=== PATIENT | female | born 1950 | race Asian ===

== ENCOUNTER 2019-09-25 20:40 | Inpatient (IN) | payer OTHER ==
[~2019-09-25] VITALS: Ht 165.1 cm; Wt 67.6 kg
[2019-09-25 20:50] VITALS: BP 174/81
--- NOTE | 2019-09-25 20:50 | NUR ---
ED Nurse Note: Pt brought into ED from home by FAYE RA 826 for c/o R sided pain s/p mechanical fall at 1800 today. Pt reports severe 10/10 pain to R hip that radiates down to R leg. Pt denies taking any blood thinners or hitting her head. Pt states she just tripped while walking. Pt is aaox4, no cardiac distress noted. Pt is having labored breathing, appears anxious. Wheezing noted. Pt connected to bus monitor. ERMD at bedside. Will continue to monitor.
--- NOTE | 2019-09-25 20:55 | NUR ---
ED Nurse Note: No shortening of R leg noted.
--- NOTE | 2019-09-25 20:59 | Emergency Room Report ---
History of Present Illness General Chief Complaint: Multiple Trauma/Fall Source: Patient Present Illness HPI Patient tripped and fell. 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 She fell onto her right hip. She is unable to ambulate and has pain there. The pain is severe radiating down her leg. She has been prior neurologic impairments and has some decreased sensation on that side. She denies any head trauma or loss of consciousness. Patient has a history of asthma and is wheezing at this time. CVA 10 years ago. Transported by BLS. The patient is not answering most questions with review of systems. Allergies: Coded Allergies: No Known Allergies (Unverified , 09/25/19) Patient History Limited by: medical condition Past Medical History: see triage record Social History: Denies: smoking, alcohol use, drug use Social History Narrative From home with family Last Menstrual Period: na Reviewed Nursing Documentation: PMH: Agreed; PSxH: Agreed Nursing Documentation-PMH Past Medical History: No History, Except For Hx Pacemaker: No Hx Asthma: Yes Hx COPD: No Hx Diabetes: No Hx Cancer: No Hx Gastrointestinal Problems: No Hx Dialysis: No History Of Psychiatric Problem: No Hx Neurological Problems: No Hx Cerebrovascular Accident: No Hx Seizures: No Review of Systems All Other Systems: limited Physical Exam Vital Signs Date Time Temp Pulse Resp B/P (MAP) Pulse Ox O2 Delivery O2 Flow Rate FiO2 09/25/19 20:34 97.7 88 18 174/81 (112) 98 Room Air Sp02 EP Interpretation: reviewed, normal General Appearance: alert, mild distress Head: normocephalic Eyes: bilateral eye normal inspection, bilateral eye PERRL, bilateral eye EOMI ENT: moist mucus membranes Neck: supple Respiratory: respiratory distress - Minimal, wheezing, expiration Cardiovascular #1: regular rate, rhythm Cardiovascular #2: 2+ dorsalis pedis (R) Gastrointestinal: normal inspection, non tender, no mass, non-distended, decreased bowel sounds Genitourinary: no CVA tenderness Musculoskeletal: no calf tenderness, tender - Right hip and pelvis no external rotation or shortening, tenderness to compression of pelvis and right hip Neurologic: alert, motor weakness - Right hemiparesis Psychiatric: anxious Skin: no rash, warm/dry Medical Decision Making Diagnostic Impression: Primary Impression: Pelvic fracture Qualified Codes: S32.9XXA - Fracture of unspecified parts of lumbosacral spine and pelvis, initial encounter for closed fracture Additional Impressions: Bronchospasm Status post stroke Ruled Out: Closed right hip fracture ER Course Patient presents post slip and fall with right hip and pelvis pain. Differential includes contusion, fracture amongst others. Evaluation with EKG, chest x-ray and a pelvis and right hip x-rays and labs. She is unable to ambulate at this time. Patient be treated with gentle IV hydration and analgesia. A breathing treatment is ordered. EKG normal sinus rhythm right axis with nonspecific ST-T wave changes rate 79. Chest x-ray unremarkable. Pelvis and right hip initially read by ER physician as positive fracture. Sleeping after morphine. O2 sat minimally low. Oxygen begun. CO2 = 37. Stable for medical floor. 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 Contacted. (This note was changed due to CT scan performed on the floor. Hip fracture excluded however the patient has a pelvic fracture.) Laboratory Tests Test 09/25/19 21:00 09/25/19 21:30 09/26/19 04:45 White Blood Count 14.6 K/UL (4.8-10.8) H 12.6 K/UL (4.8-10.8) H Red Blood Count 4.53 M/UL (4.20-5.40) 4.01 M/UL (4.20-5.40) L Hemoglobin 14.0 G/DL (12.0-16.0) 12.8 G/DL (12.0-16.0) Hematocrit 43.9 % (37.0-47.0) 36.8 % (37.0-47.0) L Mean Corpuscular Volume 97 FL (80-99) 92 FL (80-99) Mean Corpuscular Hemoglobin 30.8 PG (27.0-31.0) 31.9 PG (27.0-31.0) H Mean Corpuscular Hemoglobin Concent 31.8 G/DL (32.0-36.0) L 34.7 G/DL (32.0-36.0) Red Cell Distribution Width 12.6 % (11.6-14.8) 11.9 % (11.6-14.8) Platelet Count 222 K/UL (150-450) 183 K/UL (150-450) Mean Platelet Volume 9.0 FL (6.5-10.1) 7.1 FL (6.5-10.1) Neutrophils (%) (Auto) 82.4 % (45.0-75.0) H 82.7 % (45.0-75.0) H Lymphocytes (%) (Auto) 10.0 % (20.0-45.0) L 11.3 % (20.0-45.0) L Monocytes (%) (Auto) 5.1 % (1.0-10.0) 5.3 % (1.0-10.0) Eosinophils (%) (Auto) 1.5 % (0.0-3.0) 0.1 % (0.0-3.0) Basophils (%) (Auto) 1.1 % (0.0-2.0) 0.6 % (0.0-2.0) Prothrombin Time 10.1 SEC (9.30-11.50) Prothrombin Time INR 0.9 (0.9-1.1) Activated Partial Thromboplast Time 27 SEC (23-33) Sodium Level 138 MMOL/L (136-145) 138 MMOL/L (136-145) Potassium Level 3.6 MMOL/L (3.5-5.1) 3.7 MMOL/L (3.5-5.1) Chloride Level 101 MMOL/L (98-107) 102 MMOL/L (98-107) Carbon Dioxide Level 28 MMOL/L (21-32) 29 MMOL/L (21-32) Anion Gap 9 mmol/L (5-15) 8 mmol/L (5-15) Blood Urea Nitrogen 15 mg/dL (7-18) 12 mg/dL (7-18) Creatinine 0.6 MG/DL (0.55-1.30) 0.6 MG/DL (0.55-1.30) Estimate Glomerular Filtration Rate mL/min (>60) mL/min (>60) Glucose Level 132 MG/DL (74-106) H 139 MG/DL (74-106) H Calcium Level 9.6 MG/DL (8.5-10.1) 8.9 MG/DL (8.5-10.1) Total Bilirubin 0.3 MG/DL (0.2-1.0) 0.4 MG/DL (0.2-1.0) Aspartate Amino Transferase (AST) 36 U/L (15-37) 27 U/L (15-37) Alanine Aminotransferase (ALT) 44 U/L (12-78) 30 U/L (12-78) Alkaline Phosphatase 58 U/L (46-116) 44 U/L (46-116) L Total Protein 8.4 G/DL (6.4-8.2) H 7.0 G/DL (6.4-8.2) Albumin 4.1 G/DL (3.4-5.0) 3.3 G/DL (3.4-5.0) L Globulin 4.3 g/dL 3.7 g/dL Albumin/Globulin Ratio 1.0 (1.0-2.7) 0.9 (1.0-2.7) L Urine Color Pale yellow Urine Appearance Clear Urine pH 5 (4.5-8.0) Urine Specific [place] 1.020 (1.005-1.035) Urine Protein Negative (NEGATIVE) Urine Glucose (UA) Negative (NEGATIVE) Urine Ketones 1+ (NEGATIVE) H Urine Blood 2+ (NEGATIVE) H Urine Nitrite Negative (NEGATIVE) Urine Bilirubin Negative (NEGATIVE) Urine Urobilinogen Normal MG/DL (0.0-1.0) Urine Leukocyte Esterase Negative (NEGATIVE) Urine RBC 2-4 /HPF (0 - 2) H Urine WBC 0-2 /HPF (0 - 2) Urine Squamous Epithelial Cells Occasional /LPF Urine Bacteria Occasional /HPF (NONE) Thyroid Stimulating Hormone (TSH) 1.012 uiU/mL (0.358-3.740) EKG Diagnostic Results Rate: normal Rhythm: NSR ST Segments: no acute changes - Right axis and nonspecific ST-T wave changes Rhythm Strip Diag. Results EP Interpretation: yes Rhythm: NSR, no PVC's, no ectopy Chest X-Ray Diagnostic Results Chest X-Ray Diagnostic Results : Chest X-Ray Ordered: Yes # of Views/Limited/Complete: 1 View Indication: Shortness of Breath EP Interpretation: Yes Interpretation: no effusion, no pneumothorax, other - copd Impression: Other Electronically Signed by: Electronically signed by Cristhian Arroyo MD Other X-Ray Diagnostic Results Other X-Ray Diagnostic Results : X-Ray ordered: Pelvis and right hip # of Views/Limited Vs Complete: 2 View Indication: Pain EP Interpretation: Yes Interpretation: no dislocation, no soft tissue swelling, other - Surgical neck fracture with minimal angulation -initial reading in error Impression: Other Electronically Signed by: Electronically signed by Cristhian Arroyo MD Last Vital Signs Date Time Temp Pulse Resp B/P (MAP) Pulse Ox O2 Delivery O2 Flow Rate FiO2 09/26/19 09:00 Room Air 09/26/19 08:50 92 1.0 24 09/26/19 07:59 98.6 78 19 152/70 (97) Status: improved Disposition: ADMITTED INPATIENT Condition: Serious Cristhian Arroyo MD Sep 25, 2019 20:59
[2019-09-25] MEDS ORDERED: Sodium Chloride 550 ML IV SCH (21:00)
[2019-09-25] MEDS ORDERED: Morphine Sulfate 4mg/ml Inj (IV USE ONLY) IVP ONE (21:00)
[2019-09-25] MEDS ORDERED: Albuterol/Ipratropium 3ml neb HHN ONE (21:00)
--- NOTE | 2019-09-25 21:00 | NUR ---
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
[2019-09-25] MEDS ORDERED: Morphine Sulfate 2mg/ml Inj(IV/IM USE ONLY) IM ONE (21:30)
[2019-09-25 21:53] LABS: BASOPHILS % (AUTO) 1.1 % (0.0-2.0); EOSINOPHILS % (AUTO) 1.5 % (0.0-3.0); HEMATOCRIT 43.9 % (37.0-47.0); MEAN CORPUSCULAR VOLUME 97 FL (80-99); MONOCYTES % (AUTO) 5.1 % (1.0-10.0); NEUTROPHILS % (AUTO) 82.4 % (45.0-75.0); PLATELET COUNT 222 K/UL (150-450); RED BLOOD COUNT 4.53 M/UL (4.20-5.40); RED CELL DISTRIBUTION WIDTH 12.6 % (11.6-14.8); WHITE BLOOD COUNT 14.6 K/UL (4.8-10.8)
[2019-09-25 21:54] LABS: ANION GAP 9 mmol/L (5-15); BLOOD UREA NITROGEN 15 mg/dL (7-18); CALCIUM 9.6 MG/DL (8.5-10.1); CARBON DIOXIDE 28 MMOL/L (21-32); CHLORIDE 101 MMOL/L (98-107); CREATININE 0.6 MG/DL (0.55-1.30); POTASSIUM 3.6 MMOL/L (3.5-5.1); SODIUM 138 MMOL/L (136-145)
[2019-09-25 21:59] LABS: APPEARANCE,URINE CLEAR; BILIRUBIN, URINE NEGATIVE (NEGATIVE); COLOR,URINE PALE YELLOW; GLUCOSE, URINE (UA) NEGATIVE (NEGATIVE); KETONES,URINE 1+ (NEGATIVE); LEUKOCYTE ESTERASE ,URINE NEGATIVE (NEGATIVE); NITRITE,URINE NEGATIVE (NEGATIVE); PH,URINE 5 (4.5-8.0); PROTEIN,URINE NEGATIVE (NEGATIVE); UROBILINOGEN,URINE NORMAL MG/DL (0.0-1.0)
[2019-09-25 21:59] LABS: ALANINE AMINOTRANSFERASE 44 U/L (12-78); ALBUMIN 4.1 G/DL (3.4-5.0); ALKALINE PHOSPHATASE 58 U/L (46-116); ASPARTATE AMINO TRANSFERASE 36 U/L (15-37); BILIRUBIN,TOTAL 0.3 MG/DL (0.2-1.0)
[2019-09-25 22:00] VITALS: BP 160/75
--- NOTE | 2019-09-25 22:00 | NUR ---
ED Nurse Note: Pt appears more comfortable at this time after being given morphine for pain. Pt RR is 14, but oxygen saturation dropped to 87% on RA. ERMD informed of oxygen saturation and pt placed on 1L oxygen via NC per ERMD.
[2019-09-25 22:09] LABS: INR 0.9 (0.9-1.1)
[2019-09-25 22:20] VITALS: BP 155/85
--- NOTE | 2019-09-25 22:20 | NUR ---
ED Nurse Note: Pt tolerating oxygen via NC well. Pt is sleeping at this time, oxygen saturation is now 94% on 1L oxygen via NC. Will continue to monitor pt and respiratory status.
[2019-09-25] MEDS ORDERED: Zolpidem 5mg tab ORAL PRN (22:30)
[2019-09-25] MEDS ORDERED: Miralax 17gm pkt ORAL PRN (22:30)
--- NOTE | 2019-09-25 23:15 | NUR ---
ED Nurse Note: Report given to DOMINGA Graves.
--- NOTE | 2019-09-26 | NUR ---
ED Nurse Note: Pt is sleeping at this time, no acute distress noted. VSS. Will continue to monitor. Awaiting on pt to be taken to unit after CO2 monitoring is completed by RT.
--- NOTE | 2019-09-26 00:45 | NUR ---
ED Nurse Note: Pt is stable to be moved to MS unit at this time, per ERMD. Pt is sleeping at this time, no acute distress noted. Pt taken to unit via gurney by tech. Pt belongings sent with pt. VSS. Pt own medication taken from pt and placed in med box in ER med room.
--- NOTE | 2019-09-26 01:00 | NUR ---
NURSE NOTES: PATIENT WAS SAFELY TRANSFERRED TO UNIT VIA GURNEY. RECEIVED REPORT FROM DOMINGA BACA. BELONGING LIST WAS REVIEWED AND SIGNED WITH PATIENT. PATIENT IS AWAKE, AAOX4, ON NL 1L, C/O 10/10 PAIN IN RIGHT HIP. BRUISING NOTED ON RIGHT ANKLE FROM PRIOR FALL AT HOME. PATIENT IS A HIGH FALL RISK. PLACED PATIENT IN ROOM NEAR NURSING STATION. YELLOW GOWN, YELLOW SOCKS AND YELLOW ARM BAND IN PLACED. COMMUNICATED TO STAFF ABOUT FREQUENT ROUNDING. BED IS LOCKED AND LOW, BED ALARMS ACTIVE ON ZONE 2, SIDE RAILS UP X2 AND CALL LIGHT IS WITHIN REACH. WILL CONTINUE TO MONITOR.
[2019-09-26] MEDS: D5 1/2NS 1,000 ML IV SCH ×2 (02:07→17:23)
[2019-09-26 04:00] VITALS: BP_SYST 110; BP_SYST 123; BP_DIAS 67; BP_DIAS 71
[2019-09-26 06:40] LABS: BASOPHILS % (AUTO) 0.6 % (0.0-2.0); EOSINOPHILS % (AUTO) 0.1 % (0.0-3.0); HEMATOCRIT 36.8 % (37.0-47.0); HEMOGLOBIN 12.8 G/DL (12.0-16.0); LYMPHOCYTES % (AUTO) 11.3 % (20.0-45.0); MEAN CORPUSCULAR VOLUME 92 FL (80-99); MONOCYTES % (AUTO) 5.3 % (1.0-10.0); NEUTROPHILS % (AUTO) 82.7 % (45.0-75.0); PLATELET COUNT 183 K/UL (150-450); RED BLOOD COUNT 4.01 M/UL (4.20-5.40); RED CELL DISTRIBUTION WIDTH 11.9 % (11.6-14.8); WHITE BLOOD COUNT 12.6 K/UL (4.8-10.8)
[2019-09-26 07:01] LABS: ALANINE AMINOTRANSFERASE 30 U/L (12-78); ALBUMIN 3.3 G/DL (3.4-5.0); ALBUMIN/GLOBULIN RATIO 0.9 (1.0-2.7); ALKALINE PHOSPHATASE 44 U/L (46-116); ANION GAP 8 mmol/L (5-15); ASPARTATE AMINO TRANSFERASE 27 U/L (15-37); BILIRUBIN,TOTAL 0.4 MG/DL (0.2-1.0); BLOOD UREA NITROGEN 12 mg/dL (7-18); CALCIUM 8.9 MG/DL (8.5-10.1); CARBON DIOXIDE 29 MMOL/L (21-32); CHLORIDE 102 MMOL/L (98-107); CREATININE 0.6 MG/DL (0.55-1.30); POTASSIUM 3.7 MMOL/L (3.5-5.1); SODIUM 138 MMOL/L (136-145)
[2019-09-26 07:59] VITALS: BP 152/70
[2019-09-26] MEDS: Heparin 5000 units/ml inj SUBQ SCH ×2 (09:00→20:20)
--- NOTE | 2019-09-26 09:01 | NUR ---
CASE MANAGEMENT: INITIAL REVIEW 69YR OLD FEMALE BIBA FROM HOME CC:MULTIPLE TRAMA / FALL SI:RIGHT HIP FRACTURE 97.7 88 174/81 98% ON RA WBC 14.6 BG 132 T.PROTEIN 8.4 IS:IVF NS BOLUS X1 IV MORPHINE SULFATE X2 ALBUTEROL HHN X1 ZOFRAN PO X1 \: 3E MED SURG UNIT DCP: HOME WHEN STABLE CASE MANAGEMENT: REVIEW 09/26/2019 SI:CLOSED RIGHT HIP FRACTURE . BRONCHOSPASM . S/P STROKE 98.6 78 19 152/70 97% ON RA WBC 12.6 BG 139 ALK-PHOS 44 IS:IVF D5@50ML/HR \: 3E MED SURG UNIT DCP: HOME WHEN STABLE PLAN: IV HYDRATION CONSULT SURGERY
[2019-09-26] MEDS: Morphine Sulfate 4mg/ml Inj (IV USE ONLY) IVP PRN ×2 (09:24→13:30)
--- NOTE | 2019-09-26 09:32 | Diagnostic Imaging Report ---
Indication: Hip pain Technique: continuous helical imaging in the transaxial plane was performed from the iliac crests to the pubic symphysis with attention to the right hip. Coronal 2-D reformatted images were also generated. Study obtained in a Siemens Sensation [address] total DLP: 678.5 mGycm CTD/vol: 18 mGy Comparison: None Findings: There is a severely comminuted fracture of the superior portion of the ileum primarily involving the right iliac crest with multiple bone fragments. The fracture extends into the right sacroiliac joint which is diastatic. There is a 3 mm bone fragment at the lower margin of the sacroiliac joint probably intra-articular (e.g. #39/2 or e.g. #37/8). There is no involvement of the acetabulum. There is a moderate degree of soft tissue swelling both lateral and medial to the iliac fracture with lateral gluteal ill-definition and edema as well as medial soft tissue attenuation of fat which (likely due to blood) with edema/blood of a portion of the right piriformis muscle noted. No other fractures are identified. The right femoral neck and head appear normal without fracture or malalignment. No fracture of the sacrum or pubis identified. The bones are osteopenic. The visualized part of the lower lumbar spine appears intact. There is some hypertrophy of the facets and narrowing of the intervertebral discs. There is a Leigh catheter within the urinary bladder which is mostly nondistended. IMPRESSION: Severe, comminuted fracture of the right iliac crest and superior ilium with intra-articular extension into the right sacroiliac joint which is diastatic. Acetabulum and hip appear intact. Leigh catheter. The CT scanner at [facility] is accredited by the [employer] and the scans are performed using dose optimization techniques as appropriate to a performed exam including Automatic Exposure control.
--- NOTE | 2019-09-26 10:28 | NUR ---
NURSE NOTES: RN RECEIVED TELEPHONE ORDER FROM DR CORTEZ FOR STAT CT RIGHT HIP WITHOUT CONTRAST. ORDER ENTERED. RN INFORMED PT AND PT VERBALIZED UNDERSTANDING. RN LEFT MESSAGE FOR DR WILKERSON AND DR EDOUARD REGARDING PT HAVING NO PRN PAIN MEDICATIONS OR NAUSEA MEDS. RN RECEIVED ORDERS FOR MORPHINE 4MG IVP PRN Q4H FOR SEVERE PAIN AND ZOFRAN 4MG IVP PRN Q4H FOR NAUSEA. RN LEFT MESSAGE FOR DR CORTEZ REGARDING CT RESULTS.
--- NOTE | 2019-09-26 11:43 | Diagnostic Imaging Report ---
Indication: Dyspnea Comparison: None A single view chest radiograph was obtained. Findings: Pulmonary vascular congestion may be present and is mild. Heart size is normal. Bones are osteopenic. No pleural effusion seen. IMPRESSION: Possible mild pulmonary vascular congestion. Correlate clinically
--- NOTE | 2019-09-26 11:45 | Diagnostic Imaging Report ---
Indications: Right hip pain Findings: Two views of the right hip were obtained. Fracture of the right iliac crest demonstrated on one of the views obtained. CT was subsequently obtained. The right sacroiliac joint appears widened. The bones are diffusely osteopenic. The study is limited due to portable technique. IMPRESSION: Acute fracture of the right ilium in the area of the iliac crest. Diastases of the right sacroiliac joint
[2019-09-26 12:00] VITALS: BP 169/69
--- NOTE | 2019-09-26 12:55 | Consultation ---
History of Present Illness General Date patient seen: Sep 26, 2019 Chief Complaint: Multiple Trauma/Fall Present Illness HPI 69 year old male with hx of CVA and weakness on the right-hand side, asthma brought in by paramedics after an episode of tripped and fall. She fell onto her right hip. She was unable to ambulate. The pain is severe radiating down her leg. Patient has a history of asthma and was wheezing in ER. CVA 10 years ago. Allergies: Coded Allergies: No Known Allergies (Unverified , 09/25/19) Patient History Healthcare decision maker Resuscitation status Full Code Advanced Directive on File Past Medical/Surgical History Past Medical/Surgical History: (1) CVA (cerebral vascular accident) (2) History of asthma (3) Status post stroke Review of Systems All Other Systems: negative except mentioned in HPI Physical Exam General Appearance: WD/WN Lines, tubes and drains: peripheral HEENT: normocephalic, atraumatic Neck: non-tender, normal alignment Respiratory/Chest: chest wall non-tender, lungs clear Breasts: no masses Cardiovascular/Chest: normal rate Abdomen: normal bowel sounds, soft Genitourinary/Rectal: normal genital exam Last 24 Hour Vital Signs Date Time Temp Pulse Resp B/P (MAP) Pulse Ox O2 Delivery O2 Flow Rate FiO2 09/26/19 12:00 98.3 66 18 169/69 (102) 97 09/26/19 09:00 Room Air 09/26/19 08:50 92 Nasal Cannula 1.0 24 09/26/19 07:59 98.6 78 19 152/70 (97) 97 09/26/19 04:00 97.7 72 18 123/71 (88) 97 09/26/19 02:53 Nasal Cannula 1.0 09/26/19 00:45 97.7 77 18 145/76 99 Nasal Cannula 1.0 09/25/19 22:20 97.7 78 15 155/85 94 Nasal Cannula 1.0 09/25/19 22:00 97.7 81 14 160/75 87 Room Air 09/25/19 21:56 97.7 09/25/19 21:16 78 18 100 Room Air 74 18 100 09/25/19 20:50 88 18 Room Air 09/25/19 20:50 97.7 80 18 174/81 98 Room Air 09/25/19 20:34 97.7 88 18 174/81 (112) 98 Room Air Intake and Output 09/25/19 09/26/19 18:59 06:59 Intake Total 350 ml Output Total 400 ml Balance -50 ml Intake IV Total 350 ml Output Urine Total 400 ml Laboratory Tests Test 09/25/19 21:00 09/25/19 21:30 09/26/19 04:45 White Blood Count 14.6 K/UL (4.8-10.8) H 12.6 K/UL (4.8-10.8) H Red Blood Count 4.53 M/UL (4.20-5.40) 4.01 M/UL (4.20-5.40) L Hemoglobin 14.0 G/DL (12.0-16.0) 12.8 G/DL (12.0-16.0) Hematocrit 43.9 % (37.0-47.0) 36.8 % (37.0-47.0) L Mean Corpuscular Volume 97 FL (80-99) 92 FL (80-99) Mean Corpuscular Hemoglobin 30.8 PG (27.0-31.0) 31.9 PG (27.0-31.0) H Mean Corpuscular Hemoglobin Concent 31.8 G/DL (32.0-36.0) L 34.7 G/DL (32.0-36.0) Red Cell Distribution Width 12.6 % (11.6-14.8) 11.9 % (11.6-14.8) Platelet Count 222 K/UL (150-450) 183 K/UL (150-450) Mean Platelet Volume 9.0 FL (6.5-10.1) 7.1 FL (6.5-10.1) Neutrophils (%) (Auto) 82.4 % (45.0-75.0) H 82.7 % (45.0-75.0) H Lymphocytes (%) (Auto) 10.0 % (20.0-45.0) L 11.3 % (20.0-45.0) L Monocytes (%) (Auto) 5.1 % (1.0-10.0) 5.3 % (1.0-10.0) Eosinophils (%) (Auto) 1.5 % (0.0-3.0) 0.1 % (0.0-3.0) Basophils (%) (Auto) 1.1 % (0.0-2.0) 0.6 % (0.0-2.0) Prothrombin Time 10.1 SEC (9.30-11.50) Prothromb Time International Ratio 0.9 (0.9-1.1) Activated Partial Thromboplast Time 27 SEC (23-33) Sodium Level 138 MMOL/L (136-145) 138 MMOL/L (136-145) Potassium Level 3.6 MMOL/L (3.5-5.1) 3.7 MMOL/L (3.5-5.1) Chloride Level 101 MMOL/L (98-107) 102 MMOL/L (98-107) Carbon Dioxide Level 28 MMOL/L (21-32) 29 MMOL/L (21-32) Anion Gap 9 mmol/L (5-15) 8 mmol/L (5-15) Blood Urea Nitrogen 15 mg/dL (7-18) 12 mg/dL (7-18) Creatinine 0.6 MG/DL (0.55-1.30) 0.6 MG/DL (0.55-1.30) Estimat Glomerular Filtration Rate mL/min (>60) mL/min (>60) Glucose Level 132 MG/DL (74-106) H 139 MG/DL (74-106) H Calcium Level 9.6 MG/DL (8.5-10.1) 8.9 MG/DL (8.5-10.1) Total Bilirubin 0.3 MG/DL (0.2-1.0) 0.4 MG/DL (0.2-1.0) Aspartate Amino Transf (AST/SGOT) 36 U/L (15-37) 27 U/L (15-37) Alanine Aminotransferase (ALT/SGPT) 44 U/L (12-78) 30 U/L (12-78) Alkaline Phosphatase 58 U/L (46-116) 44 U/L (46-116) L Total Protein 8.4 G/DL (6.4-8.2) H 7.0 G/DL (6.4-8.2) Albumin 4.1 G/DL (3.4-5.0) 3.3 G/DL (3.4-5.0) L Globulin 4.3 g/dL 3.7 g/dL Albumin/Globulin Ratio 1.0 (1.0-2.7) 0.9 (1.0-2.7) L Urine Color Pale yellow Urine Appearance Clear Urine pH 5 (4.5-8.0) Urine Specific [place] 1.020 (1.005-1.035) Urine Protein Negative (NEGATIVE) Urine Glucose (UA) Negative (NEGATIVE) Urine Ketones 1+ (NEGATIVE) H Urine Blood 2+ (NEGATIVE) H Urine Nitrite Negative (NEGATIVE) Urine Bilirubin Negative (NEGATIVE) Urine Urobilinogen Normal MG/DL (0.0-1.0) Urine Leukocyte Esterase Negative (NEGATIVE) Urine RBC 2-4 /HPF (0 - 2) H Urine WBC 0-2 /HPF (0 - 2) Urine Squamous Epithelial Cells Occasional /LPF Urine Bacteria Occasional /HPF (NONE) Thyroid Stimulating Hormone (TSH) 1.012 uiU/mL (0.358-3.740) Height (Feet): 5 Height (Inches): 5.00 Weight (Pounds): 135 Medications Current Medications Medications (Trade) Dose Ordered Sig/Yesenia Route PRN Reason Start Time Stop Time Status Last Admin Dose Admin Acetaminophen (Tylenol) 650 mg Q4H PRN ORAL fever 09/25/19 22:30 10/25/19 22:29 Acetaminophen/ Hydrocodone Bitart ([place] 5/325) 1 tab Q6H PRN ORAL Mild Pain (Pain Scale 1-3) 09/26/19 09:15 10/03/19 09:14 Dextrose (Dextrose 50%) 25 ml Q30M PRN IV Hypoglycemia 09/25/19 22:30 10/25/19 22:29 Dextrose (Dextrose 50%) 50 ml Q30M PRN IV Hypoglycemia 09/25/19 22:30 10/25/19 22:29 Dextrose/Sodium Chloride 1,000 ml @ 50 mls/hr Q20H IV 09/25/19 22:27 10/25/19 22:26 09/26/19 02:07 Heparin Sodium (Porcine) (Heparin 5000 units/ml) 5,000 units EVERY 12 HOURS SUBQ 09/26/19 09:00 10/26/19 08:59 Morphine Sulfate (Morphine Sulfate) 4 mg Q4H PRN IVP Severe Pain (Pain Scale 7-10) 09/26/19 09:15 10/03/19 09:14 09/26/19 09:24 Ondansetron HCl (Zofran) 4 mg Q4H PRN IVP Nausea & Vomiting 09/26/19 09:30 10/26/19 09:29 09/26/19 09:23 Polyethylene Glycol (Miralax) 17 gm HSPRN PRN ORAL Constipation 09/25/19 22:30 10/25/19 22:29 Zolpidem Tartrate (Ambien) 5 mg HSPRN PRN ORAL Insomnia 09/25/19 22:30 10/02/19 22:29 Assessment/Plan Problem List: (1) Closed right hip fracture ICD Codes: S72.001A - Fracture of unspecified part of neck of right femur, initial encounter for closed fracture SNOMED: 726409622 Qualifiers: Qualified Codes: S72.001A - Fracture of unspecified part of neck of right femur, initial encounter for closed fracture (2) Bronchospasm ICD Codes: J98.01 - Acute bronchospasm SNOMED: 2949227 (3) Status post stroke ICD Codes: Z86.73 - Personal history of transient ischemic attack (TIA), and cerebral infarction without residual deficits SNOMED: 477059246 (4) History of asthma ICD Codes: Z87.09 - Personal history of other diseases of the respiratory system SNOMED: 644601860 (5) CVA (cerebral vascular accident) ICD Codes: I63.9 - Cerebral infarction, unspecified SNOMED: 359137051 Assessment/Plan: respiratory treatment titrate fio2 to sat of 92% pain management antinausea, tiral Reglan orhto evaluation dvt prophylaxis Morphine for pain Rox Limon MD Sep 26, 2019 12:55
[2019-09-26] MEDS ORDERED: Promethazine HCl 25 MG in NS 55 ML IVPB PRN (13:00)
--- NOTE | 2019-09-26 13:52 | NUR ---
NURSE NOTES: PT REQUESTS FOR PAIN MEDICATION, BUT DOES NOT WANT ANTI-EMETIC MEDICATION. PT WAS EDUCATED ON NEW ORDER BY DR WILKERSON FOR IVPB PHENERGAN BUT PT CONTINUED TO REFUSE. PT EDUCATED THAT MORPHINE MAY EXACERBATE HER NAUSEA. PT CONTINUED TO REFUSE. RN ADMINISTERED PRN MORPHINE 4MG IVP ORDERED. WILL CONTINUE TO MONITOR.
--- NOTE | 2019-09-26 15:17 | NUR ---
*-* INSURANCE *-* ALL CLINICALS AND REVIEWS HAVE BEEN FAXED TO: Drake Rudolph CM or ref# for #[id number] fax# [phone]
--- NOTE | 2019-09-26 15:54 | NUR ---
NURSE NOTES: PER DR CORTEZ, NO SURGICAL INTERVENTION PLANNED.
[2019-09-26 16:00] VITALS: BP 158/83
--- NOTE | 2019-09-26 17:14 | History & Physical ---
History and Physical History & Physicial Yonis Granados MD Sep 26, 2019 17:14
[2019-09-26] MEDS: Albuterol/Ipratropium 3ml neb HHN SCH ×2 (18:13→23:20)
--- NOTE | 2019-09-26 19:10 | NUR ---
HAND-OFF: Report given to Lior MANNING RN.
--- NOTE | 2019-09-26 19:23 | NUR ---
NURSE NOTES: Patient in bed, awake and alert x4. No signs of distress or SOB. IV intact and running fluids as ordered. No C/O pain at this time. Bed locked and in lowest position. Call light in easy reach. Will continue to monitor the patient.
--- NOTE | 2019-09-26 19:45 | History and Physical Report ---
DATE OF ADMISSION: 09/25/2019 CHIEF COMPLAINT: Fall with right hip injury. HISTORY OF PRESENT ILLNESS: This is a 69-year-old Romanian female with past medical history significant for CVA with the right-sided weakness, history of asthma, who presented to the emergency department via ambulance after had a trip and fall sustaining injury to the right side. The patient was noted to have severe pain on the right hip area upon arrival. After initial in the evaluation emergency department confirmed to have the acute fracture of the right ilium in the area of the iliac crest on x-ray and subsequently the patient was admitted to the hospital for further evaluation and therapy. PAST MEDICAL HISTORY/PAST SURGICAL HISTORY: As above history of CVA with right-sided weakness, asthma, 10 years ago. MEDICATIONS AT HOME: Please refer to medication reconciliation. ALLERGIES: No known drug allergies. SOCIAL HISTORY: Denies any smoking, alcohol, or drugs. FAMILY HISTORY: Noncontributory. REVIEW OF SYSTEMS: Mostly as above denies any dysuria, frequency, hematuria. Denies any hemoptysis or hematochezia. Complained of wheezes and shortness of breath. Denies any hemoptysis or hematochezia. Denies any suicidal or homicidal ideation. PHYSICAL EXAMINATION: VITAL SIGNS: On admission from the ER, temperature 97.7, pulse of 88, respirations 18, and blood pressure is 174/81, repeat one is 160/75. GENERAL: The patient is awake, responsive, no acute distress. HEAD AND NECK: Pupils are equal and reactive to light. Extraocular movements intact. Neck was supple. No JVD. LUNGS: Good air entry. No rhonchi. Positive expiratory wheezes. HEART: S1 and S2. Regular rhythm. No murmurs or gallops. ABDOMEN: Soft, nondistended, nontender. Positive bowel sounds. EXTREMITIES: No cyanosis, clubbing, edema NEUROLOGIC: Cranial nerves II through XII grossly normal. The patient moving all the extremities. ASSESSMENT: Subsequently, the patient was admitted to the hospital with acute pelvic fracture. 1. Status post fall with pelvic fracture. 2. Asthma. 3. History of CVA with right-sided weakness. 4. Elevated blood pressure. PLAN: Admit the patient to medical floor. We will follow up with Dr. Galo consultation from orthopedics and Dr. Limon Pulmonary Critical Care. Code status is Full Code. DVT prophylaxis, heparin subcutaneous. Continue pain medication. CT of the hip area. Yonis Granados M.D. DR: Yousif JOB#: [id number] CC:
[2019-09-26 20:00] VITALS: BP 151/73
--- NOTE | 2019-09-26 21:45 | Consultation ---
DATE OF CONSULTATION: 09/26/2019 ORTHOPEDIC CONSULTATION CONSULTING PHYSICIAN: Marcelino Galo M.D. CHIEF COMPLAINT: Right hip pain. HISTORY OF PRESENT ILLNESS: The patient is a pleasant 69-year-old female who presents after fall. She was diagnosed with a possible right hip fracture. Orthopedic consultation for further care and recommendation. PAST MEDICAL HISTORY: Reviewed from the intake chart. PAST SURGICAL HISTORY: Reviewed from the intake chart. MEDICATIONS: Reviewed from the intake chart. PHYSICAL EXAMINATION: Tenderness over right iliac crest. Vital signs, afebrile. Stable vital signs. The patient is nauseous. Posterior calf is soft. Neurovascular is normal. IMAGING: CT scan on the right hip shows a comminuted iliac wing fracture. ASSESSMENT: Right comminuted iliac wing fracture. DISCUSSION: At this point, this is a nonoperative fracture, should heal. She can begin physical therapy. Weightbearing as tolerated with a walker. She will have a significant discomfort initially until the fracture consolidates given that the adductor muscles are attached at that area. Therefore, she may have to be transferred to a senior care until she is a little bit more safe to go home. She should get appropriate DVT prophylaxis as per the primary team. Marcelino Galo M.D. DR: АЛЕКСАНДР JOB#: [id number] CC: LB
[2019-09-27] VITALS: BP 105/60
[2019-09-27 04:00] VITALS: BP 99/59
--- NOTE | 2019-09-27 07:25 | NUR ---
NURSE NOTES: Patient in bed, awake, alert, oriented x4. On O2 2L via NC. No signs of distress or SOB. IV patent and intact. IVF infusing well. No C/O pain at this time. Bed locked and in lowest position. siderails are up x3. Call light in easy reach. Will continue to monitor.
--- NOTE | 2019-09-27 07:38 | NUR ---
HAND-OFF: Report given to GENESIS Jackson.
[2019-09-27 08:00] VITALS: BP 107/67
[2019-09-27] MEDS: Albuterol/Ipratropium 3ml neb HHN SCH ×3 (08:25→23:00)
[2019-09-27] MEDS: Heparin 5000 units/ml inj SUBQ SCH ×2 (08:37→20:10)
--- NOTE | 2019-09-27 10:22 | Pulmonology Progress Note ---
Assessment/Plan Assessment/Plan ASSESSMENT Pelvic fracture secondary to fall Asthma History of CVA with right-sided weakness Hypertension Leukocytosis PLAN of CARE MS floor gentle IV hydration CT of the hip revealed severe comminuted fracture of the right iliac crest and superior ilium with intra-articular extension into the right sacroiliac joint, acetabulum and hip appear intact pain management Ortho eval appreciated, no surgery for this type of fracture surgeon cleared to start PT with WBAT DVT prophylaxis O2 HHN prn, no evidence of asthma exacerbation leukocytosis probably reactive, trending down no clear evidence of infection, patient remained afebrile bowel regimen check lipid satellite project site monitor BP, remains at the low side, gentle IVF, repeat CXR and check pro BNP in am supportive care of note: Wolof speaking nurse was used for assesment and explanationg of POC case discussed and evaluated by supervising physician Subjective Allergies: Coded Allergies: No Known Allergies (Unverified , 09/25/19) Subjective no fevers, + pain at pelvic area no dizziness no CP, no SOB Objective Last 24 Hour Vital Signs Date Time Temp Pulse Resp B/P (MAP) Pulse Ox O2 Delivery O2 Flow Rate FiO2 09/27/19 09:00 Room Air 09/27/19 08:36 96 Nasal Cannula 3.0 32 09/27/19 08:36 72 20 98 Nasal Cannula 3.0 32 69 20 94 09/27/19 08:00 98.1 78 18 107/67 (80) 93 09/27/19 04:00 99.4 62 16 99/59 (72) 98 09/27/19 00:00 98.0 63 16 105/60 (75) 96 09/26/19 23:20 65 18 95 Nasal Cannula 3.0 32 62 18 93 09/26/19 20:25 Room Air 09/26/19 20:09 95 Nasal Cannula 3.0 32 09/26/19 20:00 97.9 65 18 151/73 (99) 98 09/26/19 16:00 99.1 67 20 158/83 (108) 97 09/26/19 12:00 98.3 66 18 169/69 (102) 97 Intake and Output 09/26/19 09/27/19 19:00 07:00 Intake Total 690 ml 240 ml Output Total 500 ml Balance 690 ml -260 ml Intake Oral 240 ml 240 ml IV Total 450 ml Output Urine Total 500 ml General Appearance: no acute distress, other - awaake, alert, and oriented Wolof speaking female HEENT: normocephalic, atraumatic, anicteric, mucous membranes moist, PERRL Respiratory/Chest: lungs clear, no respiratory distress, no accessory muscle use Cardiovascular: normal peripheral pulses, normal rate Abdomen: normal bowel sounds, soft, non tender, non distended Extremities: no edema, pedal pulses normal Neurologic/Psychiatric: abnormal gait, alert, oriented x 3, responsive, other - R side paresis Musculoskeletal: atrophy - RLE Current Medications Medications (Trade) Dose Ordered Sig/Yesenia Route PRN Reason Start Time Stop Time Status Last Admin Dose Admin Acetaminophen (Tylenol) 650 mg Q4H PRN ORAL fever 09/25/19 22:30 10/25/19 22:29 09/27/19 09:45 Acetaminophen/ Hydrocodone Bitart ([place] 5/325) 1 tab Q6H PRN ORAL Mild Pain (Pain Scale 1-3) 09/26/19 09:15 10/03/19 09:14 Albuterol/ Ipratropium (Albuterol/ Ipratropium) 3 ml Q8HRT HHN 09/26/19 18:13 10/01/19 18:12 09/27/19 08:25 Clonidine HCl (Catapres Tab) 0.1 mg Q4H PRN ORAL SBP > 160 09/26/19 17:15 10/26/19 17:14 Dextrose (Dextrose 50%) 25 ml Q30M PRN IV Hypoglycemia 09/25/19 22:30 10/25/19 22:29 Dextrose (Dextrose 50%) 50 ml Q30M PRN IV Hypoglycemia 09/25/19 22:30 10/25/19 22:29 Dextrose/Sodium Chloride 1,000 ml @ 50 mls/hr Q20H IV 09/25/19 22:27 10/25/19 22:26 09/26/19 17:23 Heparin Sodium (Porcine) (Heparin 5000 units/ml) 5,000 units EVERY 12 HOURS SUBQ 09/26/19 09:00 10/26/19 08:59 09/27/19 08:37 Morphine Sulfate (Morphine Sulfate) 4 mg Q4H PRN IVP Severe Pain (Pain Scale 7-10) 09/26/19 09:15 10/03/19 09:14 09/26/19 13:30 Ondansetron HCl (Zofran) 4 mg Q4H PRN IVP Nausea & Vomiting 09/26/19 09:30 10/26/19 09:29 09/26/19 09:23 Polyethylene Glycol (Miralax) 17 gm HSPRN PRN ORAL Constipation 09/25/19 22:30 10/25/19 22:29 Promethazine HCl 25 mg/Sodium Chloride 56 ml @ 112 mls/hr Q6H PRN IVPB nausea 09/26/19 13:00 10/26/19 12:59 Zolpidem Tartrate (Ambien) 5 mg HSPRN PRN ORAL Insomnia 09/25/19 22:30 10/02/19 22:29 Jessica Jauregui [employer]RARY CIRCULATION DEPARTMENT CHIEF Sep 27, 2019 10:22
--- NOTE | 2019-09-27 11:00 | NUR ---
NURSE NOTES: SEEN BY PT AND NOT ABLE TO STAND UP. UNABLE TO TAKE STEPS. WILL CONT TO MONITOR.
[2019-09-27 11:57] VITALS: BP 128/62
[2019-09-27] MEDS: HYDROcodone/Acetamin 5/325 tab ORAL PRN ×2 (14:08→20:13)
--- NOTE | 2019-09-27 14:47 | Internal Med Progress Note ---
Subjective Date of Service: Sep 27, 2019 Physician Name AmirahCarlos Attending Physician Yonis Granados MD Current Medications Medications (Trade) Dose Ordered Sig/Yesenia Route PRN Reason Start Time Stop Time Status Last Admin Dose Admin Acetaminophen (Tylenol) 650 mg Q4H PRN ORAL fever 09/25/19 22:30 10/25/19 22:29 09/27/19 09:45 Acetaminophen/ Hydrocodone Bitart ([place] 5/325) 1 tab Q6H PRN ORAL Mild Pain (Pain Scale 1-3) 09/26/19 09:15 10/03/19 09:14 09/27/19 14:08 Albuterol/ Ipratropium (Albuterol/ Ipratropium) 3 ml Q8HRT HHN 09/26/19 18:13 10/01/19 18:12 09/27/19 08:25 Clonidine HCl (Catapres Tab) 0.1 mg Q4H PRN ORAL SBP > 160 09/26/19 17:15 10/26/19 17:14 Dextrose (Dextrose 50%) 25 ml Q30M PRN IV Hypoglycemia 09/25/19 22:30 10/25/19 22:29 Dextrose (Dextrose 50%) 50 ml Q30M PRN IV Hypoglycemia 09/25/19 22:30 10/25/19 22:29 Dextrose/Sodium Chloride 1,000 ml @ 50 mls/hr Q20H IV 09/25/19 22:27 10/25/19 22:26 09/26/19 17:23 Heparin Sodium (Porcine) (Heparin 5000 units/ml) 5,000 units EVERY 12 HOURS SUBQ 09/26/19 09:00 10/26/19 08:59 09/27/19 08:37 Morphine Sulfate (Morphine Sulfate) 4 mg Q4H PRN IVP Severe Pain (Pain Scale 7-10) 09/26/19 09:15 10/03/19 09:14 09/26/19 13:30 Ondansetron HCl (Zofran) 4 mg Q4H PRN IVP Nausea & Vomiting 09/26/19 09:30 10/26/19 09:29 09/26/19 09:23 Polyethylene Glycol (Miralax) 17 gm HSPRN PRN ORAL Constipation 09/25/19 22:30 10/25/19 22:29 Promethazine HCl 25 mg/Sodium Chloride 56 ml @ 112 mls/hr Q6H PRN IVPB nausea 09/26/19 13:00 10/26/19 12:59 Zolpidem Tartrate (Ambien) 5 mg HSPRN PRN ORAL Insomnia 09/25/19 22:30 10/02/19 22:29 Allergies: Coded Allergies: No Known Allergies (Unverified , 09/25/19) ROS Limited/Unobtainable: No Constitutional: Reports: no symptoms HEENT: Reports: no symptoms Cardiovascular: Reports: no symptoms Respiratory: Reports: no symptoms Gastrointestinal/Abdominal: Reports: no symptoms Genitourinary: Reports: no symptoms Neurologic/Psychiatric: Reports: no symptoms Subjective 69 YO F admitted with right hip pain after fall. Now acute fracture right superior ilium and iliac crest. Cover for Int Med-Dr Granados Objective Last Vital Signs Date Time Temp Pulse Resp B/P (MAP) Pulse Ox O2 Delivery O2 Flow Rate FiO2 09/27/19 11:57 98.1 71 18 128/62 (84) 93 09/27/19 09:00 Room Air 09/27/19 08:36 3.0 32 Intake and Output 09/26/19 09/27/19 19:00 07:00 Intake Total 690 ml 240 ml Output Total 500 ml Balance 690 ml -260 ml Intake Oral 240 ml 240 ml IV Total 450 ml Output Urine Total 500 ml Objective PHYSICAL EXAMINATION: GENERAL: The patient is awake, responsive, no acute distress. HEAD AND NECK: Pupils are equal and reactive to light. Extraocular movements intact. Neck was supple. No JVD. LUNGS: Good air entry. No rhonchi. Positive expiratory wheezes. HEART: S1 and S2. Regular rhythm. No murmurs or gallops. ABDOMEN: Soft, nondistended, nontender. Positive bowel sounds. EXTREMITIES: No cyanosis, clubbing, edema NEUROLOGIC: Cranial nerves II through XII grossly normal. The patient moving all the extremities. Assessment/Plan Assessment/Plan SSESSMENT: Subsequently, the patient was admitted to the hospital with acute pelvic fracture. 1. Status post fall. 2. Asthma. 3. History of CVA with right-sided weakness. 4. Elevated blood pressure. 5. right hip pain\ 6. Right superior Ilium fracture 7. Right iliac crest fracture PLAN: 1. Admit the patient to medical floor. 2. Ortho= Dr. Zane Galo 3. Dr. Limon Pulmonary Critical Care. 4. Code status is Full Code. DVT prophylaxis, heparin subcutaneous. Carlos Macario MD Sep 27, 2019 14:46
[2019-09-27] MEDS: D5 1/2NS 1,000 ML IV SCH (15:13)
[2019-09-27 16:00] VITALS: BP 101/56
--- NOTE | 2019-09-27 16:13 | NUR ---
PT note PT sarai completed, treatment initiated. Patient c/o pain on the right pelvic area; has right hemiparesis and poor sitting/standing balance, requiring extensive assist of 2 persons to come to sit at the EOB and attempt to stand. patient needs PT to increase her muscle strength and balance to improve her functional mobility. Addendum: 09/27/19 at 1614 by HERLINDA GUTIERREZ PT Amended: Links added.
--- NOTE | 2019-09-27 19:04 | NUR ---
CASE MANAGEMENT: REVIEW 09/27/2019 SI:CLOSED RIGHT HIP FRACTURE. BRONCHOSPASM. T 98.4 HR 84 RR 21 B/P 101/56 SATS 93% ON 2L/NC LABS: NONE TODAY IS:IVF D5@50ML/HR : 3E MED SURG UNIT DCP: HOME WHEN STABLE
--- NOTE | 2019-09-27 19:21 | NUR ---
HAND-OFF: Report given to Sierra.
--- NOTE | 2019-09-27 19:23 | NUR ---
NURSE NOTES: Received report from GENESIS Jackson. Rounding is done with outgoing nurse. Patient is in bed, awake and a/o x4. Verbally responsive and able to known her needs. Patient c/o pain on Rt hip 01/27 and will give medication as ordered. IV line is intact and patent. Bed in on alarm, locked, and lowest position. Call light within reach. Will continue to monitor.
[2019-09-27 20:00] VITALS: BP 115/58
[2019-09-28] VITALS (26 sets, daily range): BP systolic 88–168; BP diastolic 35–138
--- NOTE | 2019-09-28 03:00 | NUR ---
NURSE NOTES: patient c/o SOB and O2 sat 81% with NC 2L/MIN. Called Dr. Granados and Called RT.
--- NOTE | 2019-09-28 03:15 | NUR ---
NURSE NOTES: Received order from Dr. Granados and carried out. Patient is having breathing tx prn and chest x-ray stat.
--- NOTE | 2019-09-28 04:27 | Diagnostic Imaging Report ---
EXAM: XR Chest, 1 View CLINICAL HISTORY: SOB TECHNIQUE: Frontal view of the chest. COMPARISON: Chest radiograph dated 09/25/19. FINDINGS: Lungs: There is interval worsening with opacification of most of the left hemithorax and leftward mediastinal shift consistent with severe volume loss of the left lung. Pleural space: Unremarkable. No pneumothorax. Heart: Unremarkable. No cardiomegaly. Mediastinum: The trachea is deviated to the left. Bones/joints: Unremarkable. Vasculature: There is calcification of the aortic arch. IMPRESSION: Interval worsening with opacification of the left hemithorax and leftward mediastinal shift consistent with severe volume loss of the left lung. <MYCVCSECTION> Communications: 09/28/19 04:30 Verify Receipt with Nurse Verified receipt with Nurse Khan on 09/28 04:30 (-08:00)
--- NOTE | 2019-09-28 04:43 | NUR ---
NURSE NOTES: Called to Dr. Granados and left message regarding result of Chest x-ray
--- NOTE | 2019-09-28 05:35 | NUR ---
Patient was transferred by myself and another operations staff specialist security to the ICU safely. I gave report to Cailin JUAN ICU.
--- NOTE | 2019-09-28 05:35 | NUR ---
NURSE NOTES: Received pt from 3E from [facility]ci [facility]. Patient Being transferred per MD Granados order for bad Chest Xray. Darwin gave order to [facility] to call ER MD to assess the patient. Patient Currently on non rebreather, complaining of SOB sats noted to be in the 80's. Denies any pain or discomfort at this time. Upon auscultation. Left side lung sounds noted to be very diminished. Will page ER MD at this time.
--- NOTE | 2019-09-28 05:44 | NUR ---
NURSE NOTES: Called and notified ER MD about patient and Chest xray results at this time. Wants patient to be placed on bipap at this time. will come up to see patient
[2019-09-28 05:50] LABS: BASOPHILS % (AUTO) 0.6 % (0.0-2.0); EOSINOPHILS % (AUTO) 2.1 % (0.0-3.0); HEMATOCRIT 37.7 % (37.0-47.0); HEMOGLOBIN 12.9 G/DL (12.0-16.0); LYMPHOCYTES % (AUTO) 15.8 % (20.0-45.0); MEAN CORPUSCULAR VOLUME 93 FL (80-99); MONOCYTES % (AUTO) 8.9 % (1.0-10.0); NEUTROPHILS % (AUTO) 72.5 % (45.0-75.0); PLATELET COUNT 165 K/UL (150-450); RED BLOOD COUNT 4.07 M/UL (4.20-5.40); RED CELL DISTRIBUTION WIDTH 12.1 % (11.6-14.8); WHITE BLOOD COUNT 11.4 K/UL (4.8-10.8)
[2019-09-28] MEDS ORDERED: Albuterol/Ipratropium 3ml neb HHN PRN (05:50)
--- NOTE | 2019-09-28 05:50 | NUR ---
NURSE NOTES: ER MD came to see the patient. ordered to deep suction patient, breathing treatment to be given and Stat CT of the chest, no contrast to be done. RT Brunson and Reji at the bedside with RN.
--- NOTE | 2019-09-28 05:59 | NUR ---
NURSE NOTES: Message left for MD Granados at this time in regards to interventions being done. patient now in ICU on a Bi-pap and awaiting CT of the chest.
[2019-09-28] MEDS ORDERED: Promethazine HCl 25 MG in NS 55 ML IVPB PRN (06:00)
[2019-09-28] MEDS ORDERED: Morphine Sulfate 4mg/ml Inj (IV USE ONLY) IVP PRN (06:00)
[2019-09-28 06:06] LABS: ANION GAP 6 mmol/L (5-15); BLOOD UREA NITROGEN 7 mg/dL (7-18); CARBON DIOXIDE 30 MMOL/L (21-32); CHLORIDE 103 MMOL/L (98-107); CREATININE 0.6 MG/DL (0.55-1.30); POTASSIUM 3.5 MMOL/L (3.5-5.1); SODIUM 139 MMOL/L (136-145)
[2019-09-28] MEDS: D5 1/2NS 1,000 ML IV SCH (06:11)
[2019-09-28 06:23] LABS: CHOLESTEROL 176 MG/DL (< 200); HDL CHOLESTEROL 56 MG/DL (40-60); TRIGLYCERIDES 131 MG/DL (30-150)
--- NOTE | 2019-09-28 06:27 | Emergency Room Report ---
History of Present Illness General Chief Complaint: Multiple Trauma/Fall Source: Patient Present Illness HPI This is a 69-year-old who was admitted for pelvic fracture. During the hospitalization she became short of breath and was hypoxic. She was tachypneic. A repeat chest x-ray showed opacification of the left side of the lung with hyperinflation on the right with mediastinal shift to the left. This consistent with decreased lung volume. I was asked to evaluate the patient. Patient was transferred to ICU. When I went to the ICU to evaluate the patient , she appeared to be dyspneic but responsive. On my examination there is decreased breath sound the left side but very rhonchorous breath sound. There is no tracheal deviation. I asked the patient to have deep suctioning by respiratory therapist. Also gave her breathing treatment. I order a CT chest to evaluate for infiltrates versus pneumothorax. Patient is otherwise amiably stable. Her oxygenation was 91 to 92% on nonrebreather. Allergies: Coded Allergies: No Known Allergies (Unverified , 09/25/19) Patient History Past Medical History: see triage record, old chart reviewed Past Surgical History: other Pertinent Family History: none Social History: Denies: smoking Last Menstrual Period: na Now: No Immunizations: other Reviewed Nursing Documentation: PMH: Agreed; PSxH: Agreed Nursing Documentation-PMH Past Medical History: No History, Except For Hx Pacemaker: No Hx Asthma: Yes Hx COPD: No Hx Diabetes: No Hx Cancer: No Hx Gastrointestinal Problems: No Hx Dialysis: No History Of Psychiatric Problem: No Hx Neurological Problems: No Hx Cerebrovascular Accident: No Hx Seizures: No Review of Systems Eye: Denies: eye pain, blurred vision ENT: Denies: ear pain, nose congestion, throat swelling Respiratory: Reports: cough, shortness of breath Cardiovascular: Denies: chest pain, palpitations Gastrointestinal: Denies: abdominal pain, diarrhea, nausea, vomiting Musculoskeletal: Denies: back pain, joint pain Skin: Denies: rash Neurological: Denies: headache, numbness Endocrine: Denies: increased thirst, increased urine Hematologic/Lymphatic: Denies: easy bruising All Other Systems: negative except mentioned in HPI Physical Exam Vital Signs Date Time Temp Pulse Resp B/P (MAP) Pulse Ox O2 Delivery O2 Flow Rate FiO2 09/25/19 20:34 97.7 88 18 174/81 (112) 98 Room Air 09/25/19 22:20 1.0 09/26/19 08:50 24 Sp02 EP Interpretation: abnormal General Appearance: moderate distress Head: normocephalic, atraumatic Eyes: bilateral eye PERRL, bilateral eye EOMI ENT: hearing grossly normal, normal pharynx Neck: full range of motion, supple, no meningismus Respiratory: chest non-tender, respiratory distress, decreased breath sounds, accessory muscle use, rhonchi Cardiovascular #1: regular rate, rhythm, no murmur Gastrointestinal: normal bowel sounds, non tender, no mass, no organomegaly, no bruit, non-distended Musculoskeletal: back normal, normal range of motion Psychiatric: mood/affect normal Procedures Critical Care Time Critical Care Time Critical care is mandated in this patient who presented with acute respiratory failure with hypoxia. Patient require my urgent intervention to attenuate the risks of respiratory collapse which may lead to cardiovascular collapse and . Critical care time is 35 minutes excluding any reportable procedure. Critical care time included evaluation, multiple reevaluation, looking at old charts, interpreting laboratory and diagnostic data, discussing case with patient and family and consultants, and charting. Medical Decision Making Diagnostic Impression: Primary Impression: Respiratory failure with hypoxia Qualified Codes: J96.01 - Acute respiratory failure with hypoxia ER Course With acute respiratory failure. There is almost opacification of the left lung with volume loss. This looks more like a large mucous plugging and/or infiltrate than pneumothorax. Patient improved with breathing treatment, BiPAP and deep suctioning. She was sent for CT chest. I will sign this out to Dr. Grider for final reading. Last Vital Signs Date Time Temp Pulse Resp B/P (MAP) Pulse Ox O2 Delivery O2 Flow Rate FiO2 09/28/19 06:13 100 27 100 Bi-Pap 100 104 30 100 09/28/19 06:06 98.1 168/68 (101) 09/28/19 03:37 15.0 Status: improved Disposition: ADMITTED INPATIENT Condition: Critical Referrals: NON PHYSICIAN (PCP) Van Marina MD Sep 28, 2019 06:27
--- NOTE | 2019-09-28 06:40 | NUR ---
NURSE NOTES: Patient went down to CT at this time. Placed on non rebreather, energy efficient site manager applied, transport box on the bed. Accompanied by RN's, technical clerk and automotive specialty technician [place].
[2019-09-28] MEDS ORDERED: Albuterol/Ipratropium 3ml neb HHN SCH ×2 (07:00)
[2019-09-28] MEDS: Albuterol/Ipratropium 3ml neb HHN SCH ×5 (07:21→23:04)
--- NOTE | 2019-09-28 07:23 | NUR ---
RESPIRATORY NOTE: received pt on NRB with saturation of 86%. taking scheduled breathing tx at this time with no signs of resp distress. will place back on bipap when finished. no visible redness or skin wounds around facial area. foam barrier in place. will cont to monitor throughout the day.
--- NOTE | 2019-09-28 07:34 | NUR ---
NURSE NOTES: ER MD Grider Called back with preliminary report. Patient has atelectasis and infiltrates. No Pneumothorax, only volume collapse. Continue suctioning the patient. MD Aware patient is still on bi-pap at this time.
--- NOTE | 2019-09-28 07:37 | NUR ---
NURSE NOTES: Received report from DOMINGA Simeon. Patient is alert and oriented x4. On Bipap 10/5 with FiO2 100%. O2 Sat low 90s on the monitor. Leigh intact and draining with yellow color urine. Left wrist 22G IV intact, left forearm IV intact and been hold IV fluid until Chest CT exam is resulted. Kept dry, clean, comfortable and HOB>30. Call light placed in easy reach. Will continue plan of care.
--- NOTE | 2019-09-28 07:38 | NUR ---
HAND-OFF: Report given to Joe ORR. Preliminary report given to Joe ORR at this time. Patient continues on Bi-pap Sats 90%. Sinus tach on the monitor.
[2019-09-28] MEDS ORDERED: Metoprolol Tartrate 5mg/5ml Inj IVP ONE (08:20)
--- NOTE | 2019-09-28 08:36 | NUR ---
PT Note Patient has been transferred to ICU due to respiratory distress. Will hold PT at this time; will need new orders for PT to resume.
[2019-09-28] MEDS ORDERED: Metoprolol Tartrate 5mg/5ml Inj IVP PRN (08:45)
[2019-09-28] MEDS ORDERED: Acetaminophen 650 MG SUPP RECTAL PRN (08:45)
--- NOTE | 2019-09-28 08:45 | NUR ---
NURSE NOTES: Seen by BETH Lopez and assessed patient. New orders are given to charge nurse. Will follow up.
--- NOTE | 2019-09-28 08:52 | NUR ---
NURSE NOTES: Metoprolol PRN given, HR 160-180s on the monitor.
[2019-09-28] MEDS: Heparin 5000 units/ml inj SUBQ SCH ×2 (09:00→20:04)
--- NOTE | 2019-09-28 09:10 | NUR ---
NURSE NOTES: Started Cardizem drip @ 2.5mg/hr. HR 160s on the monitor. Patient alert and oriented x4. Patient denies SOB/chest pain. Will continue plan of care.
[2019-09-28] MEDS ORDERED: HYDROcodone/Acetamin 5/325 tab ORAL PRN (09:15)
--- NOTE | 2019-09-28 09:25 | Pulmonolgy Critical Care Note ---
Critical Care - Asmt/Plan Assessment/Plan: ASSESSMENT Acute hypoxemic RF requiring BiPAP L lung collapse with mediastinal shift AF with RVR probably sepsis PNA ? neoplasm pelvic fracture secondary to fall asthma history of CVA with right-sided weakness hypertension PLAN of CARE ICU BiPAP repeat ABG at 1200 CT chest with left lung collapse, mediastinal shift to the left, diffuse infiltrates lung , likle atelectasis, however probably superimposed PNA, given fever and leukocytosis, patchy infiltrate R lung, likely representing PNA 2.3 cm tissue density left infrahilar region , suspicious for neoplasm initially Metoprolol IV, initially responded, then HR up to > 200, additional metoprolol given, then started on Cardizem gtt cardio consult pending hold a/coagulation due to pending CT placement ( surgeon called) ECHO stat lipid panel stable monitor BP, pro BNP -375 venous Duplex septic w/up initiated started on empiric abx for PNA replace K and Mg gentle IV hydration CT of the hip revealed severe comminuted fracture of the right iliac crest and superior ilium with intra-articular extension into the right sacroiliac joint, acetabulum and hip appear intact pain management ortho eval appreciated, no surgery for this type of fracture surgeon cleared to start PT with WBAT DVT prophylaxis bowel regimen supportive care of note: Kiswahili speaking nurse was used for assessment and explanation of POC case discussed and evaluated by supervising physician Critical Care - Objective Last 24 Hour Vital Signs Date Time Temp Pulse Resp B/P (MAP) Pulse Ox O2 Delivery O2 Flow Rate FiO2 09/28/19 09:08 159 127/87 09/28/19 08:51 175 156/138 09/28/19 08:26 180 157/58 09/28/19 07:32 117 27 90 Facial 100 09/28/19 07:32 90 Bi-Pap 100 09/28/19 07:25 106 24 90 Bi-Pap 100 110 25 86 09/28/19 07:00 117 28 157/67 (97) 100 09/28/19 06:13 100 27 100 Bi-Pap 100 104 30 100 09/28/19 06:06 98.1 103 28 168/68 (101) 100 09/28/19 06:02 101 27 98 Full Face 100 09/28/19 04:00 97.9 86 21 121/73 (89) 93 09/28/19 03:37 81 20 94 Non-Rebreather 15.0 100 83 20 92 09/28/19 00:00 98.6 82 18 117/68 (84) 93 09/27/19 21:00 Room Air 09/27/19 20:00 98.4 70 18 115/58 (77) 91 09/27/19 19:05 95 Nasal Cannula 3.0 32 09/27/19 16:00 98.4 84 21 101/56 (71) 93 09/27/19 15:22 84 20 98 Nasal Cannula 2.0 28 81 22 95 09/27/19 14:38 98.1 09/27/19 11:57 98.1 71 18 128/62 (84) 93 09/27/19 10:15 98.1 Status: other - awake, alert, responsive, Kiswahili speaking, slightly anxious Condition: critical HEENT: atraumatic, other - on BiPAP 10/5 FiO2 100 % Neck: full ROM Lungs: other - decreased BS on the left Heart: HR/BP unstable - A fib with RVR Abdomen: soft, non-tender, active bowel sounds Extremities: no C/C/E Critical Care - Subjective ROS Limited/Unobtainable: Yes Interval Events: in ICU due to A fib with RVR CXR and CT chest abnormal fever, mild leukocytosis ABG on 100% NRM with hypoxia started on BiPAP Condition: critical IV Access: peripheral EKG Rhythm: Atrial Fibrillation - with RVR FI02: 100 Sputum Amount: None Fluids: D51/2 NS at 50 Drips: 2.5 ml/hr I&O: Intake and Output 09/27/19 09/28/19 19:00 07:00 Intake Total 960 ml 400 ml Output Total 908 ml 50 ml Balance 52 ml 350 ml Intake Oral 360 ml IV Total 600 ml 400 ml Output Urine Total 908 ml 50 ml CXR: 09/28 CXR Interval worsening with opacification of the left hemithorax and leftward mediastinal shift consistent with severe volume loss of the left lung. Jessica Jauregui NP Sep 28, 2019 09:25
[2019-09-28] MEDS: Piperacillin/Tazobactam 3.375 GM in NS 110 ML IVPB SCH ×2 (09:32→16:08)
[2019-09-28 09:55] LABS: HEMATOCRIT 37.6 % (37.0-47.0); MEAN CORPUSCULAR VOLUME 92 FL (80-99); PLATELET COUNT 190 K/UL (150-450); RED BLOOD COUNT 4.08 M/UL (4.20-5.40); RED CELL DISTRIBUTION WIDTH 11.7 % (11.6-14.8); WHITE BLOOD COUNT 13.7 K/UL (4.8-10.8)
[2019-09-28] MEDS ORDERED: Vancomycin 1.25gm/NS Premix q24h IVPB SCH (10:00)
[2019-09-28 10:05] LABS: ANION GAP 10 mmol/L (5-15); BLOOD UREA NITROGEN 7 mg/dL (7-18); CALCIUM 8.5 MG/DL (8.5-10.1); CARBON DIOXIDE 27 MMOL/L (21-32); CHLORIDE 101 MMOL/L (98-107); CREATININE 0.6 MG/DL (0.55-1.30); POTASSIUM 3.3 MMOL/L (3.5-5.1); SODIUM 137 MMOL/L (136-145)
[2019-09-28 10:08] LABS: ALANINE AMINOTRANSFERASE 25 U/L (12-78); ALBUMIN 2.9 G/DL (3.4-5.0); ALBUMIN/GLOBULIN RATIO 0.7 (1.0-2.7); ALKALINE PHOSPHATASE 42 U/L (46-116); ASPARTATE AMINO TRANSFERASE 25 U/L (15-37); BILIRUBIN,TOTAL 0.7 MG/DL (0.2-1.0)
--- NOTE | 2019-09-28 10:40 | NUR ---
NURSE NOTES: Informed BETH Lopez of pt's K, Phos and Mg level. She said she will put orders. Will follow up.
--- NOTE | 2019-09-28 11:58 | NUR ---
NURSE NOTES: Bed bath given. HR 70s on the monitor. Cardizem 5mg/hr running at this time. On Bipap 15/5 with FiO2 90% and O2 sat 96% on the monitor. Will continue to monitor closely.
--- NOTE | 2019-09-28 13:15 | NUR ---
NURSE NOTES: Held cardizem drip. SBP 90-100s and HR afib 70s on the monitor. Patient denies any discomfort. Will continue plan of care.
--- NOTE | 2019-09-28 14:25 | Internal Med Progress Note ---
Subjective Date of Service: Sep 28, 2019 Physician Name Carlos Macario Attending Physician Yonis Granados MD Current Medications Medications (Trade) Dose Ordered Sig/Yesenia Route PRN Reason Start Time Stop Time Status Last Admin Dose Admin Acetaminophen (Tylenol) 650 mg Q4H PRN RECTAL Mild Pain (Pain Scale 1-3) 09/28/19 08:45 10/28/19 08:44 09/28/19 10:19 Acetaminophen/ Hydrocodone Bitart ([place]mit[place] 5/325) 1 tab Q6H PRN ORAL Mild Pain (Pain Scale 1-3) 09/28/19 09:15 10/03/19 09:14 Albuterol/ Ipratropium (Albuterol/ Ipratropium) 3 ml Q4H PRN HHN Shortness of Breath 09/28/19 05:50 10/03/19 05:49 09/28/19 06:12 Albuterol/ Ipratropium (Albuterol/ Ipratropium) 3 ml Q4HRT HHN 09/28/19 07:00 10/03/19 06:59 09/28/19 10:44 Clonidine HCl (Catapres Tab) 0.1 mg Q4H PRN ORAL SBP > 160 09/28/19 09:15 10/26/19 17:14 Dextrose (Dextrose 50%) 25 ml Q30M PRN IV Hypoglycemia 09/28/19 05:30 10/25/19 22:29 Dextrose (Dextrose 50%) 50 ml Q30M PRN IV Hypoglycemia 09/28/19 05:30 10/25/19 22:29 Dextrose/Sodium Chloride 1,000 ml @ 50 mls/hr Q20H IV 09/28/19 06:00 10/25/19 05:59 09/28/19 06:11 Diltiazem HCl 125 mg/Dextrose 125 ml @ 0 mls/hr Q24H IV 09/28/19 09:30 09/30/19 09:29 09/28/19 09:08 Heparin Sodium (Porcine) (Heparin 5000 units/ml) 5,000 units EVERY 12 HOURS SUBQ 09/28/19 09:00 10/26/19 08:59 Metoprolol Tartrate (Lopressor) 5 mg Q5MIN X 1 PRN IVP AFIBRILATION 09/28/19 08:45 10/28/19 08:44 09/28/19 08:51 Morphine Sulfate (Morphine Sulfate) 4 mg Q4H PRN IVP Severe Pain (Pain Scale 7-10) 09/28/19 06:00 10/03/19 05:59 Ondansetron HCl (Zofran) 4 mg Q4H PRN IVP Nausea & Vomiting 09/28/19 05:30 10/26/19 09:29 Piperacillin Sod/ Tazobactam Sod 3.375 gm/Sodium Chloride 110 ml @ 27.5 mls/hr Q8H IVPB 09/28/19 09:00 10/05/19 08:59 09/28/19 09:32 Polyethylene Glycol (Miralax) 17 gm HSPRN PRN ORAL Constipation 09/28/19 22:30 10/25/19 22:29 Promethazine HCl 25 mg/Sodium Chloride 56 ml @ 112 mls/hr Q6H PRN IVPB nausea 09/28/19 06:00 10/26/19 05:59 Vancomycin HCl (Vanco rx to dose) 1 ea DAILY PRN MISC Per rx protocol 09/28/19 08:30 10/28/19 08:29 Vancomycin HCl 1 gm/Dextrose 275 ml @ 183.708 mls/hr Q24H IVPB 09/29/19 10:00 10/04/19 09:59 Zolpidem Tartrate (Ambien) 5 mg HSPRN PRN ORAL Insomnia 09/28/19 22:30 10/02/19 22:29 Allergies: Coded Allergies: No Known Allergies (Unverified , 09/25/19) ROS Limited/Unobtainable: Yes Subjective 69 YO F admitted with right hip pain after fall. Now acute fracture right superior ilium and iliac crest. Cover for Int Med-Dr Granados. Transfered to ICU for respiratory distress; on BIPAP Objective Last Vital Signs Date Time Temp Pulse Resp B/P (MAP) Pulse Ox O2 Delivery O2 Flow Rate FiO2 09/28/19 13:11 69 23 97 Facial 80 09/28/19 12:00 100.5 102/46 (64) 09/28/19 03:37 15.0 Laboratory Tests Test 09/28/19 05:10 09/28/19 05:39 09/28/19 09:05 09/28/19 12:00 White Blood Count 11.4 K/UL (4.8-10.8) H 13.7 K/UL (4.8-10.8) H Red Blood Count 4.07 M/UL (4.20-5.40) L 4.08 M/UL (4.20-5.40) L Hemoglobin 12.9 G/DL (12.0-16.0) 13.0 G/DL (12.0-16.0) Hematocrit 37.7 % (37.0-47.0) 37.6 % (37.0-47.0) Mean Corpuscular Volume 93 FL (80-99) 92 FL (80-99) Mean Corpuscular Hemoglobin 31.8 PG (27.0-31.0) H 32.0 PG (27.0-31.0) H Mean Corpuscular Hemoglobin Concent 34.2 G/DL (32.0-36.0) 34.7 G/DL (32.0-36.0) Red Cell Distribution Width 12.1 % (11.6-14.8) 11.7 % (11.6-14.8) Platelet Count 165 K/UL (150-450) 190 K/UL (150-450) Mean Platelet Volume 7.4 FL (6.5-10.1) 8.5 FL (6.5-10.1) Neutrophils (%) (Auto) 72.5 % (45.0-75.0) % (45.0-75.0) Lymphocytes (%) (Auto) 15.8 % (20.0-45.0) L % (20.0-45.0) Monocytes (%) (Auto) 8.9 % (1.0-10.0) % (1.0-10.0) Eosinophils (%) (Auto) 2.1 % (0.0-3.0) % (0.0-3.0) Basophils (%) (Auto) 0.6 % (0.0-2.0) % (0.0-2.0) Sodium Level 139 MMOL/L (136-145) 137 MMOL/L (136-145) Potassium Level 3.5 MMOL/L (3.5-5.1) 3.3 MMOL/L (3.5-5.1) L Chloride Level 103 MMOL/L (98-107) 101 MMOL/L (98-107) Carbon Dioxide Level 30 MMOL/L (21-32) 27 MMOL/L (21-32) Anion Gap 6 mmol/L (5-15) 10 mmol/L (5-15) Blood Urea Nitrogen 7 mg/dL (7-18) 7 mg/dL (7-18) Creatinine 0.6 MG/DL (0.55-1.30) 0.6 MG/DL (0.55-1.30) Estimat Glomerular Filtration Rate mL/min (>60) mL/min (>60) Glucose Level 124 MG/DL (74-106) H 144 MG/DL (74-106) H Calcium Level 9.0 MG/DL (8.5-10.1) 8.5 MG/DL (8.5-10.1) Pro-B-Type Natriuretic Peptide 375 pg/mL (0-125) H Triglycerides Level 131 MG/DL (30-150) Cholesterol Level 176 MG/DL (< 200) LDL Cholesterol 93 mg/dL (<100) HDL Cholesterol 56 MG/DL (40-60) Cholesterol/HDL Ratio 3.1 (3.3-4.4) L Arterial Blood pH 7.475 (7.350-7.450) 7.477 (7.350-7.450) Arterial Blood Partial Pressure CO2 41.0 mmHg (35.0-45.0) 33.6 mmHg (35.0-45.0) L Arterial Blood Partial Pressure O2 < 45.3 mmHg (75.0-100.0) 60.1 mmHg (75.0-100.0) L Arterial Blood HCO3 29.5 mmol/L (22.0-26.0) H 24.3 mmol/L (22.0-26.0) Arterial Blood Oxygen Saturation 83.8 % (95-100) *L 92.1 % (95-100) L Arterial Blood Base Excess 5.5 (-2-2) H 1.2 (-2-2) Torito Test Positive Positive Differential Total Cells Counted 100 Neutrophils % (Manual) 92 % (45-75) H Lymphocytes % (Manual) 2 % (20-45) L Monocytes % (Manual) 2 % (1-10) Eosinophils % (Manual) 0 % (0-3) Basophils % (Manual) 0 % (0-2) Band Neutrophils 4 % (0-8) Platelet Estimate Adequate Platelet Morphology Normal Red Blood Cell Morphology Normal Lactic Acid Level 2.00 mmol/L (0.4-2.0) Phosphorus Level 2.0 MG/DL (2.5-4.9) L Magnesium Level 1.7 MG/DL (1.8-2.4) L Total Bilirubin 0.7 MG/DL (0.2-1.0) Aspartate Amino Transf (AST/SGOT) 25 U/L (15-37) Alanine Aminotransferase (ALT/SGPT) 25 U/L (12-78) Alkaline Phosphatase 42 U/L (46-116) L Troponin I 0.011 ng/mL (0.000-0.056) Total Protein 6.9 G/DL (6.4-8.2) Albumin 2.9 G/DL (3.4-5.0) L Globulin 4.0 g/dL Albumin/Globulin Ratio 0.7 (1.0-2.7) L Intake and Output 09/27/19 09/28/19 19:00 07:00 Intake Total 960 ml 400 ml Output Total 908 ml 100 ml Balance 52 ml 300 ml Intake Oral 360 ml IV Total 600 ml 400 ml Output Urine Total 908 ml 100 ml Objective PHYSICAL EXAMINATION: GENERAL: The patient is awake, responsive, no acute distress. HEAD AND NECK: Pupils are equal and reactive to light. Extraocular movements intact. Neck was supple. No JVD. LUNGS: BIPAP; BS decreased on left; Positive expiratory wheezes. HEART: S1 and S2. Regular rhythm. No murmurs or gallops. ABDOMEN: Soft, nondistended, nontender. Positive bowel sounds. EXTREMITIES: No cyanosis, clubbing, edema NEUROLOGIC: Cranial nerves II through XII grossly normal. The patient moving all the extremities. Assessment/Plan Assessment/Plan SSESSMENT: Subsequently, the patient was admitted to the hospital with acute pelvic fracture. 1. Status post fall. 2. Asthma. 3. History of CVA with right-sided weakness. 4. Elevated blood pressure. 5. right hip pain\ 6. Right superior Ilium fracture 7. Right iliac crest fracture 8. left pneumonia PLAN: 1. Admit the patient to medical floor. 2. Ortho= Dr. Zane Galo 3. Dr. Zarrabi Pulmonary Critical Care. 4. Code status is Full Code. DVT prophylaxis, heparin subcutaneous. 5. Pulmonary=Dr Limon 6. ABX=Carlos Duvall MD Sep 28, 2019 14:24
--- NOTE | 2019-09-28 14:45 | NUR ---
NURSE NOTES: Seen by Dr. Macario and assessed patient. No new order at this time.
--- NOTE | 2019-09-28 15:33 | NUR ---
NURSE NOTES: Seen by Dr. Underwood and assessed patient.
--- NOTE | 2019-09-28 15:39 | Consultation ---
Consult Note Assessment/Plan Cardiology for Dr. Rabago Full consult dictated #[id number] Rose Don MD Sep 28, 2019 15:39
--- NOTE | 2019-09-28 15:56 | NUR ---
RESPIRATORY NOTE: pt removed bipap mask and refuses to wear it again. placed on VM fio2 40%. current spo2 96%. advised pt to take it easy.
--- NOTE | 2019-09-28 16:30 | NUR ---
NURSE NOTES: Patient still has fever. Tylenol given as ordered.
--- NOTE | 2019-09-28 17:26 | NUR ---
NURSE NOTES: Change to O2 4L/min via NC and offered dinner. O2 Sat 94%. Will monitor closely.
--- NOTE | 2019-09-28 18:45 | NUR ---
NURSE NOTES: Patient ate 25% of dinner. On O2 3L/min via NC and O2 sat 94% on the monitor. Patient denies any discomfort at this time.
--- NOTE | 2019-09-28 19:28 | NUR ---
HAND-OFF: Report given to DOMINGA Simeon. Endorsed plan of care.
--- NOTE | 2019-09-28 19:30 | NUR ---
NURSE NOTES: Received patient form [facility]. Patient in bed with eyes open, sinus rhythm on the monitor HR 76. Patient on 3L NC at this time. Does not want bi-pap and venturi mask. Sat 97%. Right hand IV site patent and intact. Left FA IV sites running D51/2 NS @ 50 ml/hr. Leigh cath noted with minimal urine output at this time. Patient denies any SOB or pain at this time. Bed in lowest position, side rails upx3, Bed alarm on zone 2. Will continue to monitor.
--- NOTE | 2019-09-28 20:00 | Consultation ---
DATE OF CONSULTATION: 09/28/2019 CARDIOLOGY CONSULTATION Coverage for Dr. Rabago. CONSULTING PHYSICIAN: Rose Don M.D. REASON FOR CONSULTATION: Atrial fibrillation. HISTORY OF PRESENT ILLNESS: History is obtained with the nurse translating as the patient speaks Georgian. The patient is a 69-year-old woman with history of CVA approximately 10 years ago and asthma. She has baseline right-sided weakness. She fell onto her right hip (mechanical fall, no syncope). X-ray showed history of CVA residual, right-sided weakness, and asthma. She had a mechanical fall yesterday and suffered a fracture of her right hip. X-ray shows fracture of the right iliac crest. Shortly after admission, she developed atrial fibrillation with rapid ventricular rate. Cardiology evaluation was requested. She has been placed on a diltiazem infusion. There is no previous history of coronary disease, heart failure, or arrhythmia. The patient currently denies chest pain, dyspnea, or palpitations. MEDICATIONS: Vancomycin 1 g IV q.24 hours, Tylenol as needed, diltiazem infusion titrated to heart rate, clonidine 0.1 mg every four hours p.r.n. for blood pressure over 160 systolic, Marcus 5/325 every 6 hours p.r.n., subcutaneous heparin q. 12 h., Zosyn 3.375 g IV q. 8 h., albuterol and ipratropium nebulizer q.4 h. p.r.n., morphine p.r.n., Zofran as needed. ALLERGIES: No known drug allergies. PAST MEDICAL HISTORY: As noted above. SOCIAL HISTORY: No history of alcohol, tobacco, or drug use. PHYSICAL EXAMINATION: VITAL SIGNS: Blood pressure is 95/50, pulse 68 and regular, respirations 21, afebrile, oxygen saturation 96% on CPAP mask. HEENT: Normocephalic and atraumatic. Pupils equal, reactive to light. Sclerae anicteric. NECK: Supple. There is no jugular venous distention. No carotid bruits. LUNGS: Shallow respirations. Scattered rhonchi bilaterally. HEART: Regular S1 and S2. No murmurs or S3. ABDOMEN: Soft, nontender, and nondistended. No palpable mass. EXTREMITIES: Right leg is externally rotated. No erythema or edema. No peripheral edema. NEUROLOGIC: Alert and right hemiparesis. LABORATORY DATA: Hemoglobin 13, white blood count 13,700, platelets 190,000. Potassium 3.3, BUN 7, creatinine 0.6. Troponin 0.011. Natriuretic peptide 375. Chest x-ray shows opacification of the left hemithorax, volume loss of the left lung. EKG is pending. Telemetry strips show atrial fibrillation with rapid ventricular rates up to 190 beats with spontaneous reversion to normal sinus rhythm at 12:39 p.m. on 09/28/2019. EKG on admission showed normal sinus rhythm, rate of 79 beats per minute, rightward axis. No ST-segment or T-wave changes. An echo done this admission shows normal left ventricular systolic function, ejection fraction 60%, mild left ventricular hypertrophy. Telemetry showed development of atrial fibrillation with rapid ventricular rates up to the 190s at 6:10 a.m. today with reversion back to normal sinus in the 70s and at 12:40 p.m. today. ASSESSMENT AND RECOMMENDATIONS: The patient is a 69-year-old woman with a history of asthma and remote history of CVA with residual right hemiparesis who suffered a mechanical fall with right pelvic fracture. In this setting, she has developed atrial fibrillation with rapid ventricular rates and this was treated with diltiazem and rhythm has now reverted back to normal sinus. I would favor initiation of beta blockers. We will start metoprolol and up titrate based on heart rate and blood pressure response. We would hold anticoagulation for now in the setting of acute pelvic fracture. Over the longer term, would favor anticoagulation given her score of 4. She was noted to have left-sided pneumonia and this will be managed as per her primary team. Further recommendations will be made based on her course. Dr. Rabago will continue to follow her starting 09/29/2019. Rose Don M.D. DR: Sidney JOB#: [id number] CC:
[2019-09-28] MEDS: HYDROcodone/Acetamin 5/325 tab ORAL PRN (20:14)
[2019-09-28] MEDS: Metoprolol Tartrate 12.5mg TAB ORAL SCH (20:59)
--- NOTE | 2019-09-28 21:00 | NUR ---
NURSE NOTES: Bed bath given at this time. Assisted patient with position change. afebrile. IV sites remain patent. Will continue with plan of care.
[2019-09-28] MEDS ORDERED: Zolpidem 5mg tab ORAL PRN (22:30)
[2019-09-28] MEDS ORDERED: Miralax 17gm pkt ORAL PRN (22:30)
--- NOTE | 2019-09-28 23:15 | NUR ---
NURSE NOTES: MD Granados called at this time for updates on the patient. asked about chest tube. Notified him no chest tube was inserted, was endorsed that MD Owusu would not insert chest tube at this time. Patient refuses Bi-pap, only wants Nasal Cannula. No SOB, Vital signs stable. Will continue to monitor.
[2019-09-29] VITALS (25 sets, daily range): BP systolic 77–155; BP diastolic 37–89
[2019-09-29] MEDS: Piperacillin/Tazobactam 3.375 GM in NS 110 ML IVPB SCH ×3 (00:42→17:30)
--- NOTE | 2019-09-29 02:00 | NUR ---
NURSE NOTES: Patient sleeping at this time. Sinus rhythm on the monitor. Continues on 2L NC at this time. Sats 95-97%. No signs of distress noted. Will continue to monitor.
[2019-09-29] MEDS: D5 1/2NS 1,000 ML IV SCH (03:13)
[2019-09-29] MEDS: Albuterol/Ipratropium 3ml neb HHN SCH ×6 (03:27→23:00)
--- NOTE | 2019-09-29 03:29 | NUR ---
NURSE NOTES: Patient getting breathing treatment at this time. Continues sleeping. Denies any discomfort. IV sites remain patent. Will continue to monitor.
--- NOTE | 2019-09-29 05:30 | NUR ---
NURSE NOTES: Assisted patient to sit up in bed at this time. no signs of distress noted, will continue to monitor
[2019-09-29 06:11] LABS: BASOPHILS % (AUTO) 0.5 % (0.0-2.0); EOSINOPHILS % (AUTO) 1.6 % (0.0-3.0); HEMOGLOBIN 10.2 G/DL (12.0-16.0); LYMPHOCYTES % (AUTO) 8.7 % (20.0-45.0); MEAN CORPUSCULAR VOLUME 93 FL (80-99); MONOCYTES % (AUTO) 6.2 % (1.0-10.0); PLATELET COUNT 153 K/UL (150-450); RED BLOOD COUNT 3.13 M/UL (4.20-5.40); RED CELL DISTRIBUTION WIDTH 12.1 % (11.6-14.8); WHITE BLOOD COUNT 14.2 K/UL (4.8-10.8)
[2019-09-29 06:33] LABS: ANION GAP 6 mmol/L (5-15); BLOOD UREA NITROGEN 10 mg/dL (7-18); CALCIUM 7.9 MG/DL (8.5-10.1); CARBON DIOXIDE 26 MMOL/L (21-32); CHLORIDE 107 MMOL/L (98-107); CREATININE 0.5 MG/DL (0.55-1.30); POTASSIUM 3.3 MMOL/L (3.5-5.1); SODIUM 139 MMOL/L (136-145)
--- NOTE | 2019-09-29 07:35 | NUR ---
HAND-OFF: Report given to Ghislaine.
--- NOTE | 2019-09-29 07:36 | NUR ---
NURSE NOTES: Report received from DOMINGA Simeon. Pt is alert, awake and oriented x 3-4. On N/C 2L. O2 sat 100%. Pt complained of right hip pain. Sinus rhythm on monitoring manager. Commode at bedside. Leigh in place draining rizwana straw colored urine to gravity. IV to left FA G20 and right hand G22 patent and asymptomatic. Pt is on D51/2NS is running at 50cc/hr. Bed in lowest position. Side rails up x3. Call light within reach. Will resume plan of care.
[2019-09-29] MEDS: HYDROcodone/Acetamin 5/325 tab ORAL PRN (07:58)
--- NOTE | 2019-09-29 07:58 | NUR ---
NURSE NOTES: PRN [place] 3/ 1 tab given for right hip pain 02/26. Will continue to monitor.
--- NOTE | 2019-09-29 08:45 | NUR ---
PT Note Patient transferred to ICU on 09/28/19 due to respiratory distress. Will discharge patient from PT at this time; will need new orders for PT to resume, [facility] notified.
[2019-09-29] MEDS: Metoprolol Tartrate 12.5mg TAB ORAL SCH ×2 (09:16→21:27)
[2019-09-29] MEDS: Heparin 5000 units/ml inj SUBQ SCH ×2 (09:18→21:30)
--- NOTE | 2019-09-29 09:55 | NUR ---
NURSE NOTES: ABG drawn. N/C 5L with humidifier was placed by RT due to low PO2 58.3. Dr Limon here to see the patient. Notified him of the ABG result.
--- NOTE | 2019-09-29 10:05 | NUR ---
NURSE NOTES: The order to position pt at her right side from Dr Limon noted. Pt refused to be repositioned for now. Risks explained to the patient. Will ask her again later.
--- NOTE | 2019-09-29 10:11 | Pulmonolgy Critical Care Note ---
Critical Care - Asmt/Plan Problems: (1) Aspiration pneumonia (2) Collapse of left lung (3) Closed right hip fracture (4) Respiratory failure with hypoxia (5) History of asthma Respiratory: monitor respiratory rate, adjust FIO2, CXR, other - sputum induction Cardiac: continue to monitor HR/BP Renal: decrease IV fluid Infectious Disease: check cultures, continue antibiotics, other - no cultures are collected yet Gastrointestinal: continue feedings/current rate Endocrine: monitor blood sugar Hematologic: monitor H/H, transfuse if hgb<8.5 Neurologic: PRN Ativan, PRN Morphine Prophylaxis: Protonix, Heparin Disposition: keep in ICU 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, 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 with: nurses, consultants, welfare case workercollege or university business manager - Objective Last 24 Hour Vital Signs Date Time Temp Pulse Resp B/P (MAP) Pulse Ox O2 Delivery O2 Flow Rate FiO2 09/29/19 10:00 99.3 93 22 155/47 (83) 95 09/29/19 09:16 85 120/55 09/29/19 09:00 88 21 120/55 (76) 97 09/29/19 08:34 82 19 98 Nasal Cannula 3.0 32 84 22 98 09/29/19 08:34 96 Nasal Cannula 3.0 32 09/29/19 08:00 Nasal Cannula 3.0 Nasal Cannula 2.0 Nasal Cannula 2.0 09/29/19 08:00 100.2 82 22 106/64 (78) 96 09/29/19 07:00 81 20 99/48 (65) 95 09/29/19 06:00 84 20 123/41 (68) 96 09/29/19 05:00 87 20 108/42 (64) 96 09/29/19 04:00 98.9 87 23 100/40 (60) 95 09/29/19 04:00 Nasal Cannula 3.0 Nasal Cannula 3.0 09/29/19 03:37 79 19 100 Nasal Cannula 3.0 32 09/29/19 03:27 81 21 96 Nasal Cannula 3.0 32 09/29/19 03:00 80 20 100/43 (62) 97 09/29/19 02:00 77 20 94/42 (59) 95 09/29/19 01:00 78 19 87/39 (55) 95 09/29/19 00:00 99.1 80 19 89/37 (54) 93 09/29/19 00:00 Nasal Cannula 3.0 Nasal Cannula 3.0 09/28/19 23:14 79 21 99 Nasal Cannula 3.0 32 09/28/19 23:04 82 21 98 Nasal Cannula 3.0 32 09/28/19 23:00 79 19 93/44 (60) 95 09/28/19 22:00 75 20 88/39 (55) 96 09/28/19 21:00 75 21 91/41 (58) 98 09/28/19 20:59 75 97/40 09/28/19 20:00 3.0 Non-Rebreather 3.0 Nasal Cannula 09/28/19 20:00 98.9 82 23 104/40 (61) 94 09/28/19 19:41 75 24 98 Nasal Cannula 3.0 32 09/28/19 19:31 73 22 96 Nasal Cannula 3.0 32 09/28/19 19:31 96 Nasal Cannula 3.0 32 09/28/19 19:00 67 21 94/46 (62) 96 09/28/19 18:00 79 26 100/35 (56) 93 09/28/19 17:05 92 09/28/19 17:00 99.6 69 25 95/47 (63) 93 09/28/19 16:38 99.6 09/28/19 16:00 69 09/28/19 16:00 Venturi Mask 8.0 09/28/19 16:00 101.0 75 29 98/39 (58) 95 09/28/19 15:00 70 20 95/44 (61) 98 09/28/19 14:39 67 22 96 Facial 70 09/28/19 14:30 70 09/28/19 14:30 71 18 93/42 (59) 97 09/28/19 14:00 77 21 102/51 (68) 100 09/28/19 13:30 67 22 93/41 (58) 97 09/28/19 13:11 69 23 97 Facial 80 09/28/19 13:00 80 09/28/19 13:00 68 21 93/43 (60) 97 09/28/19 12:00 73 09/28/19 12:00 90 09/28/19 12:00 100.5 76 24 102/46 (64) 96 09/28/19 12:00 Bi-pap 09/28/19 11:30 89 23 93/53 (66) 100 09/28/19 11:00 90 09/28/19 11:00 98 25 105/57 (73) 98 09/28/19 10:49 100.5 09/28/19 10:44 96 27 100 Facial 90 95 23 99 Bi-Pap 100 09/28/19 10:30 103 25 114/61 (78) 97 Status: awake Condition: critical HEENT: atraumatic, normocephalic Neck: full ROM Lungs: rhonchi Heart: HR/BP stable Abdomen: soft, non-tender Extremities: no C/C/E, edema Decubiti: location Critical Care - Subjective ROS Limited/Unobtainable: No ICU Day: 2 Interval Events: on and off bipap Condition: critical, improving FI02: 32 Vent Support Mode: BiLevel Sputum Amount: None I&O: Intake and Output 09/28/19 09/29/19 19:00 07:00 Intake Total 685.559 ml 737.8 ml Output Total 700 ml 315 ml Balance -14.441 ml 422.8 ml Intake Oral 320 ml 120 ml IV Total 365.559 ml 617.8 ml Output Urine Total 700 ml 315 ml CXR: slight better aeration of the left lung Labs: Laboratory Tests Test 09/28/19 12:00 09/29/19 05:55 09/29/19 09:34 Arterial Blood pH 7.477 (7.350-7.450) 7.434 (7.350-7.450) Arterial Blood Partial Pressure CO2 33.6 mmHg (35.0-45.0) L 34.2 mmHg (35.0-45.0) L Arterial Blood Partial Pressure O2 60.1 mmHg (75.0-100.0) L 58.3 mmHg (75.0-100.0) L Arterial Blood HCO3 24.3 mmol/L (22.0-26.0) 22.4 mmol/L (22.0-26.0) Arterial Blood Oxygen Saturation 92.1 % (95-100) L 91.0 % (95-100) L Arterial Blood Base Excess 1.2 (-2-2) -1.3 (-2-2) Torito Test Positive Positive White Blood Count 14.2 K/UL (4.8-10.8) H Red Blood Count 3.13 M/UL (4.20-5.40) L Hemoglobin 10.2 G/DL (12.0-16.0) L Hematocrit 29.0 % (37.0-47.0) L Mean Corpuscular Volume 93 FL (80-99) Mean Corpuscular Hemoglobin 32.5 PG (27.0-31.0) H Mean Corpuscular Hemoglobin Concent 35.1 G/DL (32.0-36.0) Red Cell Distribution Width 12.1 % (11.6-14.8) Platelet Count 153 K/UL (150-450) Mean Platelet Volume 7.4 FL (6.5-10.1) Neutrophils (%) (Auto) 83.0 % (45.0-75.0) H Lymphocytes (%) (Auto) 8.7 % (20.0-45.0) L Monocytes (%) (Auto) 6.2 % (1.0-10.0) Eosinophils (%) (Auto) 1.6 % (0.0-3.0) Basophils (%) (Auto) 0.5 % (0.0-2.0) Sodium Level 139 MMOL/L (136-145) Potassium Level 3.3 MMOL/L (3.5-5.1) L Chloride Level 107 MMOL/L (98-107) Carbon Dioxide Level 26 MMOL/L (21-32) Anion Gap 6 mmol/L (5-15) Blood Urea Nitrogen 10 mg/dL (7-18) Creatinine 0.5 MG/DL (0.55-1.30) L Estimat Glomerular Filtration Rate mL/min (>60) Glucose Level 129 MG/DL (74-106) H Calcium Level 7.9 MG/DL (8.5-10.1) L Rox Limon MD Sep 29, 2019 10:11
[2019-09-29] MEDS ORDERED: Morphine Sulfate 2mg/ml Inj(IV/IM USE ONLY) IVP PRN ×2 (10:15→14:00)
[2019-09-29] MEDS: Vancomycin 1gm in D5W 275ml IVPB SCH (10:35)
--- NOTE | 2019-09-29 11:52 | Consultation ---
History of Present Illness General Date patient seen: Sep 29, 2019 Chief Complaint: Multiple Trauma/Fall Present Illness HPI 69 y/o F with hx of CVA w/ residual R side weakness, asthma presented to ED on after a mechanical fall towards her R hip with resultant R hip fracture. Shortly after admission, patient developed Afib with RVR, hypoxia and dyspnea and patient was transferred to ICU. CXR showed opacification of L lung with hyperinflation on the right with mediastinal shift to the left. Denied chest pain upon admission. Allergies: Coded Allergies: No Known Allergies (Unverified , 09/25/19) Patient History Healthcare decision maker Resuscitation status Full Code Advanced Directive on File Patient History Narrative Pmhx: as above Shx: Denies any smoking, alcohol, or drugs. Fhx: non contributory Review of Systems All Other Systems: negative except mentioned in HPI Physical Exam Physical Exam Narrative GENERAL: The patient is awake, responsive, no acute distress. HEAD AND NECK: Pupils are equal and reactive to light. Extraocular movements intact. Neck was supple. No JVD. LUNGS: Good air entry. No rhonchi. Positive expiratory wheezes. HEART: S1 and S2. Regular rhythm. No murmurs or gallops. ABDOMEN: Soft, nondistended, nontender. Positive bowel sounds. EXTREMITIES: No cyanosis, clubbing, edema Last 24 Hour Vital Signs Date Time Temp Pulse Resp B/P (MAP) Pulse Ox O2 Delivery O2 Flow Rate FiO2 09/29/19 11:00 72 20 109/49 (69) 96 09/29/19 10:00 99.3 93 22 155/47 (83) 95 09/29/19 09:16 85 120/55 09/29/19 09:00 88 21 120/55 (76) 97 09/29/19 08:34 82 19 98 Nasal Cannula 3.0 32 84 22 98 09/29/19 08:34 96 Nasal Cannula 3.0 32 09/29/19 08:00 Nasal Cannula 3.0 Nasal Cannula 2.0 Nasal Cannula 2.0 09/29/19 08:00 100.2 82 22 106/64 (78) 96 09/29/19 07:49 82 09/29/19 07:00 81 20 99/48 (65) 95 09/29/19 06:00 84 20 123/41 (68) 96 09/29/19 05:00 87 20 108/42 (64) 96 09/29/19 04:00 98.9 87 23 100/40 (60) 95 09/29/19 04:00 Nasal Cannula 3.0 Nasal Cannula 3.0 09/29/19 03:37 79 19 100 Nasal Cannula 3.0 32 09/29/19 03:27 81 21 96 Nasal Cannula 3.0 32 09/29/19 03:00 80 20 100/43 (62) 97 09/29/19 02:00 77 20 94/42 (59) 95 09/29/19 01:00 78 19 87/39 (55) 95 09/29/19 00:00 99.1 80 19 89/37 (54) 93 09/29/19 00:00 Nasal Cannula 3.0 Nasal Cannula 3.0 09/28/19 23:14 79 21 99 Nasal Cannula 3.0 32 09/28/19 23:04 82 21 98 Nasal Cannula 3.0 32 09/28/19 23:00 79 19 93/44 (60) 95 09/28/19 22:00 75 20 88/39 (55) 96 09/28/19 21:00 75 21 91/41 (58) 98 09/28/19 20:59 75 97/40 09/28/19 20:00 3.0 Non-Rebreather 3.0 Nasal Cannula 09/28/19 20:00 98.9 82 23 104/40 (61) 94 09/28/19 19:41 75 24 98 Nasal Cannula 3.0 32 09/28/19 19:31 73 22 96 Nasal Cannula 3.0 32 09/28/19 19:31 96 Nasal Cannula 3.0 32 09/28/19 19:00 67 21 94/46 (62) 96 09/28/19 18:00 79 26 100/35 (56) 93 09/28/19 17:05 92 09/28/19 17:00 99.6 69 25 95/47 (63) 93 09/28/19 16:38 99.6 09/28/19 16:00 69 09/28/19 16:00 Venturi Mask 8.0 09/28/19 16:00 101.0 75 29 98/39 (58) 95 09/28/19 15:00 70 20 95/44 (61) 98 09/28/19 14:39 67 22 96 Facial 70 09/28/19 14:30 70 09/28/19 14:30 71 18 93/42 (59) 97 09/28/19 14:00 77 21 102/51 (68) 100 09/28/19 13:30 67 22 93/41 (58) 97 09/28/19 13:11 69 23 97 Facial 80 09/28/19 13:00 80 09/28/19 13:00 68 21 93/43 (60) 97 09/28/19 12:00 73 09/28/19 12:00 90 09/28/19 12:00 100.5 76 24 102/46 (64) 96 09/28/19 12:00 Bi-pap Intake and Output 09/28/19 09/29/19 19:00 07:00 Intake Total 685.559 ml 737.8 ml Output Total 700 ml 315 ml Balance -14.441 ml 422.8 ml Intake Oral 320 ml 120 ml IV Total 365.559 ml 617.8 ml Output Urine Total 700 ml 315 ml Laboratory Tests Test 09/28/19 12:00 09/29/19 05:55 09/29/19 09:34 Arterial Blood pH 7.477 (7.350-7.450) 7.434 (7.350-7.450) Arterial Blood Partial Pressure CO2 33.6 mmHg (35.0-45.0) L 34.2 mmHg (35.0-45.0) L Arterial Blood Partial Pressure O2 60.1 mmHg (75.0-100.0) L 58.3 mmHg (75.0-100.0) L Arterial Blood HCO3 24.3 mmol/L (22.0-26.0) 22.4 mmol/L (22.0-26.0) Arterial Blood Oxygen Saturation 92.1 % (95-100) L 91.0 % (95-100) L Arterial Blood Base Excess 1.2 (-2-2) -1.3 (-2-2) Torito Test Positive Positive White Blood Count 14.2 K/UL (4.8-10.8) H Red Blood Count 3.13 M/UL (4.20-5.40) L Hemoglobin 10.2 G/DL (12.0-16.0) L Hematocrit 29.0 % (37.0-47.0) L Mean Corpuscular Volume 93 FL (80-99) Mean Corpuscular Hemoglobin 32.5 PG (27.0-31.0) H Mean Corpuscular Hemoglobin Concent 35.1 G/DL (32.0-36.0) Red Cell Distribution Width 12.1 % (11.6-14.8) Platelet Count 153 K/UL (150-450) Mean Platelet Volume 7.4 FL (6.5-10.1) Neutrophils (%) (Auto) 83.0 % (45.0-75.0) H Lymphocytes (%) (Auto) 8.7 % (20.0-45.0) L Monocytes (%) (Auto) 6.2 % (1.0-10.0) Eosinophils (%) (Auto) 1.6 % (0.0-3.0) Basophils (%) (Auto) 0.5 % (0.0-2.0) Sodium Level 139 MMOL/L (136-145) Potassium Level 3.3 MMOL/L (3.5-5.1) L Chloride Level 107 MMOL/L (98-107) Carbon Dioxide Level 26 MMOL/L (21-32) Anion Gap 6 mmol/L (5-15) Blood Urea Nitrogen 10 mg/dL (7-18) Creatinine 0.5 MG/DL (0.55-1.30) L Estimat Glomerular Filtration Rate mL/min (>60) Glucose Level 129 MG/DL (74-106) H Calcium Level 7.9 MG/DL (8.5-10.1) L Height (Feet): 5 Height (Inches): 5.00 Weight (Pounds): 135 Medications Current Medications Medications (Trade) Dose Ordered Sig/Yesenia Route PRN Reason Start Time Stop Time Status Last Admin Dose Admin Acetaminophen (Tylenol) 650 mg Q4H PRN ORAL Mild Pain/Temp > 100.5 09/28/19 15:15 10/28/19 15:14 09/28/19 16:08 Acetaminophen/ Hydrocodone Bitart ([place] 5/325) 1 tab Q6H PRN ORAL MODERATE PAIN (4-6) 09/28/19 15:45 10/03/19 09:14 09/29/19 07:58 Albuterol/ Ipratropium (Albuterol/ Ipratropium) 3 ml Q4H PRN HHN Shortness of Breath 09/28/19 05:50 10/03/19 05:49 09/28/19 06:12 Albuterol/ Ipratropium (Albuterol/ Ipratropium) 3 ml Q4HRT HHN 09/28/19 07:00 10/03/19 06:59 09/29/19 08:33 Clonidine HCl (Catapres Tab) 0.1 mg Q4H PRN ORAL SBP > 160 09/28/19 09:15 10/26/19 17:14 Dextrose (Dextrose 50%) 25 ml Q30M PRN IV Hypoglycemia 09/28/19 05:30 10/25/19 22:29 Dextrose (Dextrose 50%) 50 ml Q30M PRN IV Hypoglycemia 09/28/19 05:30 10/25/19 22:29 Heparin Sodium (Porcine) (Heparin 5000 units/ml) 5,000 units EVERY 12 HOURS SUBQ 09/28/19 09:00 10/26/19 08:59 09/29/19 09:18 Metoprolol Tartrate (Lopressor) 5 mg Q5MIN X 1 PRN IVP AFIBRILATION 09/28/19 08:45 10/28/19 08:44 09/28/19 08:51 Metoprolol Tartrate (Lopressor) 12.5 mg Q12HR ORAL 09/28/19 21:00 10/28/19 20:59 09/29/19 09:16 Morphine Sulfate (Morphine Sulfate) 2 mg Q4H PRN IVP Severe Pain (Pain Scale 7-10) 09/29/19 14:00 10/03/19 05:59 Ondansetron HCl (Zofran) 4 mg Q4H PRN IVP Nausea & Vomiting 09/28/19 05:30 10/26/19 09:29 Piperacillin Sod/ Tazobactam Sod 3.375 gm/Sodium Chloride 110 ml @ 27.5 mls/hr Q8H IVPB 09/28/19 09:00 10/05/19 08:59 09/29/19 09:16 Polyethylene Glycol (Miralax) 17 gm HSPRN PRN ORAL Constipation 09/28/19 22:30 10/25/19 22:29 Promethazine HCl 25 mg/Sodium Chloride 56 ml @ 112 mls/hr Q6H PRN IVPB nausea 09/28/19 06:00 10/26/19 05:59 Vancomycin HCl (Vanco rx to dose) 1 ea DAILY PRN MISC Per rx protocol 09/28/19 08:30 10/28/19 08:29 Vancomycin HCl 1 gm/Dextrose 275 ml @ 183.708 mls/hr Q24H IVPB 09/29/19 10:00 10/04/19 09:59 09/29/19 10:35 Zolpidem Tartrate (Ambien) 5 mg HSPRN PRN ORAL Insomnia 09/28/19 22:30 10/02/19 22:29 Assessment/Plan Assessment/Plan: Abx: Zosyn 09/28- IV Vancomycin 09/28- Assessment: Sepsis Probable PNA Severe L lung volume loss -09/27 CXR: Interval worsening with opacification of the left hemithorax and leftward mediastinal shift consistent with severe volume loss of the left lung. -09/25 CXR; Possible mild pulmonary vascular congestion. Correlate clinically u/a neg Fever; improving Leukocytosis, increased R hip fracture 2ry to mechanical fall -09/26 CT hip; Severe, comminuted fracture of the right iliac crest and superior ilium with intra-articular extension into the right sacroiliac joint which is diastatic. Acetabulum and hip appear intact. Leigh catheter. Acute hypoxic respiratory failure, sp Bipap, now on NC Afib with RVR CVA w/ residual R side weakness asthma Plan: -Continue empiric IV vancomycin and ZOsyn #2 -f/u cx -Monitor CBC/CMP, temperatures -influenza sc -Cards, pulm f/u -ICU care -aspiration precautions Thank you for this consultation. Will continue to follow along with you. Discussed with Juliet Burgess M.D. Sep 29, 2019 11:52
--- NOTE | 2019-09-29 13:00 | NUR ---
NURSE NOTES: Visitor at bedside. Pt is eating lunch in bed. Desaturates when pt eats or talks. Asked pt to take a slow and deep breath. O2 sat goes up to 98-100%.
--- NOTE | 2019-09-29 13:03 | NUR ---
POLICE CHIEF DEPUTYCOGNOS ADMINISTRATOR SI: RIGHT HIP FRACTURE, AFIB W/RVR T. 99.3 HR 93 RR 26 B/P 155/47 5L NC WBC 14.2 K 3.3 DOPPLER STUDY= NEGATIVE IS: VANCO IV ZOSYN IV HEPARIN SUBC ALB HHN ICU STATUS
--- NOTE | 2019-09-29 14:37 | Diagnostic Imaging Report ---
Indication: Dyspnea Comparison: 09/28/2019 A single view chest radiograph was obtained. Findings: Pulmonary vascular congestion demonstrated. Left basilar parenchymal disease and perihilar disease noted. Left pleural effusion could be present. IMPRESSION: Slightly increasing pulmonary vascular congestion compared to the previous day. No change otherwise
--- NOTE | 2019-09-29 14:45 | NUR ---
NURSE NOTES: Pt received from DOMINGA Thompson without cardiopulmonary distress noted. Pt is awake in bed, AAOx4, able to follow commands, PERRLA+. Pt noted with right sided-weakness. SR to ekg monitor, bilateral radial and dorsalis pedis pulses 2+ palpable. Pt noted 99.7 F ax. Pt is on 5L NC with spO2 93-95%. Lung sounds noted diminished to bilateral lower lobes. Bilateral upper lobes noted with inspiratory wheezes, RT at bedside and will initiate breathing tx. Bowel sounds active to all quadrants, luncht ray at bedside, pt observed eating 50% of meal. Abd is round ad distended, non-tender. Skin alterations noted. Pt has a winters draining light rizwana urine. RH 20g IV and LFA 20g IVs noted running NS TKO at 10cc/hr. Bed is in lowest position, alarm on, side rails up x 3, call light within reach, yellow socks on, Fall precaution sign on door, fall precuation education provided to pt, pt verbalized understanding. Pt denies pain at this time. Will continue to monitor.
--- NOTE | 2019-09-29 14:45 | NUR ---
HAND-OFF: Report given to DOMINGA Bullock.
--- NOTE | 2019-09-29 16:52 | Consultation ---
History of Present Illness General Date patient seen: Sep 29, 2019 Reason for Hospitalization: Multiple Trauma/Fall Present Illness HPI This is a very pleasant 69-year-old female with multi-medical comorbidities include prior CVA with right-sided weakness, asthma, recovering who presented to the emergency department at [facility] after sustaining a mechanical fall secondary to weakness resulting in right hip fracture. Patient developed atrial fibrillation with RVR became hypoxic and was transferred to the intensive care unit for monitoring at which time scans demonstrated mediastinal shift and hypoxia on examination therefore surgery was called to evaluate and assist with care. Patient seen, patient evaluate, chart reviewed. I reviewed the imaging prior and discussed it with nursing staff. Patient states she has a history of asthma and that is only thing she recalls from her respiratory standpoint. No nausea vomiting fever chills. Pain stable. Allergies: Coded Allergies: No Known Allergies (Unverified , 09/25/19) Patient History History Provided By: Patient, Medical Record, PMD Healthcare decision maker Resuscitation status Full Code Advanced Directive on File Past Medical/Surgical History Past Medical/Surgical History: (1) Pelvic fracture (2) Aspiration pneumonia (3) Collapse of left lung (4) Respiratory failure with hypoxia (5) Bronchospasm (6) Status post stroke (7) Closed right hip fracture (8) History of asthma (9) CVA (cerebral vascular accident) Review of Systems Review of Symptoms General ROS: no weight loss or fever Psychological ROS: no depression or mood changes, no memory loss Ophthalmic ROS: no visual changes or eye irritation ENT ROS: no nasal congestion, hearing loss, dizziness Allergy and Immunology ROS: no allergic symptoms or urticaria Hematological and Lymphatic ROS: no swollen glands, unusual bleeding or bruising Endocrine ROS: no polyuria, polydipsia, weight changes, temperature intolerance Respiratory ROS: no cough, ++shortness of breath, or ++wheezing Cardiovascular ROS: no chest pain or dyspnea on exertion Gastrointestinal ROS: denies abdominal pain, bright red blood in stool. Musculoskeletal ROS: no myalgias or arthralgias Neurological ROS: no TIA or stroke symptoms Dermatological ROS: no new or changing skin lesions, rashes or pruritis Physical Exam Physical Exam General appearance: alert, cooperative, no distress, appears stated age Head: Normocephalic, without obvious abnormality, atraumatic Eyes: conjunctivae/corneas clear. PERRL, EOM's intact. Fundi benign Throat: Lips, mucosa, and tongue normal. Teeth and gums normal Neck: supple, symmetrical, trachea midline despite CT findings, no adenopathy, mild SOB and wheezing at times Lungs: clear to auscultation bilaterally Heart: regular rate and rhythm, S1, S2 normal, no murmur, click, rub or gallop Abdomen: soft, non-tender. Bowel sounds normal. No masses, no organomegaly Extremities: extremities normal, atraumatic, no cyanosis or edema Pulses: 2+ and symmetric Skin: Skin color, texture, turgor normal. No rashes or lesions Neurologic: Grossly normal Last 24 Hour Vital Signs Date Time Temp Pulse Resp B/P (MAP) Pulse Ox O2 Delivery O2 Flow Rate FiO2 09/29/19 15:01 82 26 99 Nasal Cannula 5.0 40 84 25 98 09/29/19 15:00 99.7 84 27 97/71 (80) 92 09/29/19 14:00 77 24 123/54 (77) 97 09/29/19 13:00 99.2 81 27 116/57 (76) 95 09/29/19 12:12 77 26 97 Nasal Cannula 5.0 40 76 26 94 09/29/19 12:00 5.0 09/29/19 12:00 Nasal Cannula 5.0 Nasal Cannula 5.0 Nasal Cannula 2.0 09/29/19 12:00 75 20 112/60 (77) 97 09/29/19 11:00 72 20 109/49 (69) 96 09/29/19 10:00 99.3 93 22 155/47 (83) 95 09/29/19 09:16 85 120/55 09/29/19 09:00 88 21 120/55 (76) 97 09/29/19 08:34 82 19 98 Nasal Cannula 3.0 32 84 22 98 09/29/19 08:34 96 Nasal Cannula 3.0 32 09/29/19 08:00 2.0 09/29/19 08:00 Nasal Cannula 3.0 Nasal Cannula 2.0 Nasal Cannula 2.0 09/29/19 08:00 100.2 82 22 106/64 (78) 96 09/29/19 07:49 82 09/29/19 07:00 81 20 99/48 (65) 95 09/29/19 06:00 84 20 123/41 (68) 96 09/29/19 05:00 87 20 108/42 (64) 96 09/29/19 04:00 98.9 87 23 100/40 (60) 95 09/29/19 04:00 Nasal Cannula 3.0 Nasal Cannula 3.0 09/29/19 03:37 79 19 100 Nasal Cannula 3.0 32 09/29/19 03:27 81 21 96 Nasal Cannula 3.0 32 09/29/19 03:00 80 20 100/43 (62) 97 09/29/19 02:00 77 20 94/42 (59) 95 09/29/19 01:00 78 19 87/39 (55) 95 09/29/19 00:00 99.1 80 19 89/37 (54) 93 09/29/19 00:00 Nasal Cannula 3.0 Nasal Cannula 3.0 09/28/19 23:14 79 21 99 Nasal Cannula 3.0 32 09/28/19 23:04 82 21 98 Nasal Cannula 3.0 32 09/28/19 23:00 79 19 93/44 (60) 95 09/28/19 22:00 75 20 88/39 (55) 96 09/28/19 21:00 75 21 91/41 (58) 98 09/28/19 20:59 75 97/40 09/28/19 20:00 3.0 Non-Rebreather 3.0 Nasal Cannula 09/28/19 20:00 98.9 82 23 104/40 (61) 94 09/28/19 19:41 75 24 98 Nasal Cannula 3.0 32 09/28/19 19:31 73 22 96 Nasal Cannula 3.0 32 09/28/19 19:31 96 Nasal Cannula 3.0 32 09/28/19 19:00 67 21 94/46 (62) 96 09/28/19 18:00 79 26 100/35 (56) 93 09/28/19 17:05 92 09/28/19 17:00 99.6 69 25 95/47 (63) 93 Intake and Output 09/28/19 09/29/19 19:00 07:00 Intake Total 685.559 ml 737.8 ml Output Total 700 ml 315 ml Balance -14.441 ml 422.8 ml Intake Oral 320 ml 120 ml IV Total 365.559 ml 617.8 ml Output Urine Total 700 ml 315 ml Laboratory Tests Test 09/29/19 05:55 09/29/19 09:34 White Blood Count 14.2 K/UL (4.8-10.8) H Red Blood Count 3.13 M/UL (4.20-5.40) L Hemoglobin 10.2 G/DL (12.0-16.0) L Hematocrit 29.0 % (37.0-47.0) L Mean Corpuscular Volume 93 FL (80-99) Mean Corpuscular Hemoglobin 32.5 PG (27.0-31.0) H Mean Corpuscular Hemoglobin Concent 35.1 G/DL (32.0-36.0) Red Cell Distribution Width 12.1 % (11.6-14.8) Platelet Count 153 K/UL (150-450) Mean Platelet Volume 7.4 FL (6.5-10.1) Neutrophils (%) (Auto) 83.0 % (45.0-75.0) H Lymphocytes (%) (Auto) 8.7 % (20.0-45.0) L Monocytes (%) (Auto) 6.2 % (1.0-10.0) Eosinophils (%) (Auto) 1.6 % (0.0-3.0) Basophils (%) (Auto) 0.5 % (0.0-2.0) Sodium Level 139 MMOL/L (136-145) Potassium Level 3.3 MMOL/L (3.5-5.1) L Chloride Level 107 MMOL/L (98-107) Carbon Dioxide Level 26 MMOL/L (21-32) Anion Gap 6 mmol/L (5-15) Blood Urea Nitrogen 10 mg/dL (7-18) Creatinine 0.5 MG/DL (0.55-1.30) L Estimat Glomerular Filtration Rate mL/min (>60) Glucose Level 129 MG/DL (74-106) H Calcium Level 7.9 MG/DL (8.5-10.1) L Arterial Blood pH 7.434 (7.350-7.450) Arterial Blood Partial Pressure CO2 34.2 mmHg (35.0-45.0) L Arterial Blood Partial Pressure O2 58.3 mmHg (75.0-100.0) L Arterial Blood HCO3 22.4 mmol/L (22.0-26.0) Arterial Blood Oxygen Saturation 91.0 % (95-100) L Arterial Blood Base Excess -1.3 (-2-2) Torito Test Positive Microbiology Date/Time Source Procedure Growth Status 09/29/19 13:30 Nasopharynx - Final Complete 09/29/19 13:30 Nasopharynx - Final Complete Height (Feet): 5 Height (Inches): 5.00 Weight (Pounds): 135 Medications Current Medications Medications (Trade) Dose Ordered Sig/Yesenia Route PRN Reason Start Time Stop Time Status Last Admin Dose Admin Acetaminophen (Tylenol) 650 mg Q4H PRN ORAL Mild Pain/Temp > 100.5 09/28/19 15:15 10/28/19 15:14 09/28/19 16:08 Acetaminophen/ Hydrocodone Bitart ([place] 5/325) 1 tab Q6H PRN ORAL MODERATE PAIN (4-6) 09/28/19 15:45 10/03/19 09:14 09/29/19 07:58 Albuterol/ Ipratropium (Albuterol/ Ipratropium) 3 ml Q4H PRN HHN Shortness of Breath 09/28/19 05:50 10/03/19 05:49 09/28/19 06:12 Albuterol/ Ipratropium (Albuterol/ Ipratropium) 3 ml Q4HRT HHN 09/28/19 07:00 10/03/19 06:59 09/29/19 15:00 Clonidine HCl (Catapres Tab) 0.1 mg Q4H PRN ORAL SBP > 160 09/28/19 09:15 10/26/19 17:14 Dextrose (Dextrose 50%) 25 ml Q30M PRN IV Hypoglycemia 09/28/19 05:30 10/25/19 22:29 Dextrose (Dextrose 50%) 50 ml Q30M PRN IV Hypoglycemia 09/28/19 05:30 10/25/19 22:29 Heparin Sodium (Porcine) (Heparin 5000 units/ml) 5,000 units EVERY 12 HOURS SUBQ 09/28/19 09:00 10/26/19 08:59 09/29/19 09:18 Metoprolol Tartrate (Lopressor) 5 mg Q5MIN X 1 PRN IVP AFIBRILATION 09/28/19 08:45 10/28/19 08:44 09/28/19 08:51 Metoprolol Tartrate (Lopressor) 12.5 mg Q12HR ORAL 09/28/19 21:00 10/28/19 20:59 09/29/19 09:16 Morphine Sulfate (Morphine Sulfate) 2 mg Q4H PRN IVP Severe Pain (Pain Scale 7-10) 09/29/19 14:00 10/03/19 05:59 Ondansetron HCl (Zofran) 4 mg Q4H PRN IVP Nausea & Vomiting 09/28/19 05:30 10/26/19 09:29 Piperacillin Sod/ Tazobactam Sod 3.375 gm/Sodium Chloride 110 ml @ 27.5 mls/hr Q8H IVPB 09/28/19 09:00 10/05/19 08:59 09/29/19 09:16 Polyethylene Glycol (Miralax) 17 gm HSPRN PRN ORAL Constipation 09/28/19 22:30 10/25/19 22:29 Promethazine HCl 25 mg/Sodium Chloride 56 ml @ 112 mls/hr Q6H PRN IVPB nausea 09/28/19 06:00 10/26/19 05:59 Vancomycin HCl (Vanco rx to dose) 1 ea DAILY PRN MISC Per rx protocol 09/28/19 08:30 10/28/19 08:29 Vancomycin HCl 1 gm/Dextrose 275 ml @ 183.708 mls/hr Q24H IVPB 09/29/19 10:00 10/04/19 09:59 09/29/19 10:35 Zolpidem Tartrate (Ambien) 5 mg HSPRN PRN ORAL Insomnia 09/28/19 22:30 10/02/19 22:29 Assessment/Plan Problem List: (1) Closed right hip fracture Assessment & Plan: There is a severely comminuted fracture of the superior portion of the ileum primarily involving the right iliac crest with multiple bone fragments. The fracture extends into the right sacroiliac joint which is diastatic. There is a 3 mm bone fragment at the lower margin of the sacroiliac joint probably intra-articular ( e.g. #39/2 or e.g. #37/8). There is no involvement of the acetabulum. There is a moderate degree of soft tissue swelling both lateral and medial to the iliac fracture with lateral gluteal ill-definition and edema as well as medial soft tissue attenuation of fat which (likely due to blood) with edema/blood of a portion of the right piriformis muscle noted. No other fractures are identified. The right femoral neck and head appear normal without fracture or malalignment. No fracture of the sacrum or pubis identified. The bones are osteopenic. The visualized part of the lower lumbar spine appears intact. There is some hypertrophy of the facets and narrowing of the intervertebral discs. There is a Leigh catheter within the urinary bladder which is mostly nondistended. IMPRESSION: Severe, comminuted fracture of the right iliac crest and superior ilium with intra-articular extension into the right sacroiliac joint which is diastatic. Acetabulum and hip appear intact. Ortho input appreciated: At this point, this is a nonoperative fracture, should heal. She can begin physical therapy. Weightbearing as tolerated with a walker. She will have a significant discomfort initially until the fracture consolidates given that the adductor muscles are attached at that area. Therefore, she may have to be transferred to a jail until she is a little bit more safe to go home. She should get appropriate DVT prophylaxis ICD Codes: S72.001A - Fracture of unspecified part of neck of right femur, initial encounter for closed fracture SNOMED: 553886308 Qualifiers: Qualified Codes: S72.001A - Fracture of unspecified part of neck of right femur, initial encounter for closed fracture (2) Collapse of left lung Assessment & Plan: Lungs: There is interval worsening with opacification of most of the left hemithorax and leftward mediastinal shift consistent with severe volume loss of the left lung. Pleural space: Unremarkable. No pneumothorax. Heart: Unremarkable. No cardiomegaly. Mediastinum: The trachea is deviated to the left. Bones/joints: Unremarkable. Vasculature: There is calcification of the aortic arch. IMPRESSION: Interval worsening with opacification of the left hemithorax and leftward mediastinal shift consistent with severe volume loss of the left lung. CT chest report pre arzola reviewed as well as images mass noted. shift noted no ptx. no large effusion do not recommend Chest tube placement at this time pulm input appreciated okay for anticoagulation from surgical standpoint thank you ICD Codes: J98.11 - Atelectasis SNOMED: 71473942 (3) Pelvic fracture ICD Codes: S32.9XXA - Fracture of unspecified parts of lumbosacral spine and pelvis, initial encounter for closed fracture SNOMED: [id number] Qualifiers: Qualified Codes: S32.9XXA - Fracture of unspecified parts of lumbosacral spine and pelvis, initial encounter for closed fracture Fan Owusu Sep 29, 2019 16:52
--- NOTE | 2019-09-29 17:00 | NUR ---
NURSE NOTES: Pt refused dinner.
--- NOTE | 2019-09-29 19:07 | Internal Med Progress Note ---
Subjective Date of Service: Sep 29, 2019 Physician Name AmirahCarlos Attending Physician Yonis Granados MD Current Medications Medications (Trade) Dose Ordered Sig/Yesenia Route PRN Reason Start Time Stop Time Status Last Admin Dose Admin Acetaminophen (Tylenol) 650 mg Q4H PRN ORAL Mild Pain/Temp > 100.5 09/28/19 15:15 10/28/19 15:14 09/28/19 16:08 Acetaminophen/ Hydrocodone Bitart ([place] 5/325) 1 tab Q6H PRN ORAL MODERATE PAIN (4-6) 09/28/19 15:45 10/03/19 09:14 09/29/19 07:58 Albuterol/ Ipratropium (Albuterol/ Ipratropium) 3 ml Q4H PRN HHN Shortness of Breath 09/28/19 05:50 10/03/19 05:49 09/28/19 06:12 Albuterol/ Ipratropium (Albuterol/ Ipratropium) 3 ml Q4HRT HHN 09/28/19 07:00 10/03/19 06:59 09/29/19 15:00 Clonidine HCl (Catapres Tab) 0.1 mg Q4H PRN ORAL SBP > 160 09/28/19 09:15 10/26/19 17:14 Dextrose (Dextrose 50%) 25 ml Q30M PRN IV Hypoglycemia 09/28/19 05:30 10/25/19 22:29 Dextrose (Dextrose 50%) 50 ml Q30M PRN IV Hypoglycemia 09/28/19 05:30 10/25/19 22:29 Heparin Sodium (Porcine) (Heparin 5000 units/ml) 5,000 units EVERY 12 HOURS SUBQ 09/28/19 09:00 10/26/19 08:59 09/29/19 09:18 Metoprolol Tartrate (Lopressor) 5 mg Q5MIN X 1 PRN IVP AFIBRILATION 09/28/19 08:45 10/28/19 08:44 09/28/19 08:51 Metoprolol Tartrate (Lopressor) 12.5 mg Q12HR ORAL 09/28/19 21:00 10/28/19 20:59 09/29/19 09:16 Morphine Sulfate (Morphine Sulfate) 2 mg Q4H PRN IVP Severe Pain (Pain Scale 7-10) 09/29/19 14:00 10/03/19 05:59 Ondansetron HCl (Zofran) 4 mg Q4H PRN IVP Nausea & Vomiting 09/28/19 05:30 10/26/19 09:29 Piperacillin Sod/ Tazobactam Sod 3.375 gm/Sodium Chloride 110 ml @ 27.5 mls/hr Q8H IVPB 09/28/19 09:00 10/05/19 08:59 09/29/19 17:30 Polyethylene Glycol (Miralax) 17 gm HSPRN PRN ORAL Constipation 09/28/19 22:30 10/25/19 22:29 Promethazine HCl 25 mg/Sodium Chloride 56 ml @ 112 mls/hr Q6H PRN IVPB nausea 09/28/19 06:00 10/26/19 05:59 Vancomycin HCl (Vanco rx to dose) 1 ea DAILY PRN MISC Per rx protocol 09/28/19 08:30 10/28/19 08:29 Vancomycin HCl 1 gm/Dextrose 275 ml @ 183.708 mls/hr Q24H IVPB 09/29/19 10:00 10/04/19 09:59 09/29/19 10:35 Zolpidem Tartrate (Ambien) 5 mg HSPRN PRN ORAL Insomnia 09/28/19 22:30 10/02/19 22:29 Allergies: Coded Allergies: No Known Allergies (Unverified , 09/25/19) ROS Limited/Unobtainable: Yes Subjective 69 YO F admitted with right hip pain after fall. Now acute fracture right superior ilium and iliac crest. Cover for Int Med-Dr Granados. ICU Objective Last Vital Signs Date Time Temp Pulse Resp B/P (MAP) Pulse Ox O2 Delivery O2 Flow Rate FiO2 09/29/19 19:00 90 25 139/49 (79) 95 09/29/19 16:00 99.5 09/29/19 16:00 5.0 09/29/19 16:00 Nasal Cannula Nasal Cannula Nasal Cannula 09/29/19 15:01 40 Laboratory Tests Test 09/29/19 05:55 09/29/19 09:34 White Blood Count 14.2 K/UL (4.8-10.8) H Red Blood Count 3.13 M/UL (4.20-5.40) L Hemoglobin 10.2 G/DL (12.0-16.0) L Hematocrit 29.0 % (37.0-47.0) L Mean Corpuscular Volume 93 FL (80-99) Mean Corpuscular Hemoglobin 32.5 PG (27.0-31.0) H Mean Corpuscular Hemoglobin Concent 35.1 G/DL (32.0-36.0) Red Cell Distribution Width 12.1 % (11.6-14.8) Platelet Count 153 K/UL (150-450) Mean Platelet Volume 7.4 FL (6.5-10.1) Neutrophils (%) (Auto) 83.0 % (45.0-75.0) H Lymphocytes (%) (Auto) 8.7 % (20.0-45.0) L Monocytes (%) (Auto) 6.2 % (1.0-10.0) Eosinophils (%) (Auto) 1.6 % (0.0-3.0) Basophils (%) (Auto) 0.5 % (0.0-2.0) Sodium Level 139 MMOL/L (136-145) Potassium Level 3.3 MMOL/L (3.5-5.1) L Chloride Level 107 MMOL/L (98-107) Carbon Dioxide Level 26 MMOL/L (21-32) Anion Gap 6 mmol/L (5-15) Blood Urea Nitrogen 10 mg/dL (7-18) Creatinine 0.5 MG/DL (0.55-1.30) L Estimat Glomerular Filtration Rate mL/min (>60) Glucose Level 129 MG/DL (74-106) H Calcium Level 7.9 MG/DL (8.5-10.1) L Arterial Blood pH 7.434 (7.350-7.450) Arterial Blood Partial Pressure CO2 34.2 mmHg (35.0-45.0) L Arterial Blood Partial Pressure O2 58.3 mmHg (75.0-100.0) L Arterial Blood HCO3 22.4 mmol/L (22.0-26.0) Arterial Blood Oxygen Saturation 91.0 % (95-100) L Arterial Blood Base Excess -1.3 (-2-2) Torito Test Positive Microbiology Date/Time Source Procedure Growth Status 09/29/19 13:30 Nasopharynx - Final Complete 09/29/19 13:30 Nasopharynx - Final Complete Intake and Output 09/28/19 09/29/19 19:00 07:00 Intake Total 685.559 ml 737.8 ml Output Total 700 ml 315 ml Balance -14.441 ml 422.8 ml Intake Oral 320 ml 120 ml IV Total 365.559 ml 617.8 ml Output Urine Total 700 ml 315 ml Objective PHYSICAL EXAMINATION: GENERAL: The patient is awake, responsive, no acute distress. HEAD AND NECK: Pupils are equal and reactive to light. Extraocular movements intact. Neck was supple. No JVD. LUNGS: Nasal canula; BS decreased on left; Positive expiratory wheezes. HEART: S1 and S2. Regular rhythm. No murmurs or gallops. ABDOMEN: Soft, nondistended, nontender. Positive bowel sounds. EXTREMITIES: No cyanosis, clubbing, edema NEUROLOGIC: Cranial nerves II through XII grossly normal. The patient moving all the extremities. Assessment/Plan Assessment/Plan SSESSMENT: Subsequently, the patient was admitted to the hospital with acute pelvic fracture. 1. Status post fall. 2. Asthma. 3. History of CVA with right-sided weakness. 4. Elevated blood pressure. 5. right hip pain\ 6. Right superior Ilium fracture 7. Right iliac crest fracture 8. left pneumonia PLAN: 1. Admit the patient to medical floor. 2. Ortho= Dr. Zane Galo 3. Dr. Limon Pulmonary Critical Care. 4. Code status is Full Code. DVT prophylaxis, heparin subcutaneous. 5. Pulmonary=Dr Limon 6. ABX=Carlos Duvall MD Sep 29, 2019 19:07
--- NOTE | 2019-09-29 19:17 | NUR ---
HAND-OFF: Report given to DOMNIGA Cain. Pt in stable condition.
--- NOTE | 2019-09-29 19:26 | NUR ---
NURSE NOTES: RECEIVED PT FROM STEPHIE ORR PT AWAKE AND ALERT HR SR NO C/O PAIN NO ACUTE RESP DISTRESS REPOSITION
[2019-09-30] VITALS (41 sets, daily range): BP systolic 89–132; BP diastolic 42–107
--- NOTE | 2019-09-30 | NUR ---
NURSE NOTES: Sleeping well at this time with vss. No resp. distress
[2019-09-30] MEDS: Piperacillin/Tazobactam 3.375 GM in NS 110 ML IVPB SCH ×3 (01:44→17:37)
--- NOTE | 2019-09-30 02:00 | NUR ---
NURSE NOTES: Complete bed bath with bed changed was done.
[2019-09-30] MEDS: Albuterol/Ipratropium 3ml neb HHN SCH ×6 (03:16→23:49)
--- NOTE | 2019-09-30 04:00 | NUR ---
NURSE NOTES: Pt is awake at this time, no resp .distress noted. requesting coffee and juice.
--- NOTE | 2019-09-30 04:00 | NUR ---
NURSE NOTES: Tylenol 650mg PO was given due to pain on her RT side pain with relief.
[2019-09-30 07:27] LABS: BASOPHILS % (AUTO) 0.7 % (0.0-2.0); EOSINOPHILS % (AUTO) 2.3 % (0.0-3.0); HEMATOCRIT 29.3 % (37.0-47.0); HEMOGLOBIN 10.3 G/DL (12.0-16.0); LYMPHOCYTES % (AUTO) 6.4 % (20.0-45.0); MEAN CORPUSCULAR VOLUME 92 FL (80-99); MONOCYTES % (AUTO) 7.1 % (1.0-10.0); NEUTROPHILS % (AUTO) 83.4 % (45.0-75.0); PLATELET COUNT 202 K/UL (150-450); RED CELL DISTRIBUTION WIDTH 11.8 % (11.6-14.8); WHITE BLOOD COUNT 14.7 K/UL (4.8-10.8)
[2019-09-30 07:30] LABS: ALANINE AMINOTRANSFERASE 19 U/L (12-78); ALBUMIN 2.1 G/DL (3.4-5.0); ALBUMIN/GLOBULIN RATIO 0.5 (1.0-2.7); ALKALINE PHOSPHATASE 50 U/L (46-116); ANION GAP 7 mmol/L (5-15); ASPARTATE AMINO TRANSFERASE 20 U/L (15-37); BILIRUBIN,TOTAL 0.6 MG/DL (0.2-1.0); BLOOD UREA NITROGEN 8 mg/dL (7-18); CALCIUM 8.4 MG/DL (8.5-10.1); CARBON DIOXIDE 25 MMOL/L (21-32); CHLORIDE 104 MMOL/L (98-107); CREATININE 0.5 MG/DL (0.55-1.30); POTASSIUM 3.8 MMOL/L (3.5-5.1); SODIUM 136 MMOL/L (136-145)
--- NOTE | 2019-09-30 07:30 | NUR ---
NURSE NOTES: Pt received from DOMINGA Cain without cardiopulmonary distress noted. Pt is awake in bed, AAOx4, able to follow commands, PERRLA+. Pt noted with right sided-weakness. SR to mining engineer, bilateral radial and dorsalis pedis pulses 2+ palpable. Pt noted 99.5 F ax. Pt is on 5L NC with spO2 97%. Lung sounds noted diminished to bilateral lower lobes. Bilateral upper lobes noted with inspiratory wheezes. Bowel sounds active to all quadrants. Abd is round and distended, non-tender. Skin alterations noted. Pt has a winters draining light rizwana urine. RH 20g IV running NS TKO and LFA 20g IV saline-locked noted. Bed is in lowest position, alarm on, side rails up x 3, call light within reach, yellow socks on, Fall precaution sign on door, fall prevention education provided to pt, pt verbalized understanding. Pt denies pain at this time. Will continue to monitor.
--- NOTE | 2019-09-30 08:00 | NUR ---
RESPIRATORY NOTE: AM ABG ON HOLD PER DOMINGA DAVEY. DUE TO PT TACHYCARDIA AND RESTLESSNESS. WILL ATTEMPT SOON POSSIBLE.
--- NOTE | 2019-09-30 08:15 | NUR ---
NURSE NOTES: Pt refused CXR this morning. Explained to her indication for CXR however pt persistently refused.
[2019-09-30] MEDS: Metoprolol Tartrate 12.5mg TAB ORAL SCH ×2 (09:09→20:58)
[2019-09-30] MEDS: Heparin 5000 units/ml inj SUBQ SCH ×2 (09:09→21:00)
[2019-09-30] MEDS: HYDROcodone/Acetamin 5/325 tab ORAL PRN ×2 (09:32→19:43)
--- NOTE | 2019-09-30 09:32 | NUR ---
NURSE NOTES: Dr Limon at bedside assessing pt and discussed care plan with pt, Dr Limon made aware that pt is reusing CXR and also noted pt in sinus tachycardia with HR 150-165 bpm to monitor. Pt states she is in pain 02/26 (Generalized to right side of body). Eucha () given PO. No other orders from Dr Limon at this time. Addendum: 09/30/19 at 1107 by Ara Burkett RN refusing CXR.
--- NOTE | 2019-09-30 09:40 | NUR ---
NURSE NOTES: Per Dr Limon, modify diet order to exclude coffee from pt's diet.
--- NOTE | 2019-09-30 10:01 | Pulmonolgy Critical Care Note ---
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 Discussed with: nurses, consultants, caseworker intakemanager validation - Objective Last 24 Hour Vital Signs Date Time Temp Pulse Resp B/P (MAP) Pulse Ox O2 Delivery O2 Flow Rate FiO2 09/30/19 09:09 94 131/81 09/30/19 09:00 105 29 131/81 (98) 95 09/30/19 08:00 86 09/30/19 08:00 Nasal Cannula 5.0 Nasal Cannula 5.0 Nasal Cannula 5.0 09/30/19 08:00 99.5 81 22 124/69 (87) 97 09/30/19 07:00 111 23 113/55 (74) 98 09/30/19 07:00 112 18 98 Room Air 21 90 18 97 09/30/19 07:00 97 Room Air 21 09/30/19 06:22 5.0 09/30/19 06:00 80 23 115/57 (76) 98 09/30/19 05:00 84 23 132/107 (115) 96 09/30/19 04:00 Nasal Cannula 5.0 Nasal Cannula 5.0 Nasal Cannula 5.0 09/30/19 04:00 5.0 09/30/19 04:00 97.8 117 23 129/65 (86) 92 09/30/19 04:00 5.0 09/30/19 03:26 91 23 98 Nasal Cannula 3.0 32 09/30/19 03:16 82 22 96 Nasal Cannula 3.0 32 09/30/19 03:00 76 22 120/60 (80) 97 09/30/19 02:00 77 21 118/61 (80) 100 09/30/19 01:00 77 22 117/52 (73) 100 2/11/20 00:00 98.0 84 20 112/51 (71) 99 09/30/19 00:00 5.0 09/30/19 00:00 Nasal Cannula 5.0 Nasal Cannula 5.0 Nasal Cannula 5.0 09/30/19 00:00 5.0 09/29/19 23:00 88 20 106/50 (68) 98 09/29/19 22:00 104 23 103/47 (65) 97 09/29/19 21:27 96 129/51 09/29/19 21:00 90 24 129/51 (77) 96 09/29/19 20:00 99.0 88 26 132/55 (80) 94 09/29/19 20:00 5.0 09/29/19 20:00 Nasal Cannula 5.0 Nasal Cannula 5.0 Nasal Cannula 5.0 09/29/19 19:00 95 Nasal Cannula 3.0 32 09/29/19 19:00 90 25 139/49 (79) 95 09/29/19 18:00 97 26 132/89 (103) 91 09/29/19 17:00 89 25 124/62 (82) 96 09/29/19 17:00 89 25 124/62 (82) 96 09/29/19 16:28 89 25 118/61 (80) 95 09/29/19 16:00 99.5 91 26 77/38 (51) 94 09/29/19 16:00 5.0 09/29/19 16:00 91 09/29/19 16:00 Nasal Cannula 5.0 Nasal Cannula 5.0 Nasal Cannula 5.0 09/29/19 15:01 82 26 99 Nasal Cannula 5.0 40 84 25 98 09/29/19 15:00 99.7 84 27 97/71 (80) 92 09/29/19 14:00 77 24 123/54 (77) 97 09/29/19 13:00 99.2 81 27 116/57 (76) 95 09/29/19 12:12 77 26 97 Nasal Cannula 5.0 40 76 26 94 09/29/19 12:00 75 20 112/60 (77) 97 09/29/19 12:00 5.0 09/29/19 12:00 Nasal Cannula 5.0 Nasal Cannula 5.0 Nasal Cannula 2.0 09/29/19 12:00 75 20 112/60 (77) 97 09/29/19 11:00 72 20 109/49 (69) 96 09/29/19 11:00 72 20 109/49 (69) 96 Status: awake, sedated HEENT: atraumatic Neck: full ROM Lungs: clear Heart: HR/BP stable, HR/BP unstable Abdomen: soft, non-tender Extremities: no C/C/E Decubiti: location Micro: Microbiology Date/Time Source Procedure Growth Status 09/28/19 09:15 Blood Blood Culture - Preliminary NO GROWTH AFTER 24 HOURS Resulted 09/28/19 09:05 Blood Blood Culture - Preliminary NO GROWTH AFTER 24 HOURS Resulted 09/29/19 13:30 Nasopharynx - Final Complete 09/29/19 13:30 Nasopharynx - Final Complete Critical Care - Subjective ROS Limited/Unobtainable: Yes Interval Events: refusing treatment, FI02: 21 Vent Support Mode: BiLevel Sputum Amount: None I&O: Intake and Output 09/29/19 09/30/19 19:00 07:00 Intake Total 621.660 ml 360.0 ml Output Total 320 ml 650 ml Balance 301.660 ml -290.0 ml Intake Oral 50 ml 250 ml IV Total 571.660 ml 110.0 ml Output Urine Total 320 ml 650 ml CXR: left lung better, pt refused CXR today Labs: Laboratory Tests Test 09/30/19 05:50 White Blood Count 14.7 K/UL (4.8-10.8) H Red Blood Count 3.20 M/UL (4.20-5.40) L Hemoglobin 10.3 G/DL (12.0-16.0) L Hematocrit 29.3 % (37.0-47.0) L Mean Corpuscular Volume 92 FL (80-99) Mean Corpuscular Hemoglobin 32.1 PG (27.0-31.0) H Mean Corpuscular Hemoglobin Concent 35.1 G/DL (32.0-36.0) Red Cell Distribution Width 11.8 % (11.6-14.8) Platelet Count 202 K/UL (150-450) Mean Platelet Volume 6.2 FL (6.5-10.1) L Neutrophils (%) (Auto) 83.4 % (45.0-75.0) H Lymphocytes (%) (Auto) 6.4 % (20.0-45.0) L Monocytes (%) (Auto) 7.1 % (1.0-10.0) Eosinophils (%) (Auto) 2.3 % (0.0-3.0) Basophils (%) (Auto) 0.7 % (0.0-2.0) Sodium Level 136 MMOL/L (136-145) Potassium Level 3.8 MMOL/L (3.5-5.1) Chloride Level 104 MMOL/L (98-107) Carbon Dioxide Level 25 MMOL/L (21-32) Anion Gap 7 mmol/L (5-15) Blood Urea Nitrogen 8 mg/dL (7-18) Creatinine 0.5 MG/DL (0.55-1.30) L Estimat Glomerular Filtration Rate mL/min (>60) Glucose Level 131 MG/DL (74-106) H Calcium Level 8.4 MG/DL (8.5-10.1) L Total Bilirubin 0.6 MG/DL (0.2-1.0) Aspartate Amino Transf (AST/SGOT) 20 U/L (15-37) Alanine Aminotransferase (ALT/SGPT) 19 U/L (12-78) Alkaline Phosphatase 50 U/L (46-116) Pro-B-Type Natriuretic Peptide 1513 pg/mL (0-125) H Total Protein 6.0 G/DL (6.4-8.2) L Albumin 2.1 G/DL (3.4-5.0) L Globulin 3.9 g/dL Albumin/Globulin Ratio 0.5 (1.0-2.7) L Rox Limon MD Sep 30, 2019 10:01
--- NOTE | 2019-09-30 10:07 | NUR ---
NURSE NOTES: Left message for Dr Linda Don (with [facility]) regarding pt's 12 lead EKG results at this time noted Afib with RVR. Ambrosio states that Dr Don is "currently in a procedure" and that he will inform her. Ambrosio states there is no covering doctor at this time. Awaiting call back.
--- NOTE | 2019-09-30 10:10 | NUR ---
NURSE NOTES: Got order for [address] Granados.
--- NOTE | 2019-09-30 10:20 | NUR ---
NURSE NOTES: Received order from Dr Limon to start pt on diltiazem drip per hospital protocol. STAT order placed.
[2019-09-30] MEDS: Vancomycin 1gm in D5W 275ml IVPB SCH (10:33)
--- NOTE | 2019-09-30 10:58 | Infectious Diseases Prog Note ---
Assessment/Plan Assessment/Plan Abx: Zosyn 09/28- IV Vancomycin 09/28- Assessment: Sepsis Probable PNA Severe L lung volume loss -09/28 Bcx NTD -09/27 CXR: Interval worsening with opacification of the left hemithorax and leftward mediastinal shift consistent with severe volume loss of the left lung. -09/25 CXR; Possible mild pulmonary vascular congestion. Correlate clinically u/a neg -influenza sc neg Fever; improving Leukocytosis, increased R hip fracture 2ry to mechanical fall -09/26 CT hip; Severe, comminuted fracture of the right iliac crest and superior ilium with intra-articular extension into the right sacroiliac joint which is diastatic. Acetabulum and hip appear intact. Leigh catheter. Acute hypoxic respiratory failure, sp Bipap, now on NC Afib with RVR CVA w/ residual R side weakness asthma Plan: -Continue empiric IV vancomycin and ZOsyn #3 -f/u cx -Monitor CBC/CMP, temperatures -Cards, pulm f/u -ICU care -aspiration precautions Thank you for this consultation. Will continue to follow along with you. Discussed with RN Subjective Allergies: Coded Allergies: No Known Allergies (Unverified , 09/25/19) Subjective afebrile >24hrs wbc remains at 14 Bcx NTD Objective Vital Signs Last 24 Hour Vital Signs Date Time Temp Pulse Resp B/P (MAP) Pulse Ox O2 Delivery O2 Flow Rate FiO2 09/30/19 10:00 138 25 126/69 (88) 95 09/30/19 09:09 94 131/81 09/30/19 09:00 105 29 131/81 (98) 95 09/30/19 08:00 86 09/30/19 08:00 Nasal Cannula 5.0 Nasal Cannula 5.0 Nasal Cannula 5.0 09/30/19 08:00 99.5 81 22 124/69 (87) 97 09/30/19 07:00 111 23 113/55 (74) 98 09/30/19 07:00 112 18 98 Room Air 21 90 18 97 09/30/19 07:00 97 Room Air 21 09/30/19 06:22 5.0 09/30/19 06:00 80 23 115/57 (76) 98 09/30/19 05:00 84 23 132/107 (115) 96 09/30/19 04:00 Nasal Cannula 5.0 Nasal Cannula 5.0 Nasal Cannula 5.0 09/30/19 04:00 5.0 09/30/19 04:00 97.8 117 23 129/65 (86) 92 09/30/19 04:00 5.0 09/30/19 03:26 91 23 98 Nasal Cannula 3.0 32 09/30/19 03:16 82 22 96 Nasal Cannula 3.0 32 09/30/19 03:00 76 22 120/60 (80) 97 09/30/19 02:00 77 21 118/61 (80) 100 09/30/19 01:00 77 22 117/52 (73) 100 09/30/19 00:00 98.0 84 20 112/51 (71) 99 09/30/19 00:00 5.0 09/30/19 00:00 Nasal Cannula 5.0 Nasal Cannula 5.0 Nasal Cannula 5.0 09/30/19 00:00 5.0 09/29/19 23:00 88 20 106/50 (68) 98 09/29/19 22:00 104 23 103/47 (65) 97 09/29/19 21:27 96 129/51 09/29/19 21:00 90 24 129/51 (77) 96 09/29/19 20:00 99.0 88 26 132/55 (80) 94 09/29/19 20:00 5.0 09/29/19 20:00 Nasal Cannula 5.0 Nasal Cannula 5.0 Nasal Cannula 5.0 09/29/19 19:00 95 Nasal Cannula 3.0 32 09/29/19 19:00 90 25 139/49 (79) 95 09/29/19 18:00 97 26 132/89 (103) 91 09/29/19 17:00 89 25 124/62 (82) 96 09/29/19 17:00 89 25 124/62 (82) 96 09/29/19 16:28 89 25 118/61 (80) 95 09/29/19 16:00 99.5 91 26 77/38 (51) 94 09/29/19 16:00 5.0 09/29/19 16:00 91 09/29/19 16:00 Nasal Cannula 5.0 Nasal Cannula 5.0 Nasal Cannula 5.0 09/29/19 15:01 82 26 99 Nasal Cannula 5.0 40 84 25 98 09/29/19 15:00 99.7 84 27 97/71 (80) 92 09/29/19 14:00 77 24 123/54 (77) 97 09/29/19 13:00 99.2 81 27 116/57 (76) 95 09/29/19 12:12 77 26 97 Nasal Cannula 5.0 40 76 26 94 09/29/19 12:00 75 20 112/60 (77) 97 09/29/19 12:00 5.0 09/29/19 12:00 Nasal Cannula 5.0 Nasal Cannula 5.0 Nasal Cannula 2.0 09/29/19 12:00 75 20 112/60 (77) 97 09/29/19 11:00 72 20 109/49 (69) 96 09/29/19 11:00 72 20 109/49 (69) 96 Height (Feet): 5 Height (Inches): 5.00 Weight (Pounds): 127 Objective GENERAL: The patient is awake, responsive, no acute distress. HEAD AND NECK: Pupils are equal and reactive to light. Extraocular movements intact. Neck was supple. LUNGS: No rhonchi. Positive expiratory wheezes. HEART: S1 and S2. Regular rhythm. No murmurs or gallops. ABDOMEN: Soft, nondistended, nontender. Positive bowel sounds. EXTREMITIES: No cyanosis, clubbing, edema Microbiology Date/Time Source Procedure Growth Status 09/28/19 09:15 Blood Blood Culture - Preliminary NO GROWTH AFTER 24 HOURS Resulted 09/28/19 09:05 Blood Blood Culture - Preliminary NO GROWTH AFTER 24 HOURS Resulted 09/29/19 13:30 Nasopharynx - Final Complete 09/29/19 13:30 Nasopharynx - Final Complete Laboratory Tests Test 09/30/19 05:50 White Blood Count 14.7 K/UL (4.8-10.8) H Red Blood Count 3.20 M/UL (4.20-5.40) L Hemoglobin 10.3 G/DL (12.0-16.0) L Hematocrit 29.3 % (37.0-47.0) L Mean Corpuscular Volume 92 FL (80-99) Mean Corpuscular Hemoglobin 32.1 PG (27.0-31.0) H Mean Corpuscular Hemoglobin Concent 35.1 G/DL (32.0-36.0) Red Cell Distribution Width 11.8 % (11.6-14.8) Platelet Count 202 K/UL (150-450) Mean Platelet Volume 6.2 FL (6.5-10.1) L Neutrophils (%) (Auto) 83.4 % (45.0-75.0) H Lymphocytes (%) (Auto) 6.4 % (20.0-45.0) L Monocytes (%) (Auto) 7.1 % (1.0-10.0) Eosinophils (%) (Auto) 2.3 % (0.0-3.0) Basophils (%) (Auto) 0.7 % (0.0-2.0) Sodium Level 136 MMOL/L (136-145) Potassium Level 3.8 MMOL/L (3.5-5.1) Chloride Level 104 MMOL/L (98-107) Carbon Dioxide Level 25 MMOL/L (21-32) Anion Gap 7 mmol/L (5-15) Blood Urea Nitrogen 8 mg/dL (7-18) Creatinine 0.5 MG/DL (0.55-1.30) L Estimat Glomerular Filtration Rate mL/min (>60) Glucose Level 131 MG/DL (74-106) H Calcium Level 8.4 MG/DL (8.5-10.1) L Total Bilirubin 0.6 MG/DL (0.2-1.0) Aspartate Amino Transf (AST/SGOT) 20 U/L (15-37) Alanine Aminotransferase (ALT/SGPT) 19 U/L (12-78) Alkaline Phosphatase 50 U/L (46-116) Pro-B-Type Natriuretic Peptide 1513 pg/mL (0-125) H Total Protein 6.0 G/DL (6.4-8.2) L Albumin 2.1 G/DL (3.4-5.0) L Globulin 3.9 g/dL Albumin/Globulin Ratio 0.5 (1.0-2.7) L Current Medications Medications (Trade) Dose Ordered Sig/Yesenia Route PRN Reason Start Time Stop Time Status Last Admin Dose Admin Acetaminophen (Tylenol) 650 mg Q4H PRN ORAL Mild Pain/Temp > 100.5 09/28/19 15:15 10/28/19 15:14 09/30/19 04:00 Acetaminophen/ Hydrocodone Bitart (Hector 5/325) 1 tab Q6H PRN ORAL MODERATE PAIN (4-6) 09/28/19 15:45 10/03/19 09:14 09/30/19 09:32 Albuterol/ Ipratropium (Albuterol/ Ipratropium) 3 ml Q4H PRN HHN Shortness of Breath 09/28/19 05:50 10/03/19 05:49 09/28/19 06:12 Albuterol/ Ipratropium (Albuterol/ Ipratropium) 3 ml Q4HRT HHN 09/28/19 07:00 10/03/19 06:59 09/30/19 07:59 Clonidine HCl (Catapres Tab) 0.1 mg Q4H PRN ORAL SBP > 160 09/28/19 09:15 10/26/19 17:14 Dextrose (Dextrose 50%) 25 ml Q30M PRN IV Hypoglycemia 09/28/19 05:30 10/25/19 22:29 Dextrose (Dextrose 50%) 50 ml Q30M PRN IV Hypoglycemia 09/28/19 05:30 10/25/19 22:29 Diltiazem HCl 125 mg/Dextrose 125 ml @ 0 mls/hr Q24H IV 09/30/19 11:00 10/01/19 10:59 Heparin Sodium (Porcine) (Heparin 5000 units/ml) 5,000 units EVERY 12 HOURS SUBQ 09/28/19 09:00 10/26/19 08:59 09/30/19 09:09 Metoprolol Tartrate (Lopressor) 5 mg Q5MIN X 1 PRN IVP AFIBRILATION 09/28/19 08:45 10/28/19 08:44 09/28/19 08:51 Metoprolol Tartrate (Lopressor) 12.5 mg Q12HR ORAL 09/28/19 21:00 10/28/19 20:59 09/30/19 09:09 Morphine Sulfate (Morphine Sulfate) 2 mg Q4H PRN IVP Severe Pain (Pain Scale 7-10) 09/29/19 14:00 10/03/19 05:59 Ondansetron HCl (Zofran) 4 mg Q4H PRN IVP Nausea & Vomiting 09/28/19 05:30 10/26/19 09:29 Piperacillin Sod/ Tazobactam Sod 3.375 gm/Sodium Chloride 110 ml @ 27.5 mls/hr Q8H IVPB 09/28/19 09:00 10/05/19 08:59 09/30/19 09:07 Polyethylene Glycol (Miralax) 17 gm HSPRN PRN ORAL Constipation 09/28/19 22:30 10/25/19 22:29 Promethazine HCl 25 mg/Sodium Chloride 56 ml @ 112 mls/hr Q6H PRN IVPB nausea 09/28/19 06:00 10/26/19 05:59 Vancomycin HCl (Vanco rx to dose) 1 ea DAILY PRN MISC Per rx protocol 09/28/19 08:30 10/28/19 08:29 Vancomycin HCl 1 gm/Dextrose 275 ml @ 183.708 mls/hr Q24H IVPB 09/29/19 10:00 10/04/19 09:59 09/30/19 10:33 Zolpidem Tartrate (Ambien) 5 mg HSPRN PRN ORAL Insomnia 09/28/19 22:30 10/02/19 22:29 Juliet Cabezas M.D. Sep 30, 2019 10:58
--- NOTE | 2019-09-30 11:00 | NUR ---
NURSE NOTES: Received call back from Ambrosio from Dr Don's office stating Dr Rabago is covering for Dr Don. Left message for Dr Rabago regarding with pt's recent 12 lead EKG results and let him know pt was started on diltizaem drip per Dr flanagan.
--- NOTE | 2019-09-30 11:16 | NUR ---
NURSE NOTES: Received call back from Hima with no new orders, he is aware of pt's condition and will update him with pt's response to diltiazem drip.
--- NOTE | 2019-09-30 11:20 | NUR ---
NURSE NOTES: Pt converted to sinus rhythm. Dr Rabago made aware.
--- NOTE | 2019-09-30 12:23 | NUR ---
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
--- NOTE | 2019-09-30 14:00 | NUR ---
NURSE NOTES: Diltizem drip now running at 2.5 cc/hr. LFA and left hand IVs discontinued due to infiltration. Pt continues to refuse to CXR.
--- NOTE | 2019-09-30 14:14 | Surgery Progress Note ---
Surgery Progress Note Subjective Additional Comments no acute events labs noted exam stable on nasal cannula Objective Last 24 Hour Vital Signs Date Time Temp Pulse Resp B/P (MAP) Pulse Ox O2 Delivery O2 Flow Rate FiO2 09/30/19 14:00 78 26 128/46 (73) 98 09/30/19 13:30 80 27 90/71 (77) 91 09/30/19 13:00 78 26 117/55 (75) 97 09/30/19 12:45 78 23 111/61 (78) 97 09/30/19 12:30 81 23 110/60 (77) 96 09/30/19 12:15 78 22 117/56 (76) 98 09/30/19 12:00 Nasal Cannula 5.0 Nasal Cannula 5.0 Nasal Cannula 5.0 09/30/19 12:00 81 21 123/96 (105) 97 09/30/19 12:00 75 09/30/19 12:00 5.0 09/30/19 12:00 98.8 82 20 123/96 (105) 98 09/30/19 11:45 78 20 113/54 (73) 99 09/30/19 11:45 82 21 113/54 (73) 97 09/30/19 11:30 79 22 114/61 (78) 97 09/30/19 11:30 93 22 114/61 (78) 97 09/30/19 11:15 151 19 119/64 (82) 97 09/30/19 11:09 143 20 118/76 (90) 98 09/30/19 11:00 138 21 118/86 (97) 97 09/30/19 10:55 147 126/69 09/30/19 10:00 138 25 126/69 (88) 95 09/30/19 09:09 94 131/81 09/30/19 09:00 105 29 131/81 (98) 95 09/30/19 08:00 86 09/30/19 08:00 Nasal Cannula 5.0 Nasal Cannula 5.0 Nasal Cannula 5.0 09/30/19 08:00 99.5 81 22 124/69 (87) 97 09/30/19 07:00 111 23 113/55 (74) 98 09/30/19 07:00 112 18 98 Room Air 21 90 18 97 09/30/19 07:00 97 Room Air 21 09/30/19 06:22 5.0 09/30/19 06:00 80 23 115/57 (76) 98 09/30/19 05:00 84 23 132/107 (115) 96 09/30/19 04:00 Nasal Cannula 5.0 Nasal Cannula 5.0 Nasal Cannula 5.0 09/30/19 04:00 5.0 09/30/19 04:00 97.8 117 23 129/65 (86) 92 09/30/19 04:00 5.0 09/30/19 03:26 91 23 98 Nasal Cannula 3.0 32 09/30/19 03:16 82 22 96 Nasal Cannula 3.0 32 09/30/19 03:00 76 22 120/60 (80) 97 09/30/19 02:00 77 21 118/61 (80) 100 09/30/19 01:00 77 22 117/52 (73) 100 09/30/19 00:00 98.0 84 20 112/51 (71) 99 09/30/19 00:00 5.0 09/30/19 00:00 Nasal Cannula 5.0 Nasal Cannula 5.0 Nasal Cannula 5.0 09/30/19 00:00 5.0 09/29/19 23:00 88 20 106/50 (68) 98 09/29/19 22:00 104 23 103/47 (65) 97 09/29/19 21:27 96 129/51 09/29/19 21:00 90 24 129/51 (77) 96 09/29/19 20:00 99.0 88 26 132/55 (80) 94 09/29/19 20:00 5.0 09/29/19 20:00 Nasal Cannula 5.0 Nasal Cannula 5.0 Nasal Cannula 5.0 09/29/19 19:00 95 Nasal Cannula 3.0 32 09/29/19 19:00 90 25 139/49 (79) 95 09/29/19 18:00 97 26 132/89 (103) 91 09/29/19 17:00 89 25 124/62 (82) 96 09/29/19 17:00 89 25 124/62 (82) 96 09/29/19 16:28 89 25 118/61 (80) 95 09/29/19 16:00 99.5 91 26 77/38 (51) 94 2/10/20 16:00 5.0 09/29/19 16:00 91 09/29/19 16:00 Nasal Cannula 5.0 Nasal Cannula 5.0 Nasal Cannula 5.0 09/29/19 15:01 82 26 99 Nasal Cannula 5.0 40 84 25 98 09/29/19 15:00 99.7 84 27 97/71 (80) 92 I&O Intake and Output 09/29/19 09/30/19 19:00 07:00 Intake Total 621.660 ml 360.0 ml Output Total 320 ml 650 ml Balance 301.660 ml -290.0 ml Intake Oral 50 ml 250 ml IV Total 571.660 ml 110.0 ml Output Urine Total 320 ml 650 ml Cardiovascular: RSR Respiratory: decreased breath sounds, other Abdomen: soft, present bowel sounds, non-distended Extremities: no tenderness, no cyanosis Laboratory Tests Test 09/30/19 05:50 White Blood Count 14.7 K/UL (4.8-10.8) H Red Blood Count 3.20 M/UL (4.20-5.40) L Hemoglobin 10.3 G/DL (12.0-16.0) L Hematocrit 29.3 % (37.0-47.0) L Mean Corpuscular Volume 92 FL (80-99) Mean Corpuscular Hemoglobin 32.1 PG (27.0-31.0) H Mean Corpuscular Hemoglobin Concent 35.1 G/DL (32.0-36.0) Red Cell Distribution Width 11.8 % (11.6-14.8) Platelet Count 202 K/UL (150-450) Mean Platelet Volume 6.2 FL (6.5-10.1) L Neutrophils (%) (Auto) 83.4 % (45.0-75.0) H Lymphocytes (%) (Auto) 6.4 % (20.0-45.0) L Monocytes (%) (Auto) 7.1 % (1.0-10.0) Eosinophils (%) (Auto) 2.3 % (0.0-3.0) Basophils (%) (Auto) 0.7 % (0.0-2.0) Sodium Level 136 MMOL/L (136-145) Potassium Level 3.8 MMOL/L (3.5-5.1) Chloride Level 104 MMOL/L (98-107) Carbon Dioxide Level 25 MMOL/L (21-32) Anion Gap 7 mmol/L (5-15) Blood Urea Nitrogen 8 mg/dL (7-18) Creatinine 0.5 MG/DL (0.55-1.30) L Estimat Glomerular Filtration Rate mL/min (>60) Glucose Level 131 MG/DL (74-106) H Calcium Level 8.4 MG/DL (8.5-10.1) L Total Bilirubin 0.6 MG/DL (0.2-1.0) Aspartate Amino Transf (AST/SGOT) 20 U/L (15-37) Alanine Aminotransferase (ALT/SGPT) 19 U/L (12-78) Alkaline Phosphatase 50 U/L (46-116) Pro-B-Type Natriuretic Peptide 1513 pg/mL (0-125) H Total Protein 6.0 G/DL (6.4-8.2) L Albumin 2.1 G/DL (3.4-5.0) L Globulin 3.9 g/dL Albumin/Globulin Ratio 0.5 (1.0-2.7) L Plan Problems: (1) Closed right hip fracture Assessment & Plan: There is a severely comminuted fracture of the superior portion of the ileum primarily involving the right iliac crest with multiple bone fragments. The fracture extends into the right sacroiliac joint which is diastatic. There is a 3 mm bone fragment at the lower margin of the sacroiliac joint probably intra-articular ( e.g. #39/2 or e.g. #37/8). There is no involvement of the acetabulum. There is a moderate degree of soft tissue swelling both lateral and medial to the iliac fracture with lateral gluteal ill-definition and edema as well as medial soft tissue attenuation of fat which (likely due to blood) with edema/blood of a portion of the right piriformis muscle noted. No other fractures are identified. The right femoral neck and head appear normal without fracture or malalignment. No fracture of the sacrum or pubis identified. The bones are osteopenic. The visualized part of the lower lumbar spine appears intact. There is some hypertrophy of the facets and narrowing of the intervertebral discs. There is a Leigh catheter within the urinary bladder which is mostly nondistended. IMPRESSION: Severe, comminuted fracture of the right iliac crest and superior ilium with intra-articular extension into the right sacroiliac joint which is diastatic. Acetabulum and hip appear intact. Ortho input appreciated: At this point, this is a nonoperative fracture, should heal. She can begin physical therapy. Weightbearing as tolerated with a walker. She will have a significant discomfort initially until the fracture consolidates given that the adductor muscles are attached at that area. Therefore, she may have to be transferred to a fpc until she is a little bit more safe to go home. She should get appropriate DVT prophylaxis (2) Collapse of left lung Assessment & Plan: Lungs: There is interval worsening with opacification of most of the left hemithorax and leftward mediastinal shift consistent with severe volume loss of the left lung. Pleural space: Unremarkable. No pneumothorax. Heart: Unremarkable. No cardiomegaly. Mediastinum: The trachea is deviated to the left. Bones/joints: Unremarkable. Vasculature: There is calcification of the aortic arch. IMPRESSION: Interval worsening with opacification of the left hemithorax and leftward mediastinal shift consistent with severe volume loss of the left lung. CT chest report pre arzola reviewed as well as images mass noted. shift noted no ptx. no large effusion do not recommend Chest tube placement at this time pulm input appreciated okay for anticoagulation from surgical standpoint thank you (3) Pelvic fracture Fan Owusu Sep 30, 2019 14:14
[2019-09-30] MEDS ORDERED: NS 275ml ONE (14:57)
[2019-09-30] MEDS ORDERED: D5 1/2NS 1000ml IV ONE (14:57)
[2019-09-30] MEDS ORDERED: Tubing IV Secondary IV ONE (14:57)
[2019-09-30] MEDS ORDERED: D5NS 1000ml IV ONE (14:57)
--- NOTE | 2019-09-30 15:08 | NUR ---
NURSE NOTES: Dr Rabago currently at bedside assessing pt.
--- NOTE | 2019-09-30 15:14 | Cardiology Progress Note ---
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 pulm htn duplex neg cxr pvc recurrent afib transferred to icu now in sinu will star slade luevano for maint of since rhythm trop and ekg echo noted normal ef will need anticoagulation once her ris of bleeding decrease post fall and injury may be luly 1-2 days alia yosef will discuss timing with ortho icu care / observation over nite Objective Last 24 Hour Vital Signs Date Time Temp Pulse Resp B/P (MAP) Pulse Ox O2 Delivery O2 Flow Rate FiO2 09/30/19 14:15 78 29 121/59 (79) 97 09/30/19 14:00 78 26 128/46 (73) 98 09/30/19 13:45 80 26 89/69 (76) 93 09/30/19 13:30 80 27 90/71 (77) 91 09/30/19 13:00 78 26 117/55 (75) 97 09/30/19 12:45 78 23 111/61 (78) 97 09/30/19 12:30 81 23 110/60 (77) 96 09/30/19 12:15 78 22 117/56 (76) 98 09/30/19 12:00 Nasal Cannula 5.0 Nasal Cannula 5.0 Nasal Cannula 5.0 09/30/19 12:00 81 21 123/96 (105) 97 09/30/19 12:00 75 09/30/19 12:00 5.0 09/30/19 12:00 98.8 82 20 123/96 (105) 98 09/30/19 11:45 78 20 113/54 (73) 99 09/30/19 11:45 82 21 113/54 (73) 97 09/30/19 11:30 79 22 114/61 (78) 97 09/30/19 11:30 93 22 114/61 (78) 97 09/30/19 11:15 151 19 119/64 (82) 97 09/30/19 11:09 143 20 118/76 (90) 98 09/30/19 11:00 138 21 118/86 (97) 97 09/30/19 10:55 147 126/69 09/30/19 10:00 138 25 126/69 (88) 95 09/30/19 09:09 94 131/81 09/30/19 09:00 105 29 131/81 (98) 95 09/30/19 08:00 86 09/30/19 08:00 Nasal Cannula 5.0 Nasal Cannula 5.0 Nasal Cannula 5.0 09/30/19 08:00 99.5 81 22 124/69 (87) 97 09/30/19 07:00 111 23 113/55 (74) 98 09/30/19 07:00 112 18 98 Room Air 21 90 18 97 09/30/19 07:00 97 Room Air 21 09/30/19 06:22 5.0 09/30/19 06:00 80 23 115/57 (76) 98 09/30/19 05:00 84 23 132/107 (115) 96 09/30/19 04:00 Nasal Cannula 5.0 Nasal Cannula 5.0 Nasal Cannula 5.0 09/30/19 04:00 5.0 09/30/19 04:00 97.8 117 23 129/65 (86) 92 09/30/19 04:00 5.0 09/30/19 03:26 91 23 98 Nasal Cannula 3.0 32 09/30/19 03:16 82 22 96 Nasal Cannula 3.0 32 09/30/19 03:00 76 22 120/60 (80) 97 09/30/19 02:00 77 21 118/61 (80) 100 09/30/19 01:00 77 22 117/52 (73) 100 09/30/19 00:00 98.0 84 20 112/51 (71) 99 09/30/19 00:00 5.0 09/30/19 00:00 Nasal Cannula 5.0 Nasal Cannula 5.0 Nasal Cannula 5.0 09/30/19 00:00 5.0 09/29/19 23:00 88 20 106/50 (68) 98 09/29/19 22:00 104 23 103/47 (65) 97 09/29/19 21:27 96 129/51 09/29/19 21:00 90 24 129/51 (77) 96 09/29/19 20:00 99.0 88 26 132/55 (80) 94 09/29/19 20:00 5.0 09/29/19 20:00 Nasal Cannula 5.0 Nasal Cannula 5.0 Nasal Cannula 5.0 09/29/19 19:00 95 Nasal Cannula 3.0 32 09/29/19 19:00 90 25 139/49 (79) 95 09/29/19 18:00 97 26 132/89 (103) 91 09/29/19 17:00 89 25 124/62 (82) 96 09/29/19 17:00 89 25 124/62 (82) 96 09/29/19 16:28 89 25 118/61 (80) 95 09/29/19 16:00 99.5 91 26 77/38 (51) 94 09/29/19 16:00 5.0 09/29/19 16:00 91 09/29/19 16:00 Nasal Cannula 5.0 Nasal Cannula 5.0 Nasal Cannula 5.0 Intake and Output 09/29/19 09/30/19 19:00 07:00 Intake Total 621.660 ml 360.0 ml Output Total 320 ml 650 ml Balance 301.660 ml -290.0 ml Intake Oral 50 ml 250 ml IV Total 571.660 ml 110.0 ml Output Urine Total 320 ml 650 ml Laboratory Tests Test 09/30/19 05:50 White Blood Count 14.7 K/UL (4.8-10.8) H Red Blood Count 3.20 M/UL (4.20-5.40) L Hemoglobin 10.3 G/DL (12.0-16.0) L Hematocrit 29.3 % (37.0-47.0) L Mean Corpuscular Volume 92 FL (80-99) Mean Corpuscular Hemoglobin 32.1 PG (27.0-31.0) H Mean Corpuscular Hemoglobin Concent 35.1 G/DL (32.0-36.0) Red Cell Distribution Width 11.8 % (11.6-14.8) Platelet Count 202 K/UL (150-450) Mean Platelet Volume 6.2 FL (6.5-10.1) L Neutrophils (%) (Auto) 83.4 % (45.0-75.0) H Lymphocytes (%) (Auto) 6.4 % (20.0-45.0) L Monocytes (%) (Auto) 7.1 % (1.0-10.0) Eosinophils (%) (Auto) 2.3 % (0.0-3.0) Basophils (%) (Auto) 0.7 % (0.0-2.0) Sodium Level 136 MMOL/L (136-145) Potassium Level 3.8 MMOL/L (3.5-5.1) Chloride Level 104 MMOL/L (98-107) Carbon Dioxide Level 25 MMOL/L (21-32) Anion Gap 7 mmol/L (5-15) Blood Urea Nitrogen 8 mg/dL (7-18) Creatinine 0.5 MG/DL (0.55-1.30) L Estimat Glomerular Filtration Rate mL/min (>60) Glucose Level 131 MG/DL (74-106) H Calcium Level 8.4 MG/DL (8.5-10.1) L Total Bilirubin 0.6 MG/DL (0.2-1.0) Aspartate Amino Transf (AST/SGOT) 20 U/L (15-37) Alanine Aminotransferase (ALT/SGPT) 19 U/L (12-78) Alkaline Phosphatase 50 U/L (46-116) Pro-B-Type Natriuretic Peptide 1513 pg/mL (0-125) H Total Protein 6.0 G/DL (6.4-8.2) L Albumin 2.1 G/DL (3.4-5.0) L Globulin 3.9 g/dL Albumin/Globulin Ratio 0.5 (1.0-2.7) L Microbiology Date/Time Source Procedure Growth Status 09/28/19 09:15 Blood Blood Culture - Preliminary NO GROWTH AFTER 24 HOURS Resulted 09/28/19 09:05 Blood Blood Culture - Preliminary NO GROWTH AFTER 24 HOURS Resulted 09/29/19 13:30 Nasopharynx - Final Complete 09/29/19 13:30 Nasopharynx - Final Complete Rhett Rabago MD Sep 30, 2019 15:14
--- NOTE | 2019-09-30 15:23 | NUR ---
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 SW met w/ pt and completed psychosocial assessment. Pt presents as A&O 4x. Pt resides alone at [address] [place] [address]. Pt's friend/neighbor, David Bray was at pt's bedside. Pt is , and has one adult son living in [place]. Pt declined to provide family contact information. Per pt, David Bray [phone] will be the decision maker if pt cannot make her own. PT receives SSA, self payee. PT is ambulatory w/ cane and is independent w/ ADLs. Pt states she does not need a caregiver. PT denies substance abuse and also denies SI/HI. Pt plans to return home upon DC. There is no AD/POLST in the chart. KINGS explained Advance Directive and provided a copy of AD in [place]. As per request, KINGS also provided the list of mortuaries, resource, [facility] body donor and [facility] donor programs. SW to F/U as needed. Signed: 09/30/19 at 1529 by SHILPA KU <Co-Signature Required>
[2019-09-30] MEDS: Amiodarone 200mg tab ORAL SCH ×2 (16:14→20:58)
--- NOTE | 2019-09-30 16:18 | NUR ---
NURSE NOTES: Pt noted with 102.5 F Oral temp. 650 mg Tylenol given PO. Pt is refusing ice packs. Blankets removed. Pt in no acute distress. Addendum: 09/30/19 at 1744 by Ara Burkett RN Fan also on.
--- NOTE | 2019-09-30 16:32 | NUR ---
*-* INSURANCE *-* ALL CLINICALS AND REVIEWS HAVE BEEN FAXED TO: Drake Rudolph CM or ref# for #[id number] fax# [phone]
--- NOTE | 2019-09-30 18:03 | Internal Med Progress Note ---
Subjective Date of Service: Sep 30, 2019 Physician Name Carlos Macario Attending Physician Yonis Granados MD Current Medications Medications (Trade) Dose Ordered Sig/Yesenia Route PRN Reason Start Time Stop Time Status Last Admin Dose Admin Acetaminophen (Tylenol) 650 mg Q4H PRN ORAL Mild Pain/Temp > 100.5 09/28/19 15:15 10/28/19 15:14 09/30/19 16:15 Acetaminophen/ Hydrocodone Bitart (Metz 5/325) 1 tab Q6H PRN ORAL MODERATE PAIN (4-6) 09/28/19 15:45 10/03/19 09:14 09/30/19 09:32 Albuterol/ Ipratropium (Albuterol/ Ipratropium) 3 ml Q4H PRN HHN Shortness of Breath 09/28/19 05:50 10/03/19 05:49 09/28/19 06:12 Albuterol/ Ipratropium (Albuterol/ Ipratropium) 3 ml Q4HRT HHN 09/28/19 07:00 10/03/19 06:59 09/30/19 16:06 Amiodarone HCl (Cordarone) 400 mg EVERY 12 HOURS ORAL 09/30/19 15:15 10/30/19 15:14 09/30/19 16:14 Clonidine HCl (Catapres Tab) 0.1 mg Q4H PRN ORAL SBP > 160 09/28/19 09:15 10/26/19 17:14 Dextrose (Dextrose 50%) 25 ml Q30M PRN IV Hypoglycemia 09/28/19 05:30 10/25/19 22:29 Dextrose (Dextrose 50%) 50 ml Q30M PRN IV Hypoglycemia 09/28/19 05:30 10/25/19 22:29 Diltiazem HCl 125 mg/Dextrose 125 ml @ 0 mls/hr Q24H IV 09/30/19 11:00 10/01/19 10:59 09/30/19 10:55 Heparin Sodium (Porcine) (Heparin 5000 units/ml) 5,000 units EVERY 12 HOURS SUBQ 09/28/19 09:00 10/26/19 08:59 09/30/19 09:09 Metoprolol Tartrate (Lopressor) 5 mg Q5MIN X 1 PRN IVP AFIBRILATION 09/28/19 08:45 10/28/19 08:44 09/28/19 08:51 Metoprolol Tartrate (Lopressor) 12.5 mg Q12HR ORAL 09/28/19 21:00 10/28/19 20:59 09/30/19 09:09 Morphine Sulfate (Morphine Sulfate) 2 mg Q4H PRN IVP Severe Pain (Pain Scale 7-10) 09/29/19 14:00 10/03/19 05:59 Ondansetron HCl (Zofran) 4 mg Q4H PRN IVP Nausea & Vomiting 09/28/19 05:30 10/26/19 09:29 Piperacillin Sod/ Tazobactam Sod 3.375 gm/Sodium Chloride 110 ml @ 27.5 mls/hr Q8H IVPB 09/28/19 09:00 10/05/19 08:59 09/30/19 17:37 Polyethylene Glycol (Miralax) 17 gm HSPRN PRN ORAL Constipation 09/28/19 22:30 10/25/19 22:29 Promethazine HCl 25 mg/Sodium Chloride 56 ml @ 112 mls/hr Q6H PRN IVPB nausea 09/28/19 06:00 10/26/19 05:59 Vancomycin HCl (Vanco rx to dose) 1 ea DAILY PRN MISC Per rx protocol 09/28/19 08:30 10/28/19 08:29 Vancomycin HCl 1 gm/Dextrose 275 ml @ 183.708 mls/hr Q24H IVPB 09/29/19 10:00 10/04/19 09:59 09/30/19 10:33 Zolpidem Tartrate (Ambien) 5 mg HSPRN PRN ORAL Insomnia 09/28/19 22:30 10/02/19 22:29 Allergies: Coded Allergies: No Known Allergies (Unverified , 09/25/19) ROS Limited/Unobtainable: No Constitutional: Reports: no symptoms HEENT: Reports: no symptoms Cardiovascular: Reports: no symptoms Respiratory: Reports: no symptoms Gastrointestinal/Abdominal: Reports: no symptoms Genitourinary: Reports: no symptoms Subjective 69 YO F admitted with right hip pain after fall. Now acute fracture right superior ilium and iliac crest. Cover for Int Med-Dr Granados. ICU Objective Last Vital Signs Date Time Temp Pulse Resp B/P (MAP) Pulse Ox O2 Delivery O2 Flow Rate FiO2 09/30/19 17:00 89 25 104/56 (72) 94 09/30/19 16:45 99.8 09/30/19 16:00 5.0 09/30/19 16:00 Nasal Cannula Nasal Cannula Nasal Cannula 09/30/19 15:00 21 Laboratory Tests Test 09/30/19 05:50 09/30/19 16:10 White Blood Count 14.7 K/UL (4.8-10.8) H Red Blood Count 3.20 M/UL (4.20-5.40) L Hemoglobin 10.3 G/DL (12.0-16.0) L Hematocrit 29.3 % (37.0-47.0) L Mean Corpuscular Volume 92 FL (80-99) Mean Corpuscular Hemoglobin 32.1 PG (27.0-31.0) H Mean Corpuscular Hemoglobin Concent 35.1 G/DL (32.0-36.0) Red Cell Distribution Width 11.8 % (11.6-14.8) Platelet Count 202 K/UL (150-450) Mean Platelet Volume 6.2 FL (6.5-10.1) L Neutrophils (%) (Auto) 83.4 % (45.0-75.0) H Lymphocytes (%) (Auto) 6.4 % (20.0-45.0) L Monocytes (%) (Auto) 7.1 % (1.0-10.0) Eosinophils (%) (Auto) 2.3 % (0.0-3.0) Basophils (%) (Auto) 0.7 % (0.0-2.0) Sodium Level 136 MMOL/L (136-145) Potassium Level 3.8 MMOL/L (3.5-5.1) Chloride Level 104 MMOL/L (98-107) Carbon Dioxide Level 25 MMOL/L (21-32) Anion Gap 7 mmol/L (5-15) Blood Urea Nitrogen 8 mg/dL (7-18) Creatinine 0.5 MG/DL (0.55-1.30) L Estimat Glomerular Filtration Rate mL/min (>60) Glucose Level 131 MG/DL (74-106) H Calcium Level 8.4 MG/DL (8.5-10.1) L Total Bilirubin 0.6 MG/DL (0.2-1.0) Aspartate Amino Transf (AST/SGOT) 20 U/L (15-37) Alanine Aminotransferase (ALT/SGPT) 19 U/L (12-78) Alkaline Phosphatase 50 U/L (46-116) Pro-B-Type Natriuretic Peptide 1513 pg/mL (0-125) H Total Protein 6.0 G/DL (6.4-8.2) L Albumin 2.1 G/DL (3.4-5.0) L Globulin 3.9 g/dL Albumin/Globulin Ratio 0.5 (1.0-2.7) L Troponin I 0.054 ng/mL (0.000-0.056) Microbiology Date/Time Source Procedure Growth Status 09/28/19 09:15 Blood Blood Culture - Preliminary NO GROWTH AFTER 24 HOURS Resulted 09/28/19 09:05 Blood Blood Culture - Preliminary NO GROWTH AFTER 24 HOURS Resulted 09/29/19 13:30 Nasopharynx - Final Complete 09/29/19 13:30 Nasopharynx - Final Complete Intake and Output 09/29/19 09/30/19 19:00 07:00 Intake Total 621.660 ml 360.0 ml Output Total 320 ml 650 ml Balance 301.660 ml -290.0 ml Intake Oral 50 ml 250 ml IV Total 571.660 ml 110.0 ml Output Urine Total 320 ml 650 ml Objective PHYSICAL EXAMINATION: GENERAL: The patient is awake, responsive, no acute distress. HEAD AND NECK: Pupils are equal and reactive to light. Extraocular movements intact. Neck was supple. No JVD. LUNGS: Nasal canula; BS decreased on left; Positive expiratory wheezes. HEART: S1 and S2. Regular rhythm. No murmurs or gallops. ABDOMEN: Soft, nondistended, nontender. Positive bowel sounds. EXTREMITIES: No cyanosis, clubbing, edema NEUROLOGIC: Cranial nerves II through XII grossly normal. The patient moving all the extremities. Assessment/Plan Assessment/Plan ASSESSMENT: 1. Status post fall. 2. Asthma. 3. History of CVA with right-sided weakness. 4. Elevated blood pressure. 5. right hip pain\ 6. Right superior Ilium fracture 7. Right iliac crest fracture 8. left pneumonia PLAN: 1. Admit the patient to medical floor. 2. Ortho= Dr. Zane Galo 3. Dr. Limon Pulmonary Critical Care. 4. Code status is Full Code. DVT prophylaxis, heparin subcutaneous. 5. Pulmonary=Dr Limon 6. ABX=Carlos Duvall MD Sep 30, 2019 18:03
--- NOTE | 2019-09-30 19:36 | NUR ---
HAND-OFF: Report given to DOMINGA De Oliveira. Pt remains in sinus rhythm at this time with no acute distress. Preston now noted 99 F ax.
--- NOTE | 2019-09-30 19:39 | NUR ---
NURSE NOTES: SBAR from Kwadwo RN. Patient is awake and oriented to name, place, person and time. Patient is able to make concerns known. Patient is in high fowlers position. Patient able to move left sided extremities but not the right sided extremities. Diminished left lung sounds, with course right lung sounds. Non-tender abdomen with hypoactive bowel sounds. Patient is short of breath with exertion only, on NC at 5L Spo2 is 98%. There are two peripheral IV lines that are intact, patent and asymptomatic. Currently infusing Cardizem gtt at 2.5mg/hr and Zosyn on the peripheral lines. Safety measures are in place and bed alarm is on. Will continue to monitor.
--- NOTE | 2019-09-30 20:01 | NUR ---
NURSE NOTES: Patient demonstrates pain of 6/10 FLACC [place] 5/325mg PO given. Temperature is now 99.0 (orally) Cooling measures ongoing. Repositioned to comfort. Teeth/oral care given.
--- NOTE | 2019-09-30 20:26 | NUR ---
NURSE NOTES: FLACC score now is 0/10. NAD at this time.
--- NOTE | 2019-09-30 20:27 | NUR ---
NURSE NOTES: Low air loss mattress applied on the bed.
--- NOTE | 2019-09-30 21:18 | NUR ---
NURSE NOTES: 2nd dose of Amiodarone 400mg Po given. DC'd cardizem gtt. HR is 79 NSR, Blood pressure is stable at this time. NAD.
--- NOTE | 2019-09-30 22:00 | NUR ---
NURSE NOTES: Repositioned VSS NAD sleeping
--- NOTE | 2019-09-30 23:00 | NUR ---
NURSE NOTES: Patient refused 2300 timed troponin draw.
[2019-10-01] VITALS (24 sets, daily range): BP systolic 111–140; BP diastolic 51–72
--- NOTE | 2019-10-01 | NUR ---
NURSE NOTES: Repositioned Vitals stable HR is 63 NSR No signs of distress afebrile.
[2019-10-01] MEDS: Piperacillin/Tazobactam 3.375 GM in NS 110 ML IVPB SCH ×3 (00:51→17:13)
--- NOTE | 2019-10-01 01:00 | NUR ---
NURSE NOTES: Kane michaels HR is 63 NSR, patient is sleeping Pulses noted and present no signs of respiratory distress Blood pressure is stable
--- NOTE | 2019-10-01 02:00 | NUR ---
NURSE NOTES: Patient sleeping HR is 65 NSR Pulses present No signs of distress BP is normotensive NC 5L 94%
[2019-10-01] MEDS: Albuterol/Ipratropium 3ml neb HHN SCH ×6 (03:43→22:49)
--- NOTE | 2019-10-01 03:52 | NUR ---
HAND-OFF: Report given to Case ORR.
--- NOTE | 2019-10-01 03:53 | NUR ---
NURSE NOTES: Late entry: PT and report received from DOMINGA De Oliveira; PT received sleeping; reported by PM nurse that PT does not want to be disturbed when sleeping; PT received on 4L-NC, no S/S of respiratory dsitress noted, diminished L-lung sound, PT has L-hand 22g and R-forearm 22g both intact patent flushes well. Will continue to monitor PT.
--- NOTE | 2019-10-01 05:30 | NUR ---
NURSE NOTES: EKG taken for PT, placed in PT chart
[2019-10-01] MEDS: HYDROcodone/Acetamin 5/325 tab ORAL PRN ×3 (06:41→21:03)
--- NOTE | 2019-10-01 06:42 | NUR ---
NURSE NOTES: PT asked for help with adjusting R-leg; PT asked for pain med; provided [place]wood as prescribed. Will continue to monitor.
[2019-10-01 06:59] LABS: BASOPHILS % (AUTO) 0.4 % (0.0-2.0); EOSINOPHILS % (AUTO) 3.3 % (0.0-3.0); HEMATOCRIT 29.3 % (37.0-47.0); HEMOGLOBIN 10.2 G/DL (12.0-16.0); LYMPHOCYTES % (AUTO) 7.2 % (20.0-45.0); MEAN CORPUSCULAR VOLUME 91 FL (80-99); MONOCYTES % (AUTO) 10.6 % (1.0-10.0); NEUTROPHILS % (AUTO) 78.5 % (45.0-75.0); PLATELET COUNT 242 K/UL (150-450); RED BLOOD COUNT 3.22 M/UL (4.20-5.40); RED CELL DISTRIBUTION WIDTH 11.8 % (11.6-14.8); WHITE BLOOD COUNT 14.5 K/UL (4.8-10.8)
[2019-10-01 07:11] LABS: ANION GAP 8 mmol/L (5-15); BLOOD UREA NITROGEN 8 mg/dL (7-18); CALCIUM 8.3 MG/DL (8.5-10.1); CARBON DIOXIDE 26 MMOL/L (21-32); CHLORIDE 101 MMOL/L (98-107); CREATININE 0.5 MG/DL (0.55-1.30); POTASSIUM 3.5 MMOL/L (3.5-5.1); SODIUM 135 MMOL/L (136-145)
--- NOTE | 2019-10-01 07:31 | NUR ---
HAND-OFF: Report and PT given to DOMINGA Morrow.
--- NOTE | 2019-10-01 09:00 | NUR ---
RADIOLOGY DEPT., CHEST X-RAY DONE.-P.DYE
--- NOTE | 2019-10-01 09:30 | NUR ---
NURSE NOTES: Dr. Owusu made aware of patient progress, assess patient at the bedside and no orders given at this time.
[2019-10-01] MEDS: Metoprolol Tartrate 12.5mg TAB ORAL SCH ×2 (09:54→21:02)
[2019-10-01] MEDS: Amiodarone 200mg tab ORAL SCH ×2 (09:55→21:03)
[2019-10-01] MEDS: Heparin 5000 units/ml inj SUBQ SCH ×2 (09:58→21:04)
[2019-10-01] MEDS: Vancomycin 1gm in D5W 275ml IVPB SCH (10:00)
--- NOTE | 2019-10-01 10:01 | Surgery Progress Note ---
Surgery Progress Note Subjective Symptoms: improved, tolerating diet, voiding well, pain decreased Additional Comments oxygenating better Objective Last 24 Hour Vital Signs Date Time Temp Pulse Resp B/P (MAP) Pulse Ox O2 Delivery O2 Flow Rate FiO2 10/01/19 09:54 77 127/64 10/01/19 07:56 74 19 100 Nasal Cannula 3.0 32 70 21 100 10/01/19 07:55 100 Nasal Cannula 3.0 32 10/01/19 07:00 70 19 132/62 (85) 98 10/01/19 06:00 75 20 130/62 (84) 98 10/01/19 05:00 74 20 124/59 (80) 99 10/01/19 04:00 99.0 73 20 129/63 (85) 97 10/01/19 04:00 Nasal Cannula 4.0 Nasal Cannula 4.0 10/01/19 04:00 4.0 10/01/19 03:43 70 20 100 Nasal Cannula 3.0 32 67 21 99 10/01/19 03:00 66 17 117/58 (77) 99 10/01/19 02:00 67 18 122/66 (84) 97 10/01/19 01:00 65 15 115/59 (77) 97 10/01/19 00:00 63 10/01/19 00:00 5.0 10/01/19 00:00 Nasal Cannula 5.0 Nasal Cannula 5.0 10/01/19 00:00 99.2 67 17 112/55 (74) 97 09/30/19 23:49 66 17 100 Nasal Cannula 3.0 32 66 20 97 09/30/19 23:00 69 18 100/55 (70) 97 09/30/19 22:00 72 20 113/58 (76) 96 09/30/19 21:00 73 23 110/55 (73) 97 09/30/19 20:58 99 125/59 09/30/19 20:18 97 Nasal Cannula 4.0 36 09/30/19 20:18 99 20 99 Nasal Cannula 4.0 36 77 22 97 09/30/19 20:00 5.0 09/30/19 20:00 Nasal Cannula 5.0 Nasal Cannula 5.0 09/30/19 20:00 81 09/30/19 20:00 99.0 79 26 125/59 (81) 97 09/30/19 19:00 76 20 110/56 (74) 97 09/30/19 18:30 78 22 118/53 (74) 97 09/30/19 18:00 95 31 123/60 (81) 98 09/30/19 18:00 83 30 106/42 (63) 92 09/30/19 17:30 85 25 97/51 (66) 95 09/30/19 17:00 89 25 104/56 (72) 94 09/30/19 16:45 99.8 09/30/19 16:45 99.8 90 24 118/57 (77) 94 09/30/19 16:30 94 27 125/58 (80) 94 09/30/19 16:00 102.5 92 33 125/66 (85) 93 09/30/19 16:00 5.0 09/30/19 16:00 94 09/30/19 16:00 Nasal Cannula 5.0 Nasal Cannula 5.0 Nasal Cannula 5.0 09/30/19 15:30 86 30 115/101 (106) 96 09/30/19 15:00 100 20 99 Room Air 21 92 20 98 09/30/19 15:00 83 30 124/57 (79) 95 09/30/19 14:45 83 28 112/57 (75) 97 09/30/19 14:30 84 28 119/58 (78) 96 09/30/19 14:15 78 29 121/59 (79) 97 09/30/19 14:00 78 26 128/46 (73) 98 09/30/19 13:45 80 26 89/69 (76) 93 09/30/19 13:30 80 27 90/71 (77) 91 09/30/19 13:00 78 26 117/55 (75) 97 09/30/19 12:45 78 23 111/61 (78) 97 09/30/19 12:30 81 23 110/60 (77) 96 09/30/19 12:15 78 22 117/56 (76) 98 09/30/19 12:00 Nasal Cannula 5.0 Nasal Cannula 5.0 Nasal Cannula 5.0 09/30/19 12:00 81 21 123/96 (105) 97 09/30/19 12:00 75 09/30/19 12:00 5.0 09/30/19 12:00 98.8 82 20 123/96 (105) 98 09/30/19 11:45 78 20 113/54 (73) 99 09/30/19 11:45 82 21 113/54 (73) 97 09/30/19 11:30 79 22 114/61 (78) 97 09/30/19 11:30 93 22 114/61 (78) 97 09/30/19 11:15 151 19 119/64 (82) 97 09/30/19 11:09 143 20 118/76 (90) 98 09/30/19 11:00 138 21 118/86 (97) 97 09/30/19 10:55 147 126/69 I&O Intake and Output 09/30/19 10/01/19 19:00 07:00 Intake Total 730.33764 ml 445.000 ml Output Total 795 ml 615 ml Balance -64.07441 ml -170.000 ml Intake Oral 200 ml 250 ml IV Total 530.41655 ml 195.000 ml Output Urine Total 795 ml 615 ml Dressing: other Wound: other Drains: other Cardiovascular: RSR Respiratory: decreased breath sounds, other Abdomen: soft, non-tender, present bowel sounds Extremities: no tenderness, no cyanosis Laboratory Tests Test 09/30/19 16:10 10/01/19 05:45 10/01/19 09:20 Troponin I 0.054 ng/mL (0.000-0.056) 0.035 ng/mL (0.000-0.056) White Blood Count 14.5 K/UL (4.8-10.8) H Red Blood Count 3.22 M/UL (4.20-5.40) L Hemoglobin 10.2 G/DL (12.0-16.0) L Hematocrit 29.3 % (37.0-47.0) L Mean Corpuscular Volume 91 FL (80-99) Mean Corpuscular Hemoglobin 31.6 PG (27.0-31.0) H Mean Corpuscular Hemoglobin Concent 34.7 G/DL (32.0-36.0) Red Cell Distribution Width 11.8 % (11.6-14.8) Platelet Count 242 K/UL (150-450) Mean Platelet Volume 6.2 FL (6.5-10.1) L Neutrophils (%) (Auto) 78.5 % (45.0-75.0) H Lymphocytes (%) (Auto) 7.2 % (20.0-45.0) L Monocytes (%) (Auto) 10.6 % (1.0-10.0) H Eosinophils (%) (Auto) 3.3 % (0.0-3.0) H Basophils (%) (Auto) 0.4 % (0.0-2.0) Sodium Level 135 MMOL/L (136-145) L Potassium Level 3.5 MMOL/L (3.5-5.1) Chloride Level 101 MMOL/L (98-107) Carbon Dioxide Level 26 MMOL/L (21-32) Anion Gap 8 mmol/L (5-15) Blood Urea Nitrogen 8 mg/dL (7-18) Creatinine 0.5 MG/DL (0.55-1.30) L Estimat Glomerular Filtration Rate > 60 mL/min (>60) Glucose Level 101 MG/DL (74-106) Calcium Level 8.3 MG/DL (8.5-10.1) L Vancomycin Level Trough Pending Plan Problems: (1) Closed right hip fracture Assessment & Plan: There is a severely comminuted fracture of the superior portion of the ileum primarily involving the right iliac crest with multiple bone fragments. The fracture extends into the right sacroiliac joint which is diastatic. There is a 3 mm bone fragment at the lower margin of the sacroiliac joint probably intra-articular ( e.g. #39/2 or e.g. #37/8). There is no involvement of the acetabulum. There is a moderate degree of soft tissue swelling both lateral and medial to the iliac fracture with lateral gluteal ill-definition and edema as well as medial soft tissue attenuation of fat which (likely due to blood) with edema/blood of a portion of the right piriformis muscle noted. No other fractures are identified. The right femoral neck and head appear normal without fracture or malalignment. No fracture of the sacrum or pubis identified. The bones are osteopenic. The visualized part of the lower lumbar spine appears intact. There is some hypertrophy of the facets and narrowing of the intervertebral discs. There is a Leigh catheter within the urinary bladder which is mostly nondistended. IMPRESSION: Severe, comminuted fracture of the right iliac crest and superior ilium with intra-articular extension into the right sacroiliac joint which is diastatic. Acetabulum and hip appear intact. Ortho input appreciated: At this point, this is a nonoperative fracture, should heal. She can begin physical therapy. Weightbearing as tolerated with a walker. She will have a significant discomfort initially until the fracture consolidates given that the adductor muscles are attached at that area. Therefore, she may have to be transferred to a fdc until she is a little bit more safe to go home. She should get appropriate DVT prophylaxis (2) Collapse of left lung Assessment & Plan: Lungs: There is interval worsening with opacification of most of the left hemithorax and leftward mediastinal shift consistent with severe volume loss of the left lung. Pleural space: Unremarkable. No pneumothorax. Heart: Unremarkable. No cardiomegaly. Mediastinum: The trachea is deviated to the left. Bones/joints: Unremarkable. Vasculature: There is calcification of the aortic arch. IMPRESSION: Interval worsening with opacification of the left hemithorax and leftward mediastinal shift consistent with severe volume loss of the left lung. CT chest report pre arzola reviewed as well as images mass noted. shift noted no ptx. no large effusion do not recommend Chest tube placement at this time pulm input appreciated okay for anticoagulation from surgical standpoint thank you (3) Pelvic fracture Additional Comments respiratory improving Fan Owusu Oct 01, 2019 10:01
--- NOTE | 2019-10-01 10:19 | Diagnostic Imaging Report ---
Indication: Chest pain Technique: One view of the chest Comparison: 09/29/2019 Findings: There is interim complete opacification of the left hemithorax. Right lung demonstrates questionable mild interstitial congestion and possibly a small right pleural effusion. There is right hilar prominence; prior CT scan indicates that this is probably just prominent central pulmonary vasculature. Impression: Complete opacification of left hemithorax. Presumably on the basis of complete left lung atelectasis. Suspect new/increasing pleural fluid and pulmonary venous congestion on the right
--- NOTE | 2019-10-01 10:28 | NUR ---
RD ASSESSMENT & RECOMMENDATIONS SEE CARE ACTIVITY FOR COMPLETE ASSESSMENT DAILY ESTIMATED NEEDS: Needs based on Cardiac, wound 57.7kg 25-35 kcals/kg 4413-9123 total kcals 1.25-1.5 g protein/kg 72-87 g total protein 25-30 mL/kg 9969-7443 total fluid mLs NUTRITION DIAGNOSIS: Increased pro needs r/t wound healing as evidenced by BL buttock blisters, L buttock partial thickness wound, CURRENT DIET:Regular, no coffee PO DIET RECOMMENDATIONS: LOW NA DIET / NO CAFFEINE ADDITIONAL RECOMMENDATIONS: 1) Add snacks in b/w meals 2) Calibrated bed scale wt w/ added P200 mattress 3) Add Ensure Enlive qdaily 4) Wound care: SHERI BID + Vit C 250mg daily
--- NOTE | 2019-10-01 10:38 | Pulmonolgy Critical Care Note ---
Critical Care - Asmt/Plan Problems: (1) Collapse of left lung (2) Aspiration pneumonia (3) Respiratory failure with hypoxia (4) Pulmonary nodule (5) History of asthma (6) Closed right hip fracture Respiratory: monitor respiratory rate, adjust FIO2, CXR, other - left lung collapsed again Cardiac: continue pressors, continue to monitor HR/BP, other - CPT every 2 hours wile awake, keep her at her right side,with left chest up Renal: F/U I&O, check electrolytes Infectious Disease: check cultures Gastrointestinal: continue feedings/current rate Endocrine: monitor blood sugar, continue sliding scale insulin Hematologic: monitor H/H Neurologic: PRN Ativan, PRN Morphine Affect: PRN ativan Prophylaxis: Protonix, Heparin Notes Reviewed: cardio, 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 with: nurses, consultants, case management associateloan and credit manager - Objective Last 24 Hour Vital Signs Date Time Temp Pulse Resp B/P (MAP) Pulse Ox O2 Delivery O2 Flow Rate FiO2 10/01/19 10:00 71 17 120/67 (84) 98 10/01/19 09:54 77 127/64 10/01/19 09:00 85 17 123/61 (81) 97 10/01/19 08:00 4.0 10/01/19 08:00 98.9 78 17 133/70 (91) 97 10/01/19 08:00 71 10/01/19 07:56 74 19 100 Nasal Cannula 3.0 32 70 21 100 10/01/19 07:55 100 Nasal Cannula 3.0 32 10/01/19 07:00 70 19 132/62 (85) 98 10/01/19 06:00 75 20 130/62 (84) 98 10/01/19 05:00 74 20 124/59 (80) 99 10/01/19 04:00 99.0 73 20 129/63 (85) 97 10/01/19 04:00 Nasal Cannula 4.0 Nasal Cannula 4.0 10/01/19 04:00 4.0 10/01/19 03:43 70 20 100 Nasal Cannula 3.0 32 67 21 99 10/01/19 03:00 66 17 117/58 (77) 99 10/01/19 02:00 67 18 122/66 (84) 97 10/01/19 01:00 65 15 115/59 (77) 97 10/01/19 00:00 63 10/01/19 00:00 5.0 10/01/19 00:00 Nasal Cannula 5.0 Nasal Cannula 5.0 10/01/19 00:00 99.2 67 17 112/55 (74) 97 09/30/19 23:49 66 17 100 Nasal Cannula 3.0 32 66 20 97 09/30/19 23:00 69 18 100/55 (70) 97 09/30/19 22:00 72 20 113/58 (76) 96 09/30/19 21:00 73 23 110/55 (73) 97 09/30/19 20:58 99 125/59 09/30/19 20:18 97 Nasal Cannula 4.0 36 09/30/19 20:18 99 20 99 Nasal Cannula 4.0 36 77 22 97 09/30/19 20:00 5.0 09/30/19 20:00 Nasal Cannula 5.0 Nasal Cannula 5.0 09/30/19 20:00 81 09/30/19 20:00 99.0 79 26 125/59 (81) 97 09/30/19 19:00 76 20 110/56 (74) 97 09/30/19 18:30 78 22 118/53 (74) 97 09/30/19 18:00 95 31 123/60 (81) 98 09/30/19 18:00 83 30 106/42 (63) 92 09/30/19 17:30 85 25 97/51 (66) 95 09/30/19 17:00 89 25 104/56 (72) 94 09/30/19 16:45 99.8 09/30/19 16:45 99.8 90 24 118/57 (77) 94 09/30/19 16:30 94 27 125/58 (80) 94 09/30/19 16:00 102.5 92 33 125/66 (85) 93 09/30/19 16:00 5.0 09/30/19 16:00 94 09/30/19 16:00 Nasal Cannula 5.0 Nasal Cannula 5.0 Nasal Cannula 5.0 09/30/19 15:30 86 30 115/101 (106) 96 09/30/19 15:00 100 20 99 Room Air 21 92 20 98 09/30/19 15:00 83 30 124/57 (79) 95 09/30/19 14:45 83 28 112/57 (75) 97 09/30/19 14:30 84 28 119/58 (78) 96 09/30/19 14:15 78 29 121/59 (79) 97 09/30/19 14:00 78 26 128/46 (73) 98 09/30/19 13:45 80 26 89/69 (76) 93 09/30/19 13:30 80 27 90/71 (77) 91 09/30/19 13:00 78 26 117/55 (75) 97 09/30/19 12:45 78 23 111/61 (78) 97 09/30/19 12:30 81 23 110/60 (77) 96 09/30/19 12:15 78 22 117/56 (76) 98 09/30/19 12:00 Nasal Cannula 5.0 Nasal Cannula 5.0 Nasal Cannula 5.0 09/30/19 12:00 81 21 123/96 (105) 97 09/30/19 12:00 75 09/30/19 12:00 5.0 09/30/19 12:00 98.8 82 20 123/96 (105) 98 09/30/19 11:45 78 20 113/54 (73) 99 09/30/19 11:45 82 21 113/54 (73) 97 09/30/19 11:30 79 22 114/61 (78) 97 09/30/19 11:30 93 22 114/61 (78) 97 09/30/19 11:15 151 19 119/64 (82) 97 09/30/19 11:09 143 20 118/76 (90) 98 09/30/19 11:00 138 21 118/86 (97) 97 09/30/19 10:55 147 126/69 Status: awake Condition: critical Neck: full ROM Lungs: rales, rhonchi Heart: HR/BP stable Abdomen: soft, active bowel sounds Extremities: no C/C/E Micro: Microbiology Date/Time Source Procedure Growth Status 09/29/19 13:30 Nasopharynx - Final Complete 09/29/19 13:30 Nasopharynx - Final Complete Critical Care - Subjective ROS Limited/Unobtainable: No Interval Events: refusing BIPAP FI02: 32 Vent Support Mode: BiLevel Sputum Amount: None I&O: Intake and Output 09/30/19 10/01/19 19:00 07:00 Intake Total 730.92509 ml 445.000 ml Output Total 795 ml 665 ml Balance -64.10346 ml -220.000 ml Intake Oral 200 ml 250 ml IV Total 530.42884 ml 195.000 ml Output Urine Total 795 ml 665 ml CXR: left lung collapse Labs: Laboratory Tests Test 09/30/19 16:10 10/01/19 05:45 10/01/19 09:20 Troponin I 0.054 ng/mL (0.000-0.056) 0.035 ng/mL (0.000-0.056) White Blood Count 14.5 K/UL (4.8-10.8) H Red Blood Count 3.22 M/UL (4.20-5.40) L Hemoglobin 10.2 G/DL (12.0-16.0) L Hematocrit 29.3 % (37.0-47.0) L Mean Corpuscular Volume 91 FL (80-99) Mean Corpuscular Hemoglobin 31.6 PG (27.0-31.0) H Mean Corpuscular Hemoglobin Concent 34.7 G/DL (32.0-36.0) Red Cell Distribution Width 11.8 % (11.6-14.8) Platelet Count 242 K/UL (150-450) Mean Platelet Volume 6.2 FL (6.5-10.1) L Neutrophils (%) (Auto) 78.5 % (45.0-75.0) H Lymphocytes (%) (Auto) 7.2 % (20.0-45.0) L Monocytes (%) (Auto) 10.6 % (1.0-10.0) H Eosinophils (%) (Auto) 3.3 % (0.0-3.0) H Basophils (%) (Auto) 0.4 % (0.0-2.0) Sodium Level 135 MMOL/L (136-145) L Potassium Level 3.5 MMOL/L (3.5-5.1) Chloride Level 101 MMOL/L (98-107) Carbon Dioxide Level 26 MMOL/L (21-32) Anion Gap 8 mmol/L (5-15) Blood Urea Nitrogen 8 mg/dL (7-18) Creatinine 0.5 MG/DL (0.55-1.30) L Estimat Glomerular Filtration Rate > 60 mL/min (>60) Glucose Level 101 MG/DL (74-106) Calcium Level 8.3 MG/DL (8.5-10.1) L Vancomycin Level Trough 2.3 ug/mL (5.0-12.0) L Rox Limon MD Oct 01, 2019 10:38
--- NOTE | 2019-10-01 10:40 | NUR ---
NURSE NOTES: Dr. Limon made aware of patient chest X-ray results, ordered to have CPT started Q2hrs. patient is calm and responsive to with no distress noted, right lung is diminished on all lungs ferguson, currently is saturating at 99% with 4L/min with RR of 18, hr is 69 in sinus rhythm.
[2019-10-01] MEDS ORDERED: Vancomycin 1.25gm/NS Premix q24h IVPB SCH (12:00)
--- NOTE | 2019-10-01 12:07 | Internal Med Progress Note ---
Subjective Date of Service: Oct 01, 2019 Physician Name AmirahCarlos Attending Physician Yonis Granados MD Current Medications Medications (Trade) Dose Ordered Sig/Yesenia Route PRN Reason Start Time Stop Time Status Last Admin Dose Admin Acetaminophen (Tylenol) 650 mg Q4H PRN ORAL Mild Pain/Temp > 100.5 09/28/19 15:15 10/28/19 15:14 09/30/19 16:15 Acetaminophen/ Hydrocodone Bitart ([place] 5/325) 1 tab Q6H PRN ORAL MODERATE PAIN (4-6) 09/28/19 15:45 10/03/19 09:14 10/01/19 06:41 Albuterol/ Ipratropium (Albuterol/ Ipratropium) 3 ml Q4H PRN HHN Shortness of Breath 09/28/19 05:50 10/03/19 05:49 09/28/19 06:12 Albuterol/ Ipratropium (Albuterol/ Ipratropium) 3 ml Q4HRT HHN 09/28/19 07:00 10/03/19 06:59 10/01/19 11:14 Amiodarone HCl (Cordarone) 400 mg EVERY 12 HOURS ORAL 09/30/19 15:15 10/30/19 15:14 10/01/19 09:55 Clonidine HCl (Catapres Tab) 0.1 mg Q4H PRN ORAL SBP > 160 09/28/19 09:15 10/26/19 17:14 Dextrose (Dextrose 50%) 25 ml Q30M PRN IV Hypoglycemia 09/28/19 05:30 10/25/19 22:29 Dextrose (Dextrose 50%) 50 ml Q30M PRN IV Hypoglycemia 09/28/19 05:30 10/25/19 22:29 Heparin Sodium (Porcine) (Heparin 5000 units/ml) 5,000 units EVERY 12 HOURS SUBQ 09/28/19 09:00 10/26/19 08:59 10/01/19 09:58 Metoprolol Tartrate (Lopressor) 5 mg Q5MIN X 1 PRN IVP AFIBRILATION 09/28/19 08:45 10/28/19 08:44 09/28/19 08:51 Metoprolol Tartrate (Lopressor) 12.5 mg Q12HR ORAL 09/28/19 21:00 10/28/19 20:59 10/01/19 09:54 Morphine Sulfate (Morphine Sulfate) 2 mg Q4H PRN IVP Severe Pain (Pain Scale 7-10) 09/29/19 14:00 10/03/19 05:59 Ondansetron HCl (Zofran) 4 mg Q4H PRN IVP Nausea & Vomiting 09/28/19 05:30 10/26/19 09:29 Piperacillin Sod/ Tazobactam Sod 3.375 gm/Sodium Chloride 110 ml @ 27.5 mls/hr Q8H IVPB 09/28/19 09:00 10/05/19 08:59 10/01/19 09:55 Polyethylene Glycol (Miralax) 17 gm HSPRN PRN ORAL Constipation 09/28/19 22:30 10/25/19 22:29 Promethazine HCl 25 mg/Sodium Chloride 56 ml @ 112 mls/hr Q6H PRN IVPB nausea 09/28/19 06:00 10/26/19 05:59 Vancomycin HCl (Vanco rx to dose) 1 ea DAILY PRN MISC Per rx protocol 09/28/19 08:30 10/28/19 08:29 Vancomycin/Sodium Chloride 275 ml @ 183.333 mls/hr Q24H IVPB 10/01/19 12:00 10/06/19 11:59 Zolpidem Tartrate (Ambien) 5 mg HSPRN PRN ORAL Insomnia 09/28/19 22:30 10/02/19 22:29 Allergies: Coded Allergies: No Known Allergies (Unverified , 09/25/19) ROS Limited/Unobtainable: No Constitutional: Reports: no symptoms HEENT: Reports: no symptoms Cardiovascular: Reports: no symptoms Respiratory: Reports: no symptoms Gastrointestinal/Abdominal: Reports: no symptoms Genitourinary: Reports: no symptoms Neurologic/Psychiatric: Reports: no symptoms Subjective 69 YO F admitted with right acute fracture right superior ilium and iliac crest. Now pneumonia. Cover for Int Med-Dr Granados. ICU Objective Last Vital Signs Date Time Temp Pulse Resp B/P (MAP) Pulse Ox O2 Delivery O2 Flow Rate FiO2 10/01/19 11:13 72 18 99 Nasal Cannula 3.0 32 74 20 98 10/01/19 11:00 117/62 (80) 10/01/19 08:00 98.9 Laboratory Tests Test 09/30/19 16:10 10/01/19 05:45 10/01/19 09:20 Troponin I 0.054 ng/mL (0.000-0.056) 0.035 ng/mL (0.000-0.056) White Blood Count 14.5 K/UL (4.8-10.8) H Red Blood Count 3.22 M/UL (4.20-5.40) L Hemoglobin 10.2 G/DL (12.0-16.0) L Hematocrit 29.3 % (37.0-47.0) L Mean Corpuscular Volume 91 FL (80-99) Mean Corpuscular Hemoglobin 31.6 PG (27.0-31.0) H Mean Corpuscular Hemoglobin Concent 34.7 G/DL (32.0-36.0) Red Cell Distribution Width 11.8 % (11.6-14.8) Platelet Count 242 K/UL (150-450) Mean Platelet Volume 6.2 FL (6.5-10.1) L Neutrophils (%) (Auto) 78.5 % (45.0-75.0) H Lymphocytes (%) (Auto) 7.2 % (20.0-45.0) L Monocytes (%) (Auto) 10.6 % (1.0-10.0) H Eosinophils (%) (Auto) 3.3 % (0.0-3.0) H Basophils (%) (Auto) 0.4 % (0.0-2.0) Sodium Level 135 MMOL/L (136-145) L Potassium Level 3.5 MMOL/L (3.5-5.1) Chloride Level 101 MMOL/L (98-107) Carbon Dioxide Level 26 MMOL/L (21-32) Anion Gap 8 mmol/L (5-15) Blood Urea Nitrogen 8 mg/dL (7-18) Creatinine 0.5 MG/DL (0.55-1.30) L Estimat Glomerular Filtration Rate > 60 mL/min (>60) Glucose Level 101 MG/DL (74-106) Calcium Level 8.3 MG/DL (8.5-10.1) L Vancomycin Level Trough 2.3 ug/mL (5.0-12.0) L Microbiology Date/Time Source Procedure Growth Status 09/29/19 13:30 Nasopharynx - Final Complete 09/29/19 13:30 Nasopharynx - Final Complete Intake and Output 09/30/19 10/01/19 19:00 07:00 Intake Total 730.30676 ml 445.000 ml Output Total 795 ml 665 ml Balance -64.35182 ml -220.000 ml Intake Oral 200 ml 250 ml IV Total 530.88337 ml 195.000 ml Output Urine Total 795 ml 665 ml Objective PHYSICAL EXAMINATION: GENERAL: The patient is awake, responsive, no acute distress. HEAD AND NECK: Pupils are equal and reactive to light. Extraocular movements intact. Neck was supple. No JVD. LUNGS: Nasal canula; BS decreased on left; Positive expiratory wheezes. HEART: S1 and S2. Regular rhythm. No murmurs or gallops. ABDOMEN: Soft, nondistended, nontender. Positive bowel sounds. EXTREMITIES: No cyanosis, clubbing, edema NEUROLOGIC: Cranial nerves II through XII grossly normal. The patient moving all the extremities. Assessment/Plan Assessment/Plan ASSESSMENT: 1. Status post fall. 2. Asthma. 3. History of CVA with right-sided weakness. 4. Elevated blood pressure. 5. right hip pain\ 6. Right superior Ilium fracture 7. Right iliac crest fracture 8. left pneumonia PLAN: 1. Admit the patient to medical floor. 2. Ortho= Dr. Zane Galo 3. Dr. Limon Pulmonary Critical Care. 4. Code status is Full Code. DVT prophylaxis, heparin subcutaneous. 5. Pulmonary=Dr Limon 6. ABX=Carlos Duvall MD Oct 01, 2019 12:07
--- NOTE | 2019-10-01 12:30 | NUR ---
NURSE NOTES: Chest percussion given to patient by rt at the bedside, patient remains awake and alert to name with no distress noted, able to cough secretions and remains on nasal cannula,
[2019-10-01] MEDS ORDERED: NS 500ML ONE (13:46)
[2019-10-01] MEDS ORDERED: NS 275ml ONE (13:46)
--- NOTE | 2019-10-01 13:55 | NUR ---
LEAD SYSTEMS ANALYSTFORESTRY TECHNICAL OFFICER SI: RIGHT HIP FRACTURE, AFIB W/RVR T. 98.7 HR 80 RR 22 B/P 131/70 4L NC WBC 14.4 NA 135 IS: VANCO IV ZOSYN IV AMIODARONE ICU STATUS
--- NOTE | 2019-10-01 14:45 | NUR ---
NURSE NOTES: Patient wound assessed and care provided with assistance from wound care nurse. blisters remains intact on the right hip covered with Optifoam, left buttock has intact blisters measuring 8.0x2.5 and covered with Optifoam, patient has a open left hip wound with scant drainage of serous fluid, patient reposited with assistance, heels remain elevated and protected with blanchable skin.
--- NOTE | 2019-10-01 16:46 | Infectious Diseases Prog Note ---
Assessment/Plan Assessment/Plan Assessment: Sepsis Probable PNA Severe L lung volume loss -10/01 CXR: Complete opacification of left hemithorax. Presumably on the basis of complete left lung atelectasis. Suspect new/increasing pleural fluid and pulmonary venous congestion on the right -09/28 Bcx NTD sp cx p -09/27 CXR: Interval worsening with opacification of the left hemithorax and leftward mediastinal shift consistent with severe volume loss of the left lung. -09/25 CXR; Possible mild pulmonary vascular congestion. Correlate clinically u/a neg -influenza sc neg Fever; improving Leukocytosis, persistent R hip fracture 2ry to mechanical fall -09/26 CT hip; Severe, comminuted fracture of the right iliac crest and superior ilium with intra-articular extension into the right sacroiliac joint which is diastatic. Acetabulum and hip appear intact. Leigh catheter. Acute hypoxic respiratory failure, sp Bipap, now on NC Afib with RVR CVA w/ residual R side weakness asthma Plan: -Continue empiric IV vancomycin and ZOsyn #4 pendng sp cx -f/u cx -Monitor CBC/CMP, temperatures -Cards, pulm f/u -ICU care -aspiration precautions Thank you for this consultation. Will continue to follow along with you. Discussed with RN Subjective Allergies: Coded Allergies: No Known Allergies (Unverified , 09/25/19) Subjective afebrile >24hrs wbc remains at 14 Bcx NTD at 4l NC Objective Vital Signs Last 24 Hour Vital Signs Date Time Temp Pulse Resp B/P (MAP) Pulse Ox O2 Delivery O2 Flow Rate FiO2 10/01/19 16:00 82 10/01/19 16:00 4.0 10/01/19 16:00 98.7 79 20 121/59 (79) 97 10/01/19 15:21 77 24 98 Nasal Cannula 3.0 32 80 29 96 10/01/19 15:00 83 24 140/69 (92) 97 10/01/19 14:00 77 21 124/72 (89) 97 10/01/19 13:00 83 22 111/53 (72) 98 10/01/19 12:00 98.7 80 22 131/70 (90) 97 10/01/19 12:00 4.0 10/01/19 12:00 78 10/01/19 12:00 Nasal Cannula 4.0 Nasal Cannula 4.0 10/01/19 11:13 72 18 99 Nasal Cannula 3.0 32 74 20 98 10/01/19 11:00 65 17 117/62 (80) 99 10/01/19 10:00 71 17 120/67 (84) 98 10/01/19 09:54 77 127/64 10/01/19 09:00 85 17 123/61 (81) 97 10/01/19 08:00 4.0 10/01/19 08:00 Nasal Cannula 4.0 Nasal Cannula 4.0 10/01/19 08:00 98.9 78 17 133/70 (91) 97 10/01/19 08:00 71 10/01/19 07:56 74 19 100 Nasal Cannula 3.0 32 70 21 100 10/01/19 07:55 100 Nasal Cannula 3.0 32 10/01/19 07:00 70 19 132/62 (85) 98 10/01/19 06:00 75 20 130/62 (84) 98 10/01/19 05:00 74 20 124/59 (80) 99 10/01/19 04:00 99.0 73 20 129/63 (85) 97 10/01/19 04:00 Nasal Cannula 4.0 Nasal Cannula 4.0 10/01/19 04:00 4.0 10/01/19 03:43 70 20 100 Nasal Cannula 3.0 32 67 21 99 10/01/19 03:00 66 17 117/58 (77) 99 10/01/19 02:00 67 18 122/66 (84) 97 10/01/19 01:00 65 15 115/59 (77) 97 10/01/19 00:00 63 10/01/19 00:00 5.0 10/01/19 00:00 Nasal Cannula 5.0 Nasal Cannula 5.0 10/01/19 00:00 99.2 67 17 112/55 (74) 97 09/30/19 23:49 66 17 100 Nasal Cannula 3.0 32 66 20 97 09/30/19 23:00 69 18 100/55 (70) 97 09/30/19 22:00 72 20 113/58 (76) 96 09/30/19 21:00 73 23 110/55 (73) 97 09/30/19 20:58 99 125/59 09/30/19 20:18 97 Nasal Cannula 4.0 36 09/30/19 20:18 99 20 99 Nasal Cannula 4.0 36 77 22 97 09/30/19 20:00 5.0 09/30/19 20:00 Nasal Cannula 5.0 Nasal Cannula 5.0 09/30/19 20:00 81 09/30/19 20:00 99.0 79 26 125/59 (81) 97 09/30/19 19:00 76 20 110/56 (74) 97 09/30/19 18:30 78 22 118/53 (74) 97 09/30/19 18:00 95 31 123/60 (81) 98 09/30/19 18:00 83 30 106/42 (63) 92 09/30/19 17:30 85 25 97/51 (66) 95 09/30/19 17:00 89 25 104/56 (72) 94 09/30/19 16:45 99.8 09/30/19 16:45 99.8 90 24 118/57 (77) 94 Height (Feet): 5 Height (Inches): 5.00 Weight (Pounds): 132 Objective GENERAL: no acute distress. HEAD AND NECK: Pupils are equal and reactive to light. Extraocular movements intact. Neck was supple. LUNGS: No rhonchi. Positive expiratory wheezes. HEART: S1 and S2. Regular rhythm. No murmurs or gallops. ABDOMEN: Soft, nondistended, nontender. Positive bowel sounds. EXTREMITIES: No cyanosis, clubbing, edema Microbiology Date/Time Source Procedure Growth Status 09/29/19 13:30 Nasopharynx - Final Complete 09/29/19 13:30 Nasopharynx - Final Complete Laboratory Tests Test 10/01/19 05:45 10/01/19 09:20 White Blood Count 14.5 K/UL (4.8-10.8) H Red Blood Count 3.22 M/UL (4.20-5.40) L Hemoglobin 10.2 G/DL (12.0-16.0) L Hematocrit 29.3 % (37.0-47.0) L Mean Corpuscular Volume 91 FL (80-99) Mean Corpuscular Hemoglobin 31.6 PG (27.0-31.0) H Mean Corpuscular Hemoglobin Concent 34.7 G/DL (32.0-36.0) Red Cell Distribution Width 11.8 % (11.6-14.8) Platelet Count 242 K/UL (150-450) Mean Platelet Volume 6.2 FL (6.5-10.1) L Neutrophils (%) (Auto) 78.5 % (45.0-75.0) H Lymphocytes (%) (Auto) 7.2 % (20.0-45.0) L Monocytes (%) (Auto) 10.6 % (1.0-10.0) H Eosinophils (%) (Auto) 3.3 % (0.0-3.0) H Basophils (%) (Auto) 0.4 % (0.0-2.0) Sodium Level 135 MMOL/L (136-145) L Potassium Level 3.5 MMOL/L (3.5-5.1) Chloride Level 101 MMOL/L (98-107) Carbon Dioxide Level 26 MMOL/L (21-32) Anion Gap 8 mmol/L (5-15) Blood Urea Nitrogen 8 mg/dL (7-18) Creatinine 0.5 MG/DL (0.55-1.30) L Estimat Glomerular Filtration Rate > 60 mL/min (>60) Glucose Level 101 MG/DL (74-106) Calcium Level 8.3 MG/DL (8.5-10.1) L Troponin I 0.035 ng/mL (0.000-0.056) Vancomycin Level Trough 2.3 ug/mL (5.0-12.0) L Current Medications Medications (Trade) Dose Ordered Sig/Yesenia Route PRN Reason Start Time Stop Time Status Last Admin Dose Admin Acetaminophen (Tylenol) 650 mg Q4H PRN ORAL Mild Pain/Temp > 100.5 09/28/19 15:15 10/28/19 15:14 09/30/19 16:15 Acetaminophen/ Hydrocodone Bitart ([place] 5/325) 1 tab Q6H PRN ORAL MODERATE PAIN (4-6) 09/28/19 15:45 10/03/19 09:14 10/01/19 15:04 Albuterol/ Ipratropium (Albuterol/ Ipratropium) 3 ml Q4H PRN HHN Shortness of Breath 09/28/19 05:50 10/03/19 05:49 09/28/19 06:12 Albuterol/ Ipratropium (Albuterol/ Ipratropium) 3 ml Q4HRT HHN 09/28/19 07:00 10/03/19 06:59 10/01/19 15:24 Amiodarone HCl (Cordarone) 400 mg EVERY 12 HOURS ORAL 09/30/19 15:15 10/30/19 15:14 10/01/19 09:55 Clonidine HCl (Catapres Tab) 0.1 mg Q4H PRN ORAL SBP > 160 09/28/19 09:15 10/26/19 17:14 Dextrose (Dextrose 50%) 25 ml Q30M PRN IV Hypoglycemia 09/28/19 05:30 10/25/19 22:29 Dextrose (Dextrose 50%) 50 ml Q30M PRN IV Hypoglycemia 09/28/19 05:30 10/25/19 22:29 Heparin Sodium (Porcine) (Heparin 5000 units/ml) 5,000 units EVERY 12 HOURS SUBQ 09/28/19 09:00 10/26/19 08:59 10/01/19 09:58 Metoprolol Tartrate (Lopressor) 5 mg Q5MIN X 1 PRN IVP AFIBRILATION 09/28/19 08:45 10/28/19 08:44 09/28/19 08:51 Metoprolol Tartrate (Lopressor) 12.5 mg Q12HR ORAL 09/28/19 21:00 10/28/19 20:59 10/01/19 09:54 Morphine Sulfate (Morphine Sulfate) 2 mg Q4H PRN IVP Severe Pain (Pain Scale 7-10) 09/29/19 14:00 10/03/19 05:59 Ondansetron HCl (Zofran) 4 mg Q4H PRN IVP Nausea & Vomiting 09/28/19 05:30 10/26/19 09:29 Piperacillin Sod/ Tazobactam Sod 3.375 gm/Sodium Chloride 110 ml @ 27.5 mls/hr Q8H IVPB 09/28/19 09:00 10/05/19 08:59 10/01/19 09:55 Polyethylene Glycol (Miralax) 17 gm HSPRN PRN ORAL Constipation 09/28/19 22:30 10/25/19 22:29 Promethazine HCl 25 mg/Sodium Chloride 56 ml @ 112 mls/hr Q6H PRN IVPB nausea 09/28/19 06:00 10/26/19 05:59 Vancomycin HCl (Vanco rx to dose) 1 ea DAILY PRN MISC Per rx protocol 09/28/19 08:30 10/28/19 08:29 Vancomycin/Sodium Chloride 275 ml @ 183.333 mls/hr Q24H IVPB 10/01/19 12:00 10/06/19 11:59 10/01/19 13:16 Zolpidem Tartrate (Ambien) 5 mg HSPRN PRN ORAL Insomnia 09/28/19 22:30 10/02/19 22:29 Juliet Cabezas M.D. Oct 01, 2019 16:46
--- NOTE | 2019-10-01 17:35 | NUR ---
NURSE NOTES:WOUND CARE NOTES: Pt noted to have developed three intact serous filled blisters in close proximity and in linear formation on L gluteal cheek(L)8cm x (W)2.5cm. NO erythema noted at site of blisters or surrounding blisters. ON upper/outer L gluteus Partially opened blister. Base of wound is moist and viable with 50% skin flap in-situ(L)1.7cm x (W)2.5cm. Periwound without erythema or induration. Reabsorbed blister noted proximally Upper/outer L gluteus. Pt denied tenderness at site. Intact Serous filled blister noted R ischium . Periwound without erythema or induration. Pt denied tenderness at site. No erythema or evidence of skin breakdown Sacrum. Both heels and malleoli are pink and blanchable. Tx.Plan: Apply Optifoam drsg to Blisters L gluteal cheek. Change every 7 days and prn. Apply Moisture Barrier to Upper/outer L gluteal cheek. Cover with Optifoam drsg. Change every 3 days and prn. Apply Optifoam drsg to blister R ischium.Change every 7 days and prn. Apply Cavilon Skin Barrier to both heels and Malleoli. Cover each site with Optifoam drsgs. Change every 7 days and prn. APM/ANDIE Mattress overlay. Reposition at least every 2hours or as tolerated. Off-load heels with pillow.
--- NOTE | 2019-10-01 19:32 | NUR ---
HAND-OFF: Report given to DOMINGA Lozano.
--- NOTE | 2019-10-01 19:33 | NUR ---
NURSE NOTES: Received patient from DOMINGA Morrow. Will continue plan of care.
--- NOTE | 2019-10-01 20:00 | NUR ---
NURSE NOTES: Patient is awake, alert and oriented x4, Slovak and Indonesian speaking. BP:129/62, HR:85, Resp:21 on 4L nasal cannula O2 saturating at 97%. Shows no sign of distress at the moment. On a regular diet, no coffee noted. Leigh catheter in tact and draining well. Able to turn and reposition herself, needing to position on the right side. L hand 22g and R forearm 22g running TKO. CPT by RT q2h. Patient also request to not be bothered during the night, no procedures and refusing meds stating she wants to sleep and not to be woken up. Explained to her that her care is needed to be continuous but will try our best not to wake her. Bed alarm is low, locked and alarm is on. Call barnes within reach. Will continue plan of care.
--- NOTE | 2019-10-01 22:00 | NUR ---
NURSE NOTES: Dr. Rabago came to see and assess patient. No new orders at the moment. Patient wanted to be put on BiPAP before she sleeps but then refuses after a minute of being placed. Placed back on 4L nasal cannula, O2 saturating at 99%. Will try again later. RT performed CPT. Patient request ointment on her behind, helped turn and repositioned, blanket provided. All needs are met. Bed low, locked and alarm is on. Will continue plan of care.
[2019-10-02] VITALS (24 sets, daily range): BP systolic 118–161; BP diastolic 56–92
--- NOTE | 2019-10-02 | NUR ---
NURSE NOTES: Patient is sleeping comfortably. Turned and repositioned herself. Per RT refused treatments and I saw patient throw pillow on top of her face to block. Vital signs stable. Safety measures in place. Will continue to monitor.
[2019-10-02] MEDS: Piperacillin/Tazobactam 3.375 GM in NS 110 ML IVPB SCH ×3 (00:01→16:42)
--- NOTE | 2019-10-02 00:41 | Cardiology Progress Note ---
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 pulm htn date of visit 10/01/2019 duplex neg cxr left francine in sinus on amiod po will starton amiod for maint of since rhythm trop and ekg noted echo noted normal ef will need anticoagulation once her risk of bleeding decrease post fall and injury may be luly 1-2 days alia yosfe will discuss timing with ortho tele revirewed Subjective Cardiovascular: Denies: chest pain, lightheadedness Respiratory: Denies: shortness of breath Gastrointestinal/Abdominal: Denies: abdominal pain Genitourinary: Denies: burning Objective Last 24 Hour Vital Signs Date Time Temp Pulse Resp B/P (MAP) Pulse Ox O2 Delivery O2 Flow Rate FiO2 10/02/19 00:00 Nasal Cannula 4.0 Nasal Cannula 4.0 10/02/19 00:00 98.6 70 17 118/56 (76) 98 10/01/19 23:00 67 17 118/51 (73) 99 10/01/19 22:00 73 18 122/53 (76) 99 10/01/19 21:02 86 130/66 10/01/19 21:00 85 25 130/66 (87) 98 10/01/19 20:00 98.8 85 20 129/62 (84) 98 10/01/19 20:00 Nasal Cannula 4.0 Nasal Cannula 4.0 10/01/19 20:00 4.0 10/01/19 19:27 88 10/01/19 19:00 79 23 119/71 (87) 100 10/01/19 18:55 100 Nasal Cannula 3.0 32 10/01/19 18:55 79 24 100 Nasal Cannula 3.0 32 77 18 99 10/01/19 18:00 80 20 123/61 (81) 99 10/01/19 17:00 85 24 127/61 (83) 98 10/01/19 16:00 Nasal Cannula 4.0 Nasal Cannula 4.0 10/01/19 16:00 82 10/01/19 16:00 4.0 10/01/19 16:00 98.7 79 20 121/59 (79) 97 10/01/19 15:21 77 24 98 Nasal Cannula 3.0 32 80 29 96 10/01/19 15:00 83 24 140/69 (92) 97 10/01/19 14:00 77 21 124/72 (89) 97 10/01/19 13:00 83 22 111/53 (72) 98 10/01/19 12:00 98.7 80 22 131/70 (90) 97 10/01/19 12:00 4.0 10/01/19 12:00 78 10/01/19 12:00 Nasal Cannula 4.0 Nasal Cannula 4.0 10/01/19 11:13 72 18 99 Nasal Cannula 3.0 32 74 20 98 10/01/19 11:00 65 17 117/62 (80) 99 10/01/19 10:00 71 17 120/67 (84) 98 10/01/19 09:54 77 127/64 10/01/19 09:00 85 17 123/61 (81) 97 10/01/19 08:00 4.0 10/01/19 08:00 Nasal Cannula 4.0 Nasal Cannula 4.0 10/01/19 08:00 98.9 78 17 133/70 (91) 97 10/01/19 08:00 71 10/01/19 07:56 74 19 100 Nasal Cannula 3.0 32 70 21 100 10/01/19 07:55 100 Nasal Cannula 3.0 32 10/01/19 07:00 70 19 132/62 (85) 98 10/01/19 06:00 75 20 130/62 (84) 98 10/01/19 05:00 74 20 124/59 (80) 99 10/01/19 04:00 99.0 73 20 129/63 (85) 97 10/01/19 04:00 Nasal Cannula 4.0 Nasal Cannula 4.0 10/01/19 04:00 4.0 10/01/19 03:43 70 20 100 Nasal Cannula 3.0 32 67 21 99 10/01/19 03:00 66 17 117/58 (77) 99 10/01/19 02:00 67 18 122/66 (84) 97 10/01/19 01:00 65 15 115/59 (77) 97 General Appearance: no apparent distress, alert Neck: supple Cardiovascular: normal rate Respiratory/Chest: lungs clear Abdomen: non tender, soft Extremities: no swelling Intake and Output 10/01/19 10/02/19 19:00 07:00 Intake Total 1020 ml 300 ml Output Total 615 ml 425 ml Balance 405 ml -125 ml Intake Oral 1020 ml 300 ml Output Urine Total 615 ml 425 ml Laboratory Tests Test 10/01/19 05:45 10/01/19 09:20 White Blood Count 14.5 K/UL (4.8-10.8) H Red Blood Count 3.22 M/UL (4.20-5.40) L Hemoglobin 10.2 G/DL (12.0-16.0) L Hematocrit 29.3 % (37.0-47.0) L Mean Corpuscular Volume 91 FL (80-99) Mean Corpuscular Hemoglobin 31.6 PG (27.0-31.0) H Mean Corpuscular Hemoglobin Concent 34.7 G/DL (32.0-36.0) Red Cell Distribution Width 11.8 % (11.6-14.8) Platelet Count 242 K/UL (150-450) Mean Platelet Volume 6.2 FL (6.5-10.1) L Neutrophils (%) (Auto) 78.5 % (45.0-75.0) H Lymphocytes (%) (Auto) 7.2 % (20.0-45.0) L Monocytes (%) (Auto) 10.6 % (1.0-10.0) H Eosinophils (%) (Auto) 3.3 % (0.0-3.0) H Basophils (%) (Auto) 0.4 % (0.0-2.0) Sodium Level 135 MMOL/L (136-145) L Potassium Level 3.5 MMOL/L (3.5-5.1) Chloride Level 101 MMOL/L (98-107) Carbon Dioxide Level 26 MMOL/L (21-32) Anion Gap 8 mmol/L (5-15) Blood Urea Nitrogen 8 mg/dL (7-18) Creatinine 0.5 MG/DL (0.55-1.30) L Estimat Glomerular Filtration Rate > 60 mL/min (>60) Glucose Level 101 MG/DL (74-106) Calcium Level 8.3 MG/DL (8.5-10.1) L Troponin I 0.035 ng/mL (0.000-0.056) Vancomycin Level Trough 2.3 ug/mL (5.0-12.0) L Microbiology Date/Time Source Procedure Growth Status 09/29/19 13:30 Nasopharynx - Final Complete 09/29/19 13:30 Nasopharynx - Final Complete Rhett Rabago MD Oct 02, 2019 00:41
--- NOTE | 2019-10-02 02:00 | NUR ---
NURSE NOTES: Patient is asleep. No signs of pain or distress at the moment. BP:122/57 HR:65, O2:99%. She turned and repositioned herself. Will continue to monitor.
[2019-10-02] MEDS: Albuterol/Ipratropium 3ml neb HHN SCH ×6 (02:45→23:43)
[2019-10-02] MEDS: HYDROcodone/Acetamin 5/325 tab ORAL PRN ×3 (03:30→21:22)
--- NOTE | 2019-10-02 04:00 | NUR ---
NURSE NOTES: Patient is awake and complied with her resp treatments. Helped patient turn and repositioned. Also request for pain medication for her hip. [place] given. All needs are met. Refuses bed bath. Vital signs stable. Will continue to monitor.
--- NOTE | 2019-10-02 06:00 | NUR ---
NURSE NOTES: Patient is awake and using her cell phone. Agreed to have labs drawn. Turned and positioned. Asked for warm milk; given. All needs are met. Will continue to monitor.
[2019-10-02 06:32] LABS: BASOPHILS % (AUTO) 1.2 % (0.0-2.0); HEMATOCRIT 28.6 % (37.0-47.0); LYMPHOCYTES % (AUTO) 11.9 % (20.0-45.0); MEAN CORPUSCULAR VOLUME 92 FL (80-99); NEUTROPHILS % (AUTO) 68.9 % (45.0-75.0); PLATELET COUNT 299 K/UL (150-450); RED BLOOD COUNT 3.13 M/UL (4.20-5.40); RED CELL DISTRIBUTION WIDTH 11.8 % (11.6-14.8); WHITE BLOOD COUNT 10.2 K/UL (4.8-10.8)
[2019-10-02 07:04] LABS: ALANINE AMINOTRANSFERASE 18 U/L (12-78); ALBUMIN 1.9 G/DL (3.4-5.0); ALBUMIN/GLOBULIN RATIO 0.5 (1.0-2.7); ALKALINE PHOSPHATASE 64 U/L (46-116); ANION GAP 7 mmol/L (5-15); ASPARTATE AMINO TRANSFERASE 22 U/L (15-37); BILIRUBIN,TOTAL 0.5 MG/DL (0.2-1.0); BLOOD UREA NITROGEN 8 mg/dL (7-18); CALCIUM 8.3 MG/DL (8.5-10.1); CARBON DIOXIDE 28 MMOL/L (21-32); CHLORIDE 100 MMOL/L (98-107); CREATININE 0.5 MG/DL (0.55-1.30); PHOSPHORUS 2.6 MG/DL (2.5-4.9); POTASSIUM 3.5 MMOL/L (3.5-5.1); SODIUM 135 MMOL/L (136-145)
--- NOTE | 2019-10-02 07:29 | NUR ---
HAND-OFF: Report given to DOMIGNA Leavitt.
--- NOTE | 2019-10-02 09:16 | NUR ---
RADIOLOGY DEPT., CHEST X-RAY DONE.-P.DYE
--- NOTE | 2019-10-02 10:01 | Infectious Diseases Prog Note ---
Assessment/Plan Assessment/Plan Assessment: Sepsis Probable PNA Severe L lung volume loss -10/01 CXR: Complete opacification of left hemithorax. Presumably on the basis of complete left lung atelectasis. Suspect new/increasing pleural fluid and pulmonary venous congestion on the right -09/28 Bcx NTD sp cx normal resp willa -09/27 CXR: Interval worsening with opacification of the left hemithorax and leftward mediastinal shift consistent with severe volume loss of the left lung. -09/25 CXR; Possible mild pulmonary vascular congestion. Correlate clinically u/a neg -influenza sc neg Fever; improving Leukocytosis, SP R hip fracture 2ry to mechanical fall -09/26 CT hip; Severe, comminuted fracture of the right iliac crest and superior ilium with intra-articular extension into the right sacroiliac joint which is diastatic. Acetabulum and hip appear intact. Leigh catheter. Acute hypoxic respiratory failure, sp Bipap, now on NC Afib with RVR CVA w/ residual R side weakness asthma Plan: -d/c empiric IV vancomycin #5 -Continue ZOsyn #5/7 for PNA -f/u cx -Monitor CBC/CMP, temperatures -Cards, pulm f/u -ICU care -aspiration precautions Thank you for this consultation. Will continue to follow along with you. Discussed with RN Subjective Allergies: Coded Allergies: No Known Allergies (Unverified , 09/25/19) Subjective afebrile >36hrs leukocytosis resolved Bcx NTD at 4l NC Objective Vital Signs Last 24 Hour Vital Signs Date Time Temp Pulse Resp B/P (MAP) Pulse Ox O2 Delivery O2 Flow Rate FiO2 10/02/19 08:00 4.0 10/02/19 08:00 80 19 152/68 (96) 98 10/02/19 08:00 Nasal Cannula 4.0 Nasal Cannula 4.0 10/02/19 08:00 80 10/02/19 07:49 68 27 100 Nasal Cannula 3.0 32 72 20 99 10/02/19 07:49 99 Nasal Cannula 3.0 32 10/02/19 07:00 68 17 142/68 (92) 99 10/02/19 06:00 67 16 139/64 (89) 99 10/02/19 05:00 70 19 139/67 (91) 99 10/02/19 04:00 Nasal Cannula 4.0 Nasal Cannula 4.0 10/02/19 04:00 4.0 10/02/19 04:00 98.4 73 18 136/63 (87) 98 10/02/19 03:03 83 10/02/19 03:00 79 18 160/92 (114) 98 10/02/19 02:45 78 17 100 Nasal Cannula 3.0 32 74 19 98 10/02/19 02:00 67 17 122/57 (78) 99 10/02/19 01:00 67 17 124/60 (81) 98 10/02/19 00:00 Nasal Cannula 4.0 Nasal Cannula 4.0 10/02/19 00:00 98.6 70 17 118/56 (76) 98 10/01/19 23:05 69 10/01/19 23:00 67 17 118/51 (73) 99 10/01/19 22:00 73 18 122/53 (76) 99 10/01/19 21:02 86 130/66 10/01/19 21:00 85 25 130/66 (87) 98 10/01/19 20:00 98.8 85 20 129/62 (84) 98 10/01/19 20:00 Nasal Cannula 4.0 Nasal Cannula 4.0 10/01/19 20:00 4.0 10/01/19 19:27 88 10/01/19 19:00 79 23 119/71 (87) 100 10/01/19 18:55 100 Nasal Cannula 3.0 32 10/01/19 18:55 79 24 100 Nasal Cannula 3.0 32 77 18 99 10/01/19 18:00 80 20 123/61 (81) 99 10/01/19 17:00 85 24 127/61 (83) 98 10/01/19 16:00 Nasal Cannula 4.0 Nasal Cannula 4.0 10/01/19 16:00 82 10/01/19 16:00 4.0 10/01/19 16:00 98.7 79 20 121/59 (79) 97 10/01/19 15:21 77 24 98 Nasal Cannula 3.0 32 80 29 96 10/01/19 15:00 83 24 140/69 (92) 97 10/01/19 14:00 77 21 124/72 (89) 97 10/01/19 13:00 83 22 111/53 (72) 98 10/01/19 12:00 98.7 80 22 131/70 (90) 97 10/01/19 12:00 4.0 10/01/19 12:00 78 10/01/19 12:00 Nasal Cannula 4.0 Nasal Cannula 4.0 10/01/19 11:13 72 18 99 Nasal Cannula 3.0 32 74 20 98 10/01/19 11:00 65 17 117/62 (80) 99 10/01/19 10:00 71 17 120/67 (84) 98 Height (Feet): 5 Height (Inches): 5.00 Weight (Pounds): 132 Objective GENERAL: no acute distress. HEAD AND NECK: Pupils are equal and reactive to light. Extraocular movements intact. Neck was supple. LUNGS: No rhonchi. Positive expiratory wheezes. HEART: S1 and S2. Regular rhythm. No murmurs or gallops. ABDOMEN: Soft, nondistended, nontender. Positive bowel sounds. EXTREMITIES: No cyanosis, clubbing, edema Microbiology Date/Time Source Procedure Growth Status 09/29/19 13:30 Nasopharynx - Final Complete 09/29/19 13:30 Nasopharynx - Final Complete Laboratory Tests Test 10/02/19 04:00 10/02/19 06:05 Arterial Blood pH 7.462 (7.350-7.450) Arterial Blood Partial Pressure CO2 37.4 mmHg (35.0-45.0) Arterial Blood Partial Pressure O2 71.7 mmHg (75.0-100.0) L Arterial Blood HCO3 26.1 mmol/L (22.0-26.0) H Arterial Blood Oxygen Saturation 95.2 % (95-100) Arterial Blood Base Excess 2.3 (-2-2) H Torito Test Positive White Blood Count 10.2 K/UL (4.8-10.8) Red Blood Count 3.13 M/UL (4.20-5.40) L Hemoglobin 10.0 G/DL (12.0-16.0) L Hematocrit 28.6 % (37.0-47.0) L Mean Corpuscular Volume 92 FL (80-99) Mean Corpuscular Hemoglobin 31.9 PG (27.0-31.0) H Mean Corpuscular Hemoglobin Concent 34.8 G/DL (32.0-36.0) Red Cell Distribution Width 11.8 % (11.6-14.8) Platelet Count 299 K/UL (150-450) Mean Platelet Volume 5.6 FL (6.5-10.1) L Neutrophils (%) (Auto) 68.9 % (45.0-75.0) Lymphocytes (%) (Auto) 11.9 % (20.0-45.0) L Monocytes (%) (Auto) 12.0 % (1.0-10.0) H Eosinophils (%) (Auto) 6.0 % (0.0-3.0) H Basophils (%) (Auto) 1.2 % (0.0-2.0) Sodium Level 135 MMOL/L (136-145) L Potassium Level 3.5 MMOL/L (3.5-5.1) Chloride Level 100 MMOL/L (98-107) Carbon Dioxide Level 28 MMOL/L (21-32) Anion Gap 7 mmol/L (5-15) Blood Urea Nitrogen 8 mg/dL (7-18) Creatinine 0.5 MG/DL (0.55-1.30) L Estimat Glomerular Filtration Rate > 60 mL/min (>60) Glucose Level 101 MG/DL (74-106) Calcium Level 8.3 MG/DL (8.5-10.1) L Phosphorus Level 2.6 MG/DL (2.5-4.9) Magnesium Level 1.9 MG/DL (1.8-2.4) Total Bilirubin 0.5 MG/DL (0.2-1.0) Aspartate Amino Transf (AST/SGOT) 22 U/L (15-37) Alanine Aminotransferase (ALT/SGPT) 18 U/L (12-78) Alkaline Phosphatase 64 U/L (46-116) Total Protein 6.1 G/DL (6.4-8.2) L Albumin 1.9 G/DL (3.4-5.0) L Globulin 4.2 g/dL Albumin/Globulin Ratio 0.5 (1.0-2.7) L Current Medications Medications (Trade) Dose Ordered Sig/Yesenia Route PRN Reason Start Time Stop Time Status Last Admin Dose Admin Acetaminophen (Tylenol) 650 mg Q4H PRN ORAL Mild Pain/Temp > 100.5 09/28/19 15:15 10/28/19 15:14 09/30/19 16:15 Acetaminophen/ Hydrocodone Bitart ([place] 5/325) 1 tab Q6H PRN ORAL MODERATE PAIN (4-6) 09/28/19 15:45 10/03/19 09:14 10/02/19 03:30 Albuterol/ Ipratropium (Albuterol/ Ipratropium) 3 ml Q4H PRN HHN Shortness of Breath 09/28/19 05:50 10/03/19 05:49 09/28/19 06:12 Albuterol/ Ipratropium (Albuterol/ Ipratropium) 3 ml Q4HRT HHN 09/28/19 07:00 10/03/19 06:59 10/02/19 07:52 Amiodarone HCl (Cordarone) 400 mg EVERY 12 HOURS ORAL 09/30/19 15:15 10/30/19 15:14 10/01/19 21:03 Clonidine HCl (Catapres Tab) 0.1 mg Q4H PRN ORAL SBP > 160 09/28/19 09:15 10/26/19 17:14 Dextrose (Dextrose 50%) 25 ml Q30M PRN IV Hypoglycemia 09/28/19 05:30 10/25/19 22:29 Dextrose (Dextrose 50%) 50 ml Q30M PRN IV Hypoglycemia 09/28/19 05:30 10/25/19 22:29 Heparin Sodium (Porcine) (Heparin 5000 units/ml) 5,000 units EVERY 12 HOURS SUBQ 09/28/19 09:00 10/26/19 08:59 10/01/19 21:04 Metoprolol Tartrate (Lopressor) 5 mg Q5MIN X 1 PRN IVP AFIBRILATION 09/28/19 08:45 10/28/19 08:44 09/28/19 08:51 Metoprolol Tartrate (Lopressor) 12.5 mg Q12HR ORAL 09/28/19 21:00 10/28/19 20:59 10/01/19 21:02 Morphine Sulfate (Morphine Sulfate) 2 mg Q4H PRN IVP Severe Pain (Pain Scale 7-10) 09/29/19 14:00 10/03/19 05:59 Ondansetron HCl (Zofran) 4 mg Q4H PRN IVP Nausea & Vomiting 09/28/19 05:30 10/26/19 09:29 Piperacillin Sod/ Tazobactam Sod 3.375 gm/Sodium Chloride 110 ml @ 27.5 mls/hr Q8H IVPB 09/28/19 09:00 10/05/19 08:59 10/02/19 00:01 Polyethylene Glycol (Miralax) 17 gm HSPRN PRN ORAL Constipation 09/28/19 22:30 10/25/19 22:29 Promethazine HCl 25 mg/Sodium Chloride 56 ml @ 112 mls/hr Q6H PRN IVPB nausea 09/28/19 06:00 10/26/19 05:59 Vancomycin HCl (Vanco rx to dose) 1 ea DAILY PRN MISC Per rx protocol 09/28/19 08:30 10/28/19 08:29 Vancomycin/Sodium Chloride 275 ml @ 183.333 mls/hr Q24H IVPB 10/01/19 12:00 10/06/19 11:59 10/01/19 13:16 Zolpidem Tartrate (Ambien) 5 mg HSPRN PRN ORAL Insomnia 09/28/19 22:30 10/02/19 22:29 Juliet Cabezas M.D. Oct 02, 2019 10:01
--- NOTE | 2019-10-02 10:15 | NUR ---
NURSE NOTES: Received patient from [facility]. Patient is awake, alert and oriented x3. Receiving oxygen via nasal cannula at 4L/min. Sinus Rhythm on the Heart Monitor, HR 84. Leigh catheter is intact and draining. IV site is left hand 22g intact and asymptomatic, Right forearm 22g patent and asymptomatic. Bed is locked, placed in lowest position, side rails up x3, bed alarm on, call light within reach, head of bed elevated. Will continue to monitor.
--- NOTE | 2019-10-02 10:30 | Diagnostic Imaging Report ---
Indication: Shortness of breath Technique: One view of the chest Comparison: To 08/08/2020 Findings: Interim partial reexpansion of previously completely atelectatic left lung. There is still considerable left lung volume loss, particularly in the region of the lower lobe, and considerable parenchymal and/or pleural opacity. There is new or increased congestion involving the right lung. There is still some compensatory hyperinflation of the right lung. There is suggestion of a small right pleural effusion. Impression: Partial reexpansion of previously completely atelectatic left lung. Still considerable left lung volume loss, pleural and parenchymal disease. New or increased right lung venous congestion Suspect small right pleural effusion
[2019-10-02] MEDS: Amiodarone 200mg tab ORAL SCH ×2 (10:58→21:21)
[2019-10-02] MEDS: Metoprolol Tartrate 12.5mg TAB ORAL SCH ×2 (10:58→21:22)
[2019-10-02] MEDS: Heparin 5000 units/ml inj SUBQ SCH ×2 (11:00→21:23)
--- NOTE | 2019-10-02 11:05 | Surgery Progress Note ---
Surgery Progress Note Subjective Symptoms: improved Additional Comments leukocytosis improved comfortable tolerating diet no complaints Objective Last 24 Hour Vital Signs Date Time Temp Pulse Resp B/P (MAP) Pulse Ox O2 Delivery O2 Flow Rate FiO2 10/02/19 11:00 78 21 149/72 (97) 96 10/02/19 10:58 77 150/66 10/02/19 10:00 80 21 161/76 (104) 96 10/02/19 09:00 97.8 79 19 150/66 (94) 96 10/02/19 08:00 4.0 10/02/19 08:00 80 19 152/68 (96) 98 10/02/19 08:00 Nasal Cannula 4.0 Nasal Cannula 4.0 10/02/19 08:00 80 10/02/19 07:49 68 27 100 Nasal Cannula 3.0 32 72 20 99 10/02/19 07:49 99 Nasal Cannula 3.0 32 10/02/19 07:00 68 17 142/68 (92) 99 10/02/19 06:00 67 16 139/64 (89) 99 10/02/19 05:00 70 19 139/67 (91) 99 10/02/19 04:00 Nasal Cannula 4.0 Nasal Cannula 4.0 10/02/19 04:00 4.0 10/02/19 04:00 98.4 73 18 136/63 (87) 98 10/02/19 03:03 83 10/02/19 03:00 79 18 160/92 (114) 98 10/02/19 02:45 78 17 100 Nasal Cannula 3.0 32 74 19 98 10/02/19 02:00 67 17 122/57 (78) 99 10/02/19 01:00 67 17 124/60 (81) 98 10/02/19 00:00 Nasal Cannula 4.0 Nasal Cannula 4.0 10/02/19 00:00 98.6 70 17 118/56 (76) 98 10/01/19 23:05 69 10/01/19 23:00 67 17 118/51 (73) 99 10/01/19 22:00 73 18 122/53 (76) 99 10/01/19 21:02 86 130/66 10/01/19 21:00 85 25 130/66 (87) 98 10/01/19 20:00 98.8 85 20 129/62 (84) 98 10/01/19 20:00 Nasal Cannula 4.0 Nasal Cannula 4.0 10/01/19 20:00 4.0 10/01/19 19:27 88 10/01/19 19:00 79 23 119/71 (87) 100 10/01/19 18:55 100 Nasal Cannula 3.0 32 10/01/19 18:55 79 24 100 Nasal Cannula 3.0 32 77 18 99 10/01/19 18:00 80 20 123/61 (81) 99 10/01/19 17:00 85 24 127/61 (83) 98 10/01/19 16:00 Nasal Cannula 4.0 Nasal Cannula 4.0 10/01/19 16:00 82 10/01/19 16:00 4.0 10/01/19 16:00 98.7 79 20 121/59 (79) 97 10/01/19 15:21 77 24 98 Nasal Cannula 3.0 32 80 29 96 10/01/19 15:00 83 24 140/69 (92) 97 10/01/19 14:00 77 21 124/72 (89) 97 10/01/19 13:00 83 22 111/53 (72) 98 10/01/19 12:00 98.7 80 22 131/70 (90) 97 10/01/19 12:00 4.0 10/01/19 12:00 78 10/01/19 12:00 Nasal Cannula 4.0 Nasal Cannula 4.0 10/01/19 11:13 72 18 99 Nasal Cannula 3.0 32 74 20 98 I&O Intake and Output 10/01/19 10/02/19 19:00 07:00 Intake Total 1020 ml 910.0 ml Output Total 615 ml 1045 ml Balance 405 ml -135.0 ml Intake Oral 1020 ml 800 ml IV Total 110.0 ml Output Urine Total 615 ml 1045 ml Dressing: other Wound: other Drains: other Cardiovascular: RSR Respiratory: decreased breath sounds Abdomen: soft, present bowel sounds, non-distended Extremities: no edema, no tenderness, no cyanosis Laboratory Tests Test 10/02/19 04:00 10/02/19 06:05 Arterial Blood pH 7.462 (7.350-7.450) Arterial Blood Partial Pressure CO2 37.4 mmHg (35.0-45.0) Arterial Blood Partial Pressure O2 71.7 mmHg (75.0-100.0) L Arterial Blood HCO3 26.1 mmol/L (22.0-26.0) H Arterial Blood Oxygen Saturation 95.2 % (95-100) Arterial Blood Base Excess 2.3 (-2-2) H Torito Test Positive White Blood Count 10.2 K/UL (4.8-10.8) Red Blood Count 3.13 M/UL (4.20-5.40) L Hemoglobin 10.0 G/DL (12.0-16.0) L Hematocrit 28.6 % (37.0-47.0) L Mean Corpuscular Volume 92 FL (80-99) Mean Corpuscular Hemoglobin 31.9 PG (27.0-31.0) H Mean Corpuscular Hemoglobin Concent 34.8 G/DL (32.0-36.0) Red Cell Distribution Width 11.8 % (11.6-14.8) Platelet Count 299 K/UL (150-450) Mean Platelet Volume 5.6 FL (6.5-10.1) L Neutrophils (%) (Auto) 68.9 % (45.0-75.0) Lymphocytes (%) (Auto) 11.9 % (20.0-45.0) L Monocytes (%) (Auto) 12.0 % (1.0-10.0) H Eosinophils (%) (Auto) 6.0 % (0.0-3.0) H Basophils (%) (Auto) 1.2 % (0.0-2.0) Sodium Level 135 MMOL/L (136-145) L Potassium Level 3.5 MMOL/L (3.5-5.1) Chloride Level 100 MMOL/L (98-107) Carbon Dioxide Level 28 MMOL/L (21-32) Anion Gap 7 mmol/L (5-15) Blood Urea Nitrogen 8 mg/dL (7-18) Creatinine 0.5 MG/DL (0.55-1.30) L Estimat Glomerular Filtration Rate > 60 mL/min (>60) Glucose Level 101 MG/DL (74-106) Calcium Level 8.3 MG/DL (8.5-10.1) L Phosphorus Level 2.6 MG/DL (2.5-4.9) Magnesium Level 1.9 MG/DL (1.8-2.4) Total Bilirubin 0.5 MG/DL (0.2-1.0) Aspartate Amino Transf (AST/SGOT) 22 U/L (15-37) Alanine Aminotransferase (ALT/SGPT) 18 U/L (12-78) Alkaline Phosphatase 64 U/L (46-116) Total Protein 6.1 G/DL (6.4-8.2) L Albumin 1.9 G/DL (3.4-5.0) L Globulin 4.2 g/dL Albumin/Globulin Ratio 0.5 (1.0-2.7) L Plan Problems: (1) Closed right hip fracture Assessment & Plan: There is a severely comminuted fracture of the superior portion of the ileum primarily involving the right iliac crest with multiple bone fragments. The fracture extends into the right sacroiliac joint which is diastatic. There is a 3 mm bone fragment at the lower margin of the sacroiliac joint probably intra-articular ( e.g. #39/2 or e.g. #37/8). There is no involvement of the acetabulum. There is a moderate degree of soft tissue swelling both lateral and medial to the iliac fracture with lateral gluteal ill-definition and edema as well as medial soft tissue attenuation of fat which (likely due to blood) with edema/blood of a portion of the right piriformis muscle noted. No other fractures are identified. The right femoral neck and head appear normal without fracture or malalignment. No fracture of the sacrum or pubis identified. The bones are osteopenic. The visualized part of the lower lumbar spine appears intact. There is some hypertrophy of the facets and narrowing of the intervertebral discs. There is a Leigh catheter within the urinary bladder which is mostly nondistended. IMPRESSION: Severe, comminuted fracture of the right iliac crest and superior ilium with intra-articular extension into the right sacroiliac joint which is diastatic. Acetabulum and hip appear intact. Ortho input appreciated: At this point, this is a nonoperative fracture, should heal. She can begin physical therapy. Weightbearing as tolerated with a walker. She will have a significant discomfort initially until the fracture consolidates given that the adductor muscles are attached at that area. Therefore, she may have to be transferred to a alf until she is a little bit more safe to go home. She should get appropriate DVT prophylaxis (2) Collapse of left lung Assessment & Plan: Lungs: There is interval worsening with opacification of most of the left hemithorax and leftward mediastinal shift consistent with severe volume loss of the left lung. Pleural space: Unremarkable. No pneumothorax. Heart: Unremarkable. No cardiomegaly. Mediastinum: The trachea is deviated to the left. Bones/joints: Unremarkable. Vasculature: There is calcification of the aortic arch. IMPRESSION: Interval worsening with opacification of the left hemithorax and leftward mediastinal shift consistent with severe volume loss of the left lung. CT chest report pre arzola reviewed as well as images mass noted. shift noted no ptx. no large effusion do not recommend Chest tube placement at this time pulm input appreciated okay for anticoagulation from surgical standpoint thank you (3) Pelvic fracture Fan Owusu Oct 02, 2019 11:05
--- NOTE | 2019-10-02 11:41 | Pulmonolgy Critical Care Note ---
Critical Care - Asmt/Plan Problems: (1) Collapse of left lung (2) Aspiration pneumonia (3) Respiratory failure with hypoxia (4) Pulmonary nodule (5) History of asthma (6) Closed right hip fracture Respiratory: monitor respiratory rate, adjust FIO2, CXR, other - continue with chest PT Cardiac: continue to monitor HR/BP Renal: F/U I&O, check electrolytes Infectious Disease: check cultures, continue antibiotics Gastrointestinal: continue feedings/current rate Hematologic: monitor H/H, transfuse if hgb<8.5 Neurologic: keep patient comfortable Affect: PRN ativan Disposition: keep in ICU Discussed with: nurses, consultants, skilled nursing case managerbusiness integration manager - Objective Last 24 Hour Vital Signs Date Time Temp Pulse Resp B/P (MAP) Pulse Ox O2 Delivery O2 Flow Rate FiO2 10/02/19 11:33 75 24 100 Nasal Cannula 3.0 32 71 19 97 10/02/19 11:00 78 21 149/72 (97) 96 10/02/19 10:58 77 150/66 10/02/19 10:00 80 21 161/76 (104) 96 10/02/19 09:00 97.8 79 19 150/66 (94) 96 10/02/19 08:00 4.0 10/02/19 08:00 80 19 152/68 (96) 98 10/02/19 08:00 Nasal Cannula 4.0 Nasal Cannula 4.0 10/02/19 08:00 80 10/02/19 07:49 68 27 100 Nasal Cannula 3.0 32 72 20 99 10/02/19 07:49 99 Nasal Cannula 3.0 32 10/02/19 07:00 68 17 142/68 (92) 99 10/02/19 06:00 67 16 139/64 (89) 99 10/02/19 05:00 70 19 139/67 (91) 99 10/02/19 04:00 Nasal Cannula 4.0 Nasal Cannula 4.0 10/02/19 04:00 4.0 10/02/19 04:00 98.4 73 18 136/63 (87) 98 10/02/19 03:03 83 10/02/19 03:00 79 18 160/92 (114) 98 10/02/19 02:45 78 17 100 Nasal Cannula 3.0 32 74 19 98 10/02/19 02:00 67 17 122/57 (78) 99 2/13/20 01:00 67 17 124/60 (81) 98 10/02/19 00:00 Nasal Cannula 4.0 Nasal Cannula 4.0 10/02/19 00:00 98.6 70 17 118/56 (76) 98 10/01/19 23:05 69 10/01/19 23:00 67 17 118/51 (73) 99 10/01/19 22:00 73 18 122/53 (76) 99 10/01/19 21:02 86 130/66 10/01/19 21:00 85 25 130/66 (87) 98 10/01/19 20:00 98.8 85 20 129/62 (84) 98 10/01/19 20:00 Nasal Cannula 4.0 Nasal Cannula 4.0 10/01/19 20:00 4.0 10/01/19 19:27 88 10/01/19 19:00 79 23 119/71 (87) 100 10/01/19 18:55 100 Nasal Cannula 3.0 32 10/01/19 18:55 79 24 100 Nasal Cannula 3.0 32 77 18 99 10/01/19 18:00 80 20 123/61 (81) 99 10/01/19 17:00 85 24 127/61 (83) 98 10/01/19 16:00 Nasal Cannula 4.0 Nasal Cannula 4.0 10/01/19 16:00 82 10/01/19 16:00 4.0 10/01/19 16:00 98.7 79 20 121/59 (79) 97 10/01/19 15:21 77 24 98 Nasal Cannula 3.0 32 80 29 96 10/01/19 15:00 83 24 140/69 (92) 97 10/01/19 14:00 77 21 124/72 (89) 97 10/01/19 13:00 83 22 111/53 (72) 98 10/01/19 12:00 98.7 80 22 131/70 (90) 97 10/01/19 12:00 4.0 10/01/19 12:00 78 10/01/19 12:00 Nasal Cannula 4.0 Nasal Cannula 4.0 Status: awake Condition: critical HEENT: atraumatic, normocephalic Lungs: clear, rales, rhonchi Heart: HR/BP stable Abdomen: soft, non-tender, feeding tube Extremities: no C/C/E Micro: Microbiology Date/Time Source Procedure Growth Status 09/29/19 13:30 Nasopharynx - Final Complete 09/29/19 13:30 Nasopharynx - Final Complete Critical Care - Subjective ROS Limited/Unobtainable: No Interval Events: pt is awake, comfortable FI02: 32 Vent Support Mode: BiLevel Sputum Amount: None I&O: Intake and Output 10/01/19 10/02/19 19:00 07:00 Intake Total 1020 ml 910.0 ml Output Total 615 ml 1045 ml Balance 405 ml -135.0 ml Intake Oral 1020 ml 800 ml IV Total 110.0 ml Output Urine Total 615 ml 1045 ml CXR: Left upper lobe opened up. LLL still collapsed/ consolidated Labs: Laboratory Tests Test 10/02/19 04:00 10/02/19 06:05 Arterial Blood pH 7.462 (7.350-7.450) Arterial Blood Partial Pressure CO2 37.4 mmHg (35.0-45.0) Arterial Blood Partial Pressure O2 71.7 mmHg (75.0-100.0) L Arterial Blood HCO3 26.1 mmol/L (22.0-26.0) H Arterial Blood Oxygen Saturation 95.2 % (95-100) Arterial Blood Base Excess 2.3 (-2-2) H Torito Test Positive White Blood Count 10.2 K/UL (4.8-10.8) Red Blood Count 3.13 M/UL (4.20-5.40) L Hemoglobin 10.0 G/DL (12.0-16.0) L Hematocrit 28.6 % (37.0-47.0) L Mean Corpuscular Volume 92 FL (80-99) Mean Corpuscular Hemoglobin 31.9 PG (27.0-31.0) H Mean Corpuscular Hemoglobin Concent 34.8 G/DL (32.0-36.0) Red Cell Distribution Width 11.8 % (11.6-14.8) Platelet Count 299 K/UL (150-450) Mean Platelet Volume 5.6 FL (6.5-10.1) L Neutrophils (%) (Auto) 68.9 % (45.0-75.0) Lymphocytes (%) (Auto) 11.9 % (20.0-45.0) L Monocytes (%) (Auto) 12.0 % (1.0-10.0) H Eosinophils (%) (Auto) 6.0 % (0.0-3.0) H Basophils (%) (Auto) 1.2 % (0.0-2.0) Sodium Level 135 MMOL/L (136-145) L Potassium Level 3.5 MMOL/L (3.5-5.1) Chloride Level 100 MMOL/L (98-107) Carbon Dioxide Level 28 MMOL/L (21-32) Anion Gap 7 mmol/L (5-15) Blood Urea Nitrogen 8 mg/dL (7-18) Creatinine 0.5 MG/DL (0.55-1.30) L Estimat Glomerular Filtration Rate > 60 mL/min (>60) Glucose Level 101 MG/DL (74-106) Calcium Level 8.3 MG/DL (8.5-10.1) L Phosphorus Level 2.6 MG/DL (2.5-4.9) Magnesium Level 1.9 MG/DL (1.8-2.4) Total Bilirubin 0.5 MG/DL (0.2-1.0) Aspartate Amino Transf (AST/SGOT) 22 U/L (15-37) Alanine Aminotransferase (ALT/SGPT) 18 U/L (12-78) Alkaline Phosphatase 64 U/L (46-116) Total Protein 6.1 G/DL (6.4-8.2) L Albumin 1.9 G/DL (3.4-5.0) L Globulin 4.2 g/dL Albumin/Globulin Ratio 0.5 (1.0-2.7) L Rox Limon MD Oct 02, 2019 11:41
--- NOTE | 2019-10-02 12:22 | NUR ---
NURSE NOTES: Patient complained of ride sided pain. Prescribed Dougherty given to patient. Will continue to monitor.
--- NOTE | 2019-10-02 14:57 | NUR ---
*-* INSURANCE *-* ALL CLINICALS AND REVIEWS HAVE BEEN FAXED TO: Drake Rudolph CM or ref# for #[phone] fax# [phone]
--- NOTE | 2019-10-02 15:02 | NUR ---
NURSE NOTES: Repositioned patient with patient's help, no signs of acute distress. Denies any pain. Will continue to monitor.
--- NOTE | 2019-10-02 16:05 | NUR ---
NURSE NOTES: Upon entering patient's room, left forearm 22g was found displaced. IV was discontinued.
--- NOTE | 2019-10-02 17:17 | NUR ---
CASE MANAGEMENT: REVIEW 10/02/2019 SI:Closed right hip fracture. Collapse of left lung. T 97.6 HR 70 RR 19 B/P 152/66 SATS 98% ON 4L/NC LABS: NA 135 CR 0.5 CA 8.3 ABGs PH 7.462 PO2 71.7 HCO3 26.1 BE 2.3 IS:AMIODARONE PO Q12H LOPRESSOR PO Q12H ZOSYN IV Q8H ICU
--- NOTE | 2019-10-02 17:48 | NUR ---
NURSE NOTES: Patient does not want to be repositioned on bed, would like to lay flat with no blanket.
--- NOTE | 2019-10-02 19:01 | NUR ---
HAND-OFF: Report given to Marta ORR.
--- NOTE | 2019-10-02 19:02 | NUR ---
NURSE NOTES: Received patient from DOMINGA Mendoza. Will continue plan of care.
--- NOTE | 2019-10-02 19:43 | Internal Med Progress Note ---
Subjective Date of Service: Oct 02, 2019 Physician Name MacarioCarlos Attending Physician Yonis Granados MD Current Medications Medications (Trade) Dose Ordered Sig/Yesenia Route PRN Reason Start Time Stop Time Status Last Admin Dose Admin Acetaminophen (Tylenol) 650 mg Q4H PRN ORAL Mild Pain/Temp > 100.5 09/28/19 15:15 10/28/19 15:14 09/30/19 16:15 Acetaminophen/ Hydrocodone Bitart ([place] 5/325) 1 tab Q6H PRN ORAL MODERATE PAIN (4-6) 09/28/19 15:45 10/03/19 09:14 10/02/19 12:04 Albuterol/ Ipratropium (Albuterol/ Ipratropium) 3 ml Q4H PRN HHN Shortness of Breath 09/28/19 05:50 10/03/19 05:49 09/28/19 06:12 Albuterol/ Ipratropium (Albuterol/ Ipratropium) 3 ml Q4HRT HHN 09/28/19 07:00 10/03/19 06:59 10/02/19 19:06 Amiodarone HCl (Cordarone) 400 mg EVERY 12 HOURS ORAL 09/30/19 15:15 10/30/19 15:14 10/02/19 10:58 Clonidine HCl (Catapres Tab) 0.1 mg Q4H PRN ORAL SBP > 160 09/28/19 09:15 10/26/19 17:14 Dextrose (Dextrose 50%) 25 ml Q30M PRN IV Hypoglycemia 09/28/19 05:30 10/25/19 22:29 Dextrose (Dextrose 50%) 50 ml Q30M PRN IV Hypoglycemia 09/28/19 05:30 10/25/19 22:29 Heparin Sodium (Porcine) (Heparin 5000 units/ml) 5,000 units EVERY 12 HOURS SUBQ 09/28/19 09:00 10/26/19 08:59 10/02/19 11:00 Metoprolol Tartrate (Lopressor) 5 mg Q5MIN X 1 PRN IVP AFIBRILATION 09/28/19 08:45 10/28/19 08:44 09/28/19 08:51 Metoprolol Tartrate (Lopressor) 12.5 mg Q12HR ORAL 09/28/19 21:00 10/28/19 20:59 10/02/19 10:58 Morphine Sulfate (Morphine Sulfate) 2 mg Q4H PRN IVP Severe Pain (Pain Scale 7-10) 09/29/19 14:00 10/03/19 05:59 Ondansetron HCl (Zofran) 4 mg Q4H PRN IVP Nausea & Vomiting 09/28/19 05:30 10/26/19 09:29 Piperacillin Sod/ Tazobactam Sod 3.375 gm/Sodium Chloride 110 ml @ 27.5 mls/hr Q8H IVPB 09/28/19 09:00 10/05/19 08:59 10/02/19 16:42 Polyethylene Glycol (Miralax) 17 gm HSPRN PRN ORAL Constipation 09/28/19 22:30 10/25/19 22:29 Promethazine HCl 25 mg/Sodium Chloride 56 ml @ 112 mls/hr Q6H PRN IVPB nausea 09/28/19 06:00 10/26/19 05:59 Zolpidem Tartrate (Ambien) 5 mg HSPRN PRN ORAL Insomnia 09/28/19 22:30 10/02/19 22:29 Allergies: Coded Allergies: No Known Allergies (Unverified , 09/25/19) ROS Limited/Unobtainable: No Constitutional: Reports: no symptoms HEENT: Reports: no symptoms Cardiovascular: Reports: no symptoms Respiratory: Reports: no symptoms Gastrointestinal/Abdominal: Reports: no symptoms Genitourinary: Reports: no symptoms Neurologic/Psychiatric: Reports: no symptoms Subjective 69 YO F admitted with right acute fracture right superior ilium and iliac crest. Now pneumonia. Cover for Int Med-Dr Granados. ICU Objective Last Vital Signs Date Time Temp Pulse Resp B/P (MAP) Pulse Ox O2 Delivery O2 Flow Rate FiO2 10/02/19 19:07 76 21 100 Nasal Cannula 3.0 32 78 23 97 10/02/19 19:00 139/75 (96) 10/02/19 16:00 98.6 Laboratory Tests Test 10/02/19 04:00 10/02/19 06:05 Arterial Blood pH 7.462 (7.350-7.450) Arterial Blood Partial Pressure CO2 37.4 mmHg (35.0-45.0) Arterial Blood Partial Pressure O2 71.7 mmHg (75.0-100.0) L Arterial Blood HCO3 26.1 mmol/L (22.0-26.0) H Arterial Blood Oxygen Saturation 95.2 % (95-100) Arterial Blood Base Excess 2.3 (-2-2) H Torito Test Positive White Blood Count 10.2 K/UL (4.8-10.8) Red Blood Count 3.13 M/UL (4.20-5.40) L Hemoglobin 10.0 G/DL (12.0-16.0) L Hematocrit 28.6 % (37.0-47.0) L Mean Corpuscular Volume 92 FL (80-99) Mean Corpuscular Hemoglobin 31.9 PG (27.0-31.0) H Mean Corpuscular Hemoglobin Concent 34.8 G/DL (32.0-36.0) Red Cell Distribution Width 11.8 % (11.6-14.8) Platelet Count 299 K/UL (150-450) Mean Platelet Volume 5.6 FL (6.5-10.1) L Neutrophils (%) (Auto) 68.9 % (45.0-75.0) Lymphocytes (%) (Auto) 11.9 % (20.0-45.0) L Monocytes (%) (Auto) 12.0 % (1.0-10.0) H Eosinophils (%) (Auto) 6.0 % (0.0-3.0) H Basophils (%) (Auto) 1.2 % (0.0-2.0) Sodium Level 135 MMOL/L (136-145) L Potassium Level 3.5 MMOL/L (3.5-5.1) Chloride Level 100 MMOL/L (98-107) Carbon Dioxide Level 28 MMOL/L (21-32) Anion Gap 7 mmol/L (5-15) Blood Urea Nitrogen 8 mg/dL (7-18) Creatinine 0.5 MG/DL (0.55-1.30) L Estimat Glomerular Filtration Rate > 60 mL/min (>60) Glucose Level 101 MG/DL (74-106) Calcium Level 8.3 MG/DL (8.5-10.1) L Phosphorus Level 2.6 MG/DL (2.5-4.9) Magnesium Level 1.9 MG/DL (1.8-2.4) Total Bilirubin 0.5 MG/DL (0.2-1.0) Aspartate Amino Transf (AST/SGOT) 22 U/L (15-37) Alanine Aminotransferase (ALT/SGPT) 18 U/L (12-78) Alkaline Phosphatase 64 U/L (46-116) Total Protein 6.1 G/DL (6.4-8.2) L Albumin 1.9 G/DL (3.4-5.0) L Globulin 4.2 g/dL Albumin/Globulin Ratio 0.5 (1.0-2.7) L Intake and Output 10/01/19 10/02/19 19:00 07:00 Intake Total 1020 ml 910.0 ml Output Total 615 ml 1045 ml Balance 405 ml -135.0 ml Intake Oral 1020 ml 800 ml IV Total 110.0 ml Output Urine Total 615 ml 1045 ml Objective PHYSICAL EXAMINATION: GENERAL: The patient is awake, responsive, no acute distress. HEAD AND NECK: Pupils are equal and reactive to light. Extraocular movements intact. Neck was supple. No JVD. LUNGS: Nasal canula; BS decreased on left; Positive expiratory wheezes. HEART: S1 and S2. Regular rhythm. No murmurs or gallops. ABDOMEN: Soft, nondistended, nontender. Positive bowel sounds. EXTREMITIES: No cyanosis, clubbing, edema NEUROLOGIC: Cranial nerves II through XII grossly normal. The patient moving all the extremities. Assessment/Plan Assessment/Plan ASSESSMENT: 1. Status post fall. 2. Asthma. 3. History of CVA with right-sided weakness. 4. Elevated blood pressure. 5. right hip pain\ 6. Right superior Ilium fracture 7. Right iliac crest fracture 8. left pneumonia PLAN: 1. Admit the patient to medical floor. 2. Ortho= Dr. Zane Galo 3. Dr. Limon Pulmonary Critical Care. 4. Code status is Full Code. DVT prophylaxis, heparin subcutaneous. 5. Pulmonary=Dr Limon 6. ABX=Carlos Duvall MD Oct 02, 2019 19:43
--- NOTE | 2019-10-02 20:00 | NUR ---
NURSE NOTES: Patient is awake, alert and oriented x3. BP:141/63, HR:80, O2:100% on 4L nasal cannula, showing no signs of distress. Temp a bit elevated at 99.8F axillary and refuses Tylenol, covers off patient instead to cool her down. Receiving breathing treatment at the moment. CPT performed by RT. Right forearm 22g IV intact, patent and currently running Zosyn. Patient request to sleep tonight and not be bothered like previous night. Offered bed bath and new linens before sleep but patient continues to refuse stating she does not like the wipes and/or wet towels. She also states she wants to wait until she gets transferred back upstairs to use the shower instead. She also refuses to get her chucks, slider and sheets straightened out stating "NO" and that she is comfortable. Lower dentures noted, provided mouth wash and denture cup. safety measures in place; bed low, locked and alarm is on. Call barnes in reach. Will continue plan of care.
--- NOTE | 2019-10-02 20:53 | Cardiology Progress Note ---
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 pulm htn duplex neg cxr left francine in sinus on amiod po will starton amiod for maint of since rhythm trop and ekg noted echo noted normal ef will need anticoagulation once her risk of bleeding decrease post fall and injury may be luly 1-2 days alia eliquis will discuss timing with ortho ,essage left for dr wilson to discuss lung collapse improve to [facility] Subjective Cardiovascular: Denies: chest pain Respiratory: Denies: shortness of breath Gastrointestinal/Abdominal: Denies: abdominal pain Genitourinary: Denies: burning Objective Last 24 Hour Vital Signs Date Time Temp Pulse Resp B/P (MAP) Pulse Ox O2 Delivery O2 Flow Rate FiO2 10/02/19 20:00 4.0 10/02/19 20:00 99.8 79 24 145/66 (92) 97 10/02/19 20:00 Nasal Cannula 4.0 Nasal Cannula 4.0 10/02/19 19:17 79 10/02/19 19:07 76 21 100 Nasal Cannula 3.0 32 78 23 97 10/02/19 19:06 97 Nasal Cannula 3.0 32 10/02/19 19:00 75 25 139/75 (96) 97 10/02/19 18:00 78 20 129/64 (85) 98 10/02/19 17:00 79 20 137/62 (87) 97 10/02/19 16:00 98.6 72 21 132/62 (85) 100 10/02/19 16:00 Nasal Cannula 4.0 Nasal Cannula 4.0 10/02/19 16:00 4.0 10/02/19 15:53 77 20 99 Nasal Cannula 3.0 32 73 22 98 10/02/19 15:15 69 10/02/19 15:00 81 19 147/72 (97) 97 10/02/19 14:00 67 18 144/81 (102) 99 10/02/19 13:00 69 18 137/67 (90) 99 10/02/19 12:00 4.0 10/02/19 12:00 97.6 70 19 152/66 (94) 98 10/02/19 12:00 Nasal Cannula 4.0 Nasal Cannula 4.0 10/02/19 11:45 69 10/02/19 11:33 75 24 100 Nasal Cannula 3.0 32 71 19 97 10/02/19 11:00 78 21 149/72 (97) 96 10/02/19 10:58 77 150/66 10/02/19 10:00 80 21 161/76 (104) 96 10/02/19 09:00 97.8 79 19 150/66 (94) 96 10/02/19 08:00 4.0 10/02/19 08:00 80 19 152/68 (96) 98 10/02/19 08:00 Nasal Cannula 4.0 Nasal Cannula 4.0 10/02/19 08:00 80 10/02/19 07:49 68 27 100 Nasal Cannula 3.0 32 72 20 99 10/02/19 07:49 99 Nasal Cannula 3.0 32 10/02/19 07:00 68 17 142/68 (92) 99 10/02/19 06:00 67 16 139/64 (89) 99 10/02/19 05:00 70 19 139/67 (91) 99 10/02/19 04:00 Nasal Cannula 4.0 Nasal Cannula 4.0 10/02/19 04:00 4.0 10/02/19 04:00 98.4 73 18 136/63 (87) 98 10/02/19 03:03 83 10/02/19 03:00 79 18 160/92 (114) 98 10/02/19 02:45 78 17 100 Nasal Cannula 3.0 32 74 19 98 10/02/19 02:00 67 17 122/57 (78) 99 10/02/19 01:00 67 17 124/60 (81) 98 10/02/19 00:00 Nasal Cannula 4.0 Nasal Cannula 4.0 10/02/19 00:00 98.6 70 17 118/56 (76) 98 10/01/19 23:05 69 10/01/19 23:00 67 17 118/51 (73) 99 10/01/19 22:00 73 18 122/53 (76) 99 10/01/19 21:02 86 130/66 10/01/19 21:00 85 25 130/66 (87) 98 General Appearance: no apparent distress, alert Neck: supple Cardiovascular: normal rate, regular rhythm Respiratory/Chest: crackles/rales - left Abdomen: non tender, soft Extremities: no swelling Intake and Output 10/01/19 10/02/19 19:00 07:00 Intake Total 1020 ml 910.0 ml Output Total 615 ml 1045 ml Balance 405 ml -135.0 ml Intake Oral 1020 ml 800 ml IV Total 110.0 ml Output Urine Total 615 ml 1045 ml Laboratory Tests Test 10/02/19 04:00 10/02/19 06:05 Arterial Blood pH 7.462 (7.350-7.450) Arterial Blood Partial Pressure CO2 37.4 mmHg (35.0-45.0) Arterial Blood Partial Pressure O2 71.7 mmHg (75.0-100.0) L Arterial Blood HCO3 26.1 mmol/L (22.0-26.0) H Arterial Blood Oxygen Saturation 95.2 % (95-100) Arterial Blood Base Excess 2.3 (-2-2) H Torito Test Positive White Blood Count 10.2 K/UL (4.8-10.8) Red Blood Count 3.13 M/UL (4.20-5.40) L Hemoglobin 10.0 G/DL (12.0-16.0) L Hematocrit 28.6 % (37.0-47.0) L Mean Corpuscular Volume 92 FL (80-99) Mean Corpuscular Hemoglobin 31.9 PG (27.0-31.0) H Mean Corpuscular Hemoglobin Concent 34.8 G/DL (32.0-36.0) Red Cell Distribution Width 11.8 % (11.6-14.8) Platelet Count 299 K/UL (150-450) Mean Platelet Volume 5.6 FL (6.5-10.1) L Neutrophils (%) (Auto) 68.9 % (45.0-75.0) Lymphocytes (%) (Auto) 11.9 % (20.0-45.0) L Monocytes (%) (Auto) 12.0 % (1.0-10.0) H Eosinophils (%) (Auto) 6.0 % (0.0-3.0) H Basophils (%) (Auto) 1.2 % (0.0-2.0) Sodium Level 135 MMOL/L (136-145) L Potassium Level 3.5 MMOL/L (3.5-5.1) Chloride Level 100 MMOL/L (98-107) Carbon Dioxide Level 28 MMOL/L (21-32) Anion Gap 7 mmol/L (5-15) Blood Urea Nitrogen 8 mg/dL (7-18) Creatinine 0.5 MG/DL (0.55-1.30) L Estimat Glomerular Filtration Rate > 60 mL/min (>60) Glucose Level 101 MG/DL (74-106) Calcium Level 8.3 MG/DL (8.5-10.1) L Phosphorus Level 2.6 MG/DL (2.5-4.9) Magnesium Level 1.9 MG/DL (1.8-2.4) Total Bilirubin 0.5 MG/DL (0.2-1.0) Aspartate Amino Transf (AST/SGOT) 22 U/L (15-37) Alanine Aminotransferase (ALT/SGPT) 18 U/L (12-78) Alkaline Phosphatase 64 U/L (46-116) Total Protein 6.1 G/DL (6.4-8.2) L Albumin 1.9 G/DL (3.4-5.0) L Globulin 4.2 g/dL Albumin/Globulin Ratio 0.5 (1.0-2.7) L Rhett Rabago MD Oct 02, 2019 20:53
--- NOTE | 2019-10-02 22:00 | NUR ---
NURSE NOTES: Dr. Rabago came and assessed the patient. Informed him that pt is now SDU status. No new orders at the moment. Was able to give patient some fresh linens and change bedding. Turned and repositioned. Patient requested pain medications for her hip fracture. [place] given. Patient is comfortable. Will continue to monitor.
[2019-10-03] VITALS (11 sets, daily range): BP systolic 128–157; BP diastolic 56–73
--- NOTE | 2019-10-03 | NUR ---
NURSE NOTES: ABG for 09/30 was auto-cancelled today; was endorsed patient refused at that time. Currently patient is sleeping, saw her turn and repositioned herself. Vital signs are stable. BP:139/61, HR:71, O2:100% on 4L. Will continue plan of care.
[2019-10-03] MEDS: Piperacillin/Tazobactam 3.375 GM in NS 110 ML IVPB SCH ×3 (00:15→19:05)
--- NOTE | 2019-10-03 02:00 | NUR ---
NURSE NOTES: Patient remains sleeping. She had repositioned herself. Vital signs are stable. Will continue to monitor.
[2019-10-03] MEDS: HYDROcodone/Acetamin 5/325 tab ORAL PRN (03:20)
[2019-10-03] MEDS: Albuterol/Ipratropium 3ml neb HHN SCH (03:38)
--- NOTE | 2019-10-03 04:00 | NUR ---
NURSE NOTES: Patient is awake and request pain medication. [place] given. Breathing treatment and CPT done by RT. Helped with turning and repositioning. Patient wanted caffeine but agreed on hot milk. All needs are met. Will continue to monitor.
[2019-10-03 05:40] LABS: BASOPHILS % (AUTO) 1.6 % (0.0-2.0); EOSINOPHILS % (AUTO) 5.8 % (0.0-3.0); HEMATOCRIT 30.9 % (37.0-47.0); HEMOGLOBIN 10.5 G/DL (12.0-16.0); LYMPHOCYTES % (AUTO) 13.2 % (20.0-45.0); MEAN CORPUSCULAR VOLUME 91 FL (80-99); NEUTROPHILS % (AUTO) 66.3 % (45.0-75.0); PLATELET COUNT 403 K/UL (150-450); RED BLOOD COUNT 3.38 M/UL (4.20-5.40); RED CELL DISTRIBUTION WIDTH 11.8 % (11.6-14.8); WHITE BLOOD COUNT 10.4 K/UL (4.8-10.8)
--- NOTE | 2019-10-03 06:00 | NUR ---
NURSE NOTES: Patient is sleeping comfortably. Vital signs stable. Helped her turned and repositioned. Wound dressings changed. Safety measures in place. Will continue to monitor.
[2019-10-03 06:19] LABS: ALANINE AMINOTRANSFERASE 25 U/L (12-78); ALBUMIN 2.1 G/DL (3.4-5.0); ALBUMIN/GLOBULIN RATIO 0.5 (1.0-2.7); ALKALINE PHOSPHATASE 93 U/L (46-116); ANION GAP 8 mmol/L (5-15); BILIRUBIN,TOTAL 0.5 MG/DL (0.2-1.0); BLOOD UREA NITROGEN 7 mg/dL (7-18); CALCIUM 8.8 MG/DL (8.5-10.1); CARBON DIOXIDE 28 MMOL/L (21-32); CHLORIDE 99 MMOL/L (98-107); CREATININE 0.5 MG/DL (0.55-1.30); POTASSIUM 3.9 MMOL/L (3.5-5.1); SODIUM 135 MMOL/L (136-145)
[2019-10-03] MEDS ORDERED: Metoprolol Tartrate 5mg/5ml Inj IVP PRN (07:15)
--- NOTE | 2019-10-03 07:25 | NUR ---
NURSE NOTES: Transferred patient to SDU and placed 237-2. Placed onto [employer] and oxygen on. Belongings accounted for. Report given to Dana Will RN. Patient is stable. Orders transferred.
--- NOTE | 2019-10-03 07:30 | NUR ---
NURSE NOTES: Report received from Marta Jean RN.Pt awake,alert sitting up on bed noted no resp distress,denies any c/o pain or discpomfort,SR on the monitor, Leigh cath draining yellow urine,skin warm and dry ,IV site ,HL to RFA intact ,SR uip x2 HOB elevated,bed lock in lowest position will continue with plans of care.
[2019-10-03] MEDS ORDERED: HYDROcodone/Acetamin 5/325 tab ORAL PRN (08:00)
[2019-10-03] MEDS: Heparin 5000 units/ml inj SUBQ SCH ×2 (08:56→20:43)
[2019-10-03] MEDS ORDERED: Amiodarone 200mg tab ORAL SCH (09:00)
[2019-10-03] MEDS ORDERED: Metoprolol Tartrate 12.5mg TAB ORAL SCH (09:00)
[2019-10-03 09:16] LABS: ASPARTATE AMINO TRANSFERASE 32 U/L (15-37)
--- NOTE | 2019-10-03 09:37 | Pulmonology Progress Note ---
Assessment/Plan Problems: (1) Collapse of left lung (2) Status post stroke (3) Bronchospasm (4) History of asthma (5) CVA (cerebral vascular accident) (6) Closed right hip fracture Assessment/Plan continue chest pt repeat cxr in am incentive spirometry bipap prn positional therapy, pt needs to lay down on her right side no sputum yet. afebrile now for 48 hours, on Zosyn dvt prophylaxis. Subjective ROS Limited/Unobtainable: No Interval Events: doing better Allergies: Coded Allergies: No Known Allergies (Unverified , 09/25/19) Objective Last 24 Hour Vital Signs Date Time Temp Pulse Resp B/P (MAP) Pulse Ox O2 Delivery O2 Flow Rate FiO2 10/03/19 08:55 69 157/65 10/03/19 08:00 97.7 69 17 157/65 (95) 91 10/03/19 07:37 97 Nasal Cannula 3.0 32 10/03/19 06:00 72 15 128/56 (80) 98 10/03/19 05:00 70 18 136/73 (94) 100 10/03/19 04:00 Nasal Cannula 4.0 Nasal Cannula 4.0 10/03/19 04:00 4.0 10/03/19 04:00 97.2 67 17 157/65 (95) 97 10/03/19 03:38 70 23 100 Nasal Cannula 3.0 32 71 22 97 10/03/19 03:14 71 10/03/19 03:00 71 21 139/66 (90) 98 10/03/19 02:00 67 19 140/71 (94) 98 10/03/19 01:00 71 18 130/64 (86) 97 10/03/19 00:00 97.7 69 18 139/61 (87) 100 10/03/19 00:00 Nasal Cannula 4.0 Nasal Cannula 4.0 10/02/19 23:43 73 19 100 Venturi Mask 4.0 31 72 20 99 10/02/19 23:36 68 10/02/19 23:00 71 19 137/63 (87) 98 10/02/19 22:00 81 19 143/79 (100) 98 10/02/19 21:22 76 142/65 10/02/19 21:00 76 22 142/65 (90) 99 2/13/20 20:00 4.0 10/02/19 20:00 99.8 79 24 145/66 (92) 97 10/02/19 20:00 Nasal Cannula 4.0 Nasal Cannula 4.0 10/02/19 19:17 79 10/02/19 19:07 76 21 100 Nasal Cannula 3.0 32 78 23 97 10/02/19 19:06 97 Nasal Cannula 3.0 32 10/02/19 19:00 75 25 139/75 (96) 97 10/02/19 18:00 78 20 129/64 (85) 98 10/02/19 17:00 79 20 137/62 (87) 97 10/02/19 16:00 98.6 72 21 132/62 (85) 100 10/02/19 16:00 Nasal Cannula 4.0 Nasal Cannula 4.0 10/02/19 16:00 4.0 10/02/19 15:53 77 20 99 Nasal Cannula 3.0 32 73 22 98 10/02/19 15:15 69 10/02/19 15:00 81 19 147/72 (97) 97 10/02/19 14:00 67 18 144/81 (102) 99 10/02/19 13:00 69 18 137/67 (90) 99 10/02/19 12:00 4.0 10/02/19 12:00 97.6 70 19 152/66 (94) 98 10/02/19 12:00 Nasal Cannula 4.0 Nasal Cannula 4.0 10/02/19 11:45 69 10/02/19 11:33 75 24 100 Nasal Cannula 3.0 32 71 19 97 10/02/19 11:00 78 21 149/72 (97) 96 10/02/19 10:58 77 150/66 10/02/19 10:00 80 21 161/76 (104) 96 Intake and Output 10/02/19 10/03/19 19:00 07:00 Intake Total 1423.25 ml 656.75 ml Output Total 1035 ml 1795 ml Balance 388.25 ml -1138.25 ml Intake Oral 1250 ml 500 ml IV Total 173.25 ml 156.75 ml Output Urine Total 1035 ml 1795 ml General Appearance: cachetic HEENT: normocephalic Respiratory/Chest: chest wall non-tender, accessory muscle use, crackles/rales Cardiovascular: normal peripheral pulses, normal rate Abdomen: normal bowel sounds, soft, non tender Genitourinary: normal external genitalia Extremities: no clubbing Neurologic/Psychiatric: guest service host II-XII grossly normal Lymphatic: no neck adenopathy Laboratory Tests 10/03/19 04:56: White Blood Count 10.4, Red Blood Count 3.38L, Hemoglobin 10.5L, Hematocrit 30.9L, Mean Corpuscular Volume 91, Mean Corpuscular Hemoglobin 30.9, Mean Corpuscular Hemoglobin Concent 33.8, Red Cell Distribution Width 11.8, Platelet Count 403, Mean Platelet Volume 5.2L, Neutrophils (%) (Auto) 66.3, Lymphocytes ( %) (Auto) 13.2L, Monocytes (%) (Auto) 13.0H, Eosinophils (%) (Auto) 5.8H, Basophils (%) (Auto) 1.6, Sodium Level 135L, Potassium Level 3.9, Chloride Level 99, Carbon Dioxide Level 28, Anion Gap 8, Blood Urea Nitrogen 7, Creatinine 0.5L, Estimat Glomerular Filtration Rate > 60, Glucose Level 117H, Calcium Level 8.8, Total Bilirubin 0.5, Aspartate Amino Transf (AST/SGOT) 32, Alanine Aminotransferase (ALT/SGPT) 25, Alkaline Phosphatase 93, Pro-B-Type Natriuretic Peptide 1419H, Total Protein 6.3L, Albumin 2.1L, Globulin 4.2, Albumin/Globulin Ratio 0.5L Current Medications Medications (Trade) Dose Ordered Sig/Yesenia Route PRN Reason Start Time Stop Time Status Last Admin Dose Admin Acetaminophen (Tylenol) 650 mg Q4H PRN ORAL Mild Pain/Temp > 100.5 10/03/19 07:15 10/28/19 15:14 Acetaminophen/ Hydrocodone Bitart ([place] 5/325) 1 tab Q6H PRN ORAL Moderate Pain (Pain Scale 4-6) 10/03/19 08:00 10/06/19 07:59 Amiodarone HCl (Cordarone) 400 mg EVERY 12 HOURS ORAL 10/03/19 09:00 10/30/19 15:14 10/03/19 08:54 Clonidine HCl (Catapres Tab) 0.1 mg Q4H PRN ORAL SBP > 160 mmHg 10/03/19 08:00 10/26/19 07:59 Dextrose (Dextrose 50%) 25 ml Q30M PRN IV Hypoglycemia 10/03/19 07:30 10/25/19 22:29 Dextrose (Dextrose 50%) 50 ml Q30M PRN IV Hypoglycemia 10/03/19 07:30 10/25/19 22:29 Heparin Sodium (Porcine) (Heparin 5000 units/ml) 5,000 units EVERY 12 HOURS SUBQ 10/03/19 09:00 10/26/19 08:59 10/03/19 08:56 Metoprolol Tartrate (Lopressor) 12.5 mg Q12HR ORAL 10/03/19 09:00 10/28/19 20:59 10/03/19 08:55 Ondansetron HCl (Zofran) 4 mg Q4H PRN IVP Nausea & Vomiting 10/03/19 07:30 10/26/19 07:29 Piperacillin Sod/ Tazobactam Sod 3.375 gm/Sodium Chloride 110 ml @ 27.5 mls/hr Q8H IVPB 10/03/19 09:00 10/05/19 08:59 10/03/19 08:54 Polyethylene Glycol (Miralax) 17 gm HSPRN PRN ORAL Constipation 10/03/19 22:30 10/25/19 22:29 Rox Limon MD Oct 03, 2019 09:37
--- NOTE | 2019-10-03 10:00 | NUR ---
NURSE NOTES: Pt turned to RT side but non compliant ,would remove the pllow,under lt side,instucted to keep it to elevate lt lungs but uncooperative.
--- NOTE | 2019-10-03 11:02 | NUR ---
RADIOLOGY DEPT., CHEST X-RAY DONE.-P.DYE
[2019-10-03] MEDS ORDERED: Promethazine HCl 25 MG in NS 55 ML IVPB PRN (12:00)
--- NOTE | 2019-10-03 13:08 | Diagnostic Imaging Report ---
Indication: Dyspnea Comparison: 10/02/2019 A single view chest radiograph was obtained. Findings: Pulmonary vessel congestion demonstrated. There is evidence of a left pleural effusion. Airspace disease at the left lung base also noted. Findings appear unchanged. IMPRESSION: No change from the previous day
--- NOTE | 2019-10-03 13:30 | Cardiology Progress Note ---
Assessment/Plan Assessment/Plan recurrent afib rvr psot iv dilt conversion to sinus no recurrence on amiod CVA with residual right hemiparesis s/p mechanical fall right pelvic fracture. pulm htn duplex neg cxr left francine in sinus on amiod po trop and ekg noted echo noted normal ef will need anticoagulation was felt to be acceptable risk by dr wilson of ortho lung collapse improve nwo on tele will decrease amiofor 400 mg bid to 200 mg qd eliquis 5 mg bid Subjective Cardiovascular: Denies: chest pain, palpitations Respiratory: Denies: cough, shortness of breath Gastrointestinal/Abdominal: Denies: abdominal pain Genitourinary: Denies: burning Objective Last 24 Hour Vital Signs Date Time Temp Pulse Resp B/P (MAP) Pulse Ox O2 Delivery O2 Flow Rate FiO2 10/03/19 12:00 4.0 10/03/19 12:00 Nasal Cannula 4.0 Nasal Cannula 4.0 10/03/19 12:00 97.7 69 20 135/63 (87) 97 10/03/19 08:55 69 157/65 10/03/19 08:00 4.0 10/03/19 08:00 69 10/03/19 08:00 97.7 69 17 157/65 (95) 91 10/03/19 08:00 Nasal Cannula 4.0 Nasal Cannula 4.0 10/03/19 07:37 97 Nasal Cannula 3.0 32 10/03/19 06:00 72 15 128/56 (80) 98 10/03/19 05:00 70 18 136/73 (94) 100 10/03/19 04:00 Nasal Cannula 4.0 Nasal Cannula 4.0 10/03/19 04:00 4.0 10/03/19 04:00 97.2 67 17 157/65 (95) 97 10/03/19 03:38 70 23 100 Nasal Cannula 3.0 32 71 22 97 10/03/19 03:14 71 10/03/19 03:00 71 21 139/66 (90) 98 10/03/19 02:00 67 19 140/71 (94) 98 10/03/19 01:00 71 18 130/64 (86) 97 10/03/19 00:00 97.7 69 18 139/61 (87) 100 10/03/19 00:00 Nasal Cannula 4.0 Nasal Cannula 4.0 10/02/19 23:43 73 19 100 Venturi Mask 4.0 31 72 20 99 10/02/19 23:36 68 10/02/19 23:00 71 19 137/63 (87) 98 10/02/19 22:00 81 19 143/79 (100) 98 10/02/19 21:22 76 142/65 10/02/19 21:00 76 22 142/65 (90) 99 10/02/19 20:00 4.0 10/02/19 20:00 99.8 79 24 145/66 (92) 97 10/02/19 20:00 Nasal Cannula 4.0 Nasal Cannula 4.0 10/02/19 19:17 79 10/02/19 19:07 76 21 100 Nasal Cannula 3.0 32 78 23 97 10/02/19 19:06 97 Nasal Cannula 3.0 32 10/02/19 19:00 75 25 139/75 (96) 97 10/02/19 18:00 78 20 129/64 (85) 98 10/02/19 17:00 79 20 137/62 (87) 97 10/02/19 16:00 98.6 72 21 132/62 (85) 100 10/02/19 16:00 Nasal Cannula 4.0 Nasal Cannula 4.0 10/02/19 16:00 4.0 10/02/19 15:53 77 20 99 Nasal Cannula 3.0 32 73 22 98 10/02/19 15:15 69 10/02/19 15:00 81 19 147/72 (97) 97 10/02/19 14:00 67 18 144/81 (102) 99 General Appearance: no apparent distress, alert Neck: supple Cardiovascular: normal rate Respiratory/Chest: expiratory wheezing Abdomen: normal bowel sounds, non tender, soft Extremities: no swelling Intake and Output 10/02/19 10/03/19 19:00 07:00 Intake Total 1423.25 ml 656.75 ml Output Total 1035 ml 1795 ml Balance 388.25 ml -1138.25 ml Intake Oral 1250 ml 500 ml IV Total 173.25 ml 156.75 ml Output Urine Total 1035 ml 1795 ml Laboratory Tests Test 10/03/19 04:56 White Blood Count 10.4 K/UL (4.8-10.8) Red Blood Count 3.38 M/UL (4.20-5.40) L Hemoglobin 10.5 G/DL (12.0-16.0) L Hematocrit 30.9 % (37.0-47.0) L Mean Corpuscular Volume 91 FL (80-99) Mean Corpuscular Hemoglobin 30.9 PG (27.0-31.0) Mean Corpuscular Hemoglobin Concent 33.8 G/DL (32.0-36.0) Red Cell Distribution Width 11.8 % (11.6-14.8) Platelet Count 403 K/UL (150-450) Mean Platelet Volume 5.2 FL (6.5-10.1) L Neutrophils (%) (Auto) 66.3 % (45.0-75.0) Lymphocytes (%) (Auto) 13.2 % (20.0-45.0) L Monocytes (%) (Auto) 13.0 % (1.0-10.0) H Eosinophils (%) (Auto) 5.8 % (0.0-3.0) H Basophils (%) (Auto) 1.6 % (0.0-2.0) Sodium Level 135 MMOL/L (136-145) L Potassium Level 3.9 MMOL/L (3.5-5.1) Chloride Level 99 MMOL/L (98-107) Carbon Dioxide Level 28 MMOL/L (21-32) Anion Gap 8 mmol/L (5-15) Blood Urea Nitrogen 7 mg/dL (7-18) Creatinine 0.5 MG/DL (0.55-1.30) L Estimat Glomerular Filtration Rate > 60 mL/min (>60) Glucose Level 117 MG/DL (74-106) H Calcium Level 8.8 MG/DL (8.5-10.1) Total Bilirubin 0.5 MG/DL (0.2-1.0) Aspartate Amino Transf (AST/SGOT) 32 U/L (15-37) Alanine Aminotransferase (ALT/SGPT) 25 U/L (12-78) Alkaline Phosphatase 93 U/L (46-116) Pro-B-Type Natriuretic Peptide 1419 pg/mL (0-125) H Total Protein 6.3 G/DL (6.4-8.2) L Albumin 2.1 G/DL (3.4-5.0) L Globulin 4.2 g/dL Albumin/Globulin Ratio 0.5 (1.0-2.7) L Rhett Rabago MD Oct 03, 2019 13:30
--- NOTE | 2019-10-03 13:30 | Infectious Diseases Prog Note ---
Assessment/Plan Assessment/Plan Assessment: Sepsis Probable PNA Severe L lung volume loss -10/01 CXR: Complete opacification of left hemithorax. Presumably on the basis of complete left lung atelectasis. Suspect new/increasing pleural fluid and pulmonary venous congestion on the right -09/28 Bcx Neg sp cx normal resp willa -09/27 CXR: Interval worsening with opacification of the left hemithorax and leftward mediastinal shift consistent with severe volume loss of the left lung. -09/25 CXR; Possible mild pulmonary vascular congestion. Correlate clinically u/a neg -influenza sc neg Fever; Sp Leukocytosis, SP R hip fracture 2ry to mechanical fall -09/26 CT hip; Severe, comminuted fracture of the right iliac crest and superior ilium with intra-articular extension into the right sacroiliac joint which is diastatic. Acetabulum and hip appear intact. Leigh catheter. Acute hypoxic respiratory failure, sp Bipap, now on NC Afib with RVR CVA w/ residual R side weakness asthma Plan: -Continue ZOsyn #6/7 for PNA -10/02 SP IV Vancomycin #5 -f/u cx -Monitor CBC/CMP, temperatures -Cards, pulm f/u -aspiration precautions Thank you for this consultation. Will continue to follow along with you. Discussed with RN Subjective Allergies: Coded Allergies: No Known Allergies (Unverified , 09/25/19) Subjective afebrile >48 hrs no leukocytosis Bcx Neg at 4l NC transferred from ICU to SDU Objective Vital Signs Last 24 Hour Vital Signs Date Time Temp Pulse Resp B/P (MAP) Pulse Ox O2 Delivery O2 Flow Rate FiO2 10/03/19 12:00 4.0 10/03/19 12:00 Nasal Cannula 4.0 Nasal Cannula 4.0 10/03/19 12:00 97.7 69 20 135/63 (87) 97 10/03/19 08:55 69 157/65 10/03/19 08:00 4.0 10/03/19 08:00 69 10/03/19 08:00 97.7 69 17 157/65 (95) 91 10/03/19 08:00 Nasal Cannula 4.0 Nasal Cannula 4.0 10/03/19 07:37 97 Nasal Cannula 3.0 32 10/03/19 06:00 72 15 128/56 (80) 98 10/03/19 05:00 70 18 136/73 (94) 100 10/03/19 04:00 Nasal Cannula 4.0 Nasal Cannula 4.0 10/03/19 04:00 4.0 10/03/19 04:00 97.2 67 17 157/65 (95) 97 10/03/19 03:38 70 23 100 Nasal Cannula 3.0 32 71 22 97 10/03/19 03:14 71 10/03/19 03:00 71 21 139/66 (90) 98 10/03/19 02:00 67 19 140/71 (94) 98 10/03/19 01:00 71 18 130/64 (86) 97 10/03/19 00:00 97.7 69 18 139/61 (87) 100 10/03/19 00:00 Nasal Cannula 4.0 Nasal Cannula 4.0 10/02/19 23:43 73 19 100 Venturi Mask 4.0 31 72 20 99 10/02/19 23:36 68 10/02/19 23:00 71 19 137/63 (87) 98 10/02/19 22:00 81 19 143/79 (100) 98 10/02/19 21:22 76 142/65 10/02/19 21:00 76 22 142/65 (90) 99 10/02/19 20:00 4.0 10/02/19 20:00 99.8 79 24 145/66 (92) 97 10/02/19 20:00 Nasal Cannula 4.0 Nasal Cannula 4.0 10/02/19 19:17 79 10/02/19 19:07 76 21 100 Nasal Cannula 3.0 32 78 23 97 10/02/19 19:06 97 Nasal Cannula 3.0 32 10/02/19 19:00 75 25 139/75 (96) 97 10/02/19 18:00 78 20 129/64 (85) 98 10/02/19 17:00 79 20 137/62 (87) 97 10/02/19 16:00 98.6 72 21 132/62 (85) 100 10/02/19 16:00 Nasal Cannula 4.0 Nasal Cannula 4.0 10/02/19 16:00 4.0 10/02/19 15:53 77 20 99 Nasal Cannula 3.0 32 73 22 98 10/02/19 15:15 69 10/02/19 15:00 81 19 147/72 (97) 97 10/02/19 14:00 67 18 144/81 (102) 99 Height (Feet): 5 Height (Inches): 5.00 Weight (Pounds): 130 Objective GENERAL: no acute distress. HEAD AND NECK: Pupils are equal and reactive to light. Extraocular movements intact. Neck was supple. LUNGS: No rhonchi. Positive expiratory wheezes. HEART: S1 and S2. Regular rhythm. No murmurs or gallops. ABDOMEN: Soft, nondistended, nontender. Positive bowel sounds. EXTREMITIES: No cyanosis, clubbing, edema Laboratory Tests Test 10/03/19 04:56 White Blood Count 10.4 K/UL (4.8-10.8) Red Blood Count 3.38 M/UL (4.20-5.40) L Hemoglobin 10.5 G/DL (12.0-16.0) L Hematocrit 30.9 % (37.0-47.0) L Mean Corpuscular Volume 91 FL (80-99) Mean Corpuscular Hemoglobin 30.9 PG (27.0-31.0) Mean Corpuscular Hemoglobin Concent 33.8 G/DL (32.0-36.0) Red Cell Distribution Width 11.8 % (11.6-14.8) Platelet Count 403 K/UL (150-450) Mean Platelet Volume 5.2 FL (6.5-10.1) L Neutrophils (%) (Auto) 66.3 % (45.0-75.0) Lymphocytes (%) (Auto) 13.2 % (20.0-45.0) L Monocytes (%) (Auto) 13.0 % (1.0-10.0) H Eosinophils (%) (Auto) 5.8 % (0.0-3.0) H Basophils (%) (Auto) 1.6 % (0.0-2.0) Sodium Level 135 MMOL/L (136-145) L Potassium Level 3.9 MMOL/L (3.5-5.1) Chloride Level 99 MMOL/L (98-107) Carbon Dioxide Level 28 MMOL/L (21-32) Anion Gap 8 mmol/L (5-15) Blood Urea Nitrogen 7 mg/dL (7-18) Creatinine 0.5 MG/DL (0.55-1.30) L Estimat Glomerular Filtration Rate > 60 mL/min (>60) Glucose Level 117 MG/DL (74-106) H Calcium Level 8.8 MG/DL (8.5-10.1) Total Bilirubin 0.5 MG/DL (0.2-1.0) Aspartate Amino Transf (AST/SGOT) 32 U/L (15-37) Alanine Aminotransferase (ALT/SGPT) 25 U/L (12-78) Alkaline Phosphatase 93 U/L (46-116) Pro-B-Type Natriuretic Peptide 1419 pg/mL (0-125) H Total Protein 6.3 G/DL (6.4-8.2) L Albumin 2.1 G/DL (3.4-5.0) L Globulin 4.2 g/dL Albumin/Globulin Ratio 0.5 (1.0-2.7) L Current Medications Medications (Trade) Dose Ordered Sig/Yesenia Route PRN Reason Start Time Stop Time Status Last Admin Dose Admin Acetaminophen (Tylenol) 650 mg Q4H PRN ORAL Mild Pain/Temp > 100.5 10/03/19 07:15 10/28/19 15:14 Acetaminophen/ Hydrocodone Bitart ([place] 5/325) 1 tab Q6H PRN ORAL Moderate Pain (Pain Scale 4-6) 10/03/19 08:00 10/06/19 07:59 Amiodarone HCl (Cordarone) 400 mg EVERY 12 HOURS ORAL 10/03/19 09:00 10/30/19 15:14 10/03/19 08:54 Clonidine HCl (Catapres Tab) 0.1 mg Q4H PRN ORAL SBP > 160 mmHg 10/03/19 08:00 10/26/19 07:59 Dextrose (Dextrose 50%) 25 ml Q30M PRN IV Hypoglycemia 10/03/19 07:30 10/25/19 22:29 Dextrose (Dextrose 50%) 50 ml Q30M PRN IV Hypoglycemia 10/03/19 07:30 10/25/19 22:29 Heparin Sodium (Porcine) (Heparin 5000 units/ml) 5,000 units EVERY 12 HOURS SUBQ 10/03/19 09:00 10/26/19 08:59 10/03/19 08:56 Metoprolol Tartrate (Lopressor) 12.5 mg Q12HR ORAL 10/03/19 09:00 10/28/19 20:59 10/03/19 08:55 Ondansetron HCl (Zofran) 4 mg Q4H PRN IVP Nausea & Vomiting 10/03/19 07:30 10/26/19 07:29 Piperacillin Sod/ Tazobactam Sod 3.375 gm/Sodium Chloride 110 ml @ 27.5 mls/hr Q8H IVPB 10/03/19 09:00 10/05/19 08:59 10/03/19 08:54 Polyethylene Glycol (Miralax) 17 gm HSPRN PRN ORAL Constipation 10/03/19 22:30 10/25/19 22:29 Juliet Cabezas M.D. Oct 03, 2019 13:30
--- NOTE | 2019-10-03 13:33 | Cardiology Progress Note ---
Assessment/Plan Assessment/Plan recurrent afib rvr psot iv dilt conversion to sinus no recurrence on amiod CVA with residual right hemiparesis s/p mechanical fall right pelvic fracture. pulm htn duplex neg cxr left francine in sinus on amiod po trop and ekg noted echo noted normal ef will need anticoagulation was felt to be acceptable risk by dr wilson of ortho lung collapse improve nwo on tele will decrease amiofor 400 mg bid to 200 mg qd eliquis 5 mg bid if no further invasive procedure needed will dc betablciker in setting of wheezing this is an addendum tothe note on the same date Objective Last 24 Hour Vital Signs Date Time Temp Pulse Resp B/P (MAP) Pulse Ox O2 Delivery O2 Flow Rate FiO2 10/03/19 12:00 4.0 10/03/19 12:00 Nasal Cannula 4.0 Nasal Cannula 4.0 10/03/19 12:00 97.7 69 20 135/63 (87) 97 10/03/19 08:55 69 157/65 10/03/19 08:00 4.0 10/03/19 08:00 69 10/03/19 08:00 97.7 69 17 157/65 (95) 91 10/03/19 08:00 Nasal Cannula 4.0 Nasal Cannula 4.0 10/03/19 07:37 97 Nasal Cannula 3.0 32 10/03/19 06:00 72 15 128/56 (80) 98 10/03/19 05:00 70 18 136/73 (94) 100 10/03/19 04:00 Nasal Cannula 4.0 Nasal Cannula 4.0 10/03/19 04:00 4.0 10/03/19 04:00 97.2 67 17 157/65 (95) 97 10/03/19 03:38 70 23 100 Nasal Cannula 3.0 32 71 22 97 10/03/19 03:14 71 10/03/19 03:00 71 21 139/66 (90) 98 10/03/19 02:00 67 19 140/71 (94) 98 10/03/19 01:00 71 18 130/64 (86) 97 10/03/19 00:00 97.7 69 18 139/61 (87) 100 10/03/19 00:00 Nasal Cannula 4.0 Nasal Cannula 4.0 10/02/19 23:43 73 19 100 Venturi Mask 4.0 31 72 20 99 10/02/19 23:36 68 10/02/19 23:00 71 19 137/63 (87) 98 10/02/19 22:00 81 19 143/79 (100) 98 10/02/19 21:22 76 142/65 10/02/19 21:00 76 22 142/65 (90) 99 10/02/19 20:00 4.0 10/02/19 20:00 99.8 79 24 145/66 (92) 97 10/02/19 20:00 Nasal Cannula 4.0 Nasal Cannula 4.0 10/02/19 19:17 79 10/02/19 19:07 76 21 100 Nasal Cannula 3.0 32 78 23 97 10/02/19 19:06 97 Nasal Cannula 3.0 32 10/02/19 19:00 75 25 139/75 (96) 97 10/02/19 18:00 78 20 129/64 (85) 98 10/02/19 17:00 79 20 137/62 (87) 97 10/02/19 16:00 98.6 72 21 132/62 (85) 100 10/02/19 16:00 Nasal Cannula 4.0 Nasal Cannula 4.0 10/02/19 16:00 4.0 10/02/19 15:53 77 20 99 Nasal Cannula 3.0 32 73 22 98 10/02/19 15:15 69 10/02/19 15:00 81 19 147/72 (97) 97 10/02/19 14:00 67 18 144/81 (102) 99 Intake and Output 10/02/19 10/03/19 19:00 07:00 Intake Total 1423.25 ml 656.75 ml Output Total 1035 ml 1795 ml Balance 388.25 ml -1138.25 ml Intake Oral 1250 ml 500 ml IV Total 173.25 ml 156.75 ml Output Urine Total 1035 ml 1795 ml Laboratory Tests Test 10/03/19 04:56 White Blood Count 10.4 K/UL (4.8-10.8) Red Blood Count 3.38 M/UL (4.20-5.40) L Hemoglobin 10.5 G/DL (12.0-16.0) L Hematocrit 30.9 % (37.0-47.0) L Mean Corpuscular Volume 91 FL (80-99) Mean Corpuscular Hemoglobin 30.9 PG (27.0-31.0) Mean Corpuscular Hemoglobin Concent 33.8 G/DL (32.0-36.0) Red Cell Distribution Width 11.8 % (11.6-14.8) Platelet Count 403 K/UL (150-450) Mean Platelet Volume 5.2 FL (6.5-10.1) L Neutrophils (%) (Auto) 66.3 % (45.0-75.0) Lymphocytes (%) (Auto) 13.2 % (20.0-45.0) L Monocytes (%) (Auto) 13.0 % (1.0-10.0) H Eosinophils (%) (Auto) 5.8 % (0.0-3.0) H Basophils (%) (Auto) 1.6 % (0.0-2.0) Sodium Level 135 MMOL/L (136-145) L Potassium Level 3.9 MMOL/L (3.5-5.1) Chloride Level 99 MMOL/L (98-107) Carbon Dioxide Level 28 MMOL/L (21-32) Anion Gap 8 mmol/L (5-15) Blood Urea Nitrogen 7 mg/dL (7-18) Creatinine 0.5 MG/DL (0.55-1.30) L Estimat Glomerular Filtration Rate > 60 mL/min (>60) Glucose Level 117 MG/DL (74-106) H Calcium Level 8.8 MG/DL (8.5-10.1) Total Bilirubin 0.5 MG/DL (0.2-1.0) Aspartate Amino Transf (AST/SGOT) 32 U/L (15-37) Alanine Aminotransferase (ALT/SGPT) 25 U/L (12-78) Alkaline Phosphatase 93 U/L (46-116) Pro-B-Type Natriuretic Peptide 1419 pg/mL (0-125) H Total Protein 6.3 G/DL (6.4-8.2) L Albumin 2.1 G/DL (3.4-5.0) L Globulin 4.2 g/dL Albumin/Globulin Ratio 0.5 (1.0-2.7) L Rhett Rabago MD Oct 03, 2019 13:33
--- NOTE | 2019-10-03 14:51 | Surgery Progress Note ---
Surgery Progress Note Subjective Symptoms: improved, tolerating diet, voiding well, passing flatus, BM Objective Last 24 Hour Vital Signs Date Time Temp Pulse Resp B/P (MAP) Pulse Ox O2 Delivery O2 Flow Rate FiO2 10/03/19 12:00 4.0 10/03/19 12:00 Nasal Cannula 4.0 Nasal Cannula 4.0 10/03/19 12:00 97.7 69 20 135/63 (87) 97 10/03/19 12:00 68 10/03/19 08:55 69 157/65 10/03/19 08:00 4.0 10/03/19 08:00 69 10/03/19 08:00 97.7 69 17 157/65 (95) 91 10/03/19 08:00 Nasal Cannula 4.0 Nasal Cannula 4.0 10/03/19 07:37 97 Nasal Cannula 3.0 32 10/03/19 06:00 72 15 128/56 (80) 98 10/03/19 05:00 70 18 136/73 (94) 100 10/03/19 04:00 Nasal Cannula 4.0 Nasal Cannula 4.0 10/03/19 04:00 4.0 10/03/19 04:00 97.2 67 17 157/65 (95) 97 10/03/19 03:38 70 23 100 Nasal Cannula 3.0 32 71 22 97 10/03/19 03:14 71 10/03/19 03:00 71 21 139/66 (90) 98 10/03/19 02:00 67 19 140/71 (94) 98 10/03/19 01:00 71 18 130/64 (86) 97 10/03/19 00:00 97.7 69 18 139/61 (87) 100 10/03/19 00:00 Nasal Cannula 4.0 Nasal Cannula 4.0 10/02/19 23:43 73 19 100 Venturi Mask 4.0 31 72 20 99 10/02/19 23:36 68 10/02/19 23:00 71 19 137/63 (87) 98 10/02/19 22:00 81 19 143/79 (100) 98 10/02/19 21:22 76 142/65 10/02/19 21:00 76 22 142/65 (90) 99 10/02/19 20:00 4.0 10/02/19 20:00 99.8 79 24 145/66 (92) 97 10/02/19 20:00 Nasal Cannula 4.0 Nasal Cannula 4.0 10/02/19 19:17 79 10/02/19 19:07 76 21 100 Nasal Cannula 3.0 32 78 23 97 10/02/19 19:06 97 Nasal Cannula 3.0 32 10/02/19 19:00 75 25 139/75 (96) 97 10/02/19 18:00 78 20 129/64 (85) 98 10/02/19 17:00 79 20 137/62 (87) 97 10/02/19 16:00 98.6 72 21 132/62 (85) 100 10/02/19 16:00 Nasal Cannula 4.0 Nasal Cannula 4.0 10/02/19 16:00 4.0 10/02/19 15:53 77 20 99 Nasal Cannula 3.0 32 73 22 98 10/02/19 15:15 69 10/02/19 15:00 81 19 147/72 (97) 97 I&O Intake and Output 10/02/19 10/03/19 19:00 07:00 Intake Total 1423.25 ml 656.75 ml Output Total 1035 ml 1795 ml Balance 388.25 ml -1138.25 ml Intake Oral 1250 ml 500 ml IV Total 173.25 ml 156.75 ml Output Urine Total 1035 ml 1795 ml Dressing: dry Wound: clean Cardiovascular: RSR Respiratory: clear Abdomen: soft, non-tender, present bowel sounds Extremities: no cyanosis Laboratory Tests Test 10/03/19 04:56 White Blood Count 10.4 K/UL (4.8-10.8) Red Blood Count 3.38 M/UL (4.20-5.40) L Hemoglobin 10.5 G/DL (12.0-16.0) L Hematocrit 30.9 % (37.0-47.0) L Mean Corpuscular Volume 91 FL (80-99) Mean Corpuscular Hemoglobin 30.9 PG (27.0-31.0) Mean Corpuscular Hemoglobin Concent 33.8 G/DL (32.0-36.0) Red Cell Distribution Width 11.8 % (11.6-14.8) Platelet Count 403 K/UL (150-450) Mean Platelet Volume 5.2 FL (6.5-10.1) L Neutrophils (%) (Auto) 66.3 % (45.0-75.0) Lymphocytes (%) (Auto) 13.2 % (20.0-45.0) L Monocytes (%) (Auto) 13.0 % (1.0-10.0) H Eosinophils (%) (Auto) 5.8 % (0.0-3.0) H Basophils (%) (Auto) 1.6 % (0.0-2.0) Sodium Level 135 MMOL/L (136-145) L Potassium Level 3.9 MMOL/L (3.5-5.1) Chloride Level 99 MMOL/L (98-107) Carbon Dioxide Level 28 MMOL/L (21-32) Anion Gap 8 mmol/L (5-15) Blood Urea Nitrogen 7 mg/dL (7-18) Creatinine 0.5 MG/DL (0.55-1.30) L Estimat Glomerular Filtration Rate > 60 mL/min (>60) Glucose Level 117 MG/DL (74-106) H Calcium Level 8.8 MG/DL (8.5-10.1) Total Bilirubin 0.5 MG/DL (0.2-1.0) Aspartate Amino Transf (AST/SGOT) 32 U/L (15-37) Alanine Aminotransferase (ALT/SGPT) 25 U/L (12-78) Alkaline Phosphatase 93 U/L (46-116) Pro-B-Type Natriuretic Peptide 1419 pg/mL (0-125) H Total Protein 6.3 G/DL (6.4-8.2) L Albumin 2.1 G/DL (3.4-5.0) L Globulin 4.2 g/dL Albumin/Globulin Ratio 0.5 (1.0-2.7) L Plan Problems: (1) Closed right hip fracture Assessment & Plan: There is a severely comminuted fracture of the superior portion of the ileum primarily involving the right iliac crest with multiple bone fragments. The fracture extends into the right sacroiliac joint which is diastatic. There is a 3 mm bone fragment at the lower margin of the sacroiliac joint probably intra-articular ( e.g. #39/2 or e.g. #37/8). There is no involvement of the acetabulum. There is a moderate degree of soft tissue swelling both lateral and medial to the iliac fracture with lateral gluteal ill-definition and edema as well as medial soft tissue attenuation of fat which (likely due to blood) with edema/blood of a portion of the right piriformis muscle noted. No other fractures are identified. The right femoral neck and head appear normal without fracture or malalignment. No fracture of the sacrum or pubis identified. The bones are osteopenic. The visualized part of the lower lumbar spine appears intact. There is some hypertrophy of the facets and narrowing of the intervertebral discs. There is a Leigh catheter within the urinary bladder which is mostly nondistended. IMPRESSION: Severe, comminuted fracture of the right iliac crest and superior ilium with intra-articular extension into the right sacroiliac joint which is diastatic. Acetabulum and hip appear intact. Ortho input appreciated: At this point, this is a nonoperative fracture, should heal. She can begin physical therapy. Weightbearing as tolerated with a walker. She will have a significant discomfort initially until the fracture consolidates given that the adductor muscles are attached at that area. Therefore, she may have to be transferred to a jail until she is a little bit more safe to go home. She should get appropriate DVT prophylaxis (2) Collapse of left lung Assessment & Plan: Lungs: There is interval worsening with opacification of most of the left hemithorax and leftward mediastinal shift consistent with severe volume loss of the left lung. Pleural space: Unremarkable. No pneumothorax. Heart: Unremarkable. No cardiomegaly. Mediastinum: The trachea is deviated to the left. Bones/joints: Unremarkable. Vasculature: There is calcification of the aortic arch. IMPRESSION: Interval worsening with opacification of the left hemithorax and leftward mediastinal shift consistent with severe volume loss of the left lung. CT chest report pre arzola reviewed as well as images mass noted. shift noted no ptx. no large effusion do not recommend Chest tube placement at this time pulm input appreciated okay for anticoagulation from surgical standpoint thank you (3) Pelvic fracture Fan Owusu Oct 03, 2019 14:51
--- NOTE | 2019-10-03 16:02 | Internal Med Progress Note ---
Subjective Physician Name Yonis Granados Attending Physician Yonis Granados MD Current Medications Medications (Trade) Dose Ordered Sig/Yesenia Route PRN Reason Start Time Stop Time Status Last Admin Dose Admin Acetaminophen (Tylenol) 650 mg Q4H PRN ORAL Mild Pain/Temp > 100.5 10/03/19 07:15 10/28/19 15:14 Acetaminophen/ Hydrocodone Bitart ([place] 5/325) 1 tab Q6H PRN ORAL Moderate Pain (Pain Scale 4-6) 10/03/19 08:00 10/06/19 07:59 Amiodarone HCl (Cordarone) 200 mg DAILY ORAL 10/04/19 09:00 11/03/19 08:59 Clonidine HCl (Catapres Tab) 0.1 mg Q4H PRN ORAL SBP > 160 mmHg 10/03/19 08:00 10/26/19 07:59 Dextrose (Dextrose 50%) 25 ml Q30M PRN IV Hypoglycemia 10/03/19 07:30 10/25/19 22:29 Dextrose (Dextrose 50%) 50 ml Q30M PRN IV Hypoglycemia 10/03/19 07:30 10/25/19 22:29 Heparin Sodium (Porcine) (Heparin 5000 units/ml) 5,000 units EVERY 12 HOURS SUBQ 10/03/19 09:00 10/26/19 08:59 10/03/19 08:56 Ondansetron HCl (Zofran) 4 mg Q4H PRN IVP Nausea & Vomiting 10/03/19 07:30 10/26/19 07:29 Piperacillin Sod/ Tazobactam Sod 3.375 gm/Sodium Chloride 110 ml @ 27.5 mls/hr Q8H IVPB 10/03/19 09:00 10/05/19 08:59 10/03/19 08:54 Polyethylene Glycol (Miralax) 17 gm HSPRN PRN ORAL Constipation 10/03/19 22:30 10/25/19 22:29 Allergies: Coded Allergies: No Known Allergies (Unverified , 09/25/19) Subjective awake, alert, responsive, NAD, NO CP or SOB, WBC: 10.4 Objective Last Vital Signs Date Time Temp Pulse Resp B/P (MAP) Pulse Ox O2 Delivery O2 Flow Rate FiO2 10/03/19 12:00 4.0 2/14/20 12:00 Nasal Cannula Nasal Cannula 10/03/19 12:00 97.7 69 20 135/63 (87) 97 10/03/19 07:37 32 Laboratory Tests Test 10/03/19 04:56 White Blood Count 10.4 K/UL (4.8-10.8) Red Blood Count 3.38 M/UL (4.20-5.40) L Hemoglobin 10.5 G/DL (12.0-16.0) L Hematocrit 30.9 % (37.0-47.0) L Mean Corpuscular Volume 91 FL (80-99) Mean Corpuscular Hemoglobin 30.9 PG (27.0-31.0) Mean Corpuscular Hemoglobin Concent 33.8 G/DL (32.0-36.0) Red Cell Distribution Width 11.8 % (11.6-14.8) Platelet Count 403 K/UL (150-450) Mean Platelet Volume 5.2 FL (6.5-10.1) L Neutrophils (%) (Auto) 66.3 % (45.0-75.0) Lymphocytes (%) (Auto) 13.2 % (20.0-45.0) L Monocytes (%) (Auto) 13.0 % (1.0-10.0) H Eosinophils (%) (Auto) 5.8 % (0.0-3.0) H Basophils (%) (Auto) 1.6 % (0.0-2.0) Sodium Level 135 MMOL/L (136-145) L Potassium Level 3.9 MMOL/L (3.5-5.1) Chloride Level 99 MMOL/L (98-107) Carbon Dioxide Level 28 MMOL/L (21-32) Anion Gap 8 mmol/L (5-15) Blood Urea Nitrogen 7 mg/dL (7-18) Creatinine 0.5 MG/DL (0.55-1.30) L Estimat Glomerular Filtration Rate > 60 mL/min (>60) Glucose Level 117 MG/DL (74-106) H Calcium Level 8.8 MG/DL (8.5-10.1) Total Bilirubin 0.5 MG/DL (0.2-1.0) Aspartate Amino Transf (AST/SGOT) 32 U/L (15-37) Alanine Aminotransferase (ALT/SGPT) 25 U/L (12-78) Alkaline Phosphatase 93 U/L (46-116) Pro-B-Type Natriuretic Peptide 1419 pg/mL (0-125) H Total Protein 6.3 G/DL (6.4-8.2) L Albumin 2.1 G/DL (3.4-5.0) L Globulin 4.2 g/dL Albumin/Globulin Ratio 0.5 (1.0-2.7) L Intake and Output 10/02/19 10/03/19 19:00 07:00 Intake Total 1423.25 ml 656.75 ml Output Total 1035 ml 1795 ml Balance 388.25 ml -1138.25 ml Intake Oral 1250 ml 500 ml IV Total 173.25 ml 156.75 ml Output Urine Total 1035 ml 1795 ml Objective GENERAL: The patient is awake, responsive, no acute distress. HEAD AND NECK: Pupils are equal and reactive to light. Extraocular movements intact. Neck was supple. No JVD. LUNGS: Nasal canula; BS decreased on left; No rales or wheezes. HEART: S1 and S2. Regular rhythm. No murmurs or gallops. ABDOMEN: Soft, nondistended, nontender. Positive bowel sounds. EXTREMITIES: No cyanosis, clubbing, edema NEUROLOGIC: Cranial nerves II through XII grossly normal. The patient moving left side extremities, right side contracted. Assessment/Plan Assessment/Plan 1. Status post fall. 2. Asthma. 3. History of CVA with right-sided weakness. 4. Elevated blood pressure. 5. right hip pain\ 6. Right superior Ilium fracture 7. Right iliac crest fracture 8. left lung collapse with pneumonia PLAN: 1. Admit the patient to medical floor. 2. Ortho= Dr. Zane Galo 3. Dr. Limon Pulmonary Critical Care. 4. Code status: Full Code. DVT prophylaxis: heparin subcutaneous. 5. Pulmonary=Dr Limon 6. ABX: Yonis Ziegler IV, MD Oct 03, 2019 16:02
--- NOTE | 2019-10-03 17:00 | NUR ---
NURSE NOTES: Pt wanted to do BM,placed on commode and able to open bowels and had 3 large chunks of stools,verbalized feeling better afterwards.
--- NOTE | 2019-10-03 19:30 | NUR ---
HAND-OFF: Report given to Chanelle Angelo RN,pt resting in bed asleep,no distress presented..
--- NOTE | 2019-10-03 19:35 | NUR ---
NURSE NOTES: Received pt from Tatyana Will RN. pt is observed resting in bed, appears to be sleeping, no s/sx of pain noted at this time. pt is on 4 L O2 via NC, tolerating well; no s/sx of respiratory distress noted. case monitor shows SR at this time, no acute cardiac distress noted. F/C is patent and intact, draining rizwana urine to gravity. skin alterations noted. RFA 22 g IV site is patent and intact, currently running Zosyn at prescribed rate. bed in lowest position and locked, siderails up X3, call light within reach. will continue to monitor.
[2019-10-03] MEDS ORDERED: Miralax 17gm pkt ORAL PRN (22:30)
[2019-10-04] VITALS: BP 122/56
[2019-10-04] MEDS: Piperacillin/Tazobactam 3.375 GM in NS 110 ML IVPB SCH ×3 (01:12→16:04)
[2019-10-04 04:00] VITALS: BP 127/51
[2019-10-04 06:38] LABS: BASOPHILS % (AUTO) 0.8 % (0.0-2.0); HEMATOCRIT 30.6 % (37.0-47.0); HEMOGLOBIN 10.5 G/DL (12.0-16.0); LYMPHOCYTES % (AUTO) 18.9 % (20.0-45.0); MEAN CORPUSCULAR VOLUME 91 FL (80-99); MONOCYTES % (AUTO) 11.4 % (1.0-10.0); NEUTROPHILS % (AUTO) 62.9 % (45.0-75.0); PLATELET COUNT 434 K/UL (150-450); RED BLOOD COUNT 3.35 M/UL (4.20-5.40); RED CELL DISTRIBUTION WIDTH 11.7 % (11.6-14.8); WHITE BLOOD COUNT 9.7 K/UL (4.8-10.8)
[2019-10-04 07:11] LABS: ALANINE AMINOTRANSFERASE 36 U/L (12-78); ALBUMIN 2.2 G/DL (3.4-5.0); ALBUMIN/GLOBULIN RATIO 0.5 (1.0-2.7); ALKALINE PHOSPHATASE 111 U/L (46-116); ANION GAP 9 mmol/L (5-15); ASPARTATE AMINO TRANSFERASE 46 U/L (15-37); BILIRUBIN,TOTAL 0.5 MG/DL (0.2-1.0); BLOOD UREA NITROGEN 10 mg/dL (7-18); CALCIUM 9.1 MG/DL (8.5-10.1); CARBON DIOXIDE 28 MMOL/L (21-32); CHLORIDE 100 MMOL/L (98-107); CREATININE 0.6 MG/DL (0.55-1.30); POTASSIUM 3.7 MMOL/L (3.5-5.1); SODIUM 137 MMOL/L (136-145)
--- NOTE | 2019-10-04 07:37 | Infectious Diseases Prog Note ---
Assessment/Plan Assessment/Plan Assessment: Sepsis Probable PNA Severe L lung volume loss -10/01 CXR: Complete opacification of left hemithorax. Presumably on the basis of complete left lung atelectasis. Suspect new/increasing pleural fluid and pulmonary venous congestion on the right -09/28 Bcx Neg sp cx normal resp willa -09/27 CXR: Interval worsening with opacification of the left hemithorax and leftward mediastinal shift consistent with severe volume loss of the left lung. -09/25 CXR; Possible mild pulmonary vascular congestion. Correlate clinically u/a neg -influenza sc neg Fever; Sp Leukocytosis, SP R hip fracture 2ry to mechanical fall -09/26 CT hip; Severe, comminuted fracture of the right iliac crest and superior ilium with intra-articular extension into the right sacroiliac joint which is diastatic. Acetabulum and hip appear intact. Leigh catheter. Acute hypoxic respiratory failure, sp Bipap, now on NC Afib with RVR CVA w/ residual R side weakness asthma Plan: -Continue Zosyn #/ for PNA -10/02 SP IV Vancomycin #5 -f/u cx -Monitor CBC/CMP, temperatures -Cards, pulm f/u -aspiration precautions Thank you for this consultation. Will continue to follow along with you. Subjective Allergies: Coded Allergies: No Known Allergies (Unverified , 09/25/19) Subjective Afebrile Stable 4L NC No leukocytosis denies sob or cough Objective Vital Signs Last 24 Hour Vital Signs Date Time Temp Pulse Resp B/P (MAP) Pulse Ox O2 Delivery O2 Flow Rate FiO2 10/04/19 04:00 98.9 63 18 127/51 (76) 100 10/04/19 04:00 Nasal Cannula 4.0 Nasal Cannula 4.0 10/04/19 04:00 64 10/04/19 04:00 4.0 10/04/19 00:00 98.7 68 20 122/56 (78) 99 10/04/19 00:00 66 10/04/19 00:00 Nasal Cannula 4.0 Nasal Cannula 4.0 10/03/19 20:00 98.7 73 24 141/57 (85) 100 10/03/19 20:00 67 10/03/19 20:00 Nasal Cannula 4.0 Nasal Cannula 4.0 10/03/19 20:00 4.0 10/03/19 19:52 98 Nasal Cannula 4.0 36 10/03/19 16:00 76 10/03/19 16:00 Nasal Cannula 4.0 Nasal Cannula 4.0 10/03/19 16:00 4.0 10/03/19 16:00 99.0 79 24 143/71 (95) 96 10/03/19 12:00 4.0 10/03/19 12:00 Nasal Cannula 4.0 Nasal Cannula 4.0 10/03/19 12:00 97.7 69 20 135/63 (87) 97 10/03/19 12:00 68 10/03/19 08:55 69 157/65 10/03/19 08:00 4.0 10/03/19 08:00 69 10/03/19 08:00 97.7 69 17 157/65 (95) 91 10/03/19 08:00 Nasal Cannula 4.0 Nasal Cannula 4.0 10/03/19 07:37 97 Nasal Cannula 3.0 32 Height (Feet): 5 Height (Inches): 5.00 Weight (Pounds): 130 Objective GENERAL: no acute distress. LUNGS: No rhonchi. Positive expiratory wheezes. HEART: S1 and S2. Regular rhythm. No murmurs or gallops. ABDOMEN: Soft, nondistended, nontender. Positive bowel sounds. EXTREMITIES: No cyanosis, clubbing, edema Laboratory Tests Test 10/04/19 04:08 White Blood Count 9.7 K/UL (4.8-10.8) Red Blood Count 3.35 M/UL (4.20-5.40) L Hemoglobin 10.5 G/DL (12.0-16.0) L Hematocrit 30.6 % (37.0-47.0) L Mean Corpuscular Volume 91 FL (80-99) Mean Corpuscular Hemoglobin 31.4 PG (27.0-31.0) H Mean Corpuscular Hemoglobin Concent 34.4 G/DL (32.0-36.0) Red Cell Distribution Width 11.7 % (11.6-14.8) Platelet Count 434 K/UL (150-450) Mean Platelet Volume 4.9 FL (6.5-10.1) L Neutrophils (%) (Auto) 62.9 % (45.0-75.0) Lymphocytes (%) (Auto) 18.9 % (20.0-45.0) L Monocytes (%) (Auto) 11.4 % (1.0-10.0) H Eosinophils (%) (Auto) 6.0 % (0.0-3.0) H Basophils (%) (Auto) 0.8 % (0.0-2.0) Sodium Level 137 MMOL/L (136-145) Potassium Level 3.7 MMOL/L (3.5-5.1) Chloride Level 100 MMOL/L (98-107) Carbon Dioxide Level 28 MMOL/L (21-32) Anion Gap 9 mmol/L (5-15) Blood Urea Nitrogen 10 mg/dL (7-18) Creatinine 0.6 MG/DL (0.55-1.30) Estimat Glomerular Filtration Rate > 60 mL/min (>60) Glucose Level 86 MG/DL (74-106) Calcium Level 9.1 MG/DL (8.5-10.1) Total Bilirubin 0.5 MG/DL (0.2-1.0) Aspartate Amino Transf (AST/SGOT) 46 U/L (15-37) H Alanine Aminotransferase (ALT/SGPT) 36 U/L (12-78) Alkaline Phosphatase 111 U/L (46-116) Pro-B-Type Natriuretic Peptide 1400 pg/mL (0-125) H Total Protein 6.4 G/DL (6.4-8.2) Albumin 2.2 G/DL (3.4-5.0) L Globulin 4.2 g/dL Albumin/Globulin Ratio 0.5 (1.0-2.7) L Current Medications Medications (Trade) Dose Ordered Sig/Yesenia Route PRN Reason Start Time Stop Time Status Last Admin Dose Admin Acetaminophen (Tylenol) 650 mg Q4H PRN ORAL Mild Pain/Temp > 100.5 10/03/19 07:15 10/28/19 15:14 10/03/19 22:56 Acetaminophen/ Hydrocodone Bitart ([place] 5/325) 1 tab Q6H PRN ORAL Moderate Pain (Pain Scale 4-6) 10/03/19 08:00 10/06/19 07:59 Amiodarone HCl (Cordarone) 200 mg DAILY ORAL 10/04/19 09:00 11/03/19 08:59 Clonidine HCl (Catapres Tab) 0.1 mg Q4H PRN ORAL SBP > 160 mmHg 10/03/19 08:00 10/26/19 07:59 Dextrose (Dextrose 50%) 25 ml Q30M PRN IV Hypoglycemia 10/03/19 07:30 10/25/19 22:29 Dextrose (Dextrose 50%) 50 ml Q30M PRN IV Hypoglycemia 10/03/19 07:30 10/25/19 22:29 Heparin Sodium (Porcine) (Heparin 5000 units/ml) 5,000 units EVERY 12 HOURS SUBQ 10/03/19 09:00 10/26/19 08:59 10/03/19 20:43 Ondansetron HCl (Zofran) 4 mg Q4H PRN IVP Nausea & Vomiting 10/03/19 07:30 10/26/19 07:29 Piperacillin Sod/ Tazobactam Sod 3.375 gm/Sodium Chloride 110 ml @ 27.5 mls/hr Q8H IVPB 10/03/19 09:00 10/05/19 08:59 10/04/19 01:12 Polyethylene Glycol (Miralax) 17 gm HSPRN PRN ORAL Constipation 10/03/19 22:30 10/25/19 22:29 Goldie Connolly MD Oct 04, 2019 07:37
--- NOTE | 2019-10-04 07:39 | NUR ---
HAND-OFF: Report given to Kayley Olson RN. pt is in stable condition. endorsed plan of care.
--- NOTE | 2019-10-04 07:40 | NUR ---
NURSE NOTES: Received patient in bed. Awake, alert, in no apparent distress. On nasal cannula at 4LPM. Call light within reach. No facial grimace at this time. Bed in lowest position. Will continue plan of care.
[2019-10-04 08:00] VITALS: BP 132/60
--- NOTE | 2019-10-04 08:03 | Pulmonology Progress Note ---
Assessment/Plan Assessment/Plan ASSESSMENT Acute hypoxemic RF requiring BiPAP -resolved L lung collapse with mediastinal shift AF with RVR probably sepsis PNA ? neoplasm pelvic fracture secondary to fall asthma history of CVA with right-sided weakness hypertension moderate pulm HTN PLAN of CARE tele O2 titrate to keep sat above 90% ; HHN BiPAP prn CPT positional therapy CT chest with left lung collapse, mediastinal shift to the left, diffuse infiltrates lung , likle atelectasis, however probably superimposed PNA, given fever and leukocytosis, patchy infiltrate R lung, likely representing PNA 2.3 cm tissue density left infrahilar region , suspicious for neoplasm surgery on board, no need for CT prior for AF with RVR received metoprolol IV, initially responded, then HR up to > 200, additional metoprolol given, then started on Cardizem gtt cardio follows. was on Amiodarone gtt, now on oral Amiodarone, dose decreased as per cardio off BB due to wheezing a/coagulation recommended by cardio ECHO with pEF and moderate pulm HTN lipid panel stable monitor BP, pro BNP -375 venous Duplex negative septic w/up initiated started on empiric abx for PNA SCX and BCX negative influenza swab negative gentle IV hydration CT of the hip revealed severe comminuted fracture of the right iliac crest and superior ilium with intra-articular extension into the right sacroiliac joint, acetabulum and hip appear intact pain management ortho eval appreciated, no surgery for this type of fracture surgeon cleared to start PT with WBAT DVT prophylaxis bowel regimen supportive care case discussed and evaluated by supervising physician Subjective Allergies: Coded Allergies: No Known Allergies (Unverified , 09/25/19) Subjective in tele now in SR rate controlled on o2 4L via NC, pulse ox stable no fevers, leuk resolved + intermittent pain in pelvic area no dizziness no CP, no SOB Objective Last 24 Hour Vital Signs Date Time Temp Pulse Resp B/P (MAP) Pulse Ox O2 Delivery O2 Flow Rate FiO2 10/04/19 04:00 98.9 63 18 127/51 (76) 100 10/04/19 04:00 Nasal Cannula 4.0 Nasal Cannula 4.0 10/04/19 04:00 64 10/04/19 04:00 4.0 10/04/19 00:00 98.7 68 20 122/56 (78) 99 10/04/19 00:00 66 10/04/19 00:00 Nasal Cannula 4.0 Nasal Cannula 4.0 10/03/19 20:00 98.7 73 24 141/57 (85) 100 10/03/19 20:00 67 10/03/19 20:00 Nasal Cannula 4.0 Nasal Cannula 4.0 10/03/19 20:00 4.0 10/03/19 19:52 98 Nasal Cannula 4.0 36 10/03/19 16:00 76 10/03/19 16:00 Nasal Cannula 4.0 Nasal Cannula 4.0 10/03/19 16:00 4.0 10/03/19 16:00 99.0 79 24 143/71 (95) 96 10/03/19 12:00 4.0 10/03/19 12:00 Nasal Cannula 4.0 Nasal Cannula 4.0 10/03/19 12:00 97.7 69 20 135/63 (87) 97 10/03/19 12:00 68 10/03/19 08:55 69 157/65 10/03/19 08:00 4.0 10/03/19 08:00 69 10/03/19 08:00 97.7 69 17 157/65 (95) 91 10/03/19 08:00 Nasal Cannula 4.0 Nasal Cannula 4.0 Intake and Output 10/03/19 10/04/19 19:00 07:00 Intake Total 840 ml 220.0 ml Output Total 1601 ml Balance -761 ml 220.0 ml Intake Oral 840 ml IV Total 220.0 ml Output Urine Total 1600 ml Stool Total 1 ml # Bowel Movements 1 General Appearance: no acute distress HEENT: normocephalic, atraumatic, anicteric, mucous membranes moist Respiratory/Chest: lungs clear, no respiratory distress, no accessory muscle use Cardiovascular: normal rate, regular rhythm, regularly irregular Abdomen: normal bowel sounds, soft, non tender, non distended Extremities: no edema, pedal pulses normal Neurologic/Psychiatric: abnormal gait, alert, oriented x 3, responsive Musculoskeletal: normal muscle bulk Laboratory Tests 10/04/19 04:08: White Blood Count 9.7, Red Blood Count 3.35L, Hemoglobin 10.5L, Hematocrit 30.6L , Mean Corpuscular Volume 91, Mean Corpuscular Hemoglobin 31.4H, Mean Corpuscular Hemoglobin Concent 34.4, Red Cell Distribution Width 11.7, Platelet Count 434, Mean Platelet Volume 4.9L, Neutrophils (%) (Auto) 62.9, Lymphocytes ( %) (Auto) 18.9L, Monocytes (%) (Auto) 11.4H, Eosinophils (%) (Auto) 6.0H, Basophils (%) (Auto) 0.8, Sodium Level 137, Potassium Level 3.7, Chloride Level 100, Carbon Dioxide Level 28, Anion Gap 9, Blood Urea Nitrogen 10, Creatinine 0.6, Estimat Glomerular Filtration Rate > 60, Glucose Level 86, Calcium Level 9.1, Total Bilirubin 0.5, Aspartate Amino Transf (AST/SGOT) 46H, Alanine Aminotransferase (ALT/SGPT) 36, Alkaline Phosphatase 111, Pro-B-Type Natriuretic Peptide 1400H, Total Protein 6.4, Albumin 2.2L, Globulin 4.2, Albumin/Globulin Ratio 0.5L Current Medications Medications (Trade) Dose Ordered Sig/Yesenia Route PRN Reason Start Time Stop Time Status Last Admin Dose Admin Acetaminophen (Tylenol) 650 mg Q4H PRN ORAL Mild Pain/Temp > 100.5 10/03/19 07:15 10/28/19 15:14 10/03/19 22:56 Acetaminophen/ Hydrocodone Bitart ([place] 5/325) 1 tab Q6H PRN ORAL Moderate Pain (Pain Scale 4-6) 10/03/19 08:00 10/06/19 07:59 Amiodarone HCl (Cordarone) 200 mg DAILY ORAL 10/04/19 09:00 11/03/19 08:59 Clonidine HCl (Catapres Tab) 0.1 mg Q4H PRN ORAL SBP > 160 mmHg 10/03/19 08:00 10/26/19 07:59 Dextrose (Dextrose 50%) 25 ml Q30M PRN IV Hypoglycemia 10/03/19 07:30 10/25/19 22:29 Dextrose (Dextrose 50%) 50 ml Q30M PRN IV Hypoglycemia 10/03/19 07:30 10/25/19 22:29 Heparin Sodium (Porcine) (Heparin 5000 units/ml) 5,000 units EVERY 12 HOURS SUBQ 10/03/19 09:00 10/26/19 08:59 10/03/19 20:43 Ondansetron HCl (Zofran) 4 mg Q4H PRN IVP Nausea & Vomiting 10/03/19 07:30 10/26/19 07:29 Piperacillin Sod/ Tazobactam Sod 3.375 gm/Sodium Chloride 110 ml @ 27.5 mls/hr Q8H IVPB 10/03/19 09:00 10/05/19 08:59 10/04/19 01:12 Polyethylene Glycol (Miralax) 17 gm HSPRN PRN ORAL Constipation 10/03/19 22:30 10/25/19 22:29 Jessica Jauregui [employer] Oct 04, 2019 08:03
[2019-10-04] MEDS: Amiodarone 200mg tab ORAL SCH (09:47)
[2019-10-04] MEDS: Heparin 5000 units/ml inj SUBQ SCH ×2 (09:48→21:35)
[2019-10-04 12:00] VITALS: BP 124/58
--- NOTE | 2019-10-04 14:27 | Surgery Progress Note ---
Surgery Progress Note Subjective Additional Comments no acute events improving tolerating diet comfortable appearing Objective Last 24 Hour Vital Signs Date Time Temp Pulse Resp B/P (MAP) Pulse Ox O2 Delivery O2 Flow Rate FiO2 10/04/19 12:00 Nasal Cannula 4.0 Nasal Cannula 4.0 10/04/19 12:00 98.4 70 27 124/58 (80) 99 10/04/19 11:45 70 10/04/19 08:00 97.9 69 27 132/60 (84) 99 10/04/19 08:00 Nasal Cannula 4.0 Nasal Cannula 4.0 10/04/19 07:54 65 10/04/19 07:45 97 Nasal Cannula 4.0 36 10/04/19 04:00 98.9 63 18 127/51 (76) 100 10/04/19 04:00 Nasal Cannula 4.0 Nasal Cannula 4.0 10/04/19 04:00 64 10/04/19 04:00 4.0 10/04/19 00:00 98.7 68 20 122/56 (78) 99 10/04/19 00:00 66 10/04/19 00:00 Nasal Cannula 4.0 Nasal Cannula 4.0 10/03/19 20:00 98.7 73 24 141/57 (85) 100 10/03/19 20:00 67 10/03/19 20:00 Nasal Cannula 4.0 Nasal Cannula 4.0 10/03/19 20:00 4.0 10/03/19 19:52 98 Nasal Cannula 4.0 36 10/03/19 16:00 76 10/03/19 16:00 Nasal Cannula 4.0 Nasal Cannula 4.0 10/03/19 16:00 4.0 10/03/19 16:00 99.0 79 24 143/71 (95) 96 I&O Intake and Output 10/03/19 10/04/19 19:00 07:00 Intake Total 840 ml 220.0 ml Output Total 1601 ml Balance -761 ml 220.0 ml Intake Oral 840 ml IV Total 220.0 ml Output Urine Total 1600 ml Stool Total 1 ml # Bowel Movements 1 Dressing: other Wound: other Drains: none Cardiovascular: RSR Respiratory: clear Abdomen: soft, non-tender, present bowel sounds Extremities: no tenderness, no cyanosis Laboratory Tests Test 10/04/19 04:08 White Blood Count 9.7 K/UL (4.8-10.8) Red Blood Count 3.35 M/UL (4.20-5.40) L Hemoglobin 10.5 G/DL (12.0-16.0) L Hematocrit 30.6 % (37.0-47.0) L Mean Corpuscular Volume 91 FL (80-99) Mean Corpuscular Hemoglobin 31.4 PG (27.0-31.0) H Mean Corpuscular Hemoglobin Concent 34.4 G/DL (32.0-36.0) Red Cell Distribution Width 11.7 % (11.6-14.8) Platelet Count 434 K/UL (150-450) Mean Platelet Volume 4.9 FL (6.5-10.1) L Neutrophils (%) (Auto) 62.9 % (45.0-75.0) Lymphocytes (%) (Auto) 18.9 % (20.0-45.0) L Monocytes (%) (Auto) 11.4 % (1.0-10.0) H Eosinophils (%) (Auto) 6.0 % (0.0-3.0) H Basophils (%) (Auto) 0.8 % (0.0-2.0) Sodium Level 137 MMOL/L (136-145) Potassium Level 3.7 MMOL/L (3.5-5.1) Chloride Level 100 MMOL/L (98-107) Carbon Dioxide Level 28 MMOL/L (21-32) Anion Gap 9 mmol/L (5-15) Blood Urea Nitrogen 10 mg/dL (7-18) Creatinine 0.6 MG/DL (0.55-1.30) Estimat Glomerular Filtration Rate > 60 mL/min (>60) Glucose Level 86 MG/DL (74-106) Calcium Level 9.1 MG/DL (8.5-10.1) Total Bilirubin 0.5 MG/DL (0.2-1.0) Aspartate Amino Transf (AST/SGOT) 46 U/L (15-37) H Alanine Aminotransferase (ALT/SGPT) 36 U/L (12-78) Alkaline Phosphatase 111 U/L (46-116) Pro-B-Type Natriuretic Peptide 1400 pg/mL (0-125) H Total Protein 6.4 G/DL (6.4-8.2) Albumin 2.2 G/DL (3.4-5.0) L Globulin 4.2 g/dL Albumin/Globulin Ratio 0.5 (1.0-2.7) L Plan Problems: (1) Closed right hip fracture Assessment & Plan: There is a severely comminuted fracture of the superior portion of the ileum primarily involving the right iliac crest with multiple bone fragments. The fracture extends into the right sacroiliac joint which is diastatic. There is a 3 mm bone fragment at the lower margin of the sacroiliac joint probably intra-articular ( e.g. #39/2 or e.g. #37/8). There is no involvement of the acetabulum. There is a moderate degree of soft tissue swelling both lateral and medial to the iliac fracture with lateral gluteal ill-definition and edema as well as medial soft tissue attenuation of fat which (likely due to blood) with edema/blood of a portion of the right piriformis muscle noted. No other fractures are identified. The right femoral neck and head appear normal without fracture or malalignment. No fracture of the sacrum or pubis identified. The bones are osteopenic. The visualized part of the lower lumbar spine appears intact. There is some hypertrophy of the facets and narrowing of the intervertebral discs. There is a Leigh catheter within the urinary bladder which is mostly nondistended. IMPRESSION: Severe, comminuted fracture of the right iliac crest and superior ilium with intra-articular extension into the right sacroiliac joint which is diastatic. Acetabulum and hip appear intact. Ortho input appreciated: At this point, this is a nonoperative fracture, should heal. She can begin physical therapy. Weightbearing as tolerated with a walker. She will have a significant discomfort initially until the fracture consolidates given that the adductor muscles are attached at that area. Therefore, she may have to be transferred to a [facility] until she is a little bit more safe to go home. She should get appropriate DVT prophylaxis (2) Collapse of left lung Assessment & Plan: Lungs: There is interval worsening with opacification of most of the left hemithorax and leftward mediastinal shift consistent with severe volume loss of the left lung. Pleural space: Unremarkable. No pneumothorax. Heart: Unremarkable. No cardiomegaly. Mediastinum: The trachea is deviated to the left. Bones/joints: Unremarkable. Vasculature: There is calcification of the aortic arch. IMPRESSION: Interval worsening with opacification of the left hemithorax and leftward mediastinal shift consistent with severe volume loss of the left lung. CT chest report pre arzola reviewed as well as images mass noted. shift noted no ptx. no large effusion do not recommend Chest tube placement at this time pulm input appreciated okay for anticoagulation from surgical standpoint thank you (3) Pelvic fracture Fan Owusu Oct 04, 2019 14:27
--- NOTE | 2019-10-04 15:05 | Diagnostic Imaging Report ---
EXAM: XR Chest, 1 View CLINICAL HISTORY: DYSPNEA TECHNIQUE: Frontal view of the chest. COMPARISON: Chest x-ray dated 10/03/19 FINDINGS: Lungs: Bilateral patchy perihilar interstitial opacities, greater on the left, unchanged. Mild pulmonary vascular congestion. Pleural space: Possible small pleural effusion. Heart: Unremarkable. No cardiomegaly. Mediastinum: Unremarkable. Bones/joints: Unremarkable. Vasculature: Atherosclerotic calcifications are noted within the aortic arch. Tubes, lines and devices: Telemetry leads overlie the thorax. IMPRESSION: No significant interval change from the prior day's chest x-ray.
[2019-10-04] MEDS ORDERED: Tubing IV Secondary IV ONE (15:26)
[2019-10-04] MEDS ORDERED: NS 275ml ONE (15:26)
[2019-10-04 16:00] VITALS: BP 129/68
--- NOTE | 2019-10-04 16:43 | Cardiology Progress Note ---
Assessment/Plan Status: stable, progressing Status Narrative hx of CVA, R hemiplegia PAF - currently in SR., on amiodarone and off a-c s/p nonsyncopal fall. Pelvic fx - nonoperative mgmt recommended. Assessment/Plan Recommend continue amiodarone, maintenance dose. Start eliquis 5 mg q 12 hr for cva prevention Subjective ROS Limited/Unobtainable: No Subjective Cardiology for Dr. Rabago Pt has no c/o. Anxious for d/c Objective Last 24 Hour Vital Signs Date Time Temp Pulse Resp B/P (MAP) Pulse Ox O2 Delivery O2 Flow Rate FiO2 10/04/19 16:00 Nasal Cannula 4.0 Nasal Cannula 4.0 10/04/19 12:00 Nasal Cannula 4.0 Nasal Cannula 4.0 10/04/19 12:00 98.4 70 27 124/58 (80) 99 10/04/19 11:45 70 10/04/19 08:00 97.9 69 27 132/60 (84) 99 10/04/19 08:00 Nasal Cannula 4.0 Nasal Cannula 4.0 10/04/19 07:54 65 10/04/19 07:45 97 Nasal Cannula 4.0 36 10/04/19 04:00 98.9 63 18 127/51 (76) 100 10/04/19 04:00 Nasal Cannula 4.0 Nasal Cannula 4.0 10/04/19 04:00 64 10/04/19 04:00 4.0 10/04/19 00:00 98.7 68 20 122/56 (78) 99 10/04/19 00:00 66 10/04/19 00:00 Nasal Cannula 4.0 Nasal Cannula 4.0 10/03/19 20:00 98.7 73 24 141/57 (85) 100 10/03/19 20:00 67 10/03/19 20:00 Nasal Cannula 4.0 Nasal Cannula 4.0 10/03/19 20:00 4.0 10/03/19 19:52 98 Nasal Cannula 4.0 36 General Appearance: WD/WN, no apparent distress, alert EENT: PERRL/EOMI Neck: supple, no JVD Rhythm: NSR Cardiovascular: normal rate, regular rhythm, no gallop/murmur Respiratory/Chest: other - bilat expir wheezes Abdomen: non tender, soft, no mass Neurologic: other - R hemiplegia Intake and Output 10/03/19 10/04/19 18:59 06:59 Intake Total 840 ml 220.0 ml Output Total 1601 ml Balance -761 ml 220.0 ml Intake Oral 840 ml IV Total 220.0 ml Output Urine Total 1600 ml Stool Total 1 ml # Bowel Movements 1 Laboratory Tests Test 10/04/19 04:08 White Blood Count 9.7 K/UL (4.8-10.8) Red Blood Count 3.35 M/UL (4.20-5.40) L Hemoglobin 10.5 G/DL (12.0-16.0) L Hematocrit 30.6 % (37.0-47.0) L Mean Corpuscular Volume 91 FL (80-99) Mean Corpuscular Hemoglobin 31.4 PG (27.0-31.0) H Mean Corpuscular Hemoglobin Concent 34.4 G/DL (32.0-36.0) Red Cell Distribution Width 11.7 % (11.6-14.8) Platelet Count 434 K/UL (150-450) Mean Platelet Volume 4.9 FL (6.5-10.1) L Neutrophils (%) (Auto) 62.9 % (45.0-75.0) Lymphocytes (%) (Auto) 18.9 % (20.0-45.0) L Monocytes (%) (Auto) 11.4 % (1.0-10.0) H Eosinophils (%) (Auto) 6.0 % (0.0-3.0) H Basophils (%) (Auto) 0.8 % (0.0-2.0) Sodium Level 137 MMOL/L (136-145) Potassium Level 3.7 MMOL/L (3.5-5.1) Chloride Level 100 MMOL/L (98-107) Carbon Dioxide Level 28 MMOL/L (21-32) Anion Gap 9 mmol/L (5-15) Blood Urea Nitrogen 10 mg/dL (7-18) Creatinine 0.6 MG/DL (0.55-1.30) Estimat Glomerular Filtration Rate > 60 mL/min (>60) Glucose Level 86 MG/DL (74-106) Calcium Level 9.1 MG/DL (8.5-10.1) Total Bilirubin 0.5 MG/DL (0.2-1.0) Aspartate Amino Transf (AST/SGOT) 46 U/L (15-37) H Alanine Aminotransferase (ALT/SGPT) 36 U/L (12-78) Alkaline Phosphatase 111 U/L (46-116) Pro-B-Type Natriuretic Peptide 1400 pg/mL (0-125) H Total Protein 6.4 G/DL (6.4-8.2) Albumin 2.2 G/DL (3.4-5.0) L Globulin 4.2 g/dL Albumin/Globulin Ratio 0.5 (1.0-2.7) L Rose Don MD Oct 04, 2019 16:43
--- NOTE | 2019-10-04 18:00 | Internal Med Progress Note ---
Subjective Date of Service: Oct 04, 2019 Physician Name Carlos Macario Attending Physician Yonis Granados MD Current Medications Medications (Trade) Dose Ordered Sig/Yesenia Route PRN Reason Start Time Stop Time Status Last Admin Dose Admin Acetaminophen (Tylenol) 650 mg Q4H PRN ORAL Mild Pain/Temp > 100.5 10/03/19 07:15 10/28/19 15:14 10/04/19 11:11 Acetaminophen/ Hydrocodone Bitart ([place] 5/325) 1 tab Q6H PRN ORAL Moderate Pain (Pain Scale 4-6) 10/03/19 08:00 10/06/19 07:59 Amiodarone HCl (Cordarone) 200 mg DAILY ORAL 10/04/19 09:00 11/03/19 08:59 10/04/19 09:47 Clonidine HCl (Catapres Tab) 0.1 mg Q4H PRN ORAL SBP > 160 mmHg 10/03/19 08:00 10/26/19 07:59 Dextrose (Dextrose 50%) 25 ml Q30M PRN IV Hypoglycemia 10/03/19 07:30 10/25/19 22:29 Dextrose (Dextrose 50%) 50 ml Q30M PRN IV Hypoglycemia 10/03/19 07:30 10/25/19 22:29 Heparin Sodium (Porcine) (Heparin 5000 units/ml) 5,000 units EVERY 12 HOURS SUBQ 10/03/19 09:00 10/26/19 08:59 10/04/19 09:48 Ondansetron HCl (Zofran) 4 mg Q4H PRN IVP Nausea & Vomiting 10/03/19 07:30 10/26/19 07:29 Piperacillin Sod/ Tazobactam Sod 3.375 gm/Sodium Chloride 110 ml @ 27.5 mls/hr Q8H IVPB 10/03/19 09:00 10/05/19 08:59 10/04/19 16:04 Polyethylene Glycol (Miralax) 17 gm HSPRN PRN ORAL Constipation 10/03/19 22:30 10/25/19 22:29 Allergies: Coded Allergies: No Known Allergies (Unverified , 09/25/19) ROS Limited/Unobtainable: No Constitutional: Reports: no symptoms HEENT: Reports: no symptoms Cardiovascular: Reports: no symptoms Respiratory: Reports: no symptoms Gastrointestinal/Abdominal: Reports: no symptoms Genitourinary: Reports: no symptoms Neurologic/Psychiatric: Reports: no symptoms Subjective 69 YO F admitted with right acute fracture right superior ilium and iliac crest. Now pneumonia. Cover for Int Med-Dr Granados. KATELYNN Objective Last Vital Signs Date Time Temp Pulse Resp B/P (MAP) Pulse Ox O2 Delivery O2 Flow Rate FiO2 10/04/19 16:00 98.4 66 25 129/68 (88) 99 10/04/19 16:00 Nasal Cannula 4.0 Nasal Cannula 4.0 10/04/19 07:45 36 Laboratory Tests Test 10/04/19 04:08 White Blood Count 9.7 K/UL (4.8-10.8) Red Blood Count 3.35 M/UL (4.20-5.40) L Hemoglobin 10.5 G/DL (12.0-16.0) L Hematocrit 30.6 % (37.0-47.0) L Mean Corpuscular Volume 91 FL (80-99) Mean Corpuscular Hemoglobin 31.4 PG (27.0-31.0) H Mean Corpuscular Hemoglobin Concent 34.4 G/DL (32.0-36.0) Red Cell Distribution Width 11.7 % (11.6-14.8) Platelet Count 434 K/UL (150-450) Mean Platelet Volume 4.9 FL (6.5-10.1) L Neutrophils (%) (Auto) 62.9 % (45.0-75.0) Lymphocytes (%) (Auto) 18.9 % (20.0-45.0) L Monocytes (%) (Auto) 11.4 % (1.0-10.0) H Eosinophils (%) (Auto) 6.0 % (0.0-3.0) H Basophils (%) (Auto) 0.8 % (0.0-2.0) Sodium Level 137 MMOL/L (136-145) Potassium Level 3.7 MMOL/L (3.5-5.1) Chloride Level 100 MMOL/L (98-107) Carbon Dioxide Level 28 MMOL/L (21-32) Anion Gap 9 mmol/L (5-15) Blood Urea Nitrogen 10 mg/dL (7-18) Creatinine 0.6 MG/DL (0.55-1.30) Estimat Glomerular Filtration Rate > 60 mL/min (>60) Glucose Level 86 MG/DL (74-106) Calcium Level 9.1 MG/DL (8.5-10.1) Total Bilirubin 0.5 MG/DL (0.2-1.0) Aspartate Amino Transf (AST/SGOT) 46 U/L (15-37) H Alanine Aminotransferase (ALT/SGPT) 36 U/L (12-78) Alkaline Phosphatase 111 U/L (46-116) Pro-B-Type Natriuretic Peptide 1400 pg/mL (0-125) H Total Protein 6.4 G/DL (6.4-8.2) Albumin 2.2 G/DL (3.4-5.0) L Globulin 4.2 g/dL Albumin/Globulin Ratio 0.5 (1.0-2.7) L Intake and Output 10/03/19 10/04/19 19:00 07:00 Intake Total 840 ml 220.0 ml Output Total 1601 ml Balance -761 ml 220.0 ml Intake Oral 840 ml IV Total 220.0 ml Output Urine Total 1600 ml Stool Total 1 ml # Bowel Movements 1 Objective PHYSICAL EXAMINATION: GENERAL: The patient is awake, responsive, no acute distress. HEAD AND NECK: Pupils are equal and reactive to light. Extraocular movements intact. Neck was supple. No JVD. LUNGS: Nasal canula; BS decreased on left; Positive expiratory wheezes. HEART: S1 and S2. Regular rhythm. No murmurs or gallops. ABDOMEN: Soft, nondistended, nontender. Positive bowel sounds. EXTREMITIES: No cyanosis, clubbing, edema NEUROLOGIC: Cranial nerves II through XII grossly normal. The patient moving all the extremities. Assessment/Plan Assessment/Plan ASSESSMENT: 1. Status post fall. 2. Asthma. 3. History of CVA with right-sided weakness. 4. Elevated blood pressure. 5. right hip pain\ 6. Right superior Ilium fracture 7. Right iliac crest fracture 8. left pneumonia PLAN: 1. Admit the patient to medical floor. 2. Ortho= Dr. Zane Galo 3. Dr. Limon Pulmonary Critical Care. 4. Code status is Full Code. DVT prophylaxis, heparin subcutaneous. 5. Pulmonary=Dr Limon 6. ABX=Carlos Duvall MD Oct 04, 2019 18:00
--- NOTE | 2019-10-04 19:15 | NUR ---
NURSE NOTES: Report received from DOMINGA Olson. Pt awake,alert and Ox3 No resp distress noted. Denies pain or discpomfort. SR on filenet admin, Leigh cath draining clear yellow urine. Skin warm and dry to touch. HL to Rt. FA intact. bed lock in lowest position and bed alarm engaged. will continue with POC.
--- NOTE | 2019-10-04 19:20 | NUR ---
HAND-OFF: Report given to Mingo Mccurdy RN.
[2019-10-04 20:00] VITALS: BP 139/57
[2019-10-05 04:00] VITALS: BP 139/57
--- NOTE | 2019-10-05 04:00 | NUR ---
NURSE NOTES: Pt sleeping. Easily awakened to touch. No distress noted. SR on shelter monitor. Skin warm and dry to touch. HL to Rt. FA intact. bed lock in lowest position and bed alarm engaged. will continue with POC.
[2019-10-05] MEDS: Piperacillin/Tazobactam 3.375 GM in NS 110 ML IVPB SCH (04:09)
--- NOTE | 2019-10-05 07:15 | NUR ---
NURSE NOTES: Report received from Fidel Mccurdy RN.Pt awake alert eating breakfast ,noted no resp distress denies any c/o pain or discomfort ,SR on the monitor,Leigh cath draining yellow urine ,skin warm and dry IV site to RFA intact,SR up x2 call light within reach ,HOB elevated bed lock in lowest position,will continue with plans of care.
[2019-10-05 08:08] VITALS: BP 133/75
[2019-10-05] MEDS: Amiodarone 200mg tab ORAL SCH (08:12)
[2019-10-05] MEDS: Heparin 5000 units/ml inj SUBQ SCH (08:13)
--- NOTE | 2019-10-05 08:25 | Pulmonology Progress Note ---
Assessment/Plan Assessment/Plan ASSESSMENT Acute hypoxemic RF requiring BiPAP -resolved L lung collapse with mediastinal shift AF with RVR probably sepsis PNA ? neoplasm pelvic fracture secondary to fall asthma history of CVA with right-sided weakness hypertension moderate pulm HTN PLAN of CARE tele O2 titrate to keep sat above 90% ; HHN BiPAP prn CPT positional therapy CT chest with left lung collapse, mediastinal shift to the left, diffuse infiltrates lung , likle atelectasis, however probably superimposed PNA, given fever and leukocytosis, patchy infiltrate R lung, likely representing PNA 2.3 cm tissue density left infrahilar region , suspicious for neoplasm surgery on board, no need for CT prior for AF with RVR received metoprolol IV, initially responded, then HR up to > 200, additional metoprolol given, then started on Cardizem gtt cardio follows. was on Amiodarone gtt, now on oral Amiodarone, dose decreased as per cardio off BB due to wheezing a/coagulation recommended by cardio ECHO with pEF and moderate pulm HTN lipid panel stable monitor BP, pro BNP -375 venous Duplex negative septic w/up initiated started on empiric abx for PNA SCX and BCX negative influenza swab negative gentle IV hydration CT of the hip revealed severe comminuted fracture of the right iliac crest and superior ilium with intra-articular extension into the right sacroiliac joint, acetabulum and hip appear intact pain management ortho eval appreciated, no surgery for this type of fracture surgeon cleared to start PT with WBAT DVT prophylaxis bowel regimen supportive care case discussed and evaluated by supervising physician Subjective Allergies: Coded Allergies: No Known Allergies (Unverified , 09/25/19) Subjective in KATELYNN now in SR rate controlled on o2 4L via NC, pulse ox stable no fevers, leuk resolved + intermittent pain in pelvic area no dizziness no CP, no SOB Objective Last 24 Hour Vital Signs Date Time Temp Pulse Resp B/P (MAP) Pulse Ox O2 Delivery O2 Flow Rate FiO2 10/05/19 08:08 98.6 62 22 133/75 (94) 100 10/05/19 07:36 100 Nasal Cannula 4.0 36 10/05/19 04:00 Nasal Cannula 4.0 Nasal Cannula 4.0 10/05/19 04:00 59 10/05/19 04:00 97.8 63 23 139/57 (84) 98 10/05/19 00:00 Nasal Cannula 4.0 Nasal Cannula 4.0 10/04/19 20:00 97.8 63 23 139/57 (84) 98 10/04/19 20:00 Nasal Cannula 4.0 Nasal Cannula 4.0 10/04/19 20:00 66 10/04/19 19:50 99 Nasal Cannula 4.0 36 10/04/19 16:00 98.4 66 25 129/68 (88) 99 10/04/19 16:00 Nasal Cannula 4.0 Nasal Cannula 4.0 10/04/19 15:32 69 10/04/19 12:00 Nasal Cannula 4.0 Nasal Cannula 4.0 10/04/19 12:00 98.4 70 27 124/58 (80) 99 10/04/19 11:45 70 Intake and Output 10/04/19 10/05/19 19:00 07:00 Intake Total 337.5 ml 55.0 ml Balance 337.5 ml 55.0 ml Intake Oral 200 ml IV Total 137.5 ml 55.0 ml # Voids 3 # Bowel Movements 1 Objective General Appearance: no acute distress HEENT: normocephalic, atraumatic, anicteric, mucous membranes moist Respiratory/Chest: lungs clear, no respiratory distress, no accessory muscle use Cardiovascular: normal rate, regular rhythm, regularly irregular Abdomen: normal bowel sounds, soft, non tender, non distended Extremities: no edema, pedal pulses normal Neurologic/Psychiatric: abnormal gait, alert, oriented x 3, responsive Musculoskeletal: normal muscle bulk Current Medications Medications (Trade) Dose Ordered Sig/Yesenia Route PRN Reason Start Time Stop Time Status Last Admin Dose Admin Acetaminophen (Tylenol) 650 mg Q4H PRN ORAL Mild Pain/Temp > 100.5 10/03/19 07:15 10/28/19 15:14 10/04/19 11:11 Acetaminophen/ Hydrocodone Bitart ([place] 5/325) 1 tab Q6H PRN ORAL Moderate Pain (Pain Scale 4-6) 10/03/19 08:00 10/06/19 07:59 Amiodarone HCl (Cordarone) 200 mg DAILY ORAL 10/04/19 09:00 11/03/19 08:59 10/05/19 08:12 Clonidine HCl (Catapres Tab) 0.1 mg Q4H PRN ORAL SBP > 160 mmHg 10/03/19 08:00 3/8/20 07:59 Dextrose (Dextrose 50%) 25 ml Q30M PRN IV Hypoglycemia 10/03/19 07:30 10/25/19 22:29 Dextrose (Dextrose 50%) 50 ml Q30M PRN IV Hypoglycemia 10/03/19 07:30 10/25/19 22:29 Heparin Sodium (Porcine) (Heparin 5000 units/ml) 5,000 units EVERY 12 HOURS SUBQ 10/03/19 09:00 10/26/19 08:59 10/05/19 08:13 Ondansetron HCl (Zofran) 4 mg Q4H PRN IVP Nausea & Vomiting 10/03/19 07:30 10/26/19 07:29 Piperacillin Sod/ Tazobactam Sod 3.375 gm/Sodium Chloride 110 ml @ 27.5 mls/hr Q8H IVPB 10/03/19 09:00 10/05/19 08:59 10/05/19 04:09 Polyethylene Glycol (Miralax) 17 gm HSPRN PRN ORAL Constipation 10/03/19 22:30 10/25/19 22:29 Jessica Jauregui [employer] Oct 05, 2019 08:25
[2019-10-05] MEDS ORDERED: Tubing IV Secondary IV ONE (10:34)
[2019-10-05] MEDS ORDERED: NS 275ml ONE (10:34)
[2019-10-05 10:41] LABS: BASOPHILS % (AUTO) 1.7 % (0.0-2.0); EOSINOPHILS % (AUTO) 5.3 % (0.0-3.0); HEMATOCRIT 32.2 % (37.0-47.0); HEMOGLOBIN 10.9 G/DL (12.0-16.0); LYMPHOCYTES % (AUTO) 18.2 % (20.0-45.0); MEAN CORPUSCULAR VOLUME 92 FL (80-99); MONOCYTES % (AUTO) 8.1 % (1.0-10.0); NEUTROPHILS % (AUTO) 66.8 % (45.0-75.0); PLATELET COUNT 514 K/UL (150-450); RED BLOOD COUNT 3.49 M/UL (4.20-5.40); WHITE BLOOD COUNT 9.1 K/UL (4.8-10.8)
[2019-10-05 10:58] LABS: ANION GAP 10 mmol/L (5-15); BLOOD UREA NITROGEN 8 mg/dL (7-18); CARBON DIOXIDE 26 MMOL/L (21-32); CHLORIDE 100 MMOL/L (98-107); CREATININE 0.5 MG/DL (0.55-1.30); POTASSIUM 4.1 MMOL/L (3.5-5.1); SODIUM 136 MMOL/L (136-145)
[2019-10-05 12:00] VITALS: BP 120/66
--- NOTE | 2019-10-05 12:00 | NUR ---
NURSE NOTES: Pt stable noted no distress ,needs attended.
--- NOTE | 2019-10-05 12:34 | Surgery Progress Note ---
Surgery Progress Note Subjective Symptoms: improved Additional Comments imaging reviewed labs noted Objective Last 24 Hour Vital Signs Date Time Temp Pulse Resp B/P (MAP) Pulse Ox O2 Delivery O2 Flow Rate FiO2 10/05/19 08:08 98.6 62 22 133/75 (94) 100 10/05/19 08:00 Nasal Cannula 4.0 Nasal Cannula 4.0 10/05/19 08:00 67 10/05/19 07:36 100 Nasal Cannula 4.0 36 10/05/19 04:00 Nasal Cannula 4.0 Nasal Cannula 4.0 10/05/19 04:00 59 10/05/19 04:00 97.8 63 23 139/57 (84) 98 10/05/19 00:00 Nasal Cannula 4.0 Nasal Cannula 4.0 10/04/19 20:00 97.8 63 23 139/57 (84) 98 10/04/19 20:00 Nasal Cannula 4.0 Nasal Cannula 4.0 10/04/19 20:00 66 10/04/19 19:50 99 Nasal Cannula 4.0 36 10/04/19 16:00 98.4 66 25 129/68 (88) 99 10/04/19 16:00 Nasal Cannula 4.0 Nasal Cannula 4.0 10/04/19 15:32 69 I&O Intake and Output 10/04/19 10/05/19 19:00 07:00 Intake Total 337.5 ml 55.0 ml Balance 337.5 ml 55.0 ml Intake Oral 200 ml IV Total 137.5 ml 55.0 ml # Voids 3 # Bowel Movements 1 Cardiovascular: RSR Respiratory: clear, decreased breath sounds Abdomen: soft, present bowel sounds Extremities: no edema, no tenderness, no cyanosis Laboratory Tests Test 10/05/19 10:05 White Blood Count 9.1 K/UL (4.8-10.8) Red Blood Count 3.49 M/UL (4.20-5.40) L Hemoglobin 10.9 G/DL (12.0-16.0) L Hematocrit 32.2 % (37.0-47.0) L Mean Corpuscular Volume 92 FL (80-99) Mean Corpuscular Hemoglobin 31.2 PG (27.0-31.0) H Mean Corpuscular Hemoglobin Concent 33.9 G/DL (32.0-36.0) Red Cell Distribution Width 12.0 % (11.6-14.8) Platelet Count 514 K/UL (150-450) H Mean Platelet Volume 4.8 FL (6.5-10.1) L Neutrophils (%) (Auto) 66.8 % (45.0-75.0) Lymphocytes (%) (Auto) 18.2 % (20.0-45.0) L Monocytes (%) (Auto) 8.1 % (1.0-10.0) Eosinophils (%) (Auto) 5.3 % (0.0-3.0) H Basophils (%) (Auto) 1.7 % (0.0-2.0) Sodium Level 136 MMOL/L (136-145) Potassium Level 4.1 MMOL/L (3.5-5.1) Chloride Level 100 MMOL/L (98-107) Carbon Dioxide Level 26 MMOL/L (21-32) Anion Gap 10 mmol/L (5-15) Blood Urea Nitrogen 8 mg/dL (7-18) Creatinine 0.5 MG/DL (0.55-1.30) L Estimat Glomerular Filtration Rate > 60 mL/min (>60) Glucose Level 120 MG/DL (74-106) H Calcium Level 9.0 MG/DL (8.5-10.1) Plan Problems: (1) Closed right hip fracture Assessment & Plan: There is a severely comminuted fracture of the superior portion of the ileum primarily involving the right iliac crest with multiple bone fragments. The fracture extends into the right sacroiliac joint which is diastatic. There is a 3 mm bone fragment at the lower margin of the sacroiliac joint probably intra-articular ( e.g. #39/2 or e.g. #37/8). There is no involvement of the acetabulum. There is a moderate degree of soft tissue swelling both lateral and medial to the iliac fracture with lateral gluteal ill-definition and edema as well as medial soft tissue attenuation of fat which (likely due to blood) with edema/blood of a portion of the right piriformis muscle noted. No other fractures are identified. The right femoral neck and head appear normal without fracture or malalignment. No fracture of the sacrum or pubis identified. The bones are osteopenic. The visualized part of the lower lumbar spine appears intact. There is some hypertrophy of the facets and narrowing of the intervertebral discs. There is a Leigh catheter within the urinary bladder which is mostly nondistended. IMPRESSION: Severe, comminuted fracture of the right iliac crest and superior ilium with intra-articular extension into the right sacroiliac joint which is diastatic. Acetabulum and hip appear intact. Ortho input appreciated: At this point, this is a nonoperative fracture, should heal. She can begin physical therapy. Weightbearing as tolerated with a walker. She will have a significant discomfort initially until the fracture consolidates given that the adductor muscles are attached at that area. Therefore, she may have to be transferred to a [facility] until she is a little bit more safe to go home. She should get appropriate DVT prophylaxis (2) Collapse of left lung Assessment & Plan: Lungs: There is interval worsening with opacification of most of the left hemithorax and leftward mediastinal shift consistent with severe volume loss of the left lung. Pleural space: Unremarkable. No pneumothorax. Heart: Unremarkable. No cardiomegaly. Mediastinum: The trachea is deviated to the left. Bones/joints: Unremarkable. Vasculature: There is calcification of the aortic arch. IMPRESSION: Interval worsening with opacification of the left hemithorax and leftward mediastinal shift consistent with severe volume loss of the left lung. CT chest report pre arzola reviewed as well as images mass noted. shift noted no ptx. no large effusion do not recommend Chest tube placement at this time pulm input appreciated okay for anticoagulation from surgical standpoint thank you (3) Pelvic fracture Fan Owusu Oct 05, 2019 12:34
[2019-10-05] MEDS ORDERED: HYDROcodone/Acetamin 5/325 tab ORAL PRN (14:00)
[2019-10-05 16:00] VITALS: BP 120/66
--- NOTE | 2019-10-05 16:28 | Internal Med Progress Note ---
Subjective Date of Service: Oct 05, 2019 Physician Name Carlos Macario Attending Physician Yonis Granados MD Current Medications Medications (Trade) Dose Ordered Sig/Yesenia Route PRN Reason Start Time Stop Time Status Last Admin Dose Admin Acetaminophen (Tylenol) 650 mg Q4H PRN ORAL Mild Pain/Temp > 100.5 10/03/19 07:15 10/28/19 15:14 10/04/19 11:11 Acetaminophen/ Hydrocodone Bitart ([place] 5/325) 1 tab Q6H PRN ORAL Moderate Pain (Pain Scale 4-6) 10/05/19 14:00 10/10/19 07:59 Amiodarone HCl (Cordarone) 200 mg DAILY ORAL 10/04/19 09:00 11/03/19 08:59 10/05/19 08:12 Clonidine HCl (Catapres Tab) 0.1 mg Q4H PRN ORAL SBP > 160 mmHg 10/03/19 08:00 10/26/19 07:59 Dextrose (Dextrose 50%) 25 ml Q30M PRN IV Hypoglycemia 10/03/19 07:30 10/25/19 22:29 Dextrose (Dextrose 50%) 50 ml Q30M PRN IV Hypoglycemia 10/03/19 07:30 10/25/19 22:29 Heparin Sodium (Porcine) (Heparin 5000 units/ml) 5,000 units EVERY 12 HOURS SUBQ 10/03/19 09:00 10/26/19 08:59 10/05/19 08:13 Ondansetron HCl (Zofran) 4 mg Q4H PRN IVP Nausea & Vomiting 10/03/19 07:30 10/26/19 07:29 Polyethylene Glycol (Miralax) 17 gm HSPRN PRN ORAL Constipation 10/03/19 22:30 10/25/19 22:29 Allergies: Coded Allergies: No Known Allergies (Unverified , 09/25/19) ROS Limited/Unobtainable: No Constitutional: Reports: no symptoms HEENT: Reports: no symptoms Cardiovascular: Reports: no symptoms Respiratory: Reports: no symptoms Gastrointestinal/Abdominal: Reports: no symptoms Genitourinary: Reports: no symptoms Neurologic/Psychiatric: Reports: no symptoms Subjective 69 YO F admitted with right acute fracture right superior ilium and iliac crest. Now pneumonia. Cover for Int Med-Dr Granados. KATELYNN Objective Last Vital Signs Date Time Temp Pulse Resp B/P (MAP) Pulse Ox O2 Delivery O2 Flow Rate FiO2 10/05/19 16:00 Nasal Cannula 4.0 Nasal Cannula 4.0 10/05/19 12:00 98.0 65 20 120/66 (84) 100 10/05/19 07:36 36 Laboratory Tests Test 10/05/19 10:05 White Blood Count 9.1 K/UL (4.8-10.8) Red Blood Count 3.49 M/UL (4.20-5.40) L Hemoglobin 10.9 G/DL (12.0-16.0) L Hematocrit 32.2 % (37.0-47.0) L Mean Corpuscular Volume 92 FL (80-99) Mean Corpuscular Hemoglobin 31.2 PG (27.0-31.0) H Mean Corpuscular Hemoglobin Concent 33.9 G/DL (32.0-36.0) Red Cell Distribution Width 12.0 % (11.6-14.8) Platelet Count 514 K/UL (150-450) H Mean Platelet Volume 4.8 FL (6.5-10.1) L Neutrophils (%) (Auto) 66.8 % (45.0-75.0) Lymphocytes (%) (Auto) 18.2 % (20.0-45.0) L Monocytes (%) (Auto) 8.1 % (1.0-10.0) Eosinophils (%) (Auto) 5.3 % (0.0-3.0) H Basophils (%) (Auto) 1.7 % (0.0-2.0) Sodium Level 136 MMOL/L (136-145) Potassium Level 4.1 MMOL/L (3.5-5.1) Chloride Level 100 MMOL/L (98-107) Carbon Dioxide Level 26 MMOL/L (21-32) Anion Gap 10 mmol/L (5-15) Blood Urea Nitrogen 8 mg/dL (7-18) Creatinine 0.5 MG/DL (0.55-1.30) L Estimat Glomerular Filtration Rate > 60 mL/min (>60) Glucose Level 120 MG/DL (74-106) H Calcium Level 9.0 MG/DL (8.5-10.1) Intake and Output 10/04/19 10/05/19 19:00 07:00 Intake Total 337.5 ml 55.0 ml Balance 337.5 ml 55.0 ml Intake Oral 200 ml IV Total 137.5 ml 55.0 ml # Voids 3 # Bowel Movements 1 Objective PHYSICAL EXAMINATION: GENERAL: The patient is awake, responsive, no acute distress. HEAD AND NECK: Pupils are equal and reactive to light. Extraocular movements intact. Neck was supple. No JVD. LUNGS: Nasal canula; BS decreased on left; Positive expiratory wheezes. HEART: S1 and S2. Regular rhythm. No murmurs or gallops. ABDOMEN: Soft, nondistended, nontender. Positive bowel sounds. EXTREMITIES: No cyanosis, clubbing, edema NEUROLOGIC: Cranial nerves II through XII grossly normal. The patient moving all the extremities. Assessment/Plan Assessment/Plan ASSESSMENT: 1. Status post fall. 2. Asthma. 3. History of CVA with right-sided weakness. 4. Elevated blood pressure. 5. right hip pain\ 6. Right superior Ilium fracture 7. Right iliac crest fracture 8. left pneumonia PLAN: 1. Admit the patient to medical floor. 2. Ortho= Dr. Zane Galo 3. Dr. Limon Pulmonary Critical Care. 4. Code status is Full Code. DVT prophylaxis, heparin subcutaneous. 5. Pulmonary=Dr Limon 6. ABX= Carlos Solano MD Oct 05, 2019 16:28
--- NOTE | 2019-10-05 17:00 | NUR ---
NURSE NOTES: Pt had a BM to brown formed stools large in amount,kept dry and clean.
--- NOTE | 2019-10-05 19:15 | NUR ---
NURSE NOTES: Received pt awake,alert and Ox3 No distress noted. Denies pain or discomfort. SR on patient monitor, Leigh cath draining clear yellow urine. Skin warm and dry to touch. SR on patient monitor. HL to Rt. FA intact. bed lock in lowest position and bed alarm engaged. will continue with POC.
--- NOTE | 2019-10-05 19:20 | NUR ---
HAND-OFF: Report given to Fidel Mccurdy RN.
[2019-10-05 20:00] VITALS: BP 123/64
--- NOTE | 2019-10-05 20:16 | Cardiology Progress Note ---
Assessment/Plan Status: stable, progressing Status Narrative hx of CVA, R hemiplegia PAF - currently in SR., on amiodarone and off a-c s/p nonsyncopal fall. Pelvic fx - nonoperative mgmt recommended. Assessment/Plan Recommend continue amiodarone, maintenance dose. Start eliquis 5 mg q 12 hr for cva prevention. Monitor h/h ? PT/ mobilization for pelvic fx. Dc plan per primary MD Subjective ROS Limited/Unobtainable: No Subjective Cardiology for Dr. Rabago Pt has no c/o pain, dyspnea or palpitations. Asking about dc Objective Last 24 Hour Vital Signs Date Time Temp Pulse Resp B/P (MAP) Pulse Ox O2 Delivery O2 Flow Rate FiO2 10/05/19 19:19 99 Nasal Cannula 4.0 36 10/05/19 17:00 Nasal Cannula 4.0 Nasal Cannula 4.0 10/05/19 16:00 72 10/05/19 16:00 Nasal Cannula 4.0 Nasal Cannula 4.0 10/05/19 16:00 98.0 65 20 120/66 (84) 100 10/05/19 12:00 98.0 65 20 120/66 (84) 100 10/05/19 12:00 Nasal Cannula 4.0 Nasal Cannula 4.0 10/05/19 11:49 60 10/05/19 08:08 98.6 62 22 133/75 (94) 100 10/05/19 08:00 Nasal Cannula 4.0 Nasal Cannula 4.0 10/05/19 08:00 67 10/05/19 07:36 100 Nasal Cannula 4.0 36 10/05/19 04:00 Nasal Cannula 4.0 Nasal Cannula 4.0 10/05/19 04:00 59 10/05/19 04:00 97.8 63 23 139/57 (84) 98 10/05/19 00:00 Nasal Cannula 4.0 Nasal Cannula 4.0 General Appearance: no apparent distress, alert EENT: PERRL/EOMI Neck: supple, no JVD Rhythm: NSR Cardiovascular: normal rate, regular rhythm, no gallop/murmur Respiratory/Chest: lungs clear, other - clear anteriorly Abdomen: non tender, soft Extremities: no swelling, other - R foot dressing Intake and Output 10/04/19 10/05/19 19:00 07:00 Intake Total 337.5 ml 55.0 ml Balance 337.5 ml 55.0 ml Intake Oral 200 ml IV Total 137.5 ml 55.0 ml # Voids 3 # Bowel Movements 1 Laboratory Tests Test 10/05/19 10:05 White Blood Count 9.1 K/UL (4.8-10.8) Red Blood Count 3.49 M/UL (4.20-5.40) L Hemoglobin 10.9 G/DL (12.0-16.0) L Hematocrit 32.2 % (37.0-47.0) L Mean Corpuscular Volume 92 FL (80-99) Mean Corpuscular Hemoglobin 31.2 PG (27.0-31.0) H Mean Corpuscular Hemoglobin Concent 33.9 G/DL (32.0-36.0) Red Cell Distribution Width 12.0 % (11.6-14.8) Platelet Count 514 K/UL (150-450) H Mean Platelet Volume 4.8 FL (6.5-10.1) L Neutrophils (%) (Auto) 66.8 % (45.0-75.0) Lymphocytes (%) (Auto) 18.2 % (20.0-45.0) L Monocytes (%) (Auto) 8.1 % (1.0-10.0) Eosinophils (%) (Auto) 5.3 % (0.0-3.0) H Basophils (%) (Auto) 1.7 % (0.0-2.0) Sodium Level 136 MMOL/L (136-145) Potassium Level 4.1 MMOL/L (3.5-5.1) Chloride Level 100 MMOL/L (98-107) Carbon Dioxide Level 26 MMOL/L (21-32) Anion Gap 10 mmol/L (5-15) Blood Urea Nitrogen 8 mg/dL (7-18) Creatinine 0.5 MG/DL (0.55-1.30) L Estimat Glomerular Filtration Rate > 60 mL/min (>60) Glucose Level 120 MG/DL (74-106) H Calcium Level 9.0 MG/DL (8.5-10.1) Rose Don MD Oct 05, 2019 20:16
--- NOTE | 2019-10-06 | NUR ---
NURSE NOTES: Sleeping. Easily awakened. No distress noted. SR on court recording monitor, Leigh cath draining clear yellow urine. Skin warm and dry to touch. Bed lock in lowest position with bed alarm engaged. will continue with POC.
--- NOTE | 2019-10-06 04:00 | NUR ---
NURSE NOTES: Remain asleep. Easily awakened. Respirations even and unlabored. No distress noted. SR on telemetry monitor. Bed lock in lowest position with bed alarm engaged. Will continue with POC.
[2019-10-06 05:20] LABS: BASOPHILS % (AUTO) 1.3 % (0.0-2.0); EOSINOPHILS % (AUTO) 5.1 % (0.0-3.0); HEMATOCRIT 31.8 % (37.0-47.0); HEMOGLOBIN 11.1 G/DL (12.0-16.0); LYMPHOCYTES % (AUTO) 16.7 % (20.0-45.0); MEAN CORPUSCULAR VOLUME 92 FL (80-99); MONOCYTES % (AUTO) 9.9 % (1.0-10.0); PLATELET COUNT 575 K/UL (150-450); RED BLOOD COUNT 3.45 M/UL (4.20-5.40); WHITE BLOOD COUNT 10.7 K/UL (4.8-10.8)
[2019-10-06 05:40] LABS: ANION GAP 7 mmol/L (5-15); BLOOD UREA NITROGEN 8 mg/dL (7-18); CARBON DIOXIDE 29 MMOL/L (21-32); CHLORIDE 101 MMOL/L (98-107); CREATININE 0.5 MG/DL (0.55-1.30); POTASSIUM 3.8 MMOL/L (3.5-5.1); SODIUM 136 MMOL/L (136-145)
--- NOTE | 2019-10-06 07:03 | NUR ---
HAND-OFF: Report given to DOMINGA Chilel.
--- NOTE | 2019-10-06 07:50 | NUR ---
NURSE NOTES: received pt in the bed, awake, alert, oriented, vital signs stable, no co pain, no SOB, skin warm and dry to touch, tolerate diet well, Leigh catheter with yellow urine, abdomen soft, bed in low position, call light within reach.
[2019-10-06 08:00] VITALS: BP 144/74
--- NOTE | 2019-10-06 08:36 | Cardiology Progress Note ---
Assessment/Plan Problem List: (1) Paroxysmal A-fib (2) Pelvic fracture (3) Aspiration pneumonia (4) Collapse of left lung (5) Respiratory failure with hypoxia (6) History of asthma Status: stable, progressing Status Narrative hx of CVA, R hemiplegia PAF - currently in SR with occasional PACs and short compensatory pauses. s/p nonsyncopal fall, w/ R hip fx Pelvic fx - nonoperative mgmt recommended. Assessment/Plan Recommend continue amiodarone, maintenance dose. Eliquis started for PAF h/h stable Management of L lung collapse/ pneumonia per Pulmonary Dc plan per primary MD - to rehab for mobilization post- pelvic fracture Subjective ROS Limited/Unobtainable: No Subjective Cardiology for Dr. Rabago Pt has no c/o chest pain, hip pain. Denies dyspnea or palpitations. Objective Last 24 Hour Vital Signs Date Time Temp Pulse Resp B/P (MAP) Pulse Ox O2 Delivery O2 Flow Rate FiO2 10/06/19 07:39 99 Nasal Cannula 4.0 36 10/06/19 04:00 Nasal Cannula 4.0 Nasal Cannula 4.0 10/06/19 03:38 60 10/06/19 00:00 Nasal Cannula 4.0 Nasal Cannula 4.0 10/05/19 23:32 58 10/05/19 20:00 Nasal Cannula 4.0 Nasal Cannula 4.0 10/05/19 20:00 98.0 68 20 123/64 (83) 100 10/05/19 19:38 71 10/05/19 19:19 99 Nasal Cannula 4.0 36 10/05/19 17:00 Nasal Cannula 4.0 Nasal Cannula 4.0 10/05/19 16:00 72 10/05/19 16:00 Nasal Cannula 4.0 Nasal Cannula 4.0 10/05/19 16:00 98.0 65 20 120/66 (84) 100 10/05/19 12:00 98.0 65 20 120/66 (84) 100 10/05/19 12:00 Nasal Cannula 4.0 Nasal Cannula 4.0 10/05/19 11:49 60 General Appearance: WD/WN, no apparent distress, alert EENT: PERRL/EOMI Neck: non-tender, no JVD Rhythm: NSR Cardiovascular: normal rate, regular rhythm, no gallop/murmur Respiratory/Chest: other - few expir wheezes Abdomen: non tender, soft, no mass Extremities: no swelling Intake and Output 10/05/19 10/06/19 19:00 07:00 Intake Total 600 ml Output Total 1301 ml Balance -701 ml Intake Oral 600 ml Output Urine Total 1300 ml Stool Total 1 ml # Bowel Movements 1 3 Laboratory Tests Test 10/05/19 10:05 10/06/19 04:10 White Blood Count 9.1 K/UL (4.8-10.8) 10.7 K/UL (4.8-10.8) Red Blood Count 3.49 M/UL (4.20-5.40) L 3.45 M/UL (4.20-5.40) L Hemoglobin 10.9 G/DL (12.0-16.0) L 11.1 G/DL (12.0-16.0) L Hematocrit 32.2 % (37.0-47.0) L 31.8 % (37.0-47.0) L Mean Corpuscular Volume 92 FL (80-99) 92 FL (80-99) Mean Corpuscular Hemoglobin 31.2 PG (27.0-31.0) H 32.1 PG (27.0-31.0) H Mean Corpuscular Hemoglobin Concent 33.9 G/DL (32.0-36.0) 34.9 G/DL (32.0-36.0) Red Cell Distribution Width 12.0 % (11.6-14.8) 12.0 % (11.6-14.8) Platelet Count 514 K/UL (150-450) H 575 K/UL (150-450) H Mean Platelet Volume 4.8 FL (6.5-10.1) L 5.0 FL (6.5-10.1) L Neutrophils (%) (Auto) 66.8 % (45.0-75.0) 67.0 % (45.0-75.0) Lymphocytes (%) (Auto) 18.2 % (20.0-45.0) L 16.7 % (20.0-45.0) L Monocytes (%) (Auto) 8.1 % (1.0-10.0) 9.9 % (1.0-10.0) Eosinophils (%) (Auto) 5.3 % (0.0-3.0) H 5.1 % (0.0-3.0) H Basophils (%) (Auto) 1.7 % (0.0-2.0) 1.3 % (0.0-2.0) Sodium Level 136 MMOL/L (136-145) 136 MMOL/L (136-145) Potassium Level 4.1 MMOL/L (3.5-5.1) 3.8 MMOL/L (3.5-5.1) Chloride Level 100 MMOL/L (98-107) 101 MMOL/L (98-107) Carbon Dioxide Level 26 MMOL/L (21-32) 29 MMOL/L (21-32) Anion Gap 10 mmol/L (5-15) 7 mmol/L (5-15) Blood Urea Nitrogen 8 mg/dL (7-18) 8 mg/dL (7-18) Creatinine 0.5 MG/DL (0.55-1.30) L 0.5 MG/DL (0.55-1.30) L Estimat Glomerular Filtration Rate > 60 mL/min (>60) > 60 mL/min (>60) Glucose Level 120 MG/DL (74-106) H 94 MG/DL (74-106) Calcium Level 9.0 MG/DL (8.5-10.1) 9.0 MG/DL (8.5-10.1) Rose Don MD Oct 06, 2019 08:36
[2019-10-06] MEDS ORDERED: Albuterol/Ipratropium 3ml neb HHN PRN (09:00)
--- NOTE | 2019-10-06 09:00 | Pulmonology Progress Note ---
Assessment/Plan Assessment/Plan ASSESSMENT Acute hypoxemic RF requiring BiPAP -resolved L lung collapse with mediastinal shift AF with RVR probably sepsis PNA ? neoplasm pelvic fracture secondary to fall asthma history of CVA with right-sided weakness hypertension moderate pulm HTN PLAN of CARE tele O2 titrate to keep sat above 90% ; HHN BiPAP prn CPT positional therapy CXR for this am pending CT chest with left lung collapse, mediastinal shift to the left, diffuse infiltrates lung , likle atelectasis, however probably superimposed PNA, given fever and leukocytosis, patchy infiltrate R lung, likely representing PNA 2.3 cm tissue density left infrahilar region , suspicious for neoplasm surgery on board, no need for CT prior for AF with RVR received metoprolol IV, initially responded, then HR up to > 200, additional metoprolol given, then started on Cardizem gtt cardio follows. was on Amiodarone gtt, now on oral Amiodarone, dose decreased as per cardio off BB due to wheezing a/coagulation recommended by cardio ECHO with pEF and moderate pulm HTN lipid panel stable monitor BP, pro BNP -375 venous Duplex negative septic w/up initiated started on empiric abx for PNA SCX and BCX negative influenza swab negative gentle IV hydration CT of the hip revealed severe comminuted fracture of the right iliac crest and superior ilium with intra-articular extension into the right sacroiliac joint, acetabulum and hip appear intact pain management ortho eval appreciated, no surgery for this type of fracture surgeon cleared to start PT with WBAT, on PT Rx DVT prophylaxis bowel regimen supportive care transfer to [place] case discussed and evaluated by supervising physician Subjective Allergies: Coded Allergies: No Known Allergies (Unverified , 09/25/19) Subjective in KATELYNN now in SR rate controlled on o2 4L via NC, pulse ox stable no fevers, leuk resolved + intermittent pain in pelvic area no dizziness no CP, no SOB Objective Last 24 Hour Vital Signs Date Time Temp Pulse Resp B/P (MAP) Pulse Ox O2 Delivery O2 Flow Rate FiO2 10/06/19 07:39 99 Nasal Cannula 4.0 36 10/06/19 04:00 Nasal Cannula 4.0 Nasal Cannula 4.0 10/06/19 03:38 60 10/06/19 00:00 Nasal Cannula 4.0 Nasal Cannula 4.0 10/05/19 23:32 58 10/05/19 20:00 Nasal Cannula 4.0 Nasal Cannula 4.0 10/05/19 20:00 98.0 68 20 123/64 (83) 100 10/05/19 19:38 71 10/05/19 19:19 99 Nasal Cannula 4.0 36 10/05/19 17:00 Nasal Cannula 4.0 Nasal Cannula 4.0 10/05/19 16:00 72 10/05/19 16:00 Nasal Cannula 4.0 Nasal Cannula 4.0 10/05/19 16:00 98.0 65 20 120/66 (84) 100 10/05/19 12:00 98.0 65 120/66 (84) 100 10/05/19 12:00 Nasal Cannula 4.0 Nasal Cannula 4.0 10/05/19 11:49 60 Intake and Output 10/05/19 10/06/19 19:00 07:00 Intake Total 600 ml Output Total 1301 ml Balance -701 ml Intake Oral 600 ml Output Urine Total 1300 ml Stool Total 1 ml # Bowel Movements 1 3 Objective General Appearance: no acute distress HEENT: normocephalic, atraumatic, anicteric, mucous membranes moist Respiratory/Chest: lungs clear, no respiratory distress, no accessory muscle use Cardiovascular: normal rate, regular rhythm, regularly irregular Abdomen: normal bowel sounds, soft, non tender, non distended Extremities: no edema, pedal pulses normal Neurologic/Psychiatric: abnormal gait, alert, oriented x 3, responsive Musculoskeletal: normal muscle bulk Laboratory Tests 10/05/19 10:05: White Blood Count 9.1, Red Blood Count 3.49L, Hemoglobin 10.9L, Hematocrit 32.2L , Mean Corpuscular Volume 92, Mean Corpuscular Hemoglobin 31.2H, Mean Corpuscular Hemoglobin Concent 33.9, Red Cell Distribution Width 12.0, Platelet Count 514H, Mean Platelet Volume 4.8L, Neutrophils (%) (Auto) 66.8, Lymphocytes (%) (Auto) 18.2L, Monocytes (%) (Auto) 8.1, Eosinophils (%) (Auto) 5.3H, Basophils (%) (Auto) 1.7, Sodium Level 136, Potassium Level 4.1, Chloride Level 100, Carbon Dioxide Level 26, Anion Gap 10, Blood Urea Nitrogen 8, Creatinine 0.5L, Estimat Glomerular Filtration Rate > 60, Glucose Level 120H, Calcium Level 9.0 10/06/19 04:10: White Blood Count 10.7, Red Blood Count 3.45L, Hemoglobin 11.1L, Hematocrit 31.8L, Mean Corpuscular Volume 92, Mean Corpuscular Hemoglobin 32.1H, Mean Corpuscular Hemoglobin Concent 34.9, Red Cell Distribution Width 12.0, Platelet Count 575H, Mean Platelet Volume 5.0L, Neutrophils (%) (Auto) 67.0, Lymphocytes (%) (Auto) 16.7L, Monocytes (%) (Auto) 9.9, Eosinophils (%) (Auto) 5.1H, Basophils (%) (Auto) 1.3, Sodium Level 136, Potassium Level 3.8, Chloride Level 101, Carbon Dioxide Level 29, Anion Gap 7, Blood Urea Nitrogen 8, Creatinine 0.5L, Estimat Glomerular Filtration Rate > 60, Glucose Level 94, Calcium Level 9.0 Current Medications Medications (Trade) Dose Ordered Sig/Yesenia Route PRN Reason Start Time Stop Time Status Last Admin Dose Admin Acetaminophen (Tylenol) 650 mg Q4H PRN ORAL Mild Pain/Temp > 100.5 10/03/19 07:15 10/28/19 15:14 10/04/19 11:11 Acetaminophen/ Hydrocodone Bitart ([place] 5/325) 1 tab Q6H PRN ORAL Moderate Pain (Pain Scale 4-6) 10/05/19 14:00 10/10/19 07:59 Amiodarone HCl (Cordarone) 200 mg DAILY ORAL 10/04/19 09:00 11/03/19 08:59 10/05/19 08:12 Apixaban (Eliquis) 5 mg BID ORAL 10/06/19 09:00 11/05/19 08:59 Clonidine HCl (Catapres Tab) 0.1 mg Q4H PRN ORAL SBP > 160 mmHg 10/03/19 08:00 10/26/19 07:59 Dextrose (Dextrose 50%) 25 ml Q30M PRN IV Hypoglycemia 10/03/19 07:30 10/25/19 22:29 Dextrose (Dextrose 50%) 50 ml Q30M PRN IV Hypoglycemia 10/03/19 07:30 10/25/19 22:29 Ondansetron HCl (Zofran) 4 mg Q4H PRN IVP Nausea & Vomiting 10/03/19 07:30 10/26/19 07:29 Polyethylene Glycol (Miralax) 17 gm HSPRN PRN ORAL Constipation 10/03/19 22:30 10/25/19 22:29 Jessica Jauregui CARDIAC NURSE SPECIALIST Oct 06, 2019 09:00
[2019-10-06] MEDS: Amiodarone 200mg tab ORAL SCH (09:29)
[2019-10-06] MEDS: Eliquis 5mg tablet ORAL SCH ×2 (09:29→17:51)
--- NOTE | 2019-10-06 10:30 | NUR ---
NURSE NOTES: pt resting, pt has blisters on left buttock,dressing dry and intact, no co pain.
--- NOTE | 2019-10-06 11:27 | Diagnostic Imaging Report ---
Indication: Shortness of breath Technique: One view of the chest Comparison: 10/04/2019 Findings: There is a band of atelectasis at the right lung base, appears slightly larger. There is improved aeration of the left mid and lower lung, although hazy parenchymal opacity and some interstitial opacity persists. There is probably a small amount of pleural fluid on the left. The heart size is normal. Impression: Decreased hazy left mid and lower lung infiltrate, over 2 days Increasing right infrahilar atelectasis
--- NOTE | 2019-10-06 11:51 | Infectious Diseases Prog Note ---
Assessment/Plan Assessment/Plan Assessment: Sepsis Probable PNA Severe L lung volume loss -10/06 CXR: Decreased hazy left mid and lower lung infiltrate, over 2 days. Increasing right infrahilar atelectasis -10/01 CXR: Complete opacification of left hemithorax. Presumably on the basis of complete left lung atelectasis. Suspect new/increasing pleural fluid and pulmonary venous congestion on the right -09/28 Bcx Neg sp cx normal resp willa -09/27 CXR: Interval worsening with opacification of the left hemithorax and leftward mediastinal shift consistent with severe volume loss of the left lung. -09/25 CXR; Possible mild pulmonary vascular congestion. Correlate clinically u/a neg -influenza sc neg Fever; Sp Leukocytosis, SP R hip fracture 2ry to mechanical fall -09/26 CT hip; Severe, comminuted fracture of the right iliac crest and superior ilium with intra-articular extension into the right sacroiliac joint which is diastatic. Acetabulum and hip appear intact. Leigh catheter. Acute hypoxic respiratory failure, sp Bipap, now on NC Afib with RVR CVA w/ residual R side weakness asthma Plan: -Continue to monitor off abx -10/05 SP Zosyn #8 -10/02 SP IV Vancomycin #5 -f/u cx -Monitor CBC/CMP, temperatures -Cards, pulm f/u -aspiration precautions Thank you for this consultation. Will continue to follow along with you. Subjective Allergies: Coded Allergies: No Known Allergies (Unverified , 09/25/19) Subjective afebrile no leukocytosis at 4l NC Objective Vital Signs Last 24 Hour Vital Signs Date Time Temp Pulse Resp B/P (MAP) Pulse Ox O2 Delivery O2 Flow Rate FiO2 10/06/19 08:00 97.9 63 18 144/74 (97) 100 10/06/19 08:00 Nasal Cannula 4.0 Nasal Cannula 4.0 10/06/19 08:00 68 10/06/19 07:39 99 Nasal Cannula 4.0 36 10/06/19 04:00 Nasal Cannula 4.0 Nasal Cannula 4.0 10/06/19 03:38 60 10/06/19 00:00 Nasal Cannula 4.0 Nasal Cannula 4.0 10/05/19 23:32 58 10/05/19 20:00 Nasal Cannula 4.0 Nasal Cannula 4.0 10/05/19 20:00 98.0 68 20 123/64 (83) 100 10/05/19 19:38 71 10/05/19 19:19 99 Nasal Cannula 4.0 36 10/05/19 17:00 Nasal Cannula 4.0 Nasal Cannula 4.0 10/05/19 16:00 72 10/05/19 16:00 Nasal Cannula 4.0 Nasal Cannula 4.0 10/05/19 16:00 98.0 65 20 120/66 (84) 100 10/05/19 12:00 98.0 65 20 120/66 (84) 100 10/05/19 12:00 Nasal Cannula 4.0 Nasal Cannula 4.0 Height (Feet): 5 Height (Inches): 5.00 Weight (Pounds): 143 Objective GENERAL: no acute distress. HEAD AND NECK: Pupils are equal and reactive to light. Extraocular movements intact. Neck was supple. LUNGS: No rhonchi. Positive expiratory wheezes. HEART: S1 and S2. Regular rhythm. No murmurs or gallops. ABDOMEN: Soft, nondistended, nontender. Positive bowel sounds. EXTREMITIES: No cyanosis, clubbing, edema Laboratory Tests Test 10/06/19 04:10 White Blood Count 10.7 K/UL (4.8-10.8) Red Blood Count 3.45 M/UL (4.20-5.40) L Hemoglobin 11.1 G/DL (12.0-16.0) L Hematocrit 31.8 % (37.0-47.0) L Mean Corpuscular Volume 92 FL (80-99) Mean Corpuscular Hemoglobin 32.1 PG (27.0-31.0) H Mean Corpuscular Hemoglobin Concent 34.9 G/DL (32.0-36.0) Red Cell Distribution Width 12.0 % (11.6-14.8) Platelet Count 575 K/UL (150-450) H Mean Platelet Volume 5.0 FL (6.5-10.1) L Neutrophils (%) (Auto) 67.0 % (45.0-75.0) Lymphocytes (%) (Auto) 16.7 % (20.0-45.0) L Monocytes (%) (Auto) 9.9 % (1.0-10.0) Eosinophils (%) (Auto) 5.1 % (0.0-3.0) H Basophils (%) (Auto) 1.3 % (0.0-2.0) Sodium Level 136 MMOL/L (136-145) Potassium Level 3.8 MMOL/L (3.5-5.1) Chloride Level 101 MMOL/L (98-107) Carbon Dioxide Level 29 MMOL/L (21-32) Anion Gap 7 mmol/L (5-15) Blood Urea Nitrogen 8 mg/dL (7-18) Creatinine 0.5 MG/DL (0.55-1.30) L Estimat Glomerular Filtration Rate > 60 mL/min (>60) Glucose Level 94 MG/DL (74-106) Calcium Level 9.0 MG/DL (8.5-10.1) Current Medications Medications (Trade) Dose Ordered Sig/Yesenia Route PRN Reason Start Time Stop Time Status Last Admin Dose Admin Acetaminophen (Tylenol) 650 mg Q4H PRN ORAL Mild Pain/Temp > 100.5 10/03/19 07:15 10/28/19 15:14 10/04/19 11:11 Acetaminophen/ Hydrocodone Bitart ([place] 5/325) 1 tab Q6H PRN ORAL Moderate Pain (Pain Scale 4-6) 10/05/19 14:00 10/10/19 07:59 Albuterol/ Ipratropium (Albuterol/ Ipratropium) 3 ml Q4H PRN HHN Shortness of Breath 10/06/19 09:00 10/11/19 08:59 Amiodarone HCl (Cordarone) 200 mg DAILY ORAL 10/04/19 09:00 11/03/19 08:59 10/06/19 09:29 Apixaban (Eliquis) 5 mg BID ORAL 10/06/19 09:00 11/05/19 08:59 10/06/19 09:29 Clonidine HCl (Catapres Tab) 0.1 mg Q4H PRN ORAL SBP > 160 mmHg 10/03/19 08:00 10/26/19 07:59 Dextrose (Dextrose 50%) 25 ml Q30M PRN IV Hypoglycemia 10/03/19 07:30 10/25/19 22:29 Dextrose (Dextrose 50%) 50 ml Q30M PRN IV Hypoglycemia 10/03/19 07:30 10/25/19 22:29 Ondansetron HCl (Zofran) 4 mg Q4H PRN IVP Nausea & Vomiting 10/03/19 07:30 10/26/19 07:29 Polyethylene Glycol (Miralax) 17 gm HSPRN PRN ORAL Constipation 10/03/19 22:30 10/25/19 22:29 Juliet Cabezas M.D. Oct 06, 2019 11:51
[2019-10-06 12:00] VITALS: BP 140/69
--- NOTE | 2019-10-06 12:34 | NUR ---
RECEIVING BARN CUSTODIANBRIM PRESSER SI; RIGHT HIP FRACTURE, RESP DISTRESS T. 97.9 HR 68 RR 18 B/P 144/74 4L NC IS; ELIQUISE PO AMIODARONE PO ALB HHN PT/OT EVAL DOWNGRADE MED/SURG MED/SURG STATUS
--- NOTE | 2019-10-06 13:43 | Surgery Progress Note ---
Surgery Progress Note Subjective Additional Comments no acute events comfortable stable wants to go home states she feels better non/v/f/c Objective Last 24 Hour Vital Signs Date Time Temp Pulse Resp B/P (MAP) Pulse Ox O2 Delivery O2 Flow Rate FiO2 10/06/19 12:00 69 10/06/19 12:00 97.9 62 18 140/69 (92) 100 10/06/19 12:00 Nasal Cannula 4.0 Nasal Cannula 4.0 10/06/19 08:00 97.9 63 18 144/74 (97) 100 10/06/19 08:00 Nasal Cannula 4.0 Nasal Cannula 4.0 10/06/19 08:00 68 10/06/19 07:39 99 Nasal Cannula 4.0 36 10/06/19 04:00 Nasal Cannula 4.0 Nasal Cannula 4.0 10/06/19 03:38 60 10/06/19 00:00 Nasal Cannula 4.0 Nasal Cannula 4.0 10/05/19 23:32 58 10/05/19 20:00 Nasal Cannula 4.0 Nasal Cannula 4.0 10/05/19 20:00 98.0 68 20 123/64 (83) 100 10/05/19 19:38 71 10/05/19 19:19 99 Nasal Cannula 4.0 36 10/05/19 17:00 Nasal Cannula 4.0 Nasal Cannula 4.0 10/05/19 16:00 72 10/05/19 16:00 Nasal Cannula 4.0 Nasal Cannula 4.0 10/05/19 16:00 98.0 65 20 120/66 (84) 100 I&O Intake and Output 10/05/19 10/06/19 19:00 07:00 Intake Total 600 ml Output Total 1301 ml Balance -701 ml Intake Oral 600 ml Output Urine Total 1300 ml Stool Total 1 ml # Bowel Movements 1 3 Dressing: other Wound: other Drains: other Cardiovascular: RSR Respiratory: decreased breath sounds Abdomen: soft, present bowel sounds Extremities: no tenderness, no cyanosis Laboratory Tests Test 10/06/19 04:10 White Blood Count 10.7 K/UL (4.8-10.8) Red Blood Count 3.45 M/UL (4.20-5.40) L Hemoglobin 11.1 G/DL (12.0-16.0) L Hematocrit 31.8 % (37.0-47.0) L Mean Corpuscular Volume 92 FL (80-99) Mean Corpuscular Hemoglobin 32.1 PG (27.0-31.0) H Mean Corpuscular Hemoglobin Concent 34.9 G/DL (32.0-36.0) Red Cell Distribution Width 12.0 % (11.6-14.8) Platelet Count 575 K/UL (150-450) H Mean Platelet Volume 5.0 FL (6.5-10.1) L Neutrophils (%) (Auto) 67.0 % (45.0-75.0) Lymphocytes (%) (Auto) 16.7 % (20.0-45.0) L Monocytes (%) (Auto) 9.9 % (1.0-10.0) Eosinophils (%) (Auto) 5.1 % (0.0-3.0) H Basophils (%) (Auto) 1.3 % (0.0-2.0) Sodium Level 136 MMOL/L (136-145) Potassium Level 3.8 MMOL/L (3.5-5.1) Chloride Level 101 MMOL/L (98-107) Carbon Dioxide Level 29 MMOL/L (21-32) Anion Gap 7 mmol/L (5-15) Blood Urea Nitrogen 8 mg/dL (7-18) Creatinine 0.5 MG/DL (0.55-1.30) L Estimat Glomerular Filtration Rate > 60 mL/min (>60) Glucose Level 94 MG/DL (74-106) Calcium Level 9.0 MG/DL (8.5-10.1) Plan Problems: (1) Closed right hip fracture Assessment & Plan: There is a severely comminuted fracture of the superior portion of the ileum primarily involving the right iliac crest with multiple bone fragments. The fracture extends into the right sacroiliac joint which is diastatic. There is a 3 mm bone fragment at the lower margin of the sacroiliac joint probably intra-articular ( e.g. #39/2 or e.g. #37/8). There is no involvement of the acetabulum. There is a moderate degree of soft tissue swelling both lateral and medial to the iliac fracture with lateral gluteal ill-definition and edema as well as medial soft tissue attenuation of fat which (likely due to blood) with edema/blood of a portion of the right piriformis muscle noted. No other fractures are identified. The right femoral neck and head appear normal without fracture or malalignment. No fracture of the sacrum or pubis identified. The bones are osteopenic. The visualized part of the lower lumbar spine appears intact. There is some hypertrophy of the facets and narrowing of the intervertebral discs. There is a Leigh catheter within the urinary bladder which is mostly nondistended. IMPRESSION: Severe, comminuted fracture of the right iliac crest and superior ilium with intra-articular extension into the right sacroiliac joint which is diastatic. Acetabulum and hip appear intact. Ortho input appreciated: At this point, this is a nonoperative fracture, should heal. She can begin physical therapy. Weightbearing as tolerated with a walker. She will have a significant discomfort initially until the fracture consolidates given that the adductor muscles are attached at that area. Therefore, she may have to be transferred to a [facility] until she is a little bit more safe to go home. She should get appropriate DVT prophylaxis (2) Collapse of left lung Assessment & Plan: Lungs: There is interval worsening with opacification of most of the left hemithorax and leftward mediastinal shift consistent with severe volume loss of the left lung. Pleural space: Unremarkable. No pneumothorax. Heart: Unremarkable. No cardiomegaly. Mediastinum: The trachea is deviated to the left. Bones/joints: Unremarkable. Vasculature: There is calcification of the aortic arch. IMPRESSION: Interval worsening with opacification of the left hemithorax and leftward mediastinal shift consistent with severe volume loss of the left lung. CT chest report pre arzola reviewed as well as images mass noted. shift noted no ptx. no large effusion do not recommend Chest tube placement at this time pulm input appreciated okay for anticoagulation from surgical standpoint thank you (3) Pelvic fracture Additional Comments okay to d/c from surgical standpoint Fan Cedeño Oct 06, 2019 13:43
--- NOTE | 2019-10-06 14:00 | NUR ---
NURSE NOTES: pt resting, no distress, no co pain, continue monitoring.
[2019-10-06 16:00] VITALS: BP 135/78
--- NOTE | 2019-10-06 16:00 | NUR ---
NURSE NOTES: vital signs stable, no SOB, UPHOLSTERY TRIMMER went to the room, pt refused to change linen and bed bath.
--- NOTE | 2019-10-06 16:54 | Internal Med Progress Note ---
Subjective Date of Service: Oct 06, 2019 Physician Name AmirahCarlos Attending Physician Yonis Granados MD Current Medications Medications (Trade) Dose Ordered Sig/Yesenia Route PRN Reason Start Time Stop Time Status Last Admin Dose Admin Acetaminophen (Tylenol) 650 mg Q4H PRN ORAL Mild Pain/Temp > 100.5 10/03/19 07:15 10/28/19 15:14 10/04/19 11:11 Acetaminophen/ Hydrocodone Bitart ([place] 5/325) 1 tab Q6H PRN ORAL Moderate Pain (Pain Scale 4-6) 10/05/19 14:00 10/10/19 07:59 Albuterol/ Ipratropium (Albuterol/ Ipratropium) 3 ml Q4H PRN HHN Shortness of Breath 10/06/19 09:00 10/11/19 08:59 Amiodarone HCl (Cordarone) 200 mg DAILY ORAL 10/04/19 09:00 11/03/19 08:59 10/06/19 09:29 Apixaban (Eliquis) 5 mg BID ORAL 10/06/19 09:00 11/05/19 08:59 10/06/19 09:29 Clonidine HCl (Catapres Tab) 0.1 mg Q4H PRN ORAL SBP > 160 mmHg 10/03/19 08:00 10/26/19 07:59 Dextrose (Dextrose 50%) 25 ml Q30M PRN IV Hypoglycemia 10/03/19 07:30 10/25/19 22:29 Dextrose (Dextrose 50%) 50 ml Q30M PRN IV Hypoglycemia 10/03/19 07:30 10/25/19 22:29 Ondansetron HCl (Zofran) 4 mg Q4H PRN IVP Nausea & Vomiting 10/03/19 07:30 10/26/19 07:29 Polyethylene Glycol (Miralax) 17 gm HSPRN PRN ORAL Constipation 10/03/19 22:30 10/25/19 22:29 Allergies: Coded Allergies: No Known Allergies (Unverified , 09/25/19) ROS Limited/Unobtainable: No Constitutional: Reports: no symptoms HEENT: Reports: no symptoms Cardiovascular: Reports: no symptoms Respiratory: Reports: no symptoms Gastrointestinal/Abdominal: Reports: no symptoms Genitourinary: Reports: no symptoms Neurologic/Psychiatric: Reports: no symptoms Subjective 69 YO F admitted with right acute fracture right superior ilium and iliac crest. Now pneumonia. Cover for Int Med-Dr Granados. KATELYNN Objective Last Vital Signs Date Time Temp Pulse Resp B/P (MAP) Pulse Ox O2 Delivery O2 Flow Rate FiO2 10/06/19 16:00 Nasal Cannula 4.0 Nasal Cannula 4.0 10/06/19 16:00 98.2 71 20 135/78 (97) 98 10/06/19 07:39 36 Laboratory Tests Test 10/06/19 04:10 White Blood Count 10.7 K/UL (4.8-10.8) Red Blood Count 3.45 M/UL (4.20-5.40) L Hemoglobin 11.1 G/DL (12.0-16.0) L Hematocrit 31.8 % (37.0-47.0) L Mean Corpuscular Volume 92 FL (80-99) Mean Corpuscular Hemoglobin 32.1 PG (27.0-31.0) H Mean Corpuscular Hemoglobin Concent 34.9 G/DL (32.0-36.0) Red Cell Distribution Width 12.0 % (11.6-14.8) Platelet Count 575 K/UL (150-450) H Mean Platelet Volume 5.0 FL (6.5-10.1) L Neutrophils (%) (Auto) 67.0 % (45.0-75.0) Lymphocytes (%) (Auto) 16.7 % (20.0-45.0) L Monocytes (%) (Auto) 9.9 % (1.0-10.0) Eosinophils (%) (Auto) 5.1 % (0.0-3.0) H Basophils (%) (Auto) 1.3 % (0.0-2.0) Sodium Level 136 MMOL/L (136-145) Potassium Level 3.8 MMOL/L (3.5-5.1) Chloride Level 101 MMOL/L (98-107) Carbon Dioxide Level 29 MMOL/L (21-32) Anion Gap 7 mmol/L (5-15) Blood Urea Nitrogen 8 mg/dL (7-18) Creatinine 0.5 MG/DL (0.55-1.30) L Estimat Glomerular Filtration Rate > 60 mL/min (>60) Glucose Level 94 MG/DL (74-106) Calcium Level 9.0 MG/DL (8.5-10.1) Intake and Output 10/05/19 10/06/19 18:59 06:59 Intake Total 600 ml Output Total 1301 ml Balance -701 ml Intake Oral 600 ml Output Urine Total 1300 ml Stool Total 1 ml # Bowel Movements 1 3 Objective PHYSICAL EXAMINATION: GENERAL: The patient is awake, responsive, no acute distress. HEAD AND NECK: Pupils are equal and reactive to light. Extraocular movements intact. Neck was supple. No JVD. LUNGS: Nasal canula; BS decreased on left; Positive expiratory wheezes. HEART: S1 and S2. Regular rhythm. No murmurs or gallops. ABDOMEN: Soft, nondistended, nontender. Positive bowel sounds. EXTREMITIES: No cyanosis, clubbing, edema NEUROLOGIC: Cranial nerves II through XII grossly normal. The patient moving all the extremities. Assessment/Plan Assessment/Plan ASSESSMENT: 1. Status post fall. 2. Asthma. 3. History of CVA with right-sided weakness. 4. Elevated blood pressure. 5. right hip pain\ 6. Right superior Ilium fracture 7. Right iliac crest fracture 8. left pneumonia PLAN: 1. Admit the patient to medical floor. 2. Ortho= Dr. Zane Galo 3. Dr. Limon Pulmonary Critical Care. 4. Code status is Full Code. DVT prophylaxis, heparin subcutaneous. 5. Pulmonary=Dr Limon 6. ABX= Zosyn 7. Discharge planning: [facility] Carlos Macario MD Oct 06, 2019 16:54
--- NOTE | 2019-10-06 19:27 | NUR ---
HAND-OFF: Report given to KATERINE RN, no distress at this time.
--- NOTE | 2019-10-06 19:28 | NUR ---
NURSE NOTES: received pt from Dana ORR., pt is awake and AOx4 Amharic speaker. pt is on 4L of NC and O2sat is at 98% without SOB. winters cath is intact in place, draining well with gravity.previous shift reported no dysrhythmia noted. pt states no pain at this moment. Right FA 20G IV site is intact, clean, and patent. bed at the lowest position, alarmed, and locked. call light within reach. will continue to monitor pt with plan of care.
[2019-10-06 20:00] VITALS: BP 142/82
--- NOTE | 2019-10-06 22:05 | NUR ---
NURSE NOTES: cleaned pt, changed bed linens, oral care given. pt states " I feel better now." pt states no pain at this moment. call light within reach.
--- NOTE | 2019-10-06 22:14 | NUR ---
HAND-OFF: Report given to Tammy ORR. pt is in stable condition.
--- NOTE | 2019-10-06 22:15 | NUR ---
Pt arrived at the unit from [phone] to 310-.Pt was brought to unit on a hospital bed escorted by staff. Received report from Charles OWUSU. Pt awake laying in supine position with no s/s of respiratory distress. breaths even regular and unlabored on 4L NC. Pt is a/ox4 with R side weakness due to stroke, aspiration and fall precautions implemented .Bed in low locked position and call light with in reach Vitaals Bp157/66 Pulse 66 RR18 O2sat 100 T98. Will continue to monitor Addendum: 10/06/19 at 2337 by Silver Fish RN NURSE NOTES: Pt arrived at the unit from 236 to 310-.Pt was brought to unit on a hospital bed escorted by staff. Received report from Charles OWUSU. Pt awake laying in supine position with no s/s of respiratory distress. breaths even regular and unlabored on 4L NC. Pt is a/ox4 with R side weakness due to stroke, aspiration and fall precautions implemented .Bed in low locked position and call light with in reach Vitaals Bp157/66 Pulse 66 RR18 O2sat 100 T98. Will continue to monitor
[2019-10-06] MEDS ORDERED: Miralax 17gm pkt ORAL PRN (22:30)
[2019-10-07] MEDS ORDERED: Albuterol/Ipratropium 3ml neb HHN PRN (01:00)
[2019-10-07] MEDS ORDERED: HYDROcodone/Acetamin 5/325 tab ORAL PRN (02:00)
[2019-10-07 04:00] VITALS: BP 133/63
[2019-10-07 05:14] LABS: BASOPHILS % (AUTO) 1.2 % (0.0-2.0); EOSINOPHILS % (AUTO) 4.2 % (0.0-3.0); HEMATOCRIT 31.6 % (37.0-47.0); HEMOGLOBIN 10.9 G/DL (12.0-16.0); LYMPHOCYTES % (AUTO) 13.4 % (20.0-45.0); MEAN CORPUSCULAR VOLUME 92 FL (80-99); MONOCYTES % (AUTO) 7.1 % (1.0-10.0); NEUTROPHILS % (AUTO) 74.1 % (45.0-75.0); PLATELET COUNT 625 K/UL (150-450); RED BLOOD COUNT 3.44 M/UL (4.20-5.40); RED CELL DISTRIBUTION WIDTH 12.5 % (11.6-14.8); WHITE BLOOD COUNT 11.4 K/UL (4.8-10.8)
[2019-10-07 05:21] LABS: ANION GAP 6 mmol/L (5-15); BLOOD UREA NITROGEN 10 mg/dL (7-18); CALCIUM 9.1 MG/DL (8.5-10.1); CARBON DIOXIDE 29 MMOL/L (21-32); CHLORIDE 102 MMOL/L (98-107); CREATININE 0.5 MG/DL (0.55-1.30); POTASSIUM 3.9 MMOL/L (3.5-5.1); SODIUM 137 MMOL/L (136-145)
--- NOTE | 2019-10-07 07:29 | NUR ---
HAND-OFF: Report given to DOMINGA Sheldon.
[2019-10-07 08:05] VITALS: BP 152/70
[2019-10-07] MEDS: Eliquis 5mg tablet ORAL SCH ×2 (09:22→17:41)
[2019-10-07] MEDS: Amiodarone 200mg tab ORAL SCH (09:22)
--- NOTE | 2019-10-07 11:03 | Infectious Diseases Prog Note ---
Assessment/Plan Assessment/Plan Assessment: Sepsis Probable PNA, sp rx Severe L lung volume loss -10/06 CXR: Decreased hazy left mid and lower lung infiltrate, over 2 days. Increasing right infrahilar atelectasis -10/01 CXR: Complete opacification of left hemithorax. Presumably on the basis of complete left lung atelectasis. Suspect new/increasing pleural fluid and pulmonary venous congestion on the right -09/28 Bcx Neg sp cx normal resp willa -09/27 CXR: Interval worsening with opacification of the left hemithorax and leftward mediastinal shift consistent with severe volume loss of the left lung. -09/25 CXR; Possible mild pulmonary vascular congestion. Correlate clinically u/a neg -influenza sc neg Fever; Sp Leukocytosis, SP R hip fracture 2ry to mechanical fall -09/26 CT hip; Severe, comminuted fracture of the right iliac crest and superior ilium with intra-articular extension into the right sacroiliac joint which is diastatic. Acetabulum and hip appear intact. Leigh catheter. Acute hypoxic respiratory failure, sp Bipap, now on NC Afib with RVR CVA w/ residual R side weakness asthma Plan: -Continue to monitor off abx -10/05 SP Zosyn #8 -10/02 SP IV Vancomycin #5 -f/u cx -Monitor CBC/CMP, temperatures -Cards, pulm f/u -aspiration precautions Thank you for this consultation. Will continue to follow along with you. Subjective Allergies: Coded Allergies: No Known Allergies (Unverified , 09/25/19) Subjective afebrile mild leukocytosis at 4l NC Objective Vital Signs Last 24 Hour Vital Signs Date Time Temp Pulse Resp B/P (MAP) Pulse Ox O2 Delivery O2 Flow Rate FiO2 10/07/19 09:00 Nasal Cannula 4.0 Nasal Cannula 4.0 10/07/19 08:05 98.2 65 21 152/70 (97) 96 10/07/19 07:34 99 Nasal Cannula 3.0 32 10/07/19 04:00 98.2 60 18 133/63 (86) 99 10/07/19 04:00 Nasal Cannula 4.0 Nasal Cannula 4.0 10/07/19 00:00 Nasal Cannula 4.0 Nasal Cannula 4.0 10/06/19 20:48 98 Nasal Cannula 4.0 36 10/06/19 20:00 98.0 67 20 142/82 (102) 98 10/06/19 20:00 Nasal Cannula 4.0 Nasal Cannula 4.0 10/06/19 19:03 59 10/06/19 16:00 Nasal Cannula 4.0 Nasal Cannula 4.0 10/06/19 16:00 98.2 71 20 135/78 (97) 98 10/06/19 16:00 72 10/06/19 12:00 69 10/06/19 12:00 97.9 62 18 140/69 (92) 100 10/06/19 12:00 Nasal Cannula 4.0 Nasal Cannula 4.0 Height (Feet): 5 Height (Inches): 5.00 Weight (Pounds): 146 Objective GENERAL: no acute distress. HEAD AND NECK: Pupils are equal and reactive to light. Extraocular movements intact. Neck was supple. LUNGS: No rhonchi. Positive expiratory wheezes. HEART: S1 and S2. Regular rhythm. ABDOMEN: Soft, nondistended, nontender. Positive bowel sounds. EXTREMITIES: No cyanosis, clubbing, edema Laboratory Tests Test 10/07/19 04:35 White Blood Count 11.4 K/UL (4.8-10.8) H Red Blood Count 3.44 M/UL (4.20-5.40) L Hemoglobin 10.9 G/DL (12.0-16.0) L Hematocrit 31.6 % (37.0-47.0) L Mean Corpuscular Volume 92 FL (80-99) Mean Corpuscular Hemoglobin 31.6 PG (27.0-31.0) H Mean Corpuscular Hemoglobin Concent 34.4 G/DL (32.0-36.0) Red Cell Distribution Width 12.5 % (11.6-14.8) Platelet Count 625 K/UL (150-450) H Mean Platelet Volume 4.8 FL (6.5-10.1) L Neutrophils (%) (Auto) 74.1 % (45.0-75.0) Lymphocytes (%) (Auto) 13.4 % (20.0-45.0) L Monocytes (%) (Auto) 7.1 % (1.0-10.0) Eosinophils (%) (Auto) 4.2 % (0.0-3.0) H Basophils (%) (Auto) 1.2 % (0.0-2.0) Sodium Level 137 MMOL/L (136-145) Potassium Level 3.9 MMOL/L (3.5-5.1) Chloride Level 102 MMOL/L (98-107) Carbon Dioxide Level 29 MMOL/L (21-32) Anion Gap 6 mmol/L (5-15) Blood Urea Nitrogen 10 mg/dL (7-18) Creatinine 0.5 MG/DL (0.55-1.30) L Estimat Glomerular Filtration Rate > 60 mL/min (>60) Glucose Level 107 MG/DL (74-106) H Calcium Level 9.1 MG/DL (8.5-10.1) Current Medications Medications (Trade) Dose Ordered Sig/Yesenia Route PRN Reason Start Time Stop Time Status Last Admin Dose Admin Acetaminophen (Tylenol) 650 mg Q4H PRN ORAL Mild Pain/Temp > 100.5 10/06/19 23:15 10/28/19 15:14 Acetaminophen/ Hydrocodone Bitart ([place] 5/325) 1 tab Q6H PRN ORAL Moderate Pain (Pain Scale 4-6) 10/07/19 02:00 10/10/19 07:59 Albuterol/ Ipratropium (Albuterol/ Ipratropium) 3 ml Q4H PRN HHN Shortness of Breath 10/07/19 01:00 10/11/19 08:59 Amiodarone HCl (Cordarone) 200 mg DAILY ORAL 10/07/19 09:00 11/03/19 08:59 10/07/19 09:22 Apixaban (Eliquis) 5 mg BID ORAL 10/07/19 09:00 11/05/19 08:59 10/07/19 09:22 Clonidine HCl (Catapres Tab) 0.1 mg Q4H PRN ORAL SBP > 160 mmHg 10/07/19 00:00 10/26/19 07:59 Dextrose (Dextrose 50%) 25 ml Q30M PRN IV Hypoglycemia 10/06/19 22:30 10/25/19 22:29 Dextrose (Dextrose 50%) 50 ml Q30M PRN IV Hypoglycemia 10/06/19 22:30 10/25/19 22:29 Ondansetron HCl (Zofran) 4 mg Q4H PRN IVP Nausea & Vomiting 10/06/19 23:30 10/26/19 07:29 Polyethylene Glycol (Miralax) 17 gm HSPRN PRN ORAL Constipation 10/06/19 22:30 10/25/19 22:29 Juliet Cabezas M.D. Oct 07, 2019 11:03
[2019-10-07 11:54] VITALS: BP 141/65
--- NOTE | 2019-10-07 12:20 | Surgery Progress Note ---
Surgery Progress Note Subjective Additional Comments improved no n/v/f/c comfortable wants to go home Objective Last 24 Hour Vital Signs Date Time Temp Pulse Resp B/P (MAP) Pulse Ox O2 Delivery O2 Flow Rate FiO2 10/07/19 11:54 98.3 63 21 141/65 (90) 97 10/07/19 09:00 Nasal Cannula 4.0 Nasal Cannula 4.0 10/07/19 08:05 98.2 65 21 152/70 (97) 96 10/07/19 07:34 99 Nasal Cannula 3.0 32 10/07/19 04:00 98.2 60 18 133/63 (86) 99 10/07/19 04:00 Nasal Cannula 4.0 Nasal Cannula 4.0 10/07/19 00:00 Nasal Cannula 4.0 Nasal Cannula 4.0 10/06/19 20:48 98 Nasal Cannula 4.0 36 10/06/19 20:00 98.0 67 20 142/82 (102) 98 10/06/19 20:00 Nasal Cannula 4.0 Nasal Cannula 4.0 10/06/19 19:03 59 10/06/19 16:00 Nasal Cannula 4.0 Nasal Cannula 4.0 10/06/19 16:00 98.2 71 20 135/78 (97) 98 10/06/19 16:00 72 I&O Intake and Output 10/06/19 10/07/19 19:00 07:00 Intake Total 360 ml Output Total 300 ml 400 ml Balance 60 ml -400 ml Intake Oral 360 ml Output Urine Total 300 ml 400 ml # Voids 1 # Bowel Movements 3 Dressing: other Wound: other Drains: other Cardiovascular: RSR Respiratory: decreased breath sounds Abdomen: soft, present bowel sounds Extremities: no cyanosis Laboratory Tests Test 10/07/19 04:35 White Blood Count 11.4 K/UL (4.8-10.8) H Red Blood Count 3.44 M/UL (4.20-5.40) L Hemoglobin 10.9 G/DL (12.0-16.0) L Hematocrit 31.6 % (37.0-47.0) L Mean Corpuscular Volume 92 FL (80-99) Mean Corpuscular Hemoglobin 31.6 PG (27.0-31.0) H Mean Corpuscular Hemoglobin Concent 34.4 G/DL (32.0-36.0) Red Cell Distribution Width 12.5 % (11.6-14.8) Platelet Count 625 K/UL (150-450) H Mean Platelet Volume 4.8 FL (6.5-10.1) L Neutrophils (%) (Auto) 74.1 % (45.0-75.0) Lymphocytes (%) (Auto) 13.4 % (20.0-45.0) L Monocytes (%) (Auto) 7.1 % (1.0-10.0) Eosinophils (%) (Auto) 4.2 % (0.0-3.0) H Basophils (%) (Auto) 1.2 % (0.0-2.0) Sodium Level 137 MMOL/L (136-145) Potassium Level 3.9 MMOL/L (3.5-5.1) Chloride Level 102 MMOL/L (98-107) Carbon Dioxide Level 29 MMOL/L (21-32) Anion Gap 6 mmol/L (5-15) Blood Urea Nitrogen 10 mg/dL (7-18) Creatinine 0.5 MG/DL (0.55-1.30) L Estimat Glomerular Filtration Rate > 60 mL/min (>60) Glucose Level 107 MG/DL (74-106) H Calcium Level 9.1 MG/DL (8.5-10.1) Plan Problems: (1) Closed right hip fracture Assessment & Plan: There is a severely comminuted fracture of the superior portion of the ileum primarily involving the right iliac crest with multiple bone fragments. The fracture extends into the right sacroiliac joint which is diastatic. There is a 3 mm bone fragment at the lower margin of the sacroiliac joint probably intra-articular ( e.g. #39/2 or e.g. #37/8). There is no involvement of the acetabulum. There is a moderate degree of soft tissue swelling both lateral and medial to the iliac fracture with lateral gluteal ill-definition and edema as well as medial soft tissue attenuation of fat which (likely due to blood) with edema/blood of a portion of the right piriformis muscle noted. No other fractures are identified. The right femoral neck and head appear normal without fracture or malalignment. No fracture of the sacrum or pubis identified. The bones are osteopenic. The visualized part of the lower lumbar spine appears intact. There is some hypertrophy of the facets and narrowing of the intervertebral discs. There is a Leigh catheter within the urinary bladder which is mostly nondistended. IMPRESSION: Severe, comminuted fracture of the right iliac crest and superior ilium with intra-articular extension into the right sacroiliac joint which is diastatic. Acetabulum and hip appear intact. Ortho input appreciated: At this point, this is a nonoperative fracture, should heal. She can begin physical therapy. Weightbearing as tolerated with a walker. She will have a significant discomfort initially until the fracture consolidates given that the adductor muscles are attached at that area. Therefore, she may have to be transferred to a custodial until she is a little bit more safe to go home. She should get appropriate DVT prophylaxis (2) Collapse of left lung Assessment & Plan: Lungs: There is interval worsening with opacification of most of the left hemithorax and leftward mediastinal shift consistent with severe volume loss of the left lung. Pleural space: Unremarkable. No pneumothorax. Heart: Unremarkable. No cardiomegaly. Mediastinum: The trachea is deviated to the left. Bones/joints: Unremarkable. Vasculature: There is calcification of the aortic arch. IMPRESSION: Interval worsening with opacification of the left hemithorax and leftward mediastinal shift consistent with severe volume loss of the left lung. CT chest report pre arzola reviewed as well as images mass noted. shift noted no ptx. no large effusion do not recommend Chest tube placement at this time pulm input appreciated okay for anticoagulation from surgical standpoint thank you (3) Pelvic fracture Fan Owusu Oct 07, 2019 12:20
--- NOTE | 2019-10-07 13:49 | NUR ---
*-* DISCHARGE PLANNING *-* PATIENT HAS JACKIE REFERRED TO: [facility] P: [phone] F: [phone]
--- NOTE | 2019-10-07 13:51 | NUR ---
RD ASSESSMENT & RECOMMENDATIONS SEE CARE ACTIVITY FOR COMPLETE ASSESSMENT DAILY ESTIMATED NEEDS: Needs based on Cardiac, wound 57.7kg 25-35 kcals/kg 0168-1657 total kcals 1.25-1.5 g protein/kg 72-87 g total protein 25-30 mL/kg 3000-8399 total fluid mLs NUTRITION DIAGNOSIS: Increased pro needs r/t wound healing as evidenced by BL buttock blisters, L buttock partial thickness wound, CURRENT DIET:Regular, no coffee PO DIET RECOMMENDATIONS: LOW NA DIET / NO CAFFEINE ADDITIONAL RECOMMENDATIONS: 1) Add snacks in b/w meals 2) Calibrated bed scale wt w/ added P200 mattress 3) Add Ensure Enlive qdaily 4) Wound care: SHERI BID + Vit C 250mg daily
--- NOTE | 2019-10-07 14:13 | Pulmonology Progress Note ---
Assessment/Plan Problems: (1) Collapse of left lung (2) Status post stroke (3) Bronchospasm (4) History of asthma (5) CVA (cerebral vascular accident) (6) Closed right hip fracture Assessment/Plan cxr from 10/06 showed decrease in consolidation at the RLL continue chest pt CT of chest ordered incentive spirometry positional therapy, pt needs to lay down on her right side no sputum yet. afebrile now for 48 hours, on Zosyn dvt prophylaxis. Subjective ROS Limited/Unobtainable: No Constitutional: Reports: no symptoms HEENT: Repors: no symptoms Allergies: Coded Allergies: No Known Allergies (Unverified , 09/25/19) Objective Last 24 Hour Vital Signs Date Time Temp Pulse Resp B/P (MAP) Pulse Ox O2 Delivery O2 Flow Rate FiO2 10/07/19 11:54 98.3 63 21 141/65 (90) 97 10/07/19 09:00 Nasal Cannula 4.0 Nasal Cannula 4.0 10/07/19 08:05 98.2 65 21 152/70 (97) 96 10/07/19 07:34 99 Nasal Cannula 3.0 32 10/07/19 04:00 98.2 60 18 133/63 (86) 99 10/07/19 04:00 Nasal Cannula 4.0 Nasal Cannula 4.0 10/07/19 00:00 Nasal Cannula 4.0 Nasal Cannula 4.0 10/06/19 20:48 98 Nasal Cannula 4.0 36 10/06/19 20:00 98.0 67 20 142/82 (102) 98 10/06/19 20:00 Nasal Cannula 4.0 Nasal Cannula 4.0 10/06/19 19:03 59 10/06/19 16:00 Nasal Cannula 4.0 Nasal Cannula 4.0 10/06/19 16:00 98.2 71 20 135/78 (97) 98 10/06/19 16:00 72 Intake and Output 10/06/19 10/07/19 19:00 07:00 Intake Total 360 ml Output Total 300 ml 400 ml Balance 60 ml -400 ml Intake Oral 360 ml Output Urine Total 300 ml 400 ml # Voids 1 # Bowel Movements 3 General Appearance: WD/WN HEENT: normocephalic, atraumatic Respiratory/Chest: chest wall non-tender, lungs clear Breasts: no masses Cardiovascular: normal peripheral pulses, normal rate Abdomen: normal bowel sounds, soft, non tender Genitourinary: normal external genitalia Extremities: no clubbing Skin: no rash Neurologic/Psychiatric: furniture crater II-XII grossly normal Lymphatic: no neck adenopathy Laboratory Tests 10/07/19 04:35: White Blood Count 11.4H, Red Blood Count 3.44L, Hemoglobin 10.9L, Hematocrit 31.6L, Mean Corpuscular Volume 92, Mean Corpuscular Hemoglobin 31.6H, Mean Corpuscular Hemoglobin Concent 34.4, Red Cell Distribution Width 12.5, Platelet Count 625H, Mean Platelet Volume 4.8L, Neutrophils (%) (Auto) 74.1, Lymphocytes (%) (Auto) 13.4L, Monocytes (%) (Auto) 7.1, Eosinophils (%) (Auto) 4.2H, Basophils (%) (Auto) 1.2, Sodium Level 137, Potassium Level 3.9, Chloride Level 102, Carbon Dioxide Level 29, Anion Gap 6, Blood Urea Nitrogen 10, Creatinine 0.5L, Estimat Glomerular Filtration Rate > 60, Glucose Level 107H, Calcium Level 9.1 Current Medications Medications (Trade) Dose Ordered Sig/Yesenia Route PRN Reason Start Time Stop Time Status Last Admin Dose Admin Acetaminophen (Tylenol) 650 mg Q4H PRN ORAL Mild Pain/Temp > 100.5 10/06/19 23:15 10/28/19 15:14 Acetaminophen/ Hydrocodone Bitart ([place] 5/325) 1 tab Q6H PRN ORAL Moderate Pain (Pain Scale 4-6) 10/07/19 02:00 10/10/19 07:59 Albuterol/ Ipratropium (Albuterol/ Ipratropium) 3 ml Q4H PRN HHN Shortness of Breath 10/07/19 01:00 10/11/19 08:59 Amiodarone HCl (Cordarone) 200 mg DAILY ORAL 10/07/19 09:00 11/03/19 08:59 10/07/19 09:22 Apixaban (Eliquis) 5 mg BID ORAL 10/07/19 09:00 11/05/19 08:59 10/07/19 09:22 Clonidine HCl (Catapres Tab) 0.1 mg Q4H PRN ORAL SBP > 160 mmHg 10/07/19 00:00 10/26/19 07:59 Dextrose (Dextrose 50%) 25 ml Q30M PRN IV Hypoglycemia 10/06/19 22:30 10/25/19 22:29 Dextrose (Dextrose 50%) 50 ml Q30M PRN IV Hypoglycemia 10/06/19 22:30 10/25/19 22:29 Ondansetron HCl (Zofran) 4 mg Q4H PRN IVP Nausea & Vomiting 10/06/19 23:30 10/26/19 07:29 Polyethylene Glycol (Miralax) 17 gm HSPRN PRN ORAL Constipation 10/06/19 22:30 10/25/19 22:29 Rox Limon MD Oct 07, 2019 14:13
--- NOTE | 2019-10-07 14:38 | Cardiology Progress Note ---
Assessment/Plan Assessment/Plan recurrent afib rvr psot iv dilt conversion to sinus no recurrence on amiod CVA with residual right hemiparesis s/p mechanical fall right pelvic fracture. pulm htn duplex neg cxr left francine in sinus on amiod po trop and ekg noted echo noted normal ef will need anticoagulation was felt to be acceptable risk by dr wilson of ortho lung collapse improve nwo off tele amio 200 mg qd eliquis 5 mg bid Subjective Cardiovascular: Denies: chest pain, lightheadedness, palpitations Respiratory: Denies: shortness of breath Gastrointestinal/Abdominal: Denies: black stools Genitourinary: Denies: burning Objective Last 24 Hour Vital Signs Date Time Temp Pulse Resp B/P (MAP) Pulse Ox O2 Delivery O2 Flow Rate FiO2 10/07/19 11:54 98.3 63 21 141/65 (90) 97 10/07/19 09:00 Nasal Cannula 4.0 Nasal Cannula 4.0 10/07/19 08:05 98.2 65 21 152/70 (97) 96 10/07/19 07:34 99 Nasal Cannula 3.0 32 10/07/19 04:00 98.2 60 18 133/63 (86) 99 10/07/19 04:00 Nasal Cannula 4.0 Nasal Cannula 4.0 10/07/19 00:00 Nasal Cannula 4.0 Nasal Cannula 4.0 10/06/19 20:48 98 Nasal Cannula 4.0 36 10/06/19 20:00 98.0 67 20 142/82 (102) 98 10/06/19 20:00 Nasal Cannula 4.0 Nasal Cannula 4.0 10/06/19 19:03 59 10/06/19 16:00 Nasal Cannula 4.0 Nasal Cannula 4.0 10/06/19 16:00 98.2 71 20 135/78 (97) 98 10/06/19 16:00 72 General Appearance: no apparent distress, alert Neck: supple Cardiovascular: regular rhythm Respiratory/Chest: lungs clear Abdomen: normal bowel sounds, non tender, soft Extremities: no swelling Intake and Output 10/06/19 10/07/19 19:00 07:00 Intake Total 360 ml Output Total 300 ml 400 ml Balance 60 ml -400 ml Intake Oral 360 ml Output Urine Total 300 ml 400 ml # Voids 1 # Bowel Movements 3 Laboratory Tests Test 10/07/19 04:35 White Blood Count 11.4 K/UL (4.8-10.8) H Red Blood Count 3.44 M/UL (4.20-5.40) L Hemoglobin 10.9 G/DL (12.0-16.0) L Hematocrit 31.6 % (37.0-47.0) L Mean Corpuscular Volume 92 FL (80-99) Mean Corpuscular Hemoglobin 31.6 PG (27.0-31.0) H Mean Corpuscular Hemoglobin Concent 34.4 G/DL (32.0-36.0) Red Cell Distribution Width 12.5 % (11.6-14.8) Platelet Count 625 K/UL (150-450) H Mean Platelet Volume 4.8 FL (6.5-10.1) L Neutrophils (%) (Auto) 74.1 % (45.0-75.0) Lymphocytes (%) (Auto) 13.4 % (20.0-45.0) L Monocytes (%) (Auto) 7.1 % (1.0-10.0) Eosinophils (%) (Auto) 4.2 % (0.0-3.0) H Basophils (%) (Auto) 1.2 % (0.0-2.0) Sodium Level 137 MMOL/L (136-145) Potassium Level 3.9 MMOL/L (3.5-5.1) Chloride Level 102 MMOL/L (98-107) Carbon Dioxide Level 29 MMOL/L (21-32) Anion Gap 6 mmol/L (5-15) Blood Urea Nitrogen 10 mg/dL (7-18) Creatinine 0.5 MG/DL (0.55-1.30) L Estimat Glomerular Filtration Rate > 60 mL/min (>60) Glucose Level 107 MG/DL (74-106) H Calcium Level 9.1 MG/DL (8.5-10.1) Rhett Rabago MD Oct 07, 2019 14:38
[2019-10-07 16:19] VITALS: BP 103/67
--- NOTE | 2019-10-07 16:36 | NUR ---
*-*DISCHARGE PLANNING*-* PATIENT HAS BEEN REFERRED TO: [facility] P: [phone] F: [phone] [facility] P: [phone] F: [phone] *-* CLINICALS FAXED*-*
--- NOTE | 2019-10-07 19:36 | Internal Med Progress Note ---
Subjective Date of Service: Oct 07, 2019 Physician Name AmirahCarlos Attending Physician Yonis Granados MD Current Medications Medications (Trade) Dose Ordered Sig/Yesenia Route PRN Reason Start Time Stop Time Status Last Admin Dose Admin Acetaminophen (Tylenol) 650 mg Q4H PRN ORAL Mild Pain/Temp > 100.5 10/06/19 23:15 10/28/19 15:14 Acetaminophen/ Hydrocodone Bitart ([place] 5/325) 1 tab Q6H PRN ORAL Moderate Pain (Pain Scale 4-6) 10/07/19 02:00 10/10/19 07:59 Albuterol/ Ipratropium (Albuterol/ Ipratropium) 3 ml Q4H PRN HHN Shortness of Breath 10/07/19 01:00 10/11/19 08:59 Amiodarone HCl (Cordarone) 200 mg DAILY ORAL 10/07/19 09:00 11/03/19 08:59 10/07/19 09:22 Apixaban (Eliquis) 5 mg BID ORAL 10/07/19 09:00 11/05/19 08:59 10/07/19 17:41 Clonidine HCl (Catapres Tab) 0.1 mg Q4H PRN ORAL SBP > 160 mmHg 10/07/19 00:00 10/26/19 07:59 Dextrose (Dextrose 50%) 25 ml Q30M PRN IV Hypoglycemia 10/06/19 22:30 10/25/19 22:29 Dextrose (Dextrose 50%) 50 ml Q30M PRN IV Hypoglycemia 10/06/19 22:30 10/25/19 22:29 Ondansetron HCl (Zofran) 4 mg Q4H PRN IVP Nausea & Vomiting 10/06/19 23:30 10/26/19 07:29 Polyethylene Glycol (Miralax) 17 gm HSPRN PRN ORAL Constipation 10/06/19 22:30 10/25/19 22:29 Allergies: Coded Allergies: No Known Allergies (Unverified , 09/25/19) ROS Limited/Unobtainable: No Constitutional: Reports: no symptoms HEENT: Reports: no symptoms Cardiovascular: Reports: no symptoms Respiratory: Reports: no symptoms Gastrointestinal/Abdominal: Reports: no symptoms Genitourinary: Reports: no symptoms Neurologic/Psychiatric: Reports: no symptoms Subjective 69 YO F admitted with right acute fracture right superior ilium and iliac crest. Now pneumonia. Cover for Int Med-Dr Granados. Objective Last Vital Signs Date Time Temp Pulse Resp B/P (MAP) Pulse Ox O2 Delivery O2 Flow Rate FiO2 10/07/19 18:48 99 Nasal Cannula 3.0 32 10/07/19 16:19 97.7 84 19 103/67 (79) Laboratory Tests Test 10/07/19 04:35 White Blood Count 11.4 K/UL (4.8-10.8) H Red Blood Count 3.44 M/UL (4.20-5.40) L Hemoglobin 10.9 G/DL (12.0-16.0) L Hematocrit 31.6 % (37.0-47.0) L Mean Corpuscular Volume 92 FL (80-99) Mean Corpuscular Hemoglobin 31.6 PG (27.0-31.0) H Mean Corpuscular Hemoglobin Concent 34.4 G/DL (32.0-36.0) Red Cell Distribution Width 12.5 % (11.6-14.8) Platelet Count 625 K/UL (150-450) H Mean Platelet Volume 4.8 FL (6.5-10.1) L Neutrophils (%) (Auto) 74.1 % (45.0-75.0) Lymphocytes (%) (Auto) 13.4 % (20.0-45.0) L Monocytes (%) (Auto) 7.1 % (1.0-10.0) Eosinophils (%) (Auto) 4.2 % (0.0-3.0) H Basophils (%) (Auto) 1.2 % (0.0-2.0) Sodium Level 137 MMOL/L (136-145) Potassium Level 3.9 MMOL/L (3.5-5.1) Chloride Level 102 MMOL/L (98-107) Carbon Dioxide Level 29 MMOL/L (21-32) Anion Gap 6 mmol/L (5-15) Blood Urea Nitrogen 10 mg/dL (7-18) Creatinine 0.5 MG/DL (0.55-1.30) L Estimat Glomerular Filtration Rate > 60 mL/min (>60) Glucose Level 107 MG/DL (74-106) H Calcium Level 9.1 MG/DL (8.5-10.1) Intake and Output 10/06/19 10/07/19 19:00 07:00 Intake Total 360 ml Output Total 300 ml 400 ml Balance 60 ml -400 ml Intake Oral 360 ml Output Urine Total 300 ml 400 ml # Voids 1 # Bowel Movements 3 Objective PHYSICAL EXAMINATION: GENERAL: The patient is awake, responsive, no acute distress. HEAD AND NECK: Pupils are equal and reactive to light. Extraocular movements intact. Neck was supple. No JVD. LUNGS: Nasal canula; BS decreased on left; Positive expiratory wheezes. HEART: S1 and S2. Regular rhythm. No murmurs or gallops. ABDOMEN: Soft, nondistended, nontender. Positive bowel sounds. EXTREMITIES: No cyanosis, clubbing, edema NEUROLOGIC: Cranial nerves II through XII grossly normal. The patient moving all the extremities. Assessment/Plan Assessment/Plan ASSESSMENT: 1. Status post fall. 2. Asthma. 3. History of CVA with right-sided weakness. 4. Elevated blood pressure. 5. right hip pain\ 6. Right superior Ilium fracture 7. Right iliac crest fracture 8. left pneumonia PLAN: 1. Admit the patient to medical floor. 2. Ortho= Dr. Zane Galo 3. Dr. Limon Pulmonary Critical Care. 4. Code status is Full Code. DVT prophylaxis, heparin subcutaneous. 5. Pulmonary=Dr Limon 6. ABX= Zosyn 7. Discharge planning: [facility] Carlos Macario MD Oct 07, 2019 19:36
--- NOTE | 2019-10-07 19:38 | NUR ---
HAND-OFF: Report given to DOMINGA Obregon patient awake with out no distress.
[2019-10-07 20:00] VITALS: BP 127/66
--- NOTE | 2019-10-07 20:21 | NUR ---
NURSES NOTE: Met pt in bed, A/OX4, denies pain at this moment. No outward s/s of distress noted. Breathing is even and unlabored on 4L nasal canula. R Forearm iv, intact, patent, hep locked. Pt has right sided weakness. All due meds will be given. Bed at lowest level, call light within reach. Pt will continue to be monitored.
[2019-10-08 04:00] VITALS: BP 123/66
[2019-10-08 07:00] LABS: ANION GAP 7 mmol/L (5-15); BLOOD UREA NITROGEN 10 mg/dL (7-18); CALCIUM 9.1 MG/DL (8.5-10.1); CARBON DIOXIDE 29 MMOL/L (21-32); CHLORIDE 101 MMOL/L (98-107); CREATININE 0.4 MG/DL (0.55-1.30); SODIUM 137 MMOL/L (136-145)
[2019-10-08 07:09] LABS: BASOPHILS % (AUTO) 0.8 % (0.0-2.0); EOSINOPHILS % (AUTO) 5.4 % (0.0-3.0); HEMATOCRIT 33.4 % (37.0-47.0); HEMOGLOBIN 11.1 G/DL (12.0-16.0); LYMPHOCYTES % (AUTO) 13.7 % (20.0-45.0); MEAN CORPUSCULAR VOLUME 93 FL (80-99); MONOCYTES % (AUTO) 7.7 % (1.0-10.0); NEUTROPHILS % (AUTO) 72.4 % (45.0-75.0); PLATELET COUNT 634 K/UL (150-450); RED CELL DISTRIBUTION WIDTH 12.8 % (11.6-14.8)
--- NOTE | 2019-10-08 07:56 | NUR ---
HAND OFF: Report given to krisys León. Pt in stable condition.
--- NOTE | 2019-10-08 07:57 | NUR ---
NURSE NOTES: Received patient in bed awake. No SOB or acute distress. O2 vi NC in place. IV line intact and patent. HOB elevated. Bed locked in lowest position. Call light within reach. Will continue plan of care.
[2019-10-08 08:00] VITALS: BP 124/58
--- NOTE | 2019-10-08 09:30 | NUR ---
NURSE NOTES: Patient transported for CT chest with contrast, consent signed by patient.
--- NOTE | 2019-10-08 10:00 | NUR ---
NURSE NOTES: Patient back on unit.
[2019-10-08] MEDS: Eliquis 5mg tablet ORAL SCH ×2 (10:16→18:42)
[2019-10-08] MEDS: Amiodarone 200mg tab ORAL SCH (10:16)
--- NOTE | 2019-10-08 11:37 | Diagnostic Imaging Report ---
Clinical Indication: Shortness of breath and chest pain Technique: IV administration nonionic contrast. Spiral acquisition obtained through the chest. Multiplanar reconstructions generated. Total dose length product 164 mGycm. CTDIvol(s) 2, 64, 3 mGy. Dose reduction achieved using automated exposure control Comparison: 09/28/2019 noncontrast study Findings: There is been interim marked improvement in the aeration of the left lung. The previously demonstrated consolidative opacities have markedly decreased and there is decreased atelectasis as well. There is some residual atelectasis or scarring at the left lung base. There are residual mostly groundglass parenchymal opacities within the upper and lower lobes. Hyperinflation of the right lung persists. There is some atelectasis at the right lung base. This is a new finding since the prior exam. However, the previously nodular and focal groundglass parenchymal opacities in the right lower lobe have decreased considerably. Again demonstrated is a 5 mm nodule in the superior segment of the right lower lobe. There is a focal parenchymal opacity in the posterior right upper lobe which is a new finding. There is very faint subtle groundglass opacity throughout much of the superior right upper lobe. No effusions are evident. There is a persistent soft tissue opacity in the left infrahilar region coursing along the posterior basal segmental bronchi and vessels which measures 2.7 cm transverse by 2.4 cm AP by 7.3 cm craniocaudad, corresponding to findings reported previously. This appears to occlude one or more lower lobe segmental bronchi. The heart size is normal. No pericardial effusion. There are prominent but not frankly enlarged bilateral hilar and mediastinal lymph nodes. The included thyroid is unremarkable. No axillary or chest wall mass or adenopathy. Again demonstrated are bilateral breast implants. The bones are unremarkable. The included upper abdominal anatomy is unremarkable. Impression: Markedly improved left lung aeration, with decreased atelectasis and consolidation. Residual areas of atelectasis are present, and residual areas of groundglass opacity may reflect ongoing inflammation or edema. Persistent left infrahilar soft tissue opacity corresponding to findings reported previously this may reflect residual atelectasis, pneumonia, but could also represent a mass lesion. As there are bronchial occlusions, this may be amenable to bronchoscopy, otherwise continued CT follow-up may be useful Improved right lung opacities, likely reflecting improving inflammation or infection Stable superior segment left lower lobe nodule. No further follow-up necessary if there is no significant smoking history or other risk factors for lung carcinoma. Recommend short interval follow-up surveillance if there are risk factors and depending on the workup of the left lower lobe lesion. New finding of subtle right upper lobe groundglass opacity. This may reflect inflammation or edema. Bilateral breast implants again demonstrated The CT scanner at [facility] is accredited by the [employer] and the scans are performed using protocols designed to limit radiation exposure to as low as reasonably achievable to attain images of sufficient resolution adequate for diagnostic evaluation.
--- NOTE | 2019-10-08 11:47 | Infectious Diseases Prog Note ---
Assessment/Plan Assessment/Plan Assessment: Sepsis Probable PNA, sp rx Severe L lung volume loss -10/07 CT chest: Markedly improved left lung aeration, with decreased atelectasis and consolidation. Residual areas of atelectasis are present, and residual areas of groundglass opacity may reflect ongoing inflammation or edema. Persistent left infrahilar soft tissue opacity corresponding to findings reported previously this may reflect residual atelectasis, pneumonia, but could also represent a mass lesion. As there are bronchial occlusions, this may be amenable to bronchoscopy, otherwise continued CT follow-up may be useful. Improved right lung opacities, likely reflecting improving inflammation or infection. Stable superior segment left lower lobe nodule. No further follow-up necessary if there is no significant smoking history or other risk factors for lung carcinoma. New finding of subtle right upper lobe groundglass opacity. This may reflect inflammation or edema. -10/06 CXR: Decreased hazy left mid and lower lung infiltrate, over 2 days. Increasing right infrahilar atelectasis -10/01 CXR: Complete opacification of left hemithorax. Presumably on the basis of complete left lung atelectasis. Suspect new/increasing pleural fluid and pulmonary venous congestion on the right -09/28 Bcx Neg sp cx normal resp willa -09/27 CXR: Interval worsening with opacification of the left hemithorax and leftward mediastinal shift consistent with severe volume loss of the left lung. -09/25 CXR; Possible mild pulmonary vascular congestion. Correlate clinically u/a neg -influenza sc neg Fever; Sp Leukocytosis, SP R hip fracture 2ry to mechanical fall -09/26 CT hip; Severe, comminuted fracture of the right iliac crest and superior ilium with intra-articular extension into the right sacroiliac joint which is diastatic. Acetabulum and hip appear intact. Leigh catheter. Acute hypoxic respiratory failure, sp Bipap, now on NC Afib with RVR CVA w/ residual R side weakness asthma Plan: -Continue to monitor off abx -10/05 SP Zosyn #8 -10/02 SP IV Vancomycin #5 -f/u cx -Monitor CBC/CMP, temperatures -Cards, pulm f/u -aspiration precautions Thank you for this consultation. Will continue to follow along with you. Subjective Allergies: Coded Allergies: No Known Allergies (Unverified , 09/25/19) Subjective afebrile mild leukocytosis resolved at 3l NC Objective Vital Signs Last 24 Hour Vital Signs Date Time Temp Pulse Resp B/P (MAP) Pulse Ox O2 Delivery O2 Flow Rate FiO2 10/08/19 08:00 98.4 68 18 124/58 (80) 98 10/08/19 07:58 98 Nasal Cannula 3.0 32 10/08/19 04:00 98.5 65 18 123/66 (85) 99 10/07/19 21:00 Nasal Cannula 4.0 Nasal Cannula 4.0 10/07/19 20:00 98.0 61 18 127/66 (86) 99 10/07/19 18:48 99 Nasal Cannula 3.0 32 10/07/19 16:19 97.7 84 19 103/67 (79) 98 10/07/19 11:54 98.3 63 21 141/65 (90) 97 Height (Feet): 5 Height (Inches): 5.00 Weight (Pounds): 149 Objective GENERAL: no acute distress. HEAD AND NECK: Pupils are equal and reactive to light. Extraocular movements intact. Neck was supple. LUNGS: No rhonchi. Positive expiratory wheezes. HEART: S1 and S2. Regular rhythm. no murmurs ABDOMEN: Soft, nondistended, nontender. Positive bowel sounds. EXTREMITIES: No cyanosis, clubbing, edema Laboratory Tests Test 10/08/19 05:25 White Blood Count 10.0 K/UL (4.8-10.8) Red Blood Count 3.60 M/UL (4.20-5.40) L Hemoglobin 11.1 G/DL (12.0-16.0) L Hematocrit 33.4 % (37.0-47.0) L Mean Corpuscular Volume 93 FL (80-99) Mean Corpuscular Hemoglobin 30.9 PG (27.0-31.0) Mean Corpuscular Hemoglobin Concent 33.4 G/DL (32.0-36.0) Red Cell Distribution Width 12.8 % (11.6-14.8) Platelet Count 634 K/UL (150-450) H Mean Platelet Volume 4.7 FL (6.5-10.1) L Neutrophils (%) (Auto) 72.4 % (45.0-75.0) Lymphocytes (%) (Auto) 13.7 % (20.0-45.0) L Monocytes (%) (Auto) 7.7 % (1.0-10.0) Eosinophils (%) (Auto) 5.4 % (0.0-3.0) H Basophils (%) (Auto) 0.8 % (0.0-2.0) Sodium Level 137 MMOL/L (136-145) Potassium Level 4.0 MMOL/L (3.5-5.1) Chloride Level 101 MMOL/L (98-107) Carbon Dioxide Level 29 MMOL/L (21-32) Anion Gap 7 mmol/L (5-15) Blood Urea Nitrogen 10 mg/dL (7-18) Creatinine 0.4 MG/DL (0.55-1.30) L Estimat Glomerular Filtration Rate > 60 mL/min (>60) Glucose Level 100 MG/DL (74-106) Calcium Level 9.1 MG/DL (8.5-10.1) Current Medications Medications (Trade) Dose Ordered Sig/Yesenia Route PRN Reason Start Time Stop Time Status Last Admin Dose Admin Acetaminophen (Tylenol) 650 mg Q4H PRN ORAL Mild Pain/Temp > 100.5 10/06/19 23:15 10/28/19 15:14 Acetaminophen/ Hydrocodone Bitart ([place] 5/325) 1 tab Q6H PRN ORAL Moderate Pain (Pain Scale 4-6) 10/07/19 02:00 10/10/19 07:59 Albuterol/ Ipratropium (Albuterol/ Ipratropium) 3 ml Q4H PRN HHN Shortness of Breath 10/07/19 01:00 10/11/19 08:59 Amiodarone HCl (Cordarone) 200 mg DAILY ORAL 10/07/19 09:00 11/03/19 08:59 10/08/19 10:16 Apixaban (Eliquis) 5 mg BID ORAL 10/07/19 09:00 11/05/19 08:59 10/08/19 10:16 Clonidine HCl (Catapres Tab) 0.1 mg Q4H PRN ORAL SBP > 160 mmHg 10/07/19 00:00 10/26/19 07:59 Dextrose (Dextrose 50%) 25 ml Q30M PRN IV Hypoglycemia 10/06/19 22:30 10/25/19 22:29 Dextrose (Dextrose 50%) 50 ml Q30M PRN IV Hypoglycemia 10/06/19 22:30 10/25/19 22:29 Ondansetron HCl (Zofran) 4 mg Q4H PRN IVP Nausea & Vomiting 10/06/19 23:30 10/26/19 07:29 Polyethylene Glycol (Miralax) 17 gm HSPRN PRN ORAL Constipation 10/06/19 22:30 10/25/19 22:29 Juliet Cabezas M.D. Oct 08, 2019 11:47
[2019-10-08 12:00] VITALS: BP 107/66
--- NOTE | 2019-10-08 12:35 | Pulmonology Progress Note ---
Assessment/Plan Problems: (1) Lung mass (2) Collapse of left lung (3) Status post stroke (4) Bronchospasm (5) History of asthma (6) CVA (cerebral vascular accident) (7) Closed right hip fracture Assessment/Plan continue chest pt repeat CT of chest reviewed, the LLL mass is persistent. d/w pt, she wants to follow up with her dialysis rn, Dr. Kuo. She understood that it could be cancer incentive spirometry no sputum yet. afebrile now for 48 hours, on Zosyn dvt prophylaxis. Subjective ROS Limited/Unobtainable: No Constitutional: Reports: no symptoms HEENT: Repors: no symptoms Allergies: Coded Allergies: No Known Allergies (Unverified , 09/25/19) Objective Last 24 Hour Vital Signs Date Time Temp Pulse Resp B/P (MAP) Pulse Ox O2 Delivery O2 Flow Rate FiO2 10/08/19 08:00 98.4 68 18 124/58 (80) 98 10/08/19 07:58 98 Nasal Cannula 3.0 32 10/08/19 04:00 98.5 65 18 123/66 (85) 99 10/07/19 21:00 Nasal Cannula 4.0 Nasal Cannula 4.0 10/07/19 20:00 98.0 61 18 127/66 (86) 99 10/07/19 18:48 99 Nasal Cannula 3.0 32 10/07/19 16:19 97.7 84 19 103/67 (79) 98 Intake and Output 10/07/19 10/08/19 19:00 07:00 Intake Total 720 ml 240 ml Output Total 600 ml 500 ml Balance 120 ml -260 ml Intake Oral 720 ml 240 ml Output Urine Total 600 ml 500 ml # Voids 1 # Bowel Movements 1 2 General Appearance: WD/WN HEENT: normocephalic, atraumatic Respiratory/Chest: chest wall non-tender, lungs clear Cardiovascular: normal peripheral pulses, normal rate Abdomen: soft, non tender, no organomegaly, no scars Extremities: no cyanosis Skin: no rash Neurologic/Psychiatric: side hemmer II-XII grossly normal Laboratory Tests 10/08/19 05:25: White Blood Count 10.0, Red Blood Count 3.60L, Hemoglobin 11.1L, Hematocrit 33.4L, Mean Corpuscular Volume 93, Mean Corpuscular Hemoglobin 30.9, Mean Corpuscular Hemoglobin Concent 33.4, Red Cell Distribution Width 12.8, Platelet Count 634H, Mean Platelet Volume 4.7L, Neutrophils (%) (Auto) 72.4, Lymphocytes (%) (Auto) 13.7L, Monocytes (%) (Auto) 7.7, Eosinophils (%) (Auto) 5.4H, Basophils (%) (Auto) 0.8, Sodium Level 137, Potassium Level 4.0, Chloride Level 101, Carbon Dioxide Level 29, Anion Gap 7, Blood Urea Nitrogen 10, Creatinine 0.4L, Estimat Glomerular Filtration Rate > 60, Glucose Level 100, Calcium Level 9.1 Current Medications Medications (Trade) Dose Ordered Sig/Yesenia Route PRN Reason Start Time Stop Time Status Last Admin Dose Admin Acetaminophen (Tylenol) 650 mg Q4H PRN ORAL Mild Pain/Temp > 100.5 10/06/19 23:15 10/28/19 15:14 Acetaminophen/ Hydrocodone Bitart ([place] 5/325) 1 tab Q6H PRN ORAL Moderate Pain (Pain Scale 4-6) 10/07/19 02:00 10/10/19 07:59 Albuterol/ Ipratropium (Albuterol/ Ipratropium) 3 ml Q4H PRN HHN Shortness of Breath 10/07/19 01:00 10/11/19 08:59 Amiodarone HCl (Cordarone) 200 mg DAILY ORAL 10/07/19 09:00 11/03/19 08:59 10/08/19 10:16 Apixaban (Eliquis) 5 mg BID ORAL 10/07/19 09:00 11/05/19 08:59 10/08/19 10:16 Clonidine HCl (Catapres Tab) 0.1 mg Q4H PRN ORAL SBP > 160 mmHg 10/07/19 00:00 10/26/19 07:59 Dextrose (Dextrose 50%) 25 ml Q30M PRN IV Hypoglycemia 10/06/19 22:30 10/25/19 22:29 Dextrose (Dextrose 50%) 50 ml Q30M PRN IV Hypoglycemia 10/06/19 22:30 10/25/19 22:29 Ondansetron HCl (Zofran) 4 mg Q4H PRN IVP Nausea & Vomiting 10/06/19 23:30 10/26/19 07:29 Polyethylene Glycol (Miralax) 17 gm HSPRN PRN ORAL Constipation 10/06/19 22:30 10/25/19 22:29 Rox Limon MD Oct 08, 2019 12:35
[2019-10-08 16:00] VITALS: BP 123/72
--- NOTE | 2019-10-08 16:36 | NUR ---
*-*DISCHARGE PLANNING*-* PATIENT HAS BEEN ACCEPTED TO: [facility] P: F: RM#[id number] [facility] S/W ALEX [id number] ETA 5:45PM/1745PM Addendum: 10/08/19 at 1643 by PASTORA KIRBY CM *-*DISCHARGE PLANNED*-* PATIENT IS BEING DISCHARGED TO: [facility] P: F: RM#[id number] S/W ALEX [id number] ETA 5:45PM/1745PM
[2019-10-08] MEDS ORDERED: ACETAMINOPHEN325 M1 ORAL (16:44)
[2019-10-08] MEDS ORDERED: AMIODARONE HCL400 M1 ORAL (16:46)
[2019-10-08] MEDS ORDERED: ELIQUIS5 MG PO (16:47)
[2019-10-08] MEDS ORDERED: CATAPRES0.1 MG ORAL (16:51)
[2019-10-08] MEDS ORDERED: NORCO 5-325 TA1 EACH ORAL (16:53)
[2019-10-08] MEDS ORDERED: DUONEB 0.5-3(2.53 ML HHN (16:54)
[2019-10-08] MEDS ORDERED: POLYETHYLENE GL17 GM ORAL (16:57)
--- NOTE | 2019-10-08 19:04 | NUR ---
NURSE NOTES: Patient for discharge today to [facility], report given to Asa. FC discontinued as ordered. IV line removed. ID band removed. Wound pictures taken. Belongings accounted for. Awaiting ambulance arrival.
--- NOTE | 2019-10-08 19:26 | NUR ---
HAND-OFF: Report given to bren. Addendum: 10/08/19 at 2014 by Faina Daniels RN Hand off to oncoming shift not done. Ambulance came and picked up patient. Report given to ambulance personnel.
--- NOTE | 2019-10-08 19:27 | Internal Med Progress Note ---
Subjective Date of Service: Oct 08, 2019 Physician Name AmirahCarlos Attending Physician Yonis Granados MD Current Medications Medications (Trade) Dose Ordered Sig/Yseenia Route PRN Reason Start Time Stop Time Status Last Admin Dose Admin Acetaminophen (Tylenol) 650 mg Q4H PRN ORAL Mild Pain/Temp > 100.5 10/06/19 23:15 10/28/19 15:14 Acetaminophen/ Hydrocodone Bitart ([place] 5/325) 1 tab Q6H PRN ORAL Moderate Pain (Pain Scale 4-6) 10/07/19 02:00 10/10/19 07:59 Albuterol/ Ipratropium (Albuterol/ Ipratropium) 3 ml Q4H PRN HHN Shortness of Breath 10/07/19 01:00 10/11/19 08:59 Amiodarone HCl (Cordarone) 200 mg DAILY ORAL 10/07/19 09:00 11/03/19 08:59 10/08/19 10:16 Apixaban (Eliquis) 5 mg BID ORAL 10/07/19 09:00 11/05/19 08:59 10/08/19 18:42 Clonidine HCl (Catapres Tab) 0.1 mg Q4H PRN ORAL SBP > 160 mmHg 10/07/19 00:00 10/26/19 07:59 Dextrose (Dextrose 50%) 25 ml Q30M PRN IV Hypoglycemia 10/06/19 22:30 10/25/19 22:29 Dextrose (Dextrose 50%) 50 ml Q30M PRN IV Hypoglycemia 10/06/19 22:30 10/25/19 22:29 Ondansetron HCl (Zofran) 4 mg Q4H PRN IVP Nausea & Vomiting 10/06/19 23:30 10/26/19 07:29 Polyethylene Glycol (Miralax) 17 gm HSPRN PRN ORAL Constipation 10/06/19 22:30 10/25/19 22:29 Allergies: Coded Allergies: No Known Allergies (Unverified , 09/25/19) ROS Limited/Unobtainable: No Constitutional: Reports: no symptoms HEENT: Reports: no symptoms Cardiovascular: Reports: no symptoms Respiratory: Reports: no symptoms Gastrointestinal/Abdominal: Reports: no symptoms Genitourinary: Reports: no symptoms Neurologic/Psychiatric: Reports: no symptoms Subjective 69 YO F admitted with right acute fracture right superior ilium and iliac crest. Now pneumonia. Cover for Int Med-Dr Granados. Objective Last Vital Signs Date Time Temp Pulse Resp B/P (MAP) Pulse Ox O2 Delivery O2 Flow Rate FiO2 10/08/19 12:00 97.1 73 21 107/66 (80) 97 10/08/19 09:00 Nasal Cannula 4.0 Nasal Cannula 4.0 10/08/19 07:58 32 Laboratory Tests Test 10/08/19 05:25 White Blood Count 10.0 K/UL (4.8-10.8) Red Blood Count 3.60 M/UL (4.20-5.40) L Hemoglobin 11.1 G/DL (12.0-16.0) L Hematocrit 33.4 % (37.0-47.0) L Mean Corpuscular Volume 93 FL (80-99) Mean Corpuscular Hemoglobin 30.9 PG (27.0-31.0) Mean Corpuscular Hemoglobin Concent 33.4 G/DL (32.0-36.0) Red Cell Distribution Width 12.8 % (11.6-14.8) Platelet Count 634 K/UL (150-450) H Mean Platelet Volume 4.7 FL (6.5-10.1) L Neutrophils (%) (Auto) 72.4 % (45.0-75.0) Lymphocytes (%) (Auto) 13.7 % (20.0-45.0) L Monocytes (%) (Auto) 7.7 % (1.0-10.0) Eosinophils (%) (Auto) 5.4 % (0.0-3.0) H Basophils (%) (Auto) 0.8 % (0.0-2.0) Sodium Level 137 MMOL/L (136-145) Potassium Level 4.0 MMOL/L (3.5-5.1) Chloride Level 101 MMOL/L (98-107) Carbon Dioxide Level 29 MMOL/L (21-32) Anion Gap 7 mmol/L (5-15) Blood Urea Nitrogen 10 mg/dL (7-18) Creatinine 0.4 MG/DL (0.55-1.30) L Estimat Glomerular Filtration Rate > 60 mL/min (>60) Glucose Level 100 MG/DL (74-106) Calcium Level 9.1 MG/DL (8.5-10.1) Intake and Output 10/07/19 10/08/19 19:00 07:00 Intake Total 720 ml 240 ml Output Total 600 ml 500 ml Balance 120 ml -260 ml Intake Oral 720 ml 240 ml Output Urine Total 600 ml 500 ml # Voids 1 # Bowel Movements 1 2 Objective PHYSICAL EXAMINATION: GENERAL: The patient is awake, responsive, no acute distress. HEAD AND NECK: Pupils are equal and reactive to light. Extraocular movements intact. Neck was supple. No JVD. LUNGS: Nasal canula; BS decreased on left; Positive expiratory wheezes. HEART: S1 and S2. Regular rhythm. No murmurs or gallops. ABDOMEN: Soft, nondistended, nontender. Positive bowel sounds. EXTREMITIES: No cyanosis, clubbing, edema NEUROLOGIC: Cranial nerves II through XII grossly normal. The patient moving all the extremities. Assessment/Plan Assessment/Plan ASSESSMENT: 1. Status post fall. 2. Asthma. 3. History of CVA with right-sided weakness. 4. Elevated blood pressure. 5. right hip pain\ 6. Right superior Ilium fracture 7. Right iliac crest fracture 8. left pneumonia PLAN: 1. Admit the patient to medical floor. 2. Ortho= Dr. Zane Galo 3. Dr. Limon Pulmonary Critical Care. 4. Code status is Full Code. DVT prophylaxis, heparin subcutaneous. 5. Pulmonary=Dr Limon 6. ABX= Zosyn 7. Discharge planning: [facility] today Carlos Macario MD Oct 08, 2019 19:27
--- NOTE | 2019-10-09 11:51 | Surgery Progress Note ---
Surgery Progress Note Subjective Additional Comments Patient has significant improved. Pain is improved. No nausea fever chills. Tolerating diet. Is very interested in discharge as she says she has been in the hospital for too long. Family at bedside. Objective Last 24 Hour Vital Signs Date Time Temp Pulse Resp B/P (MAP) Pulse Ox O2 Delivery O2 Flow Rate FiO2 10/08/19 16:00 97.3 70 19 123/72 (89) 97 10/08/19 12:00 97.1 73 21 107/66 (80) 97 I&O Intake and Output 10/08/19 10/09/19 19:00 07:00 Intake Total 480 ml 240 ml Balance 480 ml 240 ml Intake Oral 480 ml 240 ml # Bowel Movements 1 1 Dressing: other Wound: other Drains: other Cardiovascular: RSR Respiratory: clear Abdomen: soft, flat, non-tender, present bowel sounds Extremities: edema, no tenderness, no cyanosis Plan Problems: (1) Closed right hip fracture Assessment & Plan: There is a severely comminuted fracture of the superior portion of the ileum primarily involving the right iliac crest with multiple bone fragments. The fracture extends into the right sacroiliac joint which is diastatic. There is a 3 mm bone fragment at the lower margin of the sacroiliac joint probably intra-articular ( e.g. #39/2 or e.g. #37/8). There is no involvement of the acetabulum. There is a moderate degree of soft tissue swelling both lateral and medial to the iliac fracture with lateral gluteal ill-definition and edema as well as medial soft tissue attenuation of fat which (likely due to blood) with edema/blood of a portion of the right piriformis muscle noted. No other fractures are identified. The right femoral neck and head appear normal without fracture or malalignment. No fracture of the sacrum or pubis identified. The bones are osteopenic. The visualized part of the lower lumbar spine appears intact. There is some hypertrophy of the facets and narrowing of the intervertebral discs. There is a Leigh catheter within the urinary bladder which is mostly nondistended. IMPRESSION: Severe, comminuted fracture of the right iliac crest and superior ilium with intra-articular extension into the right sacroiliac joint which is diastatic. Acetabulum and hip appear intact. Ortho input appreciated: At this point, this is a nonoperative fracture, should heal. She can begin physical therapy. Weightbearing as tolerated with a walker. She will have a significant discomfort initially until the fracture consolidates given that the adductor muscles are attached at that area. Therefore, she may have to be transferred to a skilled nursing until she is a little bit more safe to go home. She should get appropriate DVT prophylaxis (2) Collapse of left lung Assessment & Plan: Lungs: There is interval worsening with opacification of most of the left hemithorax and leftward mediastinal shift consistent with severe volume loss of the left lung. Pleural space: Unremarkable. No pneumothorax. Heart: Unremarkable. No cardiomegaly. Mediastinum: The trachea is deviated to the left. Bones/joints: Unremarkable. Vasculature: There is calcification of the aortic arch. IMPRESSION: Interval worsening with opacification of the left hemithorax and leftward mediastinal shift consistent with severe volume loss of the left lung. CT chest report pre arzola reviewed as well as images mass noted. shift noted no ptx. no large effusion do not recommend Chest tube placement at this time pulm input appreciated okay for anticoagulation from surgical standpoint thank you (3) Pelvic fracture Additional Comments Okay to discharge from surgical standpoint. Outpatient Ortho follow-up.Okay to DC from surgical standpoint. Of note this is a late entry for an examination done at bedside on October 08, 2019. Unfortunately I was called to the emergency department following to the operating room and was unable to complete the note at that time. Fan Owusu Oct 09, 2019 11:51
--- NOTE | 2019-10-12 12:26 | Discharge Summary ---
Discharge Summary Discharge Summary _ DATE OF ADMISSION: 09/25/2019 DATE OF DISCHARGE: 10/08/2019 DISCHARGED BY: Dr. Ayers REASON FOR ADMISSION: 69 years old female with past medical history of CVA with right-sided weakness, asthma, presented to emergency department after mechanical fall at home. Patient was unable to ambulate and complained of severe right leg pain. Patient also had a wheezing in emergency department . Upon evaluation blood pressure was elevated 174/81 , pulse oximetry was stable on room air . Laboratory work-up revealed leukocytosis with WBC 14.6, stable hemoglobin , hematocrit and platelet count. Stable electrolytes and renal parameters. Albumin 4.1. Urinalysis revealed no evidence of urinary tract infection. TSH within normal limits. EKG revealed normal sinus rhythm , no acute ischemic changes , right axis and nonspecific ST-T wave changes noted. Chest x-ray revealed possible mild pulmonary vascular congestion. X-ray of the right hip revealed acute fracture of the right ilium in the area of the iliac crest. Diastases of the right sacroiliac joint. In emergency department patient received nebulizing treatment with bronchodilator , medicated with analgesic, started on supplemental oxygen to keep pulse oximetry above 92% and admitted to the hospital for further management. CONSULTANTS: manager endoscopy Dr. Rabago pulmonary Dr. Limon ID specialist Dr. Cabezas Orthopedic surgery Dr. Galo General surgery Dr. Owusu [facility] HOSPITAL COURSE: Patient initially admitted to medical surgical floor and started on gentle IV hydration. CT scan of the right hip revealed severe, comminuted fracture of the right iliac crest and superior ilium with intra-articular extension into the right sacroiliac joint which was diastatic. Acetabulum and hip appeared intact. Orthopedic surgeon seen and evaluated patient. Per orthopedic surgery, no surgical intervention was required for this type of fracture. Surgeon cleared patient to start physical therapy with weightbearing as tolerated. Pain management was addressed. DVT prophylaxis provided. Supplemental oxygen provided and titrated to keep pulse oximetry above 92%. Pulmonary toilet with bronchodilator provided. Patient remained afebrile. Leukocytosis was trending down. Patient later developed atrial fibrillation with rapid ventricular response and was transferred to ICU. Patient received metoprolol IV for rate control. Patient initially responded to metoprolol IV , but then became tachycardic with heart rate above 200 . Patient started on Cardizem drip , which later discontinued, and patient was on amiodarone drip . Amiodarone was changed to oral route, dose decreased. Patient was off beta-lizeth given history of asthma and bronchospasm. Heart rate was controlled. Patient converted and remained in sinus rhythm. Patient was on anticoagulation with Eliquis. Rate was controlled with Amiodarone. Chest x-ray revealed worsening with opacification of the left hemithorax and left padgett mediastinal shift consistent with severe volume loss of the left lung . ABG revealed evidence of hypercapnia. Patient started on the BiPAP. Patient was followed -up with ABG. Venous duplex bilateral lower extremity revealed no evidence of acute DVT. Patient had a positional therapy and chest physical therapy. CT chest done on 09/28 revealed left lung volume loss with shift of mediastinal structures to the left. Diffuse infiltrates throughout the left lung, likely representing atelectasis, however pneumonia could not be excluded. Patchy alveolar infiltrate throughout the right lower lobe , consistent with pneumonia. 3 cm soft tissue density in the left infrahilar region , suspicious for neoplasm , however difficult to visualize due to surrounding infiltrate. Follow-up study recommended for further evaluation. Surgeon seen and evaluated patient. Per surgeon no need for chest tube. Patient started on empiric antibiotic for possible pneumonia. Sputum culture was negative . Blood cultures were negative. Influenza swab was negative. Patient completed treatment for pneumonia while in the hospital. Echocardiogram revealed ejection fraction of 60% with mild left ventricular hypertrophy. No evidence of pericardial effusion. No evidence of wall motion abnormality. Right ventricular systolic pressure of 48 consistent with moderate pulmonary hypertension. Lipid panel was stable. Patient was able to be weaned from the BiPAP Supplemental oxygen titrated to keep pulse oximetry above 92%. Pulmonary toilet provided. Follow-up chest x-ray revealed some improvement. DVT prophylaxis provided. Follow up CT of the chest demonstrated markedly improved left lung aeration with decreased atelectasis and consolidation. Residual area of atelectasis was present and residual area of ground-glass opacity, possibly reflecting ongoing inflammation or edema. Persistent left infrahilar soft tissue opacity , may reflect residual atelectasis, pneumonia , but could also represent a mass lesion. Follow-up with a CT in 3 months. Incentive spirometry was encouraged while in the bed. Patient was working with physical therapist. Fall precaution maintained. Pain management was addressed as needed. Supportive care provided. Placement was found and secured at [facility]. Patient was stable for transfer and continuation of care. FINAL DIAGNOSES: Acute hypoxemic respiratory failure requiring BiPAP resolved Left lung collapse with mediastinal shift-resolved Recurrent atrial fibrillation with rapid ventricular response Sepsis Probably pneumonia Pelvic fracture secondary to mechanical fall Asthma History of CVA with right-sided weakness Hypertension Moderate pulmonary hypertension DISCHARGE MEDICATIONS: See Medication Reconciliation list. DISCHARGE INSTRUCTIONS: Patient was discharged to the senior living facility. Follow up with medical doctor at the facility. I have been assigned to dictate discharge summary for this account. I was not involved in the patient's management. Jessica Jauregui NP Oct 12, 2019 12:26
--- NOTE | 2019-10-20 18:21 | Coder Physician Query ---
Clarification is required for compliance, coding accuracy, and to reflect severity of illness for this patient Dear Dr. EDOUARD Date: 10/20/2019 [employer]ER [employer] ARCHITECT: LIEN [employer]TER "Sepsis" QUERY: Upon evaluation blood pressure was elevated 174/81 , pulse oximetry was stable on room air . On admission: Laboratory work-up revealed leukocytosis with WBC 14.6 FINAL DIAGNOSES: Acute hypoxemic respiratory failure requiring BiPAP resolved Left lung collapse with mediastinal shift-resolved Recurrent atrial fibrillation with rapid ventricular response Sepsis Probably pneumonia Pelvic fracture secondary to mechanical fall Patient started on empiric antibiotic for possible pneumonia. Sputum culture was negative . Blood cultures were negative. Influenza swab was negative. Patient completed treatment for pneumonia while in the hospital. A diagnosis of SEPSIS was made in the medical record in the Discharge summary. Upon review, it is difficult to determine whether this diagnosis has been ruled in, ruled out,or is still being worked up. Please indicate below the status of the aforementioned diagnosis. [ ] Treated and resolve [x ] Presumed and treated [ ] Currently under treatment [ ] Still being worked-up [ ] Ruled out Was SEPSIS present on admission? [x] Yes [] No [] Clinically undeterminable CHACE EDOUARD M.D. DATE & TIME [facility]
== END 2019-10-08 19:50 | DRG 535 ==
LOC: EDBD 20:40 → EMR 20:55 → 3E 21:39 → EDBEDREQ 22:03 → ICU 09-28 05:13 → 2W 10-03 06:45 → 3E 10-06 22:09
PROC: 5A09357 Assistance with Respiratory Ventilation, Less than 24 Consecutive Hours, Continuous Positive Airway Pressure (ICD-10-PCS; principal; 2019-09-28)
DX: S32.391A Other fracture of right ilium, initial encounter for closed fracture (principal); J18.9 Pneumonia, unspecified organism; J96.01 Acute respiratory failure with hypoxia; A41.9 Sepsis, unspecified organism; I69.351 Hemiplegia and hemiparesis following cerebral infarction affecting right dominant side; J98.19 Other pulmonary collapse; J98.01 Acute bronchospasm; J45.909 Unspecified asthma, uncomplicated; W01.0XXA Fall on same level from slipping, tripping and stumbling without subsequent striking against object, initial encounter; I27.20 Pulmonary hypertension, unspecified; I48.0 Paroxysmal atrial fibrillation; R91.8 Other nonspecific abnormal finding of lung field
CPT/HCPCS: 36415; 36600; 71045; 71250; 71260; 80048; 80053; 80061; 80202; 81001; 82803; 83605; 83735; 83880; 84100; 84443; 84484; 85007; 85025; 85610; 85730; 86710; 86850; 86900; 86901; 87040; 87070; 87205; 93005; 93306; 93970; 94640; 94660; 96360; 96361; 96372; 99285; J2405; J7620; J8499